=== PATIENT | female | born 1985 | race Caucasian/White ===

== ENCOUNTER 2016-04-25 10:07 | Emergency (ER) | payer OTHER ==
--- NOTE | 2016-04-25 10:59 | ED ---
URI HPI - General Chief Complaint: Upper Respiratory Infection Stated Complaint: SICK, COUGHING Time Seen by Provider: 04/25/16 10:54 Source: patient, RN notes reviewed Mode of arrival: ambulatory Limitations: no limitations - History of Present Illness Initial Comments: 30-year-old female presents emergency Department with chief complaint of cough and congestion times one week. Patient states child a slight runny nose states that she has a severe cough now. She states she's been trying multiple over-the -counter medications with no relief. Patient states that she has a history of aspiration pneumonia secondary to achalasia. Patient denies any fever, chills. Patient states her chest is very tight and states that she has required multiple breathing treatments in the past. Patient is a daily smoker. - Related Data Home Medications Medication Instructions Recorded Confirmed Beclomethasone Dipropionate [Qvar 1 puff INHALATION RT-BID PRN 09/23/15 04/25/16 40 mcg] Omeprazole [PriLOSEC] 20 mg PO BID PRN 09/23/15 04/25/16 Pregabalin [Lyrica] 75 mg PO BID 09/23/15 04/25/16 Baclofen [Lioresal] 10 mg PO BID 04/25/16 04/25/16 HYDROcodone/APAP 7.5-325MG [[place] 1 tab PO Q6H PRN 04/25/16 04/25/16 7.5-325] Previous Rx's Medication Instructions Recorded Albuterol Nebulized [Ventolin 2.5 mg INHALATION Q4H PRN #25 nebu 04/25/16 Nebulized] Levofloxacin [Levaquin] 500 mg PO DAILY #10 tab 04/25/16 Promethaz-Cod 6.25-10 mg/5 ml 5 ml PO Q6HR PRN #120 ml 04/25/16 [Phenergan with Codeine] methylPREDNISolone [Medrol Dose 4 mg PO DIRECTED #1 pack 04/25/16 Pack] Allergies Allergy/AdvReac Type Severity Reaction Status Date / Time NSAIDS (Non-Steroidal Allergy Dyspnea Verified 04/25/16 11:19 Anti-Inflamma Sulfa (Sulfonamide Allergy Rash/Hives Verified 04/25/16 11:19 Antibiotics) Review of Systems ROS Statement: Those systems with pertinent positive or pertinent negative responses have been documented in the HPI. ROS Other: All systems not noted in ROS Statement are negative. Past Medical History Past Medical History: Fibromyalgia Additional Past Medical History / Comment(s): hypoglycemia, cyst on kidney, DJD , carpel tunnel, PT STATED HAS"ACHALASIA" History of Any Multi-Drug Resistant Organisms: None Reported Past Surgical History: Appendectomy, Section, Orthopedic Surgery, Tubal Ligation Additional Past Surgical History / Comment(s): c section x 3, EGD. Past Anesthesia/Blood Transfusion Reactions: Motion Sickness Past Psychological History: ADD/ADHD, Anxiety, Bipolar, Depression, PTSD Additional Psychological History / Comment(s): History of paranoia. Patient is currently open with [facility]. PT STAED OCC DEPRESSION ,NO THOUGHTS OF HARMING SELF,NO SUICIDAL IDEATIONS. Smoking Status: Current every day smoker Past Alcohol Use History: Occasional Additional Past Alcohol Use History / Comment(s): Patient is a smoker of a half a pack of cigarettes per day for 12 years. She states she occasionally uses marijuana. She denies any street drug use. She states she also occasionally uses alcohol. Past Drug Use History: Marijuana Additional Drug Use History / Comment(s): Infrequent, occasional use. - Past Family History Father Family Medical History: Hyperlipidemia, Hypertension Mother Family Medical History: Fibromyalgia Additional Family Medical History / Comment(s): HIATAL HERNIA OSTEOPSORIS, DDD General Exam Limitations: no limitations General appearance: alert, in no apparent distress Head exam: Present: atraumatic, normocephalic, normal inspection Eye exam: Present: normal appearance, PERRL, EOMI. Absent: scleral icterus, conjunctival injection, periorbital swelling ENT exam: Present: normal exam, normal oropharynx, mucous membranes moist, TM's normal bilaterally, normal external ear exam Neck exam: Present: normal inspection, full ROM. Absent: tenderness, meningismus, lymphadenopathy Respiratory exam: Present: wheezes. Absent: normal lung sounds bilaterally, respiratory distress, rales, rhonchi, stridor, accessory muscle use Cardiovascular Exam: Present: regular rate, normal rhythm, normal heart sounds. Absent: systolic murmur, diastolic murmur, rubs, gallop, clicks Course Vital Signs 04/25/16 04/25/16 04/25/16 10:41 11:25 11:43 Temperature 98.8 F Pulse Rate 80 76 88 Respiratory 16 Rate Blood Pressure 132/78 O2 Sat by Pulse 94 L Oximetry Medical Decision Making - Medical Decision Making 30-year-old female presented for cough congestion. Patient is just the much improved after breathing treatment. Patient still has some wheezing. I offered another breathing treatment though she states that she can do it at home. She states she does feel can't what this time going home chest x-ray show no acute abnormality. Return parameters were discussed. Patient was going to be discharged with azithromycin though she states that she took one within 3 weeks ago and which are and [employer] not cover another one. Patient will be given Levaquin at this time. Disposition Clinical Impression: Acute bronchitis with bronchospasm, History of aspiration pneumonia Disposition: HOME SELF-CARE Condition: Stable Instructions: Acute Bronchitis (ED) Additional Instructions: Please return to the Emergency Department if symptoms worsen or any other concerns. Prescriptions: Albuterol Nebulized [Ventolin Nebulized] 2.5 mg INHALATION Q4H PRN #25 nebu PRN Reason: difficulty in breathing Levofloxacin [Levaquin] 500 mg PO DAILY #10 tab Promethaz-Cod 6.25-10 mg/5 ml [Phenergan with Codeine] 5 ml PO Q6HR PRN #120 ml PRN Reason: Cough methylPREDNISolone [Medrol Dose Pack] 4 mg PO DIRECTED #1 pack Time of Disposition: 12:18
[2016-04-25] MEDS: IPRATROPIUM-ALBUTEROL 3 ML NEB INHALATION STA (11:25)
--- NOTE | 2016-04-25 12:01 | XR ---
EXAMINATION TYPE: XR chest 2V DATE OF EXAM: 04/25/2016 11:56 AM HISTORY: Cough and fever. REFERENCE: Previous study dated 10/03/2015. FINDINGS: The lungs are clear.. Pleural spaces are clear. Heart size is normal. IMPRESSION: NO ACUTE INTRATHORACIC ABNORMALITY.
[2016-04-25] MEDS: methylPREDNISolone SOD SUCCI 125 MG/2 ML VIAL IM ONE (12:25)
[2016-04-25] MEDS: LEVOFLOXACIN 500 MG TAB PO STA (12:25)
[2016-04-25 12:34] VITALS: BP 129/68; PULSE 87; RESP 18; TEMP 98.3
== END 2016-04-25 12:30 | disposition home or self-care (01) ==
LOC: EC 10:07
DX: J20.9 Acute bronchitis, unspecified (principal); Z87.01 Personal history of pneumonia (recurrent); F17.210 Nicotine dependence, cigarettes, uncomplicated; F12.90 Cannabis use, unspecified, uncomplicated; Z88.2 Allergy status to sulfonamides; Z88.8 Allergy status to other drugs, medicaments and biological substances; Z79.899 Other long term (current) drug therapy; M79.7 Fibromyalgia
CPT/HCPCS: 99283; 96372; 71020; J2930

== ENCOUNTER 2016-08-24 14:47 | Emergency (ER) | payer OTHER ==
[2016-08-24 14:59] VITALS: RESP 16; TEMP 99
[2016-08-24] MEDS ORDERED: PANTOPRAZOLE 40 MG/10 ML VIAL IVP STA (15:41)
[2016-08-24] MEDS ORDERED: ONDANSETRON 4 MG/2 ML VIAL IVP STA (15:41)
[2016-08-24] MEDS ORDERED: HYDROmorphone 1 MG/ML 1 ML SYRINGE IVP STA ×2 (15:41→18:24)
[2016-08-24] MEDS ORDERED: SODIUM CHLORIDE 0.9% 1,000 ML IV STA ×2 (15:41)
--- NOTE | 2016-08-24 15:45 | ED ---
General Adult HPI - General Chief complaint: Abdominal Pain Stated complaint: Abd Pain Time Seen by Provider: 08/24/16 15:25 Source: patient, RN notes reviewed, old records reviewed Mode of arrival: ambulatory Limitations: no limitations - History of Present Illness Initial comments: Chief complaint and history of present illness a 31-year-old female with a complaint of right upper quadrant pain getting worse for the past week. Increases with eating food. She also has had darker urine. Discomfort radiates around to the right flank area. - Related Data Home Medications Medication Instructions Recorded Confirmed HYDROcodone/APAP 7.5-325MG [[place] 1 tab PO TID PRN 04/25/16 08/24/16 7.5-325] Baclofen [Lioresal] 20 mg PO TID 08/24/16 08/24/16 DULoxetine HCL [Cymbalta] 30 mg PO HS 08/24/16 08/24/16 DULoxetine HCL [Cymbalta] 60 mg PO HS 08/24/16 08/24/16 Ketorolac [Toradol] 10 mg PO Q6HR PRN 08/24/16 08/24/16 Previous Rx's Medication Instructions Recorded Ondansetron Odt [Zofran ODT] 4 mg PO Q8HR PRN #10 tab 08/24/16 Allergies Allergy/AdvReac Type Severity Reaction Status Date / Time NSAIDS (Non-Steroidal Allergy Dyspnea Verified 08/24/16 15:23 Anti-Inflamma Sulfa (Sulfonamide Allergy Rash/Hives Verified 08/24/16 15:23 Antibiotics) Review of Systems ROS Statement: Those systems with pertinent positive or pertinent negative responses have been documented in the HPI. Review of systems. No visual acuity changes or headache no chest pain or shortness of breath. Patient is right upper quadrant discomfort that radiates from the right flank area. Pain gets worse with eating foods. She's had nausea and vomiting no diarrhea. She notes that her urine has gotten darker in color. Stool has not changed in color. No neuro deficits all systems are reviewed. Past medical problems significant for fibromyalgia, achalasia, hypoglycemia, kidney cysts. Patient surgeries include appendectomy, 3 C-sections, tubal ligation, and EGD. The patient had surgery to correct the achalasia. Patient smokes strongly encouraged to stop she does drink alcohol. Patient denies any significant family medical problems. She is chronic DJD and on [place] daily. Other medical problems include ADHD anxiety bipolar disorder and PTSD. ROS Other: All systems not noted in ROS Statement are negative. Past Medical History Past Medical History: Fibromyalgia Additional Past Medical History / Comment(s): hypoglycemia, cyst on kidney, DJD , carpel tunnel, PT STATED HAS"ACHALASIA" History of Any Multi-Drug Resistant Organisms: None Reported Past Surgical History: Appendectomy, Section, Orthopedic Surgery, Tubal Ligation Additional Past Surgical History / Comment(s): c section x 3, EGD. Past Anesthesia/Blood Transfusion Reactions: Motion Sickness Past Psychological History: ADD/ADHD, Anxiety, Bipolar, Depression, PTSD Additional Psychological History / Comment(s): History of paranoia. Patient is currently open with [facility]. PT STAED OCC DEPRESSION ,NO THOUGHTS OF HARMING SELF,NO SUICIDAL IDEATIONS. Smoking Status: Current every day smoker Past Alcohol Use History: Occasional Additional Past Alcohol Use History / Comment(s): Patient is a smoker of a half a pack of cigarettes per day for 12 years. She states she occasionally uses marijuana. She denies any street drug use. She states she also occasionally uses alcohol. Past Drug Use History: Marijuana Additional Drug Use History / Comment(s): Infrequent, occasional use. - Past Family History Father Family Medical History: Hyperlipidemia, Hypertension Mother Family Medical History: Fibromyalgia Additional Family Medical History / Comment(s): HIATAL HERNIA OSTEOPSORIS, DDD General Exam - General Exam Comments Initial Comments: General: The patient is awake and alert, complaining of right upper quadrant pain. Nausea vomiting at times. Vital signs shows temperature 99.0 pulse 86 respiratory rate 16 pulse ox 99% room air blood pressure 146/86 Eye: Pupils are equal, round and reactive to light, extra-ocular movements are intact ; there is normal conjunctiva bilaterally. No signs of icterus. Ears, nose, mouth and throat: There are moist mucous membranes and no oral lesions. Neck: The neck is supple, there is no tenderness , no anterior cervical lymphadenopathy, thyroid not enlarged. Cardiovascular: There is a regular rate and rhythm. No murmur, rub or gallop is appreciated. Respiratory: Lungs are clear to auscultation, respirations are non-labored, breath sounds are equal. No wheezes, stridor, rales, or rhonchi. Gastrointestinal: Tenderness to deep palpation right upper quadrant with positive Manrique sign. No organomegaly appreciated no rashes noted. Normal active bowel sounds. Back: There is no tenderness to palpation in the midline. There is no obvious deformity. No rashes noted. Musculoskeletal: Normal ROM, no tenderness, There is no pedal edema. There is no calf tenderness or swelling. Sensation intact. Pulses equal bilaterally 2+. Neurological: CN II-XII intact, There are no obvious motor or sensory deficits. Coordination appears grossly intact. Speech is normal. Skin: Skin is warm and dry and no rashes or lesions are noted. Patient does have several tattoos. Psychiatric: No complaints of depression or suicidal thoughts this time. She does have history of bipolar disorder and PTSD. Limitations: no limitations Course Vital Signs 08/24/16 14:55 Temperature 99.0 F Pulse Rate 86 Respiratory 16 Rate Blood Pressure 146/86 O2 Sat by Pulse 99 Oximetry Medical Decision Making - Medical Decision Making Medical decision making; patient's white count is 9.3 hemoglobin 13 hematocrit of 40, potassium is 3.9, BUN 10 creatinine 0.7 with a GFR greater than 60. Glucose 83. Amylase lipase normal limits. Total bilirubin normal at 0.4 and liver enzymes are all normal. Urine clean no signs of infection. X-ray of the abdomen was done and reviewed by radiologist's his final impression is nonspecific abdomen. As read by Dr. Waller Patient had an ultrasound of the right upper quadrant. And his final impression would be unremarkable sonographic examination of the right upper quadrant. As read by Dr. Zuñiga At this time the patient be discharged home told not eating any greasy or fatty foods. HIDA scan will be ordered for evaluation of a nonfunctioning or poorly functioning gallbladder, patient advised to follow-up with her family physician. Patient is stable from greasy fatty foods. Use Zofran for nausea and advance diet. - Lab Data Result diagrams: 08/24/16 16:00 08/24/16 16:00 Lab Results 08/24/16 08/24/16 08/24/16 Range/Units 16:00 16:00 16:00 WBC 9.3 (3.8-10.6) k/uL RBC 4.42 (3.80-5.40) m/uL Hgb 13.2 (11.4-16.0) gm/dL Hct 40.4 (34.0-46.0) % MCV 91.4 (80.0-100.0) fL MCH 29.8 (25.0-35.0) pg MCHC 32.6 (31.0-37.0) g/dL RDW 14.2 (11.5-15.5) % Plt Count 254 (150-450) k/uL Neutrophils % 66 % Lymphocytes % 23 % Monocytes % 4 % Eosinophils % 4 % Basophils % 1 % Neutrophils # 6.1 (1.3-7.7) k/uL Lymphocytes # 2.2 (1.0-4.8) k/uL Monocytes # 0.4 (0-1.0) k/uL Eosinophils # 0.3 (0-0.7) k/uL Basophils # 0.1 (0-0.2) k/uL Sodium 140 (137-145) mmol/L Potassium 3.9 (3.5-5.1) mmol/L Chloride 107 (98-107) mmol/L Carbon Dioxide 25 (22-30) mmol/L Anion Gap 8 mmol/L BUN 10 (7-17) mg/dL Creatinine 0.71 (0.52-1.04) mg/dL Est GFR (MDRD) Af Amer >60 (>60 ml/min/1.73 sqM) Est GFR (MDRD) Non-Af >60 (>60 ml/min/1.73 sqM) Glucose 83 (74-99) mg/dL Calcium 9.1 (8.4-10.2) mg/dL Total Bilirubin 0.4 (0.2-1.3) mg/dL AST 19 (14-36) U/L ALT 19 (9-52) U/L Alkaline Phosphatase 68 (38-126) U/L Total Protein 6.6 (6.3-8.2) g/dL Albumin 3.7 (3.5-5.0) g/dL Amylase 46 (30-110) U/L Lipase 29 (23-300) U/L Urine Color Yellow Urine Appearance Cloudy H (Clear) Urine pH 5.5 (5.0-8.0) Ur Specific [place] 1.022 (1.001-1.035) Urine Protein Trace H (Negative) Urine Glucose (UA) Negative (Negative) Urine Ketones Negative (Negative) Urine Blood Negative (Negative) Urine Nitrite Negative (Negative) Urine Bilirubin Negative (Negative) Urine Urobilinogen 3.0 (<2.0) mg/dL Ur Leukocyte Esterase Negative (Negative) Urine RBC 2 (0-5) /hpf Urine WBC 1 (0-5) /hpf Ur Squamous Epith Cells 7 H (0-4) /hpf Urine Bacteria Few H (None) /hpf Urine Mucus Many H (None) /hpf Disposition Clinical Impression: Biliary colic symptom Disposition: HOME SELF-CARE Condition: Fair Instructions: Abdominal Pain (ED), Biliary Colic (ED) Additional Instructions: Stay away from greasy fatty foods. Call and make an appointment to have a HIDA scan of the gallbladder and follow-up with her family physician. Use Zofran for nausea. Continue with pain medications as directed Prescriptions: Ondansetron Odt [Zofran ODT] 4 mg PO Q8HR PRN #10 tab PRN Reason: Nausea Referrals: Jun Hermosillo MD [Primary Care Provider] - 1-2 days Time of Disposition: 18:17
[2016-08-24] MEDS ORDERED: METOCLOPRAMIDE 5 MG/ML 2 ML VIAL IVP STA (15:56)
[2016-08-24 16:16] LABS: Basophils # (A) 0.1 k/uL (0-0.2); Basophils % (A) 1 %; CH 29.5; CHCM 32.4; Eosinophils # (A) 0.3 k/uL (0-0.7); Eosinophils % (A) 4 %; HCT 40.4 % (34.0-46.0); HDW 2.54; HGB 13.2 gm/dL (11.4-16.0); Luc # (Auto) 0.23; Luc % (Auto) 3; Lymphocytes # (A) 2.2 k/uL (1.0-4.8); Lymphocytes % (A) 23 %; MCH 29.8 pg (25.0-35.0); MCHC 32.6 g/dL (31.0-37.0); MCV 91.4 fL (80.0-100.0); Mean Platelet Volume 7.8; Monocytes # (A) 0.4 k/uL (0-1.0); Monocytes % (A) 4 %; Neutrophils # (A) 6.1 k/uL (1.3-7.7); Neutrophils % (A) 66 %; RBC 4.42 m/uL (3.80-5.40); RDW 14.2 % (11.5-15.5); WBC 9.3 k/uL (3.8-10.6)
[2016-08-24 16:26] LABS: ALT 19 U/L (9-52); AST 19 U/L (14-36); Alkaline Phosphatase 68 U/L (38-126); Amylase 46 U/L (30-110); Anion Gap 8 mmol/L; Blood Urea Nitrogen 10 mg/dL (7-17); Calcium 9.1 mg/dL (8.4-10.2); Carbon Dioxide 25 mmol/L (22-30); Chloride 107 mmol/L (98-107); Glucose 83 mg/dL (74-99); Non-African American GFR(MDRD) >60 (>60 ml/min/1.73 sqM); Potassium 3.9 mmol/L (3.5-5.1); Sodium 140 mmol/L (137-145); Total Bilirubin 0.4 mg/dL (0.2-1.3); Total Protein 6.6 g/dL (6.3-8.2)
[2016-08-24 16:27] LABS: Appearance,Urine Cloudy (Clear); Bacteria,Urine Few /hpf; Bilirubin,Urine Negative (Negative); Glucose,Urine (UA) Negative (Negative); Ketones,Urine Negative (Negative); Leukocyte Esterase,Urine Negative (Negative); Mucus,Urine Many /hpf; Nitrite,Urine Negative (Negative); PH, Urine 5.5 (5.0-8.0); Particle Count 10296; Protein,Urine Trace (Negative); RBC,Urine 2 /hpf (0-5); Specific Gravity,Urine 1.022 (1.001-1.035); Squamous Epithelial Cell,Urine 7 /hpf (0-4); UA Billing (MACRO vs. MICRO) MICRO; WBC,Urine 1 /hpf (0-5)
--- NOTE | 2016-08-24 17:07 | XR ---
EXAMINATION TYPE: XR abdomen 2V DATE OF EXAM: 08/24/2016 4:27 PM COMPARISON: NONE INDICATION: Epigastric pain nausea vomiting diarrhea TECHNIQUE: Supine and upright views abdomen FINDINGS: Nonspecific bowel gas is present. Small amount of Air appears to be within the colon. No suspicious a ir-fluid levels or differential air-fluid levels are present. No free air is present. Psoas margins are faintly visualized. No organomegaly is present. IMPRESSION: 1. Nonspecific abdomen.
--- NOTE | 2016-08-24 17:23 | US ---
EXAMINATION TYPE: US abdomen limited DATE OF EXAM: 08/24/2016 5:08 PM COMPARISON: 09/23/2015 CLINICAL HISTORY: 31-year-old female with right upper quadrant pain. Technique: Multiple sonographic images of the right upper quadrant are obtained. FINDINGS: Liver Length: 13.6 cm Gallbladder Wall: 0.2 cm CBD: 4.9 mm, within normal limits. Right Kidney: 10.4 x 3.7 x 5.6 cm Pancreas: Slightly limited visualization of the pancreatic tail. The remainder appears within normal limits. Liver: Normal homogeneous echotexture without focal lesion. Gallbladder: No abnormal distention, wall thickening, pericholecystic fluid, or shadowing calculi. Evidence for sonographic Manrique's sign: no CBD: wnl Right Kidney: No hydronephrosis IMPRESSION: Unremarkable sonographic examination of the right upper quadrant.
[2016-08-24 18:50] VITALS: BP 162/91; PULSE 83
== END 2016-08-24 18:48 | disposition home or self-care (01) ==
LOC: EC 14:47
DX: R10.11 Right upper quadrant pain (principal); R11.0 Nausea; M79.7 Fibromyalgia; F41.9 Anxiety disorder, unspecified; F31.9 Bipolar disorder, unspecified; F17.210 Nicotine dependence, cigarettes, uncomplicated; Z79.899 Other long term (current) drug therapy; Z88.6 Allergy status to analgesic agent; Z88.2 Allergy status to sulfonamides; Z87.19 Personal history of other diseases of the digestive system; Z90.49 Acquired absence of other specified parts of digestive tract
CPT/HCPCS: 99285; 96374; 96375 ×2; 96376; 36415; 80053; 82150; 83690; 85025; 81001; 87086; 74020; 76705; J2765; J1170; C9113

== ENCOUNTER 2016-11-04 21:09 | Emergency (ER) | payer OTHER ==
[2016-11-04 21:14] VITALS: TEMP 98.2
[2016-11-04] MEDS ORDERED: HYDROcodone/APAP 5-325MG 1 EACH TAB PO STA (21:20)
--- NOTE | 2016-11-04 21:26 | ED ---
Wound/Laceration HPI - General Chief Complaint: Wound/Laceration Stated Complaint: finger injury Time Seen by Provider: 11/04/16 21:15 Source: patient Mode of arrival: ambulatory Limitations: no limitations - History of Present Illness Initial Comments: 31-year-old female patient presented to emergency department today for evaluation of right finger and hand injury. 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 She states that the dog drug her, she did fall forward the leash caught on her hand, and it caused an injury to the right hand, right fourth finger, and right fifth finger. Patient states that she did also sustain some bruises to her leg, but denies any other injuries. She denies hitting her head or losing consciousness. She denies any headache, neck pain, back pain, chest pain, shortness of breath, abdominal pain , nausea, or vomiting. Patient's last tetanus shot was in October 2012. - Related Data Home Medications Medication Instructions Recorded Confirmed HYDROcodone/APAP 7.5-325MG [[place] 1 tab PO TID PRN 04/25/16 08/24/16 7.5-325] Baclofen [Lioresal] 20 mg PO TID 08/24/16 08/24/16 DULoxetine HCL [Cymbalta] 30 mg PO HS 08/24/16 08/24/16 DULoxetine HCL [Cymbalta] 60 mg PO HS 08/24/16 08/24/16 Ketorolac [Toradol] 10 mg PO Q6HR PRN 08/24/16 08/24/16 Previous Rx's Medication Instructions Recorded Metoclopramide HCl [Reglan] 5 mg PO Q8H #10 tablet 08/24/16 Ondansetron Odt [Zofran ODT] 4 mg PO Q8HR PRN #10 tab 08/24/16 Allergies Allergy/AdvReac Type Severity Reaction Status Date / Time NSAIDS (Non-Steroidal Allergy Dyspnea Verified 11/04/16 21:14 Anti-Inflamma Sulfa (Sulfonamide Allergy Rash/Hives Verified 11/04/16 21:14 Antibiotics) Review of Systems ROS Statement: Those systems with pertinent positive or pertinent negative responses have been documented in the HPI. ROS Other: All systems not noted in ROS Statement are negative. Past Medical History Past Medical History: Fibromyalgia Additional Past Medical History / Comment(s): hypoglycemia, cyst on kidney, DJD , carpel tunnel, PT STATED HAS"ACHALASIA" History of Any Multi-Drug Resistant Organisms: None Reported Past Surgical History: Appendectomy, Section, Orthopedic Surgery, Tubal Ligation Additional Past Surgical History / Comment(s): c section x 3, EGD. Past Anesthesia/Blood Transfusion Reactions: Motion Sickness Past Psychological History: ADD/ADHD, Anxiety, Bipolar, Depression, PTSD Smoking Status: Current every day smoker Past Alcohol Use History: Occasional Past Drug Use History: Marijuana - Past Family History Father Family Medical History: Hyperlipidemia, Hypertension Mother Family Medical History: Fibromyalgia Additional Family Medical History / Comment(s): HIATAL HERNIA OSTEOPSORIS, DDD General Exam Limitations: no limitations General appearance: alert, in no apparent distress Head exam: Present: atraumatic, normocephalic, normal inspection Eye exam: Present: normal appearance, PERRL, EOMI. Absent: scleral icterus, conjunctival injection, periorbital swelling ENT exam: Present: normal exam, mucous membranes moist Neck exam: Present: normal inspection, full ROM. Absent: tenderness, meningismus, lymphadenopathy Respiratory exam: Present: normal lung sounds bilaterally. Absent: respiratory distress, wheezes, rales, rhonchi, stridor Cardiovascular Exam: Present: regular rate, normal rhythm, normal heart sounds. Absent: systolic murmur, diastolic murmur, rubs, gallop, clicks GI/Abdominal exam: Present: soft, normal bowel sounds. Absent: distended, tenderness, guarding, rebound, rigid Extremities exam: Absent: normal inspection (Small area of bruising noted to the left anterior thigh, small area of bruising noted to the volar aspect of the right forearm. Swelling and laceration noted to the palmar aspect of the distal right fourth finger.) Back exam: Present: normal inspection Neurological exam: Present: alert, oriented X3, CN II-XII intact Psychiatric exam: Present: normal affect, normal mood Skin exam: Present: warm, dry, intact, normal color. Absent: rash Course Vital Signs 11/04/16 21:11 Temperature 98.2 F Pulse Rate 107 H Respiratory 22 Rate Blood Pressure 185/108 O2 Sat by Pulse 100 Oximetry Procedures - Laceration Laceration #1 Consent Obtained: verbal consent Time Out Performed: Yes Indication: laceration Site: other (right ring finger) Description: flap, irregular, clean Depth: simple, single layer Anesthetic Used: lidocaine 1% Anesthesia Technique: local infiltration Amount (mls): 3 Pre-repair: wound explored, irrigated extensively Type of Sutures: nylon Size of Sutures: 5-0 Technique: simple, interrupted Complications: pain Patient Tolerated Procedure: well, no complications Medical Decision Making - Medical Decision Making History of female patient presents to emergency department today for evaluation of right hand and finger injury after a fall. She denied any other injuries and physical exam was unremarkable other than her hand and finger. X-ray of the hand and fingers revealed no acute osseous abnormalities. Laceration to the right fourth finger was repaired. Patient did not require tetanus shot. Patient will be discharged home with instructions on wound care and suture care. Patient instructed to follow-up with orthopedics of her symptoms don't improve over the next 7-10 days. Patient also instructed to follow-up for recheck in one to 2 days with her primary care doctor. Patient instructed to return for any new, worsening, or concerning symptoms. Patient verbalizes understanding and agrees with this plan. - Radiology Data Radiology results: report reviewed, image reviewed Three-view x-ray of the right hand reveals no fracture nor dislocation. Joint spaces are normal. There is some laceration deformity at the tip of the ring finger. Impression by Dr. Hartmann reveals soft tissue deformity. No fracture seen. Disposition Clinical Impression: Finger laceration, Hand sprain Disposition: HOME SELF-CARE Condition: Good Instructions: Care For Your Stitches (ED), Laceration (ED), Hand Sprain (ED) Additional Instructions: Return for suture removal in 7 days. Use Sunil wrap for comfort. Wear finger splint for protection. Follow-up with primary care physician one to 2 days for recheck. Return for any new, worsening, or concerning symptoms. Referrals: Jun Hermosillo MD [Primary Care Provider] - 1-2 days Frederick Bell DO [Doctor of Osteopathic Medicine] - 1-2 days Time of Disposition: 22:36
--- NOTE | 2016-11-04 21:41 | XR ---
EXAMINATION TYPE: XR hand complete RT DATE OF EXAM: 11/04/2016 COMPARISON: NONE HISTORY: Pain and injury TECHNIQUE: 3 views FINDINGS: I see no fracture nor dislocation. Joint spaces are normal. There is some laceration deform ity at the tip of the ring finger. IMPRESSION: Soft tissue deformity. No fracture seen.
[2016-11-04 22:46] VITALS: BP 145/90; PULSE 80; RESP 18
== END 2016-11-04 22:46 | disposition home or self-care (01) ==
LOC: EC 21:09
DX: S61.214A Laceration without foreign body of right ring finger without damage to nail, initial encounter (principal); S63.91XA Sprain of unspecified part of right wrist and hand, initial encounter; F32.9 Major depressive disorder, single episode, unspecified; M79.7 Fibromyalgia; F17.200 Nicotine dependence, unspecified, uncomplicated; F41.9 Anxiety disorder, unspecified; Z79.899 Other long term (current) drug therapy; Z88.2 Allergy status to sulfonamides; Z88.6 Allergy status to analgesic agent; W26.8XXA Contact with other sharp object(s), not elsewhere classified, initial encounter; W18.39XA Other fall on same level, initial encounter; Y93.K1 Activity, walking an animal; Y92.89 Other specified places as the place of occurrence of the external cause
CPT/HCPCS: 12001; 99283

== ENCOUNTER 2017-08-26 04:24 | Emergency (ER) | payer OTHER ==
[2017-08-26 04:40] VITALS: RESP 18
--- NOTE | 2017-08-26 05:03 | ED ---
General Adult HPI - General Chief complaint: Psychiatric Symptoms Stated complaint: Mental health Time Seen by Provider: 08/26/17 04:52 Source: patient, EMS, RN notes reviewed, old records reviewed Mode of arrival: EMS Limitations: no limitations - History of Present Illness Initial comments: This is a 32-year-old female the ER for evaluation of psychiatric illness. Patient has known long history of psychiatric disease. Patient attempted to cut hisshe does have a history of cutting. Multiple admissions for psychiatric evaluation and treatment. - Related Data Home Medications Medication Instructions Recorded Confirmed [place]/APAP/Caf/Cod [id number] 1 - 2 cap PO Q4H 05/09/17 05/09/17 [Fioricet w/Cod [id number]] Hydrocodone/Acetaminophen [[place] 1 tab PO Q6H PRN 05/09/17 05/09/17 10-325] Allergies Allergy/AdvReac Type Severity Reaction Status Date / Time NSAIDS (Non-Steroidal Allergy Dyspnea Verified 05/09/17 09:59 Anti-Inflamma Sulfa (Sulfonamide Allergy Rash/Hives Verified 05/09/17 09:59 Antibiotics) Review of Systems ROS Statement: Those systems with pertinent positive or pertinent negative responses have been documented in the HPI. ROS Other: All systems not noted in ROS Statement are negative. Past Medical History Past Medical History: Fibromyalgia Additional Past Medical History / Comment(s): hypoglycemia, cyst on kidney, DJD , carpel tunnel, PT STATED HAS"ACHALASIA" History of Any Multi-Drug Resistant Organisms: None Reported Past Surgical History: Appendectomy, Section, Orthopedic Surgery, Tubal Ligation Additional Past Surgical History / Comment(s): c section x 3, EGD. Past Anesthesia/Blood Transfusion Reactions: Motion Sickness Past Psychological History: ADD/ADHD, Anxiety, Bipolar, Depression, PTSD Smoking Status: Current every day smoker Past Alcohol Use History: Occasional Past Drug Use History: Marijuana - Past Family History Father Family Medical History: Hyperlipidemia, Hypertension Mother Family Medical History: Fibromyalgia Additional Family Medical History / Comment(s): HIATAL HERNIA OSTEOPSORIS, DDD General Exam Limitations: no limitations General appearance: alert, anxious Head exam: Present: atraumatic, normocephalic, normal inspection Eye exam: Present: normal appearance, PERRL, EOMI. Absent: scleral icterus, conjunctival injection, periorbital swelling ENT exam: Present: normal exam, mucous membranes moist Neck exam: Present: normal inspection. Absent: tenderness, meningismus, lymphadenopathy Respiratory exam: Present: normal lung sounds bilaterally. Absent: respiratory distress, wheezes, rales, rhonchi, stridor Cardiovascular Exam: Present: regular rate, normal rhythm, normal heart sounds. Absent: systolic murmur, diastolic murmur, rubs, gallop, clicks GI/Abdominal exam: Present: soft, normal bowel sounds. Absent: distended, tenderness, guarding, rebound, rigid Extremities exam: Present: normal inspection, full ROM, normal capillary refill. Absent: tenderness, pedal edema, joint swelling, calf tenderness Back exam: Present: normal inspection Neurological exam: Present: alert, oriented X3, CN II-XII intact Psychiatric exam: Present: agitated, anxious Skin exam: Present: warm, dry, intact, normal color. Absent: rash Course Vital Signs 08/26/17 04:35 Temperature 99.1 F Pulse Rate 64 Respiratory 18 Rate Blood Pressure 155/97 O2 Sat by Pulse 96 Oximetry - Reevaluation(s) Reevaluation #1: 08/26/17 05:37 Medically clear for psychiatric evaluation Medical Decision Making - Medical Decision Making 32 female the ER for evaluation, severe anxiety, patient brought in by mom for mental health evaluation, patient is seen evaluated by psychiatry here in the ER and deemed safe for discharge home Disposition Clinical Impression: Depression, Acute anxiety Disposition: HOME SELF-CARE Condition: Good Instructions: Anxiety (ED) Is patient prescribed a controlled substance at d/c from ED?: No Referrals: Frederick Harry DO [Primary Care Provider] - 1-2 days
[2017-08-26] MEDS ORDERED: LORazepam 1 MG TAB PO STA (05:32)
[2017-08-26 07:29] VITALS: BP 157/97; PULSE 77; TEMP 98.2
== END 2017-08-26 06:40 | disposition home or self-care (01) ==
LOC: EC 04:24
DX: F32.9 Major depressive disorder, single episode, unspecified (principal); F41.9 Anxiety disorder, unspecified; M79.7 Fibromyalgia; F17.200 Nicotine dependence, unspecified, uncomplicated; Z79.899 Other long term (current) drug therapy; Z88.2 Allergy status to sulfonamides; Z88.6 Allergy status to analgesic agent
CPT/HCPCS: 82075; 99285

== ENCOUNTER 2017-11-03 21:58 | Emergency (ER) | payer OTHER ==
--- NOTE | 2017-11-03 23:21 | ED ---
General Adult HPI - General Chief complaint: Psychiatric Symptoms Stated complaint: Mental Health Time Seen by Provider: 11/03/17 22:51 Source: patient, RN notes reviewed Mode of arrival: ambulatory Limitations: no limitations - History of Present Illness Initial comments: Patient is a pleasant 32-year-old female presenting to the emergency department for mental health evaluation. Patient states she called the police because her now "ex-boyfriend" was smoking crack around her child. Patient states the police thought she was acting abnormal and brought her in for mental health evaluation. Patient denies suicidal or homicidal thoughts. Patient states she feels worthless because they just broke up and now she is in the hospital. Patient however denies any suicidal thoughts or statements. Patient did state that she never wants to see her ex-boyfriend again. No physical complaints. Patient has chronic cough that is unchanged. Patient did have some alcohol around noon today. No street drug use. - Related Data Home Medications Medication Instructions Recorded Confirmed Hydrocodone/Acetaminophen [[place] 1 tab PO Q6H PRN 05/09/17 11/03/17 10-325] Butalb/APAP/Caff 50-325-40Mg 1 tab PO DAILY PRN 11/03/17 11/03/17 [Fioricet 50-325-40] Cetirizine HCl [Zyrtec] 10 mg PO HS 11/03/17 11/03/17 Citalopram Hydrobromide [CeleXA] 40 mg PO HS 11/03/17 11/03/17 Propranolol HCl 80 mg PO HS 11/03/17 11/03/17 Allergies Allergy/AdvReac Type Severity Reaction Status Date / Time NSAIDS (Non-Steroidal Allergy Dyspnea Verified 11/03/17 23:03 Anti-Inflamma Sulfa (Sulfonamide Allergy Rash/Hives Verified 11/03/17 23:03 Antibiotics) Review of Systems ROS Statement: Those systems with pertinent positive or pertinent negative responses have been documented in the HPI. ROS Other: All systems not noted in ROS Statement are negative. Constitutional: Denies: fever Eyes: Denies: eye pain ENT: Denies: ear pain Respiratory: Reports: cough (Chronic and unchanged) Cardiovascular: Denies: chest pain Endocrine: Denies: fatigue Gastrointestinal: Denies: abdominal pain Genitourinary: Denies: dysuria Musculoskeletal: Denies: back pain Skin: Denies: rash Neurological: Denies: weakness Past Medical History Past Medical History: Fibromyalgia Additional Past Medical History / Comment(s): hypoglycemia, cyst on kidney, DJD , carpel tunnel, PT STATED HAS"ACHALASIA" History of Any Multi-Drug Resistant Organisms: None Reported Past Surgical History: Appendectomy, Section, Orthopedic Surgery, Tubal Ligation Additional Past Surgical History / Comment(s): c section x 3, EGD. Past Anesthesia/Blood Transfusion Reactions: Motion Sickness Past Psychological History: ADD/ADHD, Anxiety, Bipolar, Depression, PTSD Smoking Status: Current every day smoker Past Alcohol Use History: Occasional Past Drug Use History: Marijuana - Past Family History Father Family Medical History: Hyperlipidemia, Hypertension Mother Family Medical History: Fibromyalgia Additional Family Medical History / Comment(s): HIATAL HERNIA OSTEOPSORIS, DDD General Exam Limitations: no limitations General appearance: alert, in no apparent distress Head exam: Present: atraumatic Eye exam: Present: normal appearance, PERRL ENT exam: Present: normal oropharynx Neck exam: Present: normal inspection Respiratory exam: Present: normal lung sounds bilaterally Cardiovascular Exam: Present: regular rate, normal rhythm GI/Abdominal exam: Present: soft. Absent: tenderness Extremities exam: Present: normal inspection Neurological exam: Present: alert Psychiatric exam: Present: normal affect, normal mood Skin exam: Present: normal color Course Vital Signs 11/03/17 22:39 Temperature 98.2 F Pulse Rate 87 Respiratory 20 Rate Blood Pressure 123/87 O2 Sat by Pulse 98 Oximetry Medical Decision Making - Medical Decision Making Patient reevaluated and resting comfortably in bed. Patient was seen by mental services who does recommend discharge. Patient updated. - Lab Data Lab Results 11/03/17 Range/Units 23:49 Urine Opiates Screen Not Detected (NotDetected) Ur Oxycodone Screen Not Detected (NotDetected) Urine Methadone Screen Not Detected (NotDetected) Ur Propoxyphene Screen Not Detected (NotDetected) Ur Barbiturates Screen Detected H (NotDetected) U Tricyclic Antidepress Not Detected (NotDetected) Ur Phencyclidine Scrn Not Detected (NotDetected) Ur Amphetamines Screen Not Detected (NotDetected) U Methamphetamines Scrn Not Detected (NotDetected) U Benzodiazepines Scrn Not Detected (NotDetected) Urine Cocaine Screen Detected H (NotDetected) U Marijuana (THC) Screen Detected H (NotDetected) - Radiology Data Radiology results: image reviewed (Chest x-ray and right hand x-ray shows no acute process.) Disposition Clinical Impression: Mental health problem Disposition: HOME SELF-CARE Condition: Stable Instructions: Depression (ED) Additional Instructions: Please follow-up with primary care physician in the next day or 2 for recheck. Return for thoughts of self-harm, worsening symptoms or other concerns. Is patient prescribed a controlled substance at d/c from ED?: No Referrals: Frederick Harry DO [Primary Care Provider] - 1-2 days Time of Disposition: 03:35
[2017-11-04 00:16] LABS: Amphetamine Screen,Urine Not Detected (NotDetected); Barbiturate Screen,Urine Detected (NotDetected); Benzodiazepines Screen,Urine Not Detected (NotDetected); Cocaine Screen,Urine Detected (NotDetected); Methadone Screen, Urine Not Detected (NotDetected); Opiate Screen,Urine Not Detected (NotDetected); Oxycodone Screen, Urine Not Detected (NotDetected); Phencyclidine Screen,Urine Not Detected (NotDetected); Tricyclic Antidepressant,Urine Not Detected (NotDetected); Urn Cannabinoid Scrn Detected (NotDetected)
--- NOTE | 2017-11-04 03:16 | XR ---
EXAMINATION TYPE: XR chest 2V DATE OF EXAM: 11/04/2017 COMPARISON: 04/25/2016 HISTORY: Cough TECHNIQUE: Frontal and lateral views of the chest are obtained. FINDINGS: Heart and mediastinum are normal. There is some pulmonary hyperinflation. Lungs are clear of infiltrate. There is no pleural effusion. Bony thorax is intact. IMPRESSION: There is probably some COPD. No acute lung disease. No change.
--- NOTE | 2017-11-04 03:18 | XR ---
EXAMINATION TYPE: XR hand complete RT DATE OF EXAM: 11/04/2017 COMPARISON: 11/04/2016 HISTORY: Pain TECHNIQUE: 3 views FINDINGS: I see no fracture nor dislocation. Joint spaces are normal. Soft tissues appear normal. IMPRESSION: Negative right hand exam.
[2017-11-04] MEDS ORDERED: ACETAMINOPHEN TAB 325 MG TAB PO STA (03:37)
[2017-11-04 03:54] VITALS: BP 136/74; PULSE 73; RESP 16; TEMP 98.8
== END 2017-11-04 04:47 | disposition home or self-care (01) ==
LOC: SUPCPDRO 21:58 → EC 21:58
DX: Z00.8 Encounter for other general examination (principal); F90.9 Attention-deficit hyperactivity disorder, unspecified type; F31.9 Bipolar disorder, unspecified; F43.10 Post-traumatic stress disorder, unspecified; F17.200 Nicotine dependence, unspecified, uncomplicated; Z79.899 Other long term (current) drug therapy; Z88.2 Allergy status to sulfonamides; Z88.6 Allergy status to analgesic agent
CPT/HCPCS: 71046; 80306; 82075; 99284

== ENCOUNTER 2018-05-23 22:43 | Inpatient (IN) | payer MEDICAID, OTHER ==
[2018-05-23] MEDS ORDERED: LORazepam 2 MG/ML INJ IM STA (22:49)
[2018-05-23] MEDS ORDERED: diphenhydrAMINE 50 MG/ML 1 ML VIAL IM STA (22:51)
[2018-05-23] MEDS ORDERED: HALOPERIDOL LACTATE 5 MG/ML 1 ML VIAL IM STA (22:51)
--- NOTE | 2018-05-23 23:10 | ED ---
Psych HPI - General Stated Complaint: mental health Time Seen by Provider: 05/23/18 22:49 Source: patient, EMS Mode of arrival: EMS - History of Present Illness Initial Comments: Nicolle is a 33-year-old female brought to the ED today via EMS for psychiatric evaluation. Per EMS there contacted after the patient sent a photograph of her cut wrist to her boyfriend who contacted 911. EMS reports the patient was agitated and uncooperative in route to the hospital. Patient denies suicidality and states that she cuts herself to relieve emotional pain. Patient admits to cutting her wrist. - Related Data Home Medications Medication Instructions Recorded Confirmed Hydrocodone/Acetaminophen [[place] 1 tab PO Q6H PRN 05/09/17 11/03/17 10-325] Butalb/APAP/Caff 50-325-40Mg 1 tab PO DAILY PRN 11/03/17 11/03/17 [Fioricet 50-325-40] Cetirizine HCl [Zyrtec] 10 mg PO HS 11/03/17 11/03/17 Citalopram Hydrobromide [CeleXA] 40 mg PO HS 11/03/17 11/03/17 Propranolol HCl 80 mg PO HS 11/03/17 11/03/17 Allergies Allergy/AdvReac Type Severity Reaction Status Date / Time NSAIDS (Non-Steroidal Allergy Dyspnea Verified 11/03/17 23:03 Anti-Inflamma Sulfa (Sulfonamide Allergy Rash/Hives Verified 11/03/17 23:03 Antibiotics) Review of Systems ROS Statement: Those systems with pertinent positive or pertinent negative responses have been documented in the HPI. ROS Other: All systems not noted in ROS Statement are negative. Past Medical History Past Medical History: Fibromyalgia Additional Past Medical History / Comment(s): hypoglycemia, cyst on kidney, DJD , carpel tunnel, PT STATED HAS"ACHALASIA" History of Any Multi-Drug Resistant Organisms: None Reported Past Surgical History: Appendectomy, Section, Orthopedic Surgery, Tubal Ligation Additional Past Surgical History / Comment(s): c section x 3, EGD. Past Anesthesia/Blood Transfusion Reactions: Motion Sickness Past Psychological History: ADD/ADHD, Anxiety, Bipolar, Depression, PTSD Smoking Status: Current every day smoker Past Alcohol Use History: Occasional Past Drug Use History: Marijuana - Past Family History Father Family Medical History: Hyperlipidemia, Hypertension Mother Family Medical History: Fibromyalgia Additional Family Medical History / Comment(s): HIATAL HERNIA OSTEOPSORIS, DDD General Exam - General Exam Comments Initial Comments: Physical Exam GENERAL: Agitated screaming and fighting with staff HENT: Normocephalic, Atraumatic. EYES: PERRL, EOMI PULMONARY: Tachypneic screaming and crying CARDIOVASCULAR: Tachycardic ABDOMEN: Soft and nontender with normal bowel sounds. SKIN: Laceration to left wrist , dressing in place no active bleeding : Deferred NEUROLOGIC: Patient is alert and oriented x3. Moving all extremities spontaneously MUSCULOSKELETAL: Normal extremities with adequate strength and full range of motion. No lower extremity swelling or edema. No calf tenderness. PSYCHIATRIC: Agitated screaming non-cooperative with exam Limitations: no limitations Limitations: no limitations Course Vital Signs 05/23/18 05/24/18 23:37 06:00 Temperature 98.6 F Pulse Rate 66 Respiratory 17 18 Rate Blood Pressure 134/80 O2 Sat by Pulse 96 Oximetry Procedures - Laceration Laceration #1 Consent Obtained: verbal consent Indication: laceration Site: upper extremity Size (cm): 6 Description: linear Depth: simple, single layer Anesthetic Used: lidocaine 1% Anesthesia Technique: local infiltration Amount (mls): 3 Type of Sutures: nylon Size of Sutures: 4-0 Number of Sutures: 8 Technique: simple, interrupted Patient Tolerated Procedure: well, no complications - Restraint - Face to Face Restraint Occurrence 1 Patient's Immediate Situation: Endangers self safety, Endangers others' safety, Endangers staff safety, Violent behavior Patient's Reaction to the Intervention: Angry Patient's Medical & Behavioral Condition: Awake, Agitated Need to Continue or Terminate Restraint or Seclusion: Continue Face to Face Eval of Restraint Date: 05/23/18 Face to Face Eval of Restraint Time: 23:00 Medical Decision Making - Medical Decision Making The patient was seen and evaluated upon arrival in the emergency department the patient was agitated and combative next line patient had received IM Versed in route to the hospital, Benadryl and Haldol were ordered upon arrival Patient was evaluated and placed in 4. restraints. There is no active bleeding from her left wrist but she would not cooperate with evaluation allow for repair at that time Patient was calm and cooperative after medication administration she was removed from the 4 point restraints she was agreeable to having her wrist evaluated. There was an approximately 6 cm linear laceration to the mid anterior wrist. Laceration was from the distal wrist the cut was directionally towards the maximal wrist at the midline. There was a through and through cut of the dermis with visible underlying fatty tissues and vascular structures. There is no tendon damage. There is no vascular damage. The wound was thoroughly irrigated and explored. The wound was repaired with 8 simple interrupted sutures patient tolerated this procedure well Patient was evaluated by EPS who recommended admission for psychiatric evaluation. A cert was completed She rested comfortably and was cooperative throughout the remainder of the night A regular diet was ordered - Lab Data Result diagrams: 05/23/18 23:45 05/23/18 23:45 Lab Results 05/23/18 05/23/18 05/24/18 Range/Units 23:45 23:45 04:15 WBC 8.8 (3.8-10.6) k/uL RBC 4.37 (3.80-5.40) m/uL Hgb 13.3 (11.4-16.0) gm/dL Hct 40.6 (34.0-46.0) % MCV 92.8 (80.0-100.0) fL MCH 30.3 (25.0-35.0) pg MCHC 32.7 (31.0-37.0) g/dL RDW 14.5 (11.5-15.5) % Plt Count 298 (150-450) k/uL Neutrophils % 54 % Lymphocytes % 32 % Monocytes % 6 % Eosinophils % 5 % Basophils % 1 % Neutrophils # 4.8 (1.3-7.7) k/uL Lymphocytes # 2.8 (1.0-4.8) k/uL Monocytes # 0.6 (0-1.0) k/uL Eosinophils # 0.4 (0-0.7) k/uL Basophils # 0.1 (0-0.2) k/uL Sodium 143 (137-145) mmol/L Potassium 3.9 (3.5-5.1) mmol/L Chloride 111 H (98-107) mmol/L Carbon Dioxide 22 (22-30) mmol/L Anion Gap 10 mmol/L BUN 11 (7-17) mg/dL Creatinine 1.00 (0.52-1.04) mg/dL Est GFR (CKD-EPI)AfAm 85 (>60 ml/min/1.73 sqM) Est GFR (CKD-EPI)NonAf 74 (>60 ml/min/1.73 sqM) Glucose 98 (74-99) mg/dL Calcium 9.4 (8.4-10.2) mg/dL Total Bilirubin 0.3 (0.2-1.3) mg/dL AST 19 (14-36) U/L ALT 23 (9-52) U/L Alkaline Phosphatase 73 (38-126) U/L Total Protein 7.2 (6.3-8.2) g/dL Albumin 4.3 (3.5-5.0) g/dL Urine Color Yellow Urine Appearance Clear (Clear) Urine pH 5.5 (5.0-8.0) Ur Specific [place] 1.011 (1.001-1.035) Urine Protein Negative (Negative) Urine Glucose (UA) Negative (Negative) Urine Ketones Negative (Negative) Urine Blood Negative (Negative) Urine Nitrite Negative (Negative) Urine Bilirubin Negative (Negative) Urine Urobilinogen <2.0 (<2.0) mg/dL Ur Leukocyte Esterase Negative (Negative) Urine HCG, Qual (Not Detectd) Salicylates <1.0 mg/dL Urine Opiates Screen (NotDetected) Ur Oxycodone Screen (NotDetected) Urine Methadone Screen (NotDetected) Ur Propoxyphene Screen (NotDetected) Acetaminophen <10.0 ug/mL Ur Barbiturates Screen (NotDetected) U Tricyclic Antidepress (NotDetected) Ur Phencyclidine Scrn (NotDetected) Ur Amphetamines Screen (NotDetected) U Methamphetamines Scrn (NotDetected) U Benzodiazepines Scrn (NotDetected) Urine Cocaine Screen (NotDetected) U Marijuana (THC) Screen (NotDetected) Serum Alcohol 102 mg/dL 05/24/18 05/24/18 Range/Units 04:15 04:15 WBC (3.8-10.6) k/uL RBC (3.80-5.40) m/uL Hgb (11.4-16.0) gm/dL Hct (34.0-46.0) % MCV (80.0-100.0) fL MCH (25.0-35.0) pg MCHC (31.0-37.0) g/dL RDW (11.5-15.5) % Plt Count (150-450) k/uL Neutrophils % % Lymphocytes % % Monocytes % % Eosinophils % % Basophils % % Neutrophils # (1.3-7.7) k/uL Lymphocytes # (1.0-4.8) k/uL Monocytes # (0-1.0) k/uL Eosinophils # (0-0.7) k/uL Basophils # (0-0.2) k/uL Sodium (137-145) mmol/L Potassium (3.5-5.1) mmol/L Chloride (98-107) mmol/L Carbon Dioxide (22-30) mmol/L Anion Gap mmol/L BUN (7-17) mg/dL Creatinine (0.52-1.04) mg/dL Est GFR (CKD-EPI)AfAm (>60 ml/min/1.73 sqM) Est GFR (CKD-EPI)NonAf (>60 ml/min/1.73 sqM) Glucose (74-99) mg/dL Calcium (8.4-10.2) mg/dL Total Bilirubin (0.2-1.3) mg/dL AST (14-36) U/L ALT (9-52) U/L Alkaline Phosphatase (38-126) U/L Total Protein (6.3-8.2) g/dL Albumin (3.5-5.0) g/dL Urine Color Urine Appearance (Clear) Urine pH (5.0-8.0) Ur Specific [place] (1.001-1.035) Urine Protein (Negative) Urine Glucose (UA) (Negative) Urine Ketones (Negative) Urine Blood (Negative) Urine Nitrite (Negative) Urine Bilirubin (Negative) Urine Urobilinogen (<2.0) mg/dL Ur Leukocyte Esterase (Negative) Urine HCG, Qual Not Detected (Not Detectd) Salicylates mg/dL Urine Opiates Screen Detected H (NotDetected) Ur Oxycodone Screen Not Detected (NotDetected) Urine Methadone Screen Not Detected (NotDetected) Ur Propoxyphene Screen Not Detected (NotDetected) Acetaminophen ug/mL Ur Barbiturates Screen Detected H (NotDetected) U Tricyclic Antidepress Not Detected (NotDetected) Ur Phencyclidine Scrn Not Detected (NotDetected) Ur Amphetamines Screen Not Detected (NotDetected) U Methamphetamines Scrn Not Detected (NotDetected) U Benzodiazepines Scrn Not Detected (NotDetected) Urine Cocaine Screen Detected H (NotDetected) U Marijuana (THC) Screen Detected H (NotDetected) Serum Alcohol mg/dL Disposition Clinical Impression: Depression, Self-inflicted laceration of wrist Disposition: TRANSFER TO PSYCH HOSP/UNIT Condition: Serious Is patient prescribed a controlled substance at d/c from ED?: No Referrals: Frederick Harry DO [Primary Care Provider] - 1-2 days
[2018-05-23 23:58] LABS: Basophils # (A) 0.1 k/uL (0-0.2); Basophils % (A) 1 %; Eosinophils # (A) 0.4 k/uL (0-0.7); Eosinophils % (A) 5 %; HCT 40.6 % (34.0-46.0); HGB 13.3 gm/dL (11.4-16.0); Lymphocytes # (A) 2.8 k/uL (1.0-4.8); Lymphocytes % (A) 32 %; MCH 30.3 pg (25.0-35.0); MCHC 32.7 g/dL (31.0-37.0); MCV 92.8 fL (80.0-100.0); Mean Platelet Volume 7.7; Monocytes # (A) 0.6 k/uL (0-1.0); Monocytes % (A) 6 %; Neutrophils # (A) 4.8 k/uL (1.3-7.7); Neutrophils % (A) 54 %; Platelet Count 298 k/uL (150-450); RBC 4.37 m/uL (3.80-5.40); RDW 14.5 % (11.5-15.5); WBC 8.8 k/uL (3.8-10.6)
[2018-05-24] MEDS ORDERED: LIDOCAINE 1% INJ 10MG/ML (20 ML MDV) SQ ONE
[2018-05-24 00:07] LABS: ALT 23 U/L (9-52); AST 19 U/L (14-36); Acetaminophen <10.0 ug/mL; Albumin 4.3 g/dL (3.5-5.0); Alkaline Phosphatase 73 U/L (38-126); Anion Gap 10 mmol/L; Blood Urea Nitrogen 11 mg/dL (7-17); Calcium 9.4 mg/dL (8.4-10.2); Carbon Dioxide 22 mmol/L (22-30); Chloride 111 mmol/L (98-107); Glucose 98 mg/dL (74-99); Potassium 3.9 mmol/L (3.5-5.1); Salicylate <1.0 mg/dL; Sodium 143 mmol/L (137-145); Total Bilirubin 0.3 mg/dL (0.2-1.3); Total Protein 7.2 g/dL (6.3-8.2)
[2018-05-24 00:17] LABS: Alcohol 102 mg/dL
[2018-05-24 04:25] LABS: Appearance,Urine Clear (Clear); Bilirubin,Urine Negative (Negative); Blood,Urine Negative (Negative); Color,Urine Yellow; Glucose,Urine (UA) Negative (Negative); Ketones,Urine Negative (Negative); Leukocyte Esterase,Urine Negative (Negative); Nitrite,Urine Negative (Negative); PH, Urine 5.5 (5.0-8.0); Protein,Urine Negative (Negative); Specific Gravity,Urine 1.011 (1.001-1.035); Urobilinogen,Urine <2.0 mg/dL (<2.0)
[2018-05-24 04:37] LABS: Amphetamine Screen,Urine Not Detected (NotDetected); Barbiturate Screen,Urine Detected (NotDetected); Benzodiazepines Screen,Urine Not Detected (NotDetected); Cocaine Screen,Urine Detected (NotDetected); Methadone Screen, Urine Not Detected (NotDetected); Opiate Screen,Urine Detected (NotDetected); Oxycodone Screen, Urine Not Detected (NotDetected); Phencyclidine Screen,Urine Not Detected (NotDetected); Tricyclic Antidepressant,Urine Not Detected (NotDetected); Urn Cannabinoid Scrn Detected (NotDetected)
[2018-05-24] MEDS: HYDROcodone/APAP 10-325MG 1 EACH TAB PO PRN ×2 (09:51→16:59)
[2018-05-24 18:47] VITALS: BMI 31.4
[2018-05-24] MEDS ORDERED: PNEUMOCOCCAL VACC-PNEUMOVAX 23 25 MCG/0.5 ML VIAL IM ONE (19:27)
[2018-05-24] MEDS ORDERED: INFLUENZA VACCINE (6 MOS+) 60 MCG/0.5 ML SYRINGE IM ONE (19:27)
[2018-05-24] MEDS ORDERED: ZIPRASIDONE 20 MG VIAL IM PRN (20:04)
[2018-05-24] MEDS ORDERED: MAG HYDROX/AL HYDROX/SIMETH 30 ML CUP PO PRN (20:04)
[2018-05-24] MEDS ORDERED: LORazepam 2 MG/ML INJ IM PRN (20:15)
[2018-05-24] MEDS ORDERED: CITALOPRAM HYDROBROMIDE 20 MG TAB PO SCH (21:00)
[2018-05-24] MEDS: tiZANidine 4 MG TAB PO SCH (21:24)
[2018-05-24] MEDS: PROPRANOLOL LA 80 MG CAP.SA.24H PO SCH (21:25)
[2018-05-24] MEDS: LORazepam 1 MG TAB PO PRN (21:27)
[2018-05-24] MEDS: NICOTINE 14MG/24HR PATCH TRANSDERM SCH (21:44)
[2018-05-25] MEDS: ALBUTEROL NEBULIZED 2.5 MG/3 ML INHALATION SCH ×3 (04:35→09:46)
[2018-05-25 04:48] LABS: Cholesterol 207 mg/dL (<200); HDL Cholesterol 53 mg/dL (40-60); LDL Cholesterol,Calculated 114 mg/dL (0-99); Triglycerides 202 mg/dL (<150)
[2018-05-25] MEDS: NICOTINE 14MG/24HR PATCH TRANSDERM SCH (08:40)
[2018-05-25] MEDS: tiZANidine 4 MG TAB PO SCH ×3 (08:40→20:43)
[2018-05-25] MEDS: LORazepam 1 MG TAB PO PRN ×2 (08:41→17:29)
[2018-05-25] MEDS ORDERED: INFLUENZA VACCINE (6 MOS+) 60 MCG/0.5 ML SYRINGE IM ONE (09:00)
[2018-05-25] MEDS ORDERED: PNEUMOCOCCAL VACC-PNEUMOVAX 23 25 MCG/0.5 ML VIAL IM ONE (09:00)
[2018-05-25] MEDS ORDERED: SUMAtriptan SUCCINATE 25 MG TAB PO STA (09:38)
[2018-05-25] MEDS: PROPRANOLOL LA 80 MG CAP.SA.24H PO SCH ×2 (10:18→20:43)
--- NOTE | 2018-05-25 12:04 | P.HP ---
Psychiatric H&P - . H&P Date: 05/25/18 History & Physical: Allergies Allergy/AdvReac Type Severity Reaction Status Date / Time NSAIDS (Non-Steroidal Allergy Dyspnea Verified 05/24/18 18:29 Anti-Inflamma Sulfa (Sulfonamide Allergy Rash/Hives Verified 05/24/18 18:29 Antibiotics) Vital Signs Temp 97.5 F L 05/25/18 06:58 Pulse 49 L 05/25/18 06:58 Resp 16 05/25/18 06:58 BP 124/75 05/25/18 06:58 Pulse Ox 98 05/24/18 17:00 Intake & Output 05/24/18 05/25/18 05/25/18 18:59 06:59 18:59 Weight 81.666 kg Laboratory Last Values WBC 8.8 k/uL (3.8-10.6) 05/23/18 23:45 RBC 4.37 m/uL (3.80-5.40) 05/23/18 23:45 Hgb 13.3 gm/dL (11.4-16.0) 05/23/18 23:45 Hct 40.6 % (34.0-46.0) 05/23/18 23:45 MCV 92.8 fL (80.0-100.0) 05/23/18 23:45 MCH 30.3 pg (25.0-35.0) 05/23/18 23:45 MCHC 32.7 g/dL (31.0-37.0) 05/23/18 23:45 RDW 14.5 % (11.5-15.5) 05/23/18 23:45 Plt Count 298 k/uL (150-450) 05/23/18 23:45 Neutrophils % 54 % 05/23/18 23:45 Lymphocytes % 32 % 05/23/18 23:45 Monocytes % 6 % 05/23/18 23:45 Eosinophils % 5 % 05/23/18 23:45 Basophils % 1 % 05/23/18 23:45 Neutrophils # 4.8 k/uL (1.3-7.7) 05/23/18 23:45 Lymphocytes # 2.8 k/uL (1.0-4.8) 05/23/18 23:45 Monocytes # 0.6 k/uL (0-1.0) 05/23/18 23:45 Eosinophils # 0.4 k/uL (0-0.7) 05/23/18 23:45 Basophils # 0.1 k/uL (0-0.2) 05/23/18 23:45 Sodium 143 mmol/L (137-145) 05/23/18 23:45 Potassium 3.9 mmol/L (3.5-5.1) 05/23/18 23:45 Chloride 111 mmol/L (98-107) H 05/23/18 23:45 Carbon Dioxide 22 mmol/L (22-30) 05/23/18 23:45 Anion Gap 10 mmol/L 05/23/18 23:45 BUN 11 mg/dL (7-17) 05/23/18 23:45 Creatinine 1.00 mg/dL (0.52-1.04) 05/23/18 23:45 Est GFR (CKD-EPI)AfAm 85 (>60 ml/min/1.73 sqM) 05/23/18 23:45 Est GFR (CKD-EPI)NonAf 74 (>60 ml/min/1.73 sqM) 05/23/18 23:45 Glucose 98 mg/dL (74-99) 05/23/18 23:45 Calcium 9.4 mg/dL (8.4-10.2) 05/23/18 23:45 Total Bilirubin 0.3 mg/dL (0.2-1.3) 05/23/18 23:45 AST 19 U/L (14-36) 05/23/18 23:45 ALT 23 U/L (9-52) 05/23/18 23:45 Alkaline Phosphatase 73 U/L (38-126) 05/23/18 23:45 Total Protein 7.2 g/dL (6.3-8.2) 05/23/18 23:45 Albumin 4.3 g/dL (3.5-5.0) 05/23/18 23:45 Triglycerides 202 mg/dL (<150) H 05/23/18 23:45 Cholesterol 207 mg/dL (<200) H 05/23/18 23:45 LDL Cholesterol, Calc 114 mg/dL (0-99) H 05/23/18 23:45 HDL Cholesterol 53 mg/dL (40-60) 05/23/18 23:45 Urine Color Yellow 05/24/18 04:15 Urine Appearance Clear (Clear) 05/24/18 04:15 Urine pH 5.5 (5.0-8.0) 05/24/18 04:15 Ur Specific [place] 1.011 (1.001-1.035) 05/24/18 04:15 Urine Protein Negative (Negative) 05/24/18 04:15 Urine Glucose (UA) Negative (Negative) 05/24/18 04:15 Urine Ketones Negative (Negative) 05/24/18 04:15 Urine Blood Negative (Negative) 05/24/18 04:15 Urine Nitrite Negative (Negative) 05/24/18 04:15 Urine Bilirubin Negative (Negative) 05/24/18 04:15 Urine Urobilinogen <2.0 mg/dL (<2.0) 05/24/18 04:15 Ur Leukocyte Esterase Negative (Negative) 05/24/18 04:15 Urine HCG, Qual Not Detected (Not Detectd) 05/24/18 04:15 Salicylates <1.0 mg/dL 05/23/18 23:45 Urine Opiates Screen Detected (NotDetected) H 05/24/18 04:15 Ur Oxycodone Screen Not Detected (NotDetected) 05/24/18 04:15 Urine Methadone Screen Not Detected (NotDetected) 05/24/18 04:15 Ur Propoxyphene Screen Not Detected (NotDetected) 05/24/18 04:15 Acetaminophen <10.0 ug/mL 05/23/18 23:45 Ur Barbiturates Screen Detected (NotDetected) H 05/24/18 04:15 U Tricyclic Antidepress Not Detected (NotDetected) 05/24/18 04:15 Ur Phencyclidine Scrn Not Detected (NotDetected) 05/24/18 04:15 Ur Amphetamines Screen Not Detected (NotDetected) 05/24/18 04:15 U Methamphetamines Scrn Not Detected (NotDetected) 05/24/18 04:15 U Benzodiazepines Scrn Not Detected (NotDetected) 05/24/18 04:15 Urine Cocaine Screen Detected (NotDetected) H 05/24/18 04:15 U Marijuana (THC) Screen Detected (NotDetected) H 05/24/18 04:15 Serum Alcohol 102 mg/dL 02/17/19 23:45 Assessment and Plan Assessment: History of Present Illness Initial Comments: Joanne is a 33-year-old female brought to the ED today via EMS for psychiatric evaluation. Per EMS there contacted after the patient sent a photograph of her cut wrist to her boyfriend who contacted 911. EMS reports the patient was agitated and uncooperative in route to the hospital. Patient denies suicidality and states that she cuts herself to relieve emotional pain. Patient admits to cutting her wrist. PCP-Dr Mack and [facility]; Pain;Dr Martin - Related Data Home Medications Medication Instructions Recorded Confirmed Hydrocodone/Acetaminophen [[place] 1 tab PO Q6H PRN 05/09/17 11/03/17 10-325] Butalb/APAP/Caff 50-325-40Mg 1 tab PO DAILY PRN 11/03/17 11/03/17 [Fioricet 50-325-40] Cetirizine HCl [Zyrtec] 10 mg PO HS 11/03/17 11/03/17 Citalopram Hydrobromide [CeleXA] 40 mg PO HS 11/03/17 11/03/17 Propranolol HCl 80 mg PO HS 11/03/17 11/03/17 Allergies Allergy/AdvReac Type Severity Reaction Status Date / Time NSAIDS (Non-Steroidal Allergy Dyspnea Verified 11/03/17 23:03 Anti-Inflamma Sulfa (Sulfonamide Allergy Rash/Hives Verified 11/03/17 23:03 Antibiotics) Past Medical History Past Medical History: Fibromyalgia Additional Past Medical History / Comment(s): hypoglycemia, cyst on kidney, DJD , carpel tunnel, PT STATED HAS"ACHALASIA" history of head injury TBI History of Any Multi-Drug Resistant Organisms: None Reported Past Surgical History: Appendectomy, Section, Orthopedic Surgery, Tubal Ligation Additional Past Surgical History / Comment(s): c section x 3, EGD. Past Anesthesia/Blood Transfusion Reactions: Motion Sickness Past Psychological History: ADD/ADHD, Anxiety, Bipolar, Depression, PTSD Smoking Status: Current every day smoker Past Alcohol Use History: Occasional Past Drug Use History: Marijuana - Past Family History Father Family Medical History: Hyperlipidemia, Hypertension Mother Family Medical History: Fibromyalgia Additional Family Medical History / Comment(s): HIATAL HERNIA OSTEOPSORIS, DDD PAST PSYCHIATRIC HISTORY: Patient has never been hospital is a psychiatric unit before. She reports she has had suicide attempts in the past. She states in December 2013 she took an overdose of medications because her son said something that made her upset and she couldn't stand the thought that she "had given to something so evil" She states she also took an overdose of Seroquel years before that because she was kidnapped and people didn't believe her about it. Patient does not have any outpatient mental health professionals including counselors or psychiatrists. FAMILY PSYCHIATRIC HISTORY: Patient reports a family history of psychiatric problems stating that her sister has problems but has gotten help. Her maternal uncle committed suicide. She states her son's been diagnosed with bipolar disorder and ADHD. She reports her mother has had problems but does not get help. PAST MEDICAL HISTORY:Patient reports that she has fibromyalgia and chronic back pain due to degenerative disc disease and herniated disks.. ALLERGIES: NSAIDs, sulfa. OTHER MEDICATIONS: [place], she reports she previously been on Dilaudid and [place]. She is also taking methadone in the past. SUBSTANCE ABUSE HISTORY: She denies that she uses any illicit drugs. She denies any heroin use, methamphetamine use or cocaine use. She reports that she uses marijuana daily for medical purposes and she plans to get her medical marijuana license. She denies that she drinks alcohol.. SOCIAL HISTORY: Patient reports she grew up in this area, in [place]. She reports she grew up with both her parents a sister and a brother. Her brother currently lives with her parents and her sister lives in the area as well. Her sister recently got temporary guardianship of her daughter who is 4 years old. Her mother has guardianship of her other 2 children ages 11 and 10. Patient reports she graduated from high school and has one year of college. 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 She lives in an apartment with her fianc and he is not working either. She states she gets food stamps but otherwise has no means of supporting herself. She states that she has no transportation to get to doctor's appointments. Musculoskeletal Examination - Abnormal/Involuntary Movements: [none] Strength: [greater than antigravity (greater than/equal to 3/5) in all extremities, weakness:] Muscle Tone: [no impairment Gait: [grossly normal, wide-based] Station: [ unsteady Mental Status Examination - this is a 33-year-old female who said she was partying this last weekend with friends of her smoking marijuana obviously laced with cocaine. She appears to have done that 2 days for she partied with another friend the next day. She has a history of cutting and this time due to deep with too many stitches brought her to the emergency room. She appears to have more. Chronic pain syndrome with which we used to call malingering and borderline personality traits. She has gone to multiple doctors to obtain medicines in the past and has no regular psychiatrist to treat her. General Appearance: [ casual, appears older than stated age Speech/Language: [ slow, expressive, mute, loud, soft, other] Attitude/Behavior: [cooperative, guarded, irritable, withdrawn, indifferent Mood: [ depressed, anxious, irritable, angry, fearful, hopelessness, other] Affect: [ flat blunted constricted] Orientation: [time, person, place situation] Thought Content: [wnl, denies delusions, obsessions, phobias, other] Risk Factors: [Demonstrated suicidal (ideations, plan), and/or Homicidal ( ideations, plan), other] Perception: [wnl, and is hallucinations (auditory, visual, tactile), other] Thought Processes: [ concrete, circumstantial, tangential Concentration/Attention Span: [ impaired] [Per observation and interview with the patient] Recent Memory: [wnl, Remote Memory: [wnl] [past events, as related history] Intelligence: [below average] [based on history, based on vocabulary, syntax, grammar, and content] Judgement: [poor] [per patient's behavior/history of present illness] Insight: [ poor] [understanding severity of illness/history of present illness] Patient Strengths - Personal Skills: [] Achievements: [] Steady employment/financial stability: [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 A petition, first clinical CERT for involuntary stay and I finished second certification for involuntary admission to the psychiatric unit [address]. She demonstrates lack of insight and poor coping mechanisms. She'll be placed on 15 minute checks while on the unit and usual protocol for the unit. She will be evaluated by medicine , psychiatry,'s nursing staff, social work and occupational therapy. She'll be expected to participate in groups on the unit and adherent to a medical treatment plan. I discontinued her Fioricets and narcotics and am asking for a pain consult to evaluate her fibromyalgia and recent trauma following on the ice. She'll be started on Effexor 37.5 mg XR by mouth daily at bedtime, Lamictal 25 mg by mouth daily at bedtime for mood stabilization this combination of medications work well for chronic pain and for mood lability. Considering she was positive for cocaine and marijuana she will most likely go through detoxification over the next 3 days.] Estimated Length of Stay: [7 days] Initial Discharge Plan: [[facility] Prognosis: [ fair] Justification for Inpatient Hospitalization - [ agitation, anxiety, depression resulting in significant loss of functioning.] [Dangerous to self with need for controlled environment.] [Emotional or behavioral conditions and complications requiring 24 hour medical and nursing care.] [Need for special drug therapy, or other therapeutic program requiring continuous hospitalization.] [Failure of social or occupational functioning.] [Inability to meet basic life and health needs.] [Legally mandated admission.] . (1) Major depressive disorder, recurrent episode with atypical features Current Visit: Yes Status: Acute Priority: High Code(s): F33.9 - MAJOR DEPRESSIVE DISORDER, RECURRENT, UNSPECIFIED SNOMED Code(s): 46801988 (2) Marijuana dependence Current Visit: Yes Status: Acute Priority: High Code(s): F12.20 - CANNABIS DEPENDENCE, UNCOMPLICATED SNOMED Code(s): 88550820 (3) Cocaine abuse Current Visit: Yes Status: Acute Priority: High Code(s): F14.10 - COCAINE ABUSE, UNCOMPLICATED SNOMED Code(s): 61323104 Time with Patient: Greater than 30
[2018-05-25] MEDS: ALBUTEROL INHALER 60 PUFF/8 GM INHALER INHALATION SCH ×3 (12:51→21:22)
[2018-05-25] MEDS: SYMBICORT 80-4.5 MCG INHALER INHALATION SCH ×2 (12:59→21:44)
[2018-05-25 14:49] LABS: Hemoglobin A1C 5.2 % (4.0-6.0)
--- NOTE | 2018-05-25 19:08 | P.CONS ---
History of Present Illness - History of Present Illness This is a pleasant 53 years old female with past medical history of fibromyalgia , hypoglycemia, degenerative joint disease. Patient was admitted for Her Wrist cut Photograph Sent to Her Boyfriend Who Contacted 911. The patient complained to me that she felt couple times before she come into the hospital and that she hurt her right hip right hand and the neck and she complains from pain in the same areas. However patient was seen walking in the hallway as she was approaching the examination room, getting seated and standing up without much difficulty. Effort to do x-ray for the patient and she agreed. I asked the patient if she is and if he can check test, patient declined saying " I positive I am not ". Risks i including but not limited to harm to the baby for medication, investigation or medicine are explained to the patient and she verbalized understanding however she still does not want to do the test Patient states that she seek medical help at that time, however the ask her to come on Thursday to be rechecked again. Anesthetic patient got admitted to the psych unit so she could not follow up Review of Systems CONSTITUTIONAL: No fever, no malaise, no fatigue. HEENT: No recent visual problems or hearing problems. Denied any sore throat. CARDIOVASCULAR: No orthopnea, PND, no palpitations, no syncope. PULMONARY: No shortness of breath, no cough, no hemoptysis. GASTROINTESTINAL: No diarrhea, no nausea, no vomiting, no abdominal pain. Normoactive bowel sounds. NEUROLOGICAL: No headaches, no weakness, no numbness. HEMATOLOGICAL: Denies any bleeding or petechiae. GENITOURINARY: Denies any burning micturition, frequency, or urgency. MUSCULOSKELETAL/RHEUMATOLOGICAL: Denies any joint pain, swelling, or any muscle pain. ENDOCRINE: Denies any polyuria or polydipsia. Past Medical History Past Medical History: Fibromyalgia Additional Past Medical History / Comment(s): hypoglycemia, cyst on kidney, DJD , carpel tunnel, PT STATED HAS"ACHALASIA" History of Any Multi-Drug Resistant Organisms: None Reported Past Surgical History: Appendectomy, Section, Orthopedic Surgery, Tubal Ligation Additional Past Surgical History / Comment(s): c section x 3, EGD. Past Anesthesia/Blood Transfusion Reactions: Motion Sickness Past Psychological History: ADD/ADHD, Anxiety, Bipolar, Depression, PTSD Additional Psychological History / Comment(s): cut self, on the left forearm requiring 9 sutures Smoking Status: Current every day smoker Past Alcohol Use History: Occasional Additional Past Alcohol Use History / Comment(s): Patient is a smoker of a half a pack of cigarettes per day for 16 years. She states she occasionally uses marijuana. She denies any street drug use. She states she also occasionally uses alcohol. Past Drug Use History: Marijuana Additional Drug Use History / Comment(s): uses daily - Past Family History Father Family Medical History: Hyperlipidemia, Hypertension Mother Family Medical History: Fibromyalgia Additional Family Medical History / Comment(s): HIATAL HERNIA OSTEOPSORIS, DDD Medications and Allergies Home Medications Medication Instructions Recorded Confirmed Type Cetirizine HCl [Zyrtec] 10 mg PO HS 11/03/17 05/24/18 History Citalopram Hydrobromide [CeleXA] 40 mg PO HS 11/03/17 05/24/18 History Albuterol Inhaler [Ventolin Hfa 1 - 2 puff INHALATION RT-Q4H 05/24/18 05/24/18 History Inhaler] Buta/APAP/Caf/Cod 60-092-38-30 1 cap PO DAILY 05/24/18 05/24/18 History [Fioricet w/Cod 59-516-53-30MG] Mometasone/Formoterol [Dulera 100 2 inhalation PO BID 05/24/18 05/24/18 History Mcg/5 Mcg Inhaler] Propranolol LA [Inderal LA] 80 mg PO DAILY 05/24/18 05/24/18 History tiZANidine [Zanaflex] 4 mg PO TID 05/24/18 05/24/18 History Allergies Allergy/AdvReac Type Severity Reaction Status Date / Time NSAIDS (Non-Steroidal Allergy Dyspnea Verified 05/24/18 18:29 Anti-Inflamma Sulfa (Sulfonamide Allergy Rash/Hives Verified 05/24/18 18:29 Antibiotics) Physical Exam Vitals: Vital Signs Temp Pulse Pulse Resp BP 05/25/18 09:52 60 05/25/18 09:46 60 05/25/18 06:58 97.5 F L 49 L 16 124/75 05/24/18 23:01 54 L 112/69 05/24/18 21:27 182/99 05/24/18 19:26 97 F L 57 L 18 137/71 GENERAL: The patient is alert and oriented x3, not in any acute distress. Well developed, well nourished. HEENT: Pupils are round and equally reacting to light. EOMI. No scleral icterus. No conjunctival pallor. Normocephalic, atraumatic. No pharyngeal erythema. No thyromegaly. CARDIOVASCULAR: S1 and S2 present. No murmurs, rubs, or gallops. PULMONARY: Chest is clear to auscultation, no wheezing or crackles. ABDOMEN: Soft, nontender, nondistended, normoactive bowel sounds. No palpable organomegaly. MUSCULOSKELETAL: No joint swelling or deformity. EXTREMITIES: No cyanosis, clubbing, or pedal edema. Some tenderness in the right wrist, right hip in the neck as per patient. No restriction of movement was noted NEUROLOGICAL: Gross neurological examination did not reveal any focal deficits. SKIN: No rashes. Results CBC & Chem 7: 05/23/18 23:45 05/23/18 23:45 Labs: Abnormal Lab Results - Last 24 Hours (Table) 05/23/18 Range/Units 23:45 Triglycerides 202 H (<150) mg/dL Cholesterol 207 H (<200) mg/dL LDL Cholesterol, Calc 114 H (0-99) mg/dL Assessment and Plan Assessment: History of fall, twice before coming to the hospital History of suicidal ideation other sac illnesses, management as per psychiatric primary team Plan: This is a pleasant 53 years old female who presents for suicidal attempt, also she states she fell. We'll do x-rays of the right hip, of the right hand and wrist and a CT of the cervical spine without contrast. As patient was complaining from pain and tenderness in this area. Other than that if that this came back negative the patient can be treated symptomatically We recommend patient follow up with her PCP within one week of discharge Thank you for contacting us, please free to reach to us for any further question or clarification.
[2018-05-25] MEDS ORDERED: SYMBICORT 160-4.5 MCG INHALER INHALATION SCH (20:00)
[2018-05-25] MEDS: PRAMIPEXOLE 0.5 MG TAB PO SCH (20:43)
[2018-05-25] MEDS ORDERED: VENLAFAXINE HCL ER 37.5 MG CAP PO SCH (21:00)
[2018-05-25] MEDS ORDERED: lamoTRIgine 25 MG TAB PO SCH (21:00)
[2018-05-25] MEDS ORDERED: diphenhydrAMINE 25 MG CAP PO STA (21:28)
--- NOTE | 2018-05-25 22:24 | XR ---
PROCEDURE: XR wrist limited LT - 2V DATE AND TIME: 05/25/2018 7:28 PM CLINICAL INDICATION: PHH; fall, pain left wrist and right hand near metacarpal and carpal region TECHNIQUE: Department protocol COMPARISON: None FINDINGS: There is no fracture or malalignment. The soft tissues are unremarkable. IMPRESSION: NO ACUTE PROCESS.
--- NOTE | 2018-05-25 22:27 | XR ---
PROCEDURE: XR hand complete RT - 3V DATE AND TIME: 05/25/2018 7:28 PM CLINICAL INDICATION: PH[facility]; fall TECHNIQUE: Department protocol COMPARISON: 11/04/2017 FINDINGS: There is no fracture or malalignment. The soft tissues are unremarkable. IMPRESSION: NO ACUTE PROCESS.
--- NOTE | 2018-05-25 22:28 | XR ---
PROCEDURE: XR Hip RT and AP Pelvis - 3V DATE AND TIME: 05/25/2018 7:28 PM CLINICAL INDICATION: [facility]; fall TECHNIQUE: Department protocol COMPARISON: None FINDINGS: There is no fracture or malalignment. The soft tissues are unremarkable. IMPRESSION: NO ACUTE PROCESS.
--- NOTE | 2018-05-25 22:42 | CT ---
EXAMINATION TYPE: CT cervical spine wo con DATE OF EXAM: 05/25/2018 COMPARISON: 06/14/2015 HISTORY: neck pain following fall CT DLP: 547 mGycm Automated exposure control for dose reduction was used. TECHNIQUE: CT scan of the cervical spine is obtained without contrast, axial images are obtained, sa gittal and coronal reformatted images are also reviewed. FINDINGS: Cervical spine is visualized in its entirety from C1 through upper thoracic levels, demonst rates satisfactory alignment without evidence of acute fracture or dislocation. Prevertebral soft ti ssue appears within normal limits. The C1-C2 articulation is within normal limits on the coronal imag es. Distended thoracic esophagus, filled with food material, is redemonstrated. This was seen on the uppe rmost images from the CT chest 10/02/2015 IMPRESSION: No acute process.
[2018-05-26] MEDS: ACETAMINOPHEN TAB 325 MG TAB PO PRN ×4 (01:16→20:54)
[2018-05-26] MEDS: LORazepam 1 MG TAB PO PRN ×3 (01:21→20:54)
[2018-05-26] MEDS: ALBUTEROL INHALER 60 PUFF/8 GM INHALER INHALATION SCH ×5 (03:03→20:57)
[2018-05-26] MEDS: PROPRANOLOL LA 80 MG CAP.SA.24H PO SCH (08:52)
[2018-05-26] MEDS: tiZANidine 4 MG TAB PO SCH ×3 (08:52→20:55)
[2018-05-26] MEDS: NICOTINE 14MG/24HR PATCH TRANSDERM SCH (08:53)
[2018-05-26] MEDS: SYMBICORT 80-4.5 MCG INHALER INHALATION SCH ×2 (09:23→20:57)
--- NOTE | 2018-05-26 11:20 | P.PN ---
Subjective Progress Note Date: 05/26/18 Principal diagnosis: Major depressive disorder with suicidal ideation and attempt 06/03/2018 Chart reviewed and patient interviewed discussed in team and medication regimen discussed in detail including risks versus benefit ratio. Patient had difficulty sleeping last night, continues to be depressed and suicidal but no harm to herself remains anxious and displaying symptoms of posttraumatic stress disorder. Objective - Vital Signs Vital signs: Vital Signs Temp 98.5 F 05/26/18 01:20 Pulse 73 05/26/18 09:12 Resp 18 05/26/18 09:12 BP 129/92 05/26/18 09:12 Pulse Ox 98 05/24/18 17:00 - Labs CBC & Chem 7: 05/23/18 23:45 05/23/18 23:45 Assessment and Plan Assessment: History of Present Illness Initial Comments: Joanne is a 33-year-old female brought to the ED today via EMS for psychiatric evaluation. Per EMS there contacted after the patient sent a photograph of her cut wrist to her boyfriend who contacted 911. EMS reports the patient was agitated and uncooperative in route to the hospital. Patient denies suicidality and states that she cuts herself to relieve emotional pain. Patient admits to cutting her wrist. PCP-Dr Mack and Stefanplisma; Pain;Dr Martin Mental Status Examination - this is a 33-year-old female who said she was partying this last weekend with friends of her smoking marijuana obviously laced with cocaine. She appears to have done that 2 days for she partied with another friend the next day. She has a history of cutting and this time due to deep with too many stitches brought her to the emergency room. She appears to have more. Chronic pain syndrome with which we used to call malingering and borderline personality traits. She has gone to multiple doctors to obtain medicines in the past and has no regular psychiatrist to treat her. General Appearance: [ casual, appears older than stated age Speech/Language: [ slow, expressive, mute, loud, soft, other] Attitude/Behavior: [cooperative, guarded, irritable, withdrawn, indifferent Mood: [ depressed, anxious, irritable, angry, fearful, hopelessness, other] Affect: [ flat blunted constricted] Orientation: [time, person, place situation] Thought Content: [wnl, denies delusions, obsessions, phobias, other] Risk Factors: [Demonstrated suicidal (ideations, plan), and/or Homicidal ( ideations, plan), other] Perception: [wnl, and is hallucinations (auditory, visual, tactile), other] Thought Processes: [ concrete, circumstantial, tangential Concentration/Attention Span: [ impaired] [Per observation and interview with the patient] Recent Memory: [wnl, Remote Memory: [wnl] [past events, as related history] Intelligence: [below average] [based on history, based on vocabulary, syntax, grammar, and content] Judgement: [poor] [per patient's behavior/history of present illness] Insight: [ poor] [understanding severity of illness/history of present illness] Initial Plan of Care: [Patient admitted involuntary on the unit for suicide attempt by long laceration on her arm. A petition, first clinical CERT for involuntary stay and I finished second certification for involuntary admission to the psychiatric unit [address]. She demonstrates lack of insight and poor coping mechanisms. She'll be placed on 15 minute checks while on the unit and usual protocol for the unit. She will be evaluated by medicine , psychiatry,'s nursing staff, social work and occupational therapy. She'll be expected to participate in groups on the unit and adherent to a medical treatment plan. I discontinued her Fioricets and narcotics and am asking for a pain consult to evaluate her fibromyalgia and recent trauma following on the ice. She'll be started on Effexor 37.5 mg XR by mouth daily at bedtime, Lamictal 25 mg by mouth daily at bedtime for mood stabilization this combination of medications work well for chronic pain and for mood lability. Considering she was positive for cocaine and marijuana she will most likely go through detoxification over the next 3 days. 05/26/2018: Increase of Effexor to 75 mg X are by mouth daily at bedtime increase Lamictal to 50 mg by mouth daily at bedtime add Catapres 0.1 mg 3 times a day discontinue propranolol. Encouraged her to the in walker milieu therapeutic environment and to take her medications as written. She did have a reaction to the flu shot with numbness and pain over her left arm. Encouraged to use an ice pack. Usual routine checks for safety every 15 minutes and usual walker milieu therapeutic environment interactions.] (1) Major depressive disorder, recurrent episode with atypical features Current Visit: Yes Status: Acute Priority: High Code(s): F33.9 - MAJOR DEPRESSIVE DISORDER, RECURRENT, UNSPECIFIED SNOMED Code(s): 87104173 (2) Marijuana dependence Current Visit: Yes Status: Acute Priority: High Code(s): F12.20 - CANNABIS DEPENDENCE, UNCOMPLICATED SNOMED Code(s): 89795986 (3) Cocaine abuse Current Visit: Yes Status: Acute Priority: High Code(s): F14.10 - COCAINE ABUSE, UNCOMPLICATED SNOMED Code(s): 65775921 Time with Patient: Greater than 30
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
[2018-05-26] MEDS: cloNIDine HCL 0.1 MG TAB PO SCH ×2 (16:09→20:55)
[2018-05-26] MEDS: PRAMIPEXOLE 0.5 MG TAB PO SCH (20:55)
[2018-05-26] MEDS: diphenhydrAMINE 50 MG CAP PO SCH (20:55)
[2018-05-26] MEDS ORDERED: VENLAFAXINE HCL ER 75 MG CAP PO SCH (21:00)
[2018-05-27] MEDS: ALBUTEROL INHALER 60 PUFF/8 GM INHALER INHALATION SCH ×6 (02:08→21:51)
[2018-05-27] MEDS: buPROPion XL 150 MG TAB.ER.24H PO SCH (08:28)
[2018-05-27] MEDS: cloNIDine HCL 0.1 MG TAB PO SCH ×3 (08:28→20:14)
[2018-05-27] MEDS: NICOTINE 14MG/24HR PATCH TRANSDERM SCH (08:28)
[2018-05-27] MEDS: tiZANidine 4 MG TAB PO SCH ×3 (08:28→20:15)
[2018-05-27] MEDS: LORazepam 1 MG TAB PO PRN ×2 (08:30→17:15)
[2018-05-27] MEDS: ACETAMINOPHEN TAB 325 MG TAB PO PRN ×3 (09:12→20:11)
[2018-05-27] MEDS: SYMBICORT 80-4.5 MCG INHALER INHALATION SCH ×2 (09:21→21:52)
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
[2018-05-27] MEDS: diphenhydrAMINE 50 MG CAP PO SCH (20:12)
[2018-05-27] MEDS: PRAMIPEXOLE 0.5 MG TAB PO SCH (20:13)
[2018-05-27] MEDS ORDERED: VENLAFAXINE HCL ER 150 MG CAP PO SCH (21:00)
[2018-05-27] MEDS ORDERED: lamoTRIgine 25 MG TAB PO SCH (21:00)
[2018-05-28] MEDS: ALBUTEROL INHALER 60 PUFF/8 GM INHALER INHALATION SCH ×6 (02:42→23:19)
[2018-05-28] MEDS: ACETAMINOPHEN TAB 325 MG TAB PO PRN ×3 (06:33→17:01)
[2018-05-28] MEDS: LORazepam 1 MG TAB PO PRN ×3 (06:35→23:02)
[2018-05-28] MEDS: NICOTINE 14MG/24HR PATCH TRANSDERM SCH (08:02)
[2018-05-28] MEDS: buPROPion XL 150 MG TAB.ER.24H PO SCH (08:02)
[2018-05-28] MEDS: tiZANidine 4 MG TAB PO SCH ×3 (08:02→21:04)
[2018-05-28] MEDS: cloNIDine HCL 0.1 MG TAB PO SCH ×3 (08:02→21:04)
[2018-05-28] MEDS: SYMBICORT 80-4.5 MCG INHALER INHALATION SCH ×2 (09:29→20:24)
[2018-05-28] MEDS: guaiFENesin SYRUP 100MG/5ML 200 MG/10 ML CUP PO PRN (10:34)
[2018-05-28] MEDS ORDERED: SUMAtriptan SUCCINATE 25 MG TAB PO STA (12:15)
--- NOTE | 2018-05-28 12:22 | P.PN ---
Subjective Progress Note Date: 05/28/18 Principal diagnosis: Major depressive disorder with suicidal ideation and attempt 05/26/2018 Chart reviewed and patient interviewed discussed in team and medication regimen discussed in detail including risks versus benefit ratio. Patient had difficulty sleeping last night, continues to be depressed and suicidal but no harm to herself remains anxious and displaying symptoms of posttraumatic stress disorder. 05/27/2018: Chart reviewed, discussed with nursing staff, team meeting discussion regarding prognosis and discharge planning. She feels less depressed and has slept for the first time in a long time last night. She is gaining insight into her medical problems such as pain anxiety and fatigue are related to depression and cycling mood. 05/28/2018: Patient fell and shower yesterday on right hip and right forearm. Ordered ice packs for yesterday after the trauma. She is going to switch showers one that has a shelf and handle on it. She slept well last night depressions getting better less anxiety still drug-seeking and discussed treatment plan over the next 3 days. Objective - Vital Signs Vital signs: Vital Signs Temp 97.4 F L 05/28/18 06:44 Pulse 85 05/28/18 08:06 Resp 18 05/28/18 08:06 BP 118/71 05/28/18 08:06 Pulse Ox 98 05/24/18 17:00 - Labs CBC & Chem 7: 05/23/18 23:45 05/23/18 23:45 Assessment and Plan Assessment: History of Present Illness Initial Comments: Joanne is a 33-year-old female brought to the ED today via EMS for psychiatric evaluation. Per EMS there contacted after the patient sent a photograph of her cut wrist to her boyfriend who contacted 911. EMS reports the patient was agitated and uncooperative in route to the hospital. Patient denies suicidality and states that she cuts herself to relieve emotional pain. Patient admits to cutting her wrist. PCP-Dr Mack and [facility]; Pain;Dr Martin Mental Status Examination - this is a 33-year-old female who said she was partying this last weekend with friends of her smoking marijuana obviously laced with cocaine. She appears to have done that 2 days for she partied with another friend the next day. She has a history of cutting and this time due to deep with too many stitches brought her to the emergency room. She appears to have more. Chronic pain syndrome with which we used to call malingering and borderline personality traits. She has gone to multiple doctors to obtain medicines in the past and has no regular psychiatrist to treat her. General Appearance: [ casual, appears older than stated age Speech/Language: [ expressive, soft] Attitude/Behavior: [cooperative, guarded, irritable, withdrawn, more motivated Mood: [ depressed 5 out of 10, anxious 5 out of 10, less irritable, less angry , fearful, more hope] Affect: [ flat blunted constricted] Orientation: [time, person, place situation] Thought Content: [wnl, denies delusions, obsessions, phobias, other] Risk Factors: [Demonstrated less suicidal (ideations, plan), and/or Homicidal ( ideations, plan), other] Perception: [wnl, and is not hallucinations (auditory, visual, tactile), other] Thought Processes: [ concrete, circumstantial, tangential Concentration/Attention Span: [ impaired] [Per observation and interview with the patient] Recent Memory: [wnl, Remote Memory: [wnl] [past events, as related history] Intelligence: [ average] [based on history, based on vocabulary, syntax, grammar , and content] Judgement: [Fair] [per patient's behavior/history of present illness] Insight: [ Fair] [understanding severity of illness/history of present illness] Initial Plan of Care: [Patient admitted involuntary on the unit for suicide attempt by long laceration on her arm. A petition, first clinical CERT for involuntary stay and I finished second certification for involuntary admission to the psychiatric unit [facility]. She demonstrates lack of insight and poor coping mechanisms. She'll be placed on 15 minute checks while on the unit and usual protocol for the unit. She will be evaluated by medicine , psychiatry,'s nursing staff, social work and occupational therapy. She'll be expected to participate in groups on the unit and adherent to a medical treatment plan. I discontinued her Fioricets and narcotics and am asking for a pain consult to evaluate her fibromyalgia and recent trauma following on the ice. She'll be started on Effexor 37.5 mg XR by mouth daily at bedtime, Lamictal 25 mg by mouth daily at bedtime for mood stabilization this combination of medications work well for chronic pain and for mood lability. Considering she was positive for cocaine and marijuana she will most likely go through detoxification over the next 3 days. 05/26/2018: Increase of Effexor to 75 mg XR by mouth daily at bedtime increase Lamictal to 50 mg by mouth daily at bedtime add Catapres 0.1 mg 3 times a day discontinue propranolol. Encouraged her to the in walker milieu therapeutic environment and to take her medications as written. She did have a reaction to the flu shot with numbness and pain over her left arm. Encouraged to use an ice pack. Usual routine checks for safety every 15 minutes and usual walker milieu therapeutic environment interactions. 05/27/2018: Discussed in detail the medications benefit risk ratio and continued titration needed until 05/31/2018 whereby she'll be ready for discharge. Increase her Effexor 150 mg XR by mouth daily at bedtime and add Lamictal 25 mg by mouth daily at bedtime. We'll continue titration of medicines until resolution. Also discussed Dr. Vargas finding of staying off the narcotics and further evaluation and outpatient basis and will make sure she has appointment scheduled with Dr. Vargas, for outpatient follow-up evaluation and treatment. The patient did deferral for probate Court in his agreement with treatment. ] 05/28/2018: Discussed again in detail benefit risk ratio of medications and discharge on 05/31/2018. Patient chart was reviewed discussed with nursing staff and team this morning. We'll increase her Effexor to 225 mgXR and increase Lamictal to 50 mg by mouth daily at bedtime. For her back pain I wrote for lidocaine patch 5% to be applied daily to low back area. She'll be continued to be followed on 15 minute checks and usual protocol on mental health unit. She is encouraged to go to groups which she has been doing and to participate in walker milieu therapeutic environment. She has been adherent to a medical treatment plan without any resistance. (1) Major depressive disorder, recurrent episode with atypical features Current Visit: Yes Status: Acute Priority: High Code(s): F33.9 - MAJOR DEPRESSIVE DISORDER, RECURRENT, UNSPECIFIED SNOMED Code(s): 91376692 (2) Marijuana dependence Current Visit: Yes Status: Acute Priority: High Code(s): F12.20 - CANNABIS DEPENDENCE, UNCOMPLICATED SNOMED Code(s): 22636227 (3) Cocaine abuse Current Visit: Yes Status: Acute Priority: High Code(s): F14.10 - COCAINE ABUSE, UNCOMPLICATED SNOMED Code(s): 78535143 Time with Patient: Greater than 30
[2018-05-28] MEDS: LIDOCAINE 5% PATCH TOPICAL SCH (12:26)
[2018-05-28] MEDS ORDERED: lamoTRIgine 25 MG TAB PO SCH (21:00)
[2018-05-28] MEDS: PRAMIPEXOLE 0.5 MG TAB PO SCH (21:03)
[2018-05-28] MEDS: diphenhydrAMINE 50 MG CAP PO SCH (21:03)
[2018-05-28] MEDS: VENLAFAXINE HCL ER 75 MG CAP PO SCH (21:03)
[2018-05-29] MEDS: guaiFENesin SYRUP 100MG/5ML 200 MG/10 ML CUP PO PRN ×2 (06:33→11:04)
[2018-05-29] MEDS: ACETAMINOPHEN TAB 325 MG TAB PO PRN ×3 (06:58→21:32)
[2018-05-29] MEDS: NICOTINE 14MG/24HR PATCH TRANSDERM SCH (07:49)
[2018-05-29] MEDS: buPROPion XL 150 MG TAB.ER.24H PO SCH (07:50)
[2018-05-29] MEDS: cloNIDine HCL 0.1 MG TAB PO SCH ×3 (07:50→21:28)
[2018-05-29] MEDS: tiZANidine 4 MG TAB PO SCH ×3 (07:51→21:28)
[2018-05-29] MEDS: LORazepam 1 MG TAB PO PRN ×3 (07:54→23:00)
[2018-05-29] MEDS: ALBUTEROL INHALER 60 PUFF/8 GM INHALER INHALATION SCH ×5 (09:28→23:54)
[2018-05-29] MEDS: SYMBICORT 80-4.5 MCG INHALER INHALATION SCH ×2 (09:29→23:55)
[2018-05-29] MEDS: LIDOCAINE 5% PATCH TOPICAL SCH (11:01)
[2018-05-29] MEDS: MAGNESIUM HYDROXIDE 2,400 MG/10 ML CUP PO PRN (20:40)
[2018-05-29] MEDS ORDERED: lamoTRIgine 25 MG TAB PO SCH (21:00)
[2018-05-29] MEDS: diphenhydrAMINE 50 MG CAP PO SCH (21:28)
[2018-05-29] MEDS: PRAMIPEXOLE 0.5 MG TAB PO SCH (21:28)
[2018-05-29] MEDS: VENLAFAXINE HCL ER 75 MG CAP PO SCH (21:40)
[2018-05-30 06:39] VITALS: TEMP 97.8
[2018-05-30] MEDS: LIDOCAINE 5% PATCH TOPICAL SCH (07:33)
[2018-05-30] MEDS: NICOTINE 14MG/24HR PATCH TRANSDERM SCH (07:33)
[2018-05-30] MEDS: cloNIDine HCL 0.1 MG TAB PO SCH ×3 (07:34→21:16)
[2018-05-30] MEDS: tiZANidine 4 MG TAB PO SCH ×3 (07:34→21:17)
[2018-05-30] MEDS: buPROPion XL 300 MG TAB.ER.24H PO SCH (07:34)
[2018-05-30] MEDS: LORazepam 1 MG TAB PO PRN ×3 (07:37→22:15)
[2018-05-30] MEDS: guaiFENesin SYRUP 100MG/5ML 200 MG/10 ML CUP PO PRN ×2 (07:50→22:37)
[2018-05-30] MEDS: ALBUTEROL INHALER 60 PUFF/8 GM INHALER INHALATION SCH ×6 (08:26→23:18)
[2018-05-30] MEDS: SYMBICORT 80-4.5 MCG INHALER INHALATION SCH ×2 (08:26→21:09)
[2018-05-30] MEDS: ACETAMINOPHEN TAB 325 MG TAB PO PRN (11:16)
--- NOTE | 2018-05-30 12:05 | P.PN ---
Subjective Progress Note Date: 05/30/18 Principal diagnosis: Major depressive disorder with suicidal ideation and attempt 05/26/2018 Chart reviewed and patient interviewed discussed in team and medication regimen discussed in detail including risks versus benefit ratio. Patient had difficulty sleeping last night, continues to be depressed and suicidal but no harm to herself remains anxious and displaying symptoms of posttraumatic stress disorder. 05/27/2018: Chart reviewed, discussed with nursing staff, team meeting discussion regarding prognosis and discharge planning. She feels less depressed and has slept for the first time in a long time last night. She is gaining insight into her medical problems such as pain anxiety and fatigue are related to depression and cycling mood. 05/28/2018: Patient fell and shower yesterday on right hip and right forearm. Ordered ice packs for yesterday after the trauma. She is going to switch showers one that has a shelf and handle on it. She slept well last night depressions getting better less anxiety still drug-seeking and discussed treatment plan over the next 3 days. 05/29/2018: Patient interacting well on the unit and has slept better. Continue 15 minute checks and usual protocol for walker milieu therapeutic environment 05/30/2018: Patient doing well and has minimal pain. Her depression is decreased to 3 out of 10 as well as anxiety 3 out of 10. She has no thoughts of harming himself at this time. Review of medications, discussion with nursing staff and interview of patient undertaken today. Objective - Vital Signs Vital signs: Vital Signs Temp 97.8 F 05/30/18 06:38 Pulse 91 05/30/18 07:37 Resp 18 05/30/18 07:37 BP 110/83 05/30/18 07:37 Pulse Ox 98 05/24/18 17:00 Intake & Output 05/29/18 05/30/18 05/30/18 18:59 06:59 18:59 Weight 82 kg - Labs CBC & Chem 7: 05/23/18 23:45 05/23/18 23:45 Assessment and Plan Assessment: History of Present Illness Initial Comments: Joanne is a 33-year-old female brought to the ED today via EMS for psychiatric evaluation. Per EMS there contacted after the patient sent a photograph of her cut wrist to her boyfriend who contacted 911. EMS reports the patient was agitated and uncooperative in route to the hospital. Patient denies suicidality and states that she cuts herself to relieve emotional pain. Patient admits to cutting her wrist. PCP-Dr Mack and Smiley; Pain;Dr Martin Mental Status Examination - this is a 33-year-old female who said she was partying this last weekend with friends of her smoking marijuana obviously laced with cocaine. She appears to have done that 2 days for she partied with another friend the next day. She has a history of cutting and this time due to deep with too many stitches brought her to the emergency room. She appears to have more. Chronic pain syndrome with which we used to call malingering and borderline personality traits. She has gone to multiple doctors to obtain medicines in the past and has no regular psychiatrist to treat her. General Appearance: [ casual, appears older than stated age Speech/Language: [ expressive, soft] Attitude/Behavior: [cooperative, guarded, irritable, withdrawn, more motivated Mood: [ depressed 5 out of 10, anxious 5 out of 10, less irritable, less angry , fearful, more hope] Affect: [ flat blunted constricted] Orientation: [time, person, place situation] Thought Content: [wnl, denies delusions, obsessions, phobias, other] Risk Factors: [Demonstrated less suicidal (ideations, plan), and/or Homicidal ( ideations, plan), other] Perception: [wnl, and is not hallucinations (auditory, visual, tactile), other] Thought Processes: [ concrete, circumstantial, tangential Concentration/Attention Span: [ impaired] [Per observation and interview with the patient] Recent Memory: [wnl, Remote Memory: [wnl] [past events, as related history] Intelligence: [ average] [based on history, based on vocabulary, syntax, grammar , and content] Judgement: [Fair] [per patient's behavior/history of present illness] Insight: [ Fair] [understanding severity of illness/history of present illness] Initial Plan of Care: [Patient admitted involuntary on the unit for suicide attempt by long laceration on her arm. A petition, first clinical CERT for involuntary stay and I finished second certification for involuntary admission to the psychiatric unit [facility]. She demonstrates lack of insight and poor coping mechanisms. She'll be placed on 15 minute checks while on the unit and usual protocol for the unit. She will be evaluated by medicine , psychiatry,'s nursing staff, social work and occupational therapy. She'll be expected to participate in groups on the unit and adherent to a medical treatment plan. I discontinued her Fioricets and narcotics and am asking for a pain consult to evaluate her fibromyalgia and recent trauma following on the ice. She'll be started on Effexor 37.5 mg XR by mouth daily at bedtime, Lamictal 25 mg by mouth daily at bedtime for mood stabilization this combination of medications work well for chronic pain and for mood lability. Considering she was positive for cocaine and marijuana she will most likely go through detoxification over the next 3 days. 05/26/2018: Increase of Effexor to 75 mg XR by mouth daily at bedtime increase Lamictal to 50 mg by mouth daily at bedtime add Catapres 0.1 mg 3 times a day discontinue propranolol. Encouraged her to the in walker milieu therapeutic environment and to take her medications as written. She did have a reaction to the flu shot with numbness and pain over her left arm. Encouraged to use an ice pack. Usual routine checks for safety every 15 minutes and usual walker milieu therapeutic environment interactions. 05/27/2018: Discussed in detail the medications benefit risk ratio and continued titration needed until 05/31/2018 whereby she'll be ready for discharge. Increase her Effexor 150 mg XR by mouth daily at bedtime and add Lamictal 25 mg by mouth daily at bedtime. We'll continue titration of medicines until resolution. Also discussed Dr. Vargas finding of staying off the narcotics and further evaluation and outpatient basis and will make sure she has appointment scheduled with Dr. Vargas, for outpatient follow-up evaluation and treatment. The patient did deferral for probate Court in his agreement with treatment. ] 05/28/2018: Discussed again in detail benefit risk ratio of medications and discharge on 05/31/2018. Patient chart was reviewed discussed with nursing staff and team this morning. We'll increase her Effexor to 225 mgXR and increase Lamictal to 50 mg by mouth daily at bedtime. For her back pain I wrote for lidocaine patch 5% to be applied daily to low back area. She'll be continued to be followed on 15 minute checks and usual protocol on mental health unit. She is encouraged to go to groups which she has been doing and to participate in walker milieu therapeutic environment. She has been adherent to a medical treatment plan without any resistance. 05/30/2018: Patient remains on 15 minute checks and usual protocol on the mental health unit. She has been going to groups and been active in walker milieu therapeutic environment. Since she is signed deferment on prob[address] and likely will discharge on 05/31/2018. (1) Major depressive disorder, recurrent episode with atypical features Current Visit: Yes Status: Acute Priority: High Code(s): F33.9 - MAJOR DEPRESSIVE DISORDER, RECURRENT, UNSPECIFIED SNOMED Code(s): 25152238 (2) Marijuana dependence Current Visit: Yes Status: Acute Priority: High Code(s): F12.20 - CANNABIS DEPENDENCE, UNCOMPLICATED SNOMED Code(s): 65047236 (3) Cocaine abuse Current Visit: Yes Status: Acute Priority: High Code(s): F14.10 - COCAINE ABUSE, UNCOMPLICATED SNOMED Code(s): 75253690 Time with Patient: Less than 30
[2018-05-30] MEDS: MAGNESIUM HYDROXIDE 2,400 MG/10 ML CUP PO PRN (14:53)
[2018-05-30] MEDS: VENLAFAXINE HCL ER 75 MG CAP PO SCH (21:16)
[2018-05-30] MEDS: PRAMIPEXOLE 0.5 MG TAB PO SCH (21:16)
[2018-05-30] MEDS: diphenhydrAMINE 50 MG CAP PO SCH (21:16)
[2018-05-31 06:35] VITALS: BP 118/60; PULSE 87; RESP 14
[2018-05-31] MEDS: LORazepam 1 MG TAB PO PRN (07:14)
[2018-05-31] MEDS: NICOTINE 14MG/24HR PATCH TRANSDERM SCH (07:55)
[2018-05-31] MEDS: tiZANidine 4 MG TAB PO SCH (08:44)
[2018-05-31] MEDS: buPROPion XL 300 MG TAB.ER.24H PO SCH (08:46)
[2018-05-31] MEDS: cloNIDine HCL 0.1 MG TAB PO SCH (08:46)
[2018-05-31] MEDS: LIDOCAINE 5% PATCH TOPICAL SCH (08:47)
[2018-05-31] MEDS: ALBUTEROL INHALER 60 PUFF/8 GM INHALER INHALATION SCH ×3 (09:17→14:14)
[2018-05-31] MEDS: SYMBICORT 80-4.5 MCG INHALER INHALATION SCH (09:18)
--- NOTE | 2018-05-31 11:04 | P.DS ---
Providers Date of admission: 05/24/18 17:08 Expected date of discharge: 05/31/18 Attending physician: Cloeman Malloy DO Consults: 05/24/18 20:04 Consult Physician Routine Consulting Provider: Chelsea Slater Consult Reason/Comments: H&P and medical Do you want consulting provider notified?: Yes Primary care physician: Frederick Harry - Discharge Diagnosis(es) (1) Major depressive disorder, recurrent episode with atypical features History of Present Illness Initial Comments: Joanne is a 33-year-old female brought to the ED today via EMS for psychiatric evaluation. Per EMS there contacted after the patient sent a photograph of her cut wrist to her boyfriend who contacted 911. EMS reports the patient was agitated and uncooperative in route to the hospital. Patient denies suicidality and states that she cuts herself to relieve emotional pain. Patient admits to cutting her wrist. PCP-Dr Mack and Mscplimy; Pain;Dr Martin - Related Data Home Medications Medication Instructions Recorded Confirmed Hydrocodone/Acetaminophen [[place] 1 tab PO Q6H PRN 05/09/17 11/03/17 10-325] Butalb/APAP/Caff 50-325-40Mg 1 tab PO DAILY PRN 11/03/17 11/03/17 [Fioricet 50-325-40] Cetirizine HCl [Zyrtec] 10 mg PO HS 11/03/17 11/03/17 Citalopram Hydrobromide [CeleXA] 40 mg PO HS 11/03/17 11/03/17 Propranolol HCl 80 mg PO HS 11/03/17 11/03/17 Allergies Allergy/AdvReac Type Severity Reaction Status Date / Time NSAIDS (Non-Steroidal Allergy Dyspnea Verified 11/03/17 23:03 Anti-Inflamma Sulfa (Sulfonamide Allergy Rash/Hives Verified 11/03/17 23:03 Antibiotics) Past Medical History Past Medical History: Fibromyalgia Additional Past Medical History / Comment(s): hypoglycemia, cyst on kidney, DJD , carpel tunnel, PT STATED HAS"ACHALASIA" history of head injury TBI History of Any Multi-Drug Resistant Organisms: None Reported Past Surgical History: Appendectomy, Section, Orthopedic Surgery, Tubal Ligation Additional Past Surgical History / Comment(s): c section x 3, EGD. Past Anesthesia/Blood Transfusion Reactions: Motion Sickness Past Psychological History: ADD/ADHD, Anxiety, Bipolar, Depression, PTSD Smoking Status: Current every day smoker Past Alcohol Use History: Occasional Past Drug Use History: Marijuana - Past Family History Father Family Medical History: Hyperlipidemia, Hypertension Mother Family Medical History: Fibromyalgia Additional Family Medical History / Comment(s): HIATAL HERNIA OSTEOPSORIS, DDD PAST PSYCHIATRIC HISTORY: Patient has never been hospital is a psychiatric unit before. She reports she has had suicide attempts in the past. She states in December 2013 she took an overdose of medications because her son said something that made her upset and she couldn't stand the thought that she "had given to something so evil" She states she also took an overdose of Seroquel years before that because she was kidnapped and people didn't believe her about it. Patient does not have any outpatient mental health professionals including counselors or psychiatrists. FAMILY PSYCHIATRIC HISTORY: Patient reports a family history of psychiatric problems stating that her sister has problems but has gotten help. Her maternal uncle committed suicide. She states her son's been diagnosed with bipolar disorder and ADHD. She reports her mother has had problems but does not get help. PAST MEDICAL HISTORY:Patient reports that she has fibromyalgia and chronic back pain due to degenerative disc disease and herniated disks.. ALLERGIES: NSAIDs, sulfa. OTHER MEDICATIONS: [place], she reports she previously been on Dilaudid and [place]. She is also taking methadone in the past. SUBSTANCE ABUSE HISTORY: She denies that she uses any illicit drugs. She denies any heroin use, methamphetamine use or cocaine use. She reports that she uses marijuana daily for medical purposes and she plans to get her medical marijuana license. She denies that she drinks alcohol.. SOCIAL HISTORY: Patient reports she grew up in this area, in [place]. She reports she grew up with both her parents a sister and a brother. Her brother currently lives with her parents and her sister lives in the area as well. Her sister recently got temporary guardianship of her daughter who is 4 years old. Her mother has guardianship of her other 2 children ages 11 and 10. Patient reports she graduated from high school and has one year of college. 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 She lives in an apartment with her fianc and he is not working either. She states she gets food stamps but otherwise has no means of supporting herself. She states that she has no transportation to get to doctor's appointments. Current Visit: Yes Status: Acute Priority: Low (2) Marijuana dependence Current Visit: Yes Status: Acute Priority: Low (3) Cocaine abuse Current Visit: Yes Status: Acute Priority: Low Hospital Course: Plan of Care: [Patient admitted involuntary on the unit for suicide attempt by long laceration on her arm. A petition, first clinical CERT for involuntary stay and I finished second certification for involuntary admission to the psychiatric unit [facility] Karen Coleman. She demonstrates lack of insight and poor coping mechanisms. She'll be placed on 15 minute checks while on the unit and usual protocol for the unit. She will be evaluated by medicine, psychiatry,'s nursing staff, social work and occupational therapy. She'll be expected to participate in groups on the unit and adherent to a medical treatment plan. I discontinued her Fioricets and narcotics and am asking for a pain consult to evaluate her fibromyalgia and recent trauma following on the ice. She'll be started on Effexor 37.5 mg XR by mouth daily at bedtime, Lamictal 25 mg by mouth daily at bedtime for mood stabilization this combination of medications work well for chronic pain and for mood lability. Considering she was positive for cocaine and marijuana she will most likely go through detoxification over the next 3 days. 05/26/2018: Increase of Effexor to 75 mg XR by mouth daily at bedtime increase Lamictal to 50 mg by mouth daily at bedtime add Catapres 0.1 mg 3 times a day discontinue propranolol. Encouraged her to the in walker milieu therapeutic environment and to take her medications as written. She did have a reaction to the flu shot with numbness and pain over her left arm. Encouraged to use an ice pack. Usual routine checks for safety every 15 minutes and usual walker milieu therapeutic environment interactions. 05/27/2018: Discussed in detail the medications benefit risk ratio and continued titration needed until 05/31/2018 whereby she'll be ready for discharge. Increase her Effexor 150 mg XR by mouth daily at bedtime and add Lamictal 25 mg by mouth daily at bedtime. We'll continue titration of medicines until resolution. Also discussed Dr. Vargas finding of staying off the narcotics and further evaluation and outpatient basis and will make sure she has appointment scheduled with Dr. Vargas, for outpatient follow-up evaluation and treatment. The patient did deferral for probate Court in his agreement with treatment. ] 05/28/2018: Discussed again in detail benefit risk ratio of medications and discharge on 05/31/2018. Patient chart was reviewed discussed with nursing staff and team this morning. We'll increase her Effexor to 225 mgXR and increase Lamictal to 50 mg by mouth daily at bedtime. For her back pain I wrote for lidocaine patch 5% to be applied daily to low back area. She'll be continued to be followed on 15 minute checks and usual protocol on mental health unit. She is encouraged to go to groups which she has been doing and to participate in walker milieu therapeutic environment. She has been adherent to a medical treatment plan without any resistance. 05/30/2018: Patient remains on 15 minute checks and usual protocol on the mental health unit. She has been going to groups and been active in walker milieu therapeutic environment. Since she is signed deferment on probate Court and likely will discharge on 05/31/2018. Mental status examination the time of discharge: The patient presents alert, pleasant, and cooperative. There calmly seated without any agitated behavior. She reports that [her] mood is good. Affect is congruent and euthymic. [She] deny having any suicidal or homicidal ideation intent or plan. [She] denies any auditory or visual hallucinations. There is no evidence of any delusional thought content. [Her] thought process is linear and goal-directed. [Her] speech is fluent and nonpressured. [Her] memory and concentration is grossly intact for the purposes of this session. She should stay away from psychoactive substances although times that had been written for her psychiatric unit to stay away from Ativan narcotics amphetamines. Patient Condition at Discharge: Serious Plan - Discharge Summary Discharge Rx Participant: Yes New Discharge Prescriptions: New buPROPion XL [Wellbutrin XL] 300 mg PO DAILY 30 Days #30 tab.er.24h cloNIDine HCL [Catapres] 0.1 mg PO TID 30 Days #90 tab diphenhydrAMINE [Benadryl] 50 mg PO HS cap guaiFENesin SYRUP 100MG/5ML [Robitussin] 200 mg PO Q6H PRN cup PRN Reason: Cough Lidocaine 5% Patch [Lidoderm 5% Patch] 1 patch TOPICAL DAILY 30 Days #30 patch Nicotine 14Mg/24Hr Patch [Habitrol] 1 patch TRANSDERM DAILY patch Pramipexole [Mirapex] 0.5 mg PO HS 30 Days #30 tab Venlafaxine HCl ER [Effexor XR] 225 mg PO 2100 30 Days #90 cap.er.24h Continue Albuterol Inhaler [Ventolin Hfa Inhaler] 1 - 2 puff INHALATION RT-Q4H #1 puff Cetirizine HCl [Zyrtec] 10 mg PO HS 30 Days #30 tablet Mometasone/Formoterol [Dulera 100 Mcg/5 Mcg Inhaler] 2 inhalation PO BID 30 Days #1 hfa.aer.ad tiZANidine [Zanaflex] 4 mg PO TID 30 Days #120 tab Discontinued Citalopram Hydrobromide [CeleXA] 40 mg PO HS Propranolol LA [Inderal LA] 80 mg PO DAILY Buta/APAP/Caf/Cod 01-978-93-30 [Fioricet w/Cod 01-576-48-30MG] 1 cap PO DAILY Discharge Medication List Albuterol Inhaler [Ventolin Hfa Inhaler] 1 - 2 puff INHALATION RT-Q4H #1 puff [Rx] Cetirizine HCl [Zyrtec] 10 mg PO HS 30 Days #30 tablet 05/31/18 [Rx] Lidocaine 5% Patch [Lidoderm 5% Patch] 1 patch TOPICAL DAILY 30 Days #30 patch 05/31/18 [Rx] Mometasone/Formoterol [Dulera 100 Mcg/5 Mcg Inhaler] 2 inhalation PO BID 30 Days #1 hfa.aer.ad 05/31/18 [Rx] Nicotine 14Mg/24Hr Patch [Habitrol] 1 patch TRANSDERM DAILY patch 05/31/18 [Rx] Pramipexole [Mirapex] 0.5 mg PO HS 30 Days #30 tab 05/31/18 [Rx] Venlafaxine HCl ER [Effexor XR] 225 mg PO 2100 30 Days #90 cap.er.24h 05/31/18 [ Rx] buPROPion XL [Wellbutrin XL] 300 mg PO DAILY 30 Days #30 tab.er.24h 05/31/18 [Rx ] cloNIDine HCL [Catapres] 0.1 mg PO TID 30 Days #90 tab 05/31/18 [Rx] diphenhydrAMINE [Benadryl] 50 mg PO HS cap 05/31/18 [Rx] guaiFENesin SYRUP 100MG/5ML [Robitussin] 200 mg PO Q6H PRN cup 05/31/18 [Rx] tiZANidine [Zanaflex] 4 mg PO TID 30 Days #120 tab 05/31/18 [Rx] Follow up Appointment(s)/Referral(s): [facility] [Outside] - 06/04/18 9:00 am (with Bre Wilhelm) Frederick Harry DO [Primary Care Provider] - 1-2 days Activity/Diet/Wound Care/Special Instructions: Activity and diet as tolerated. Avoid the use of street drugs and alcohol. Take all medications as prescribed. When you are in need of refills on your medications please contact your medical provider and/or outpatient psychiatrist to have this done. Please go to scheduled outpatient appointment for aftercare treatment. If symptoms return or become worse, call the crisis line at [phone] and/or go to the nearest emergency room for evaluation. Discharge Disposition: HOME SELF-CARE
== END 2018-05-31 12:55 | disposition home or self-care (01) | DRG 885 ==
LOC: EC 22:43 → 3MHU 05-24 17:08
PROVIDERS: ADMIT Psychiatry & Neurology Psychiatry; ATTEND Psychiatry & Neurology Psychiatry
PROC: 0HQEXZZ Repair Left Lower Arm Skin, External Approach (ICD-10-PCS; 2018-05-24)
PROC: 3E02340 Introduction of Influenza Vaccine into Muscle, Percutaneous Approach (ICD-10-PCS; principal; 2018-05-25)
PROC: 3E0234Z Introduction of Serum, Toxoid and Vaccine into Muscle, Percutaneous Approach (ICD-10-PCS; 2018-05-25)
DX: F33.9 Major depressive disorder, recurrent, unspecified (principal); K22.0 Achalasia of cardia; S61.512A Laceration without foreign body of left wrist, initial encounter; X78.9XXA Intentional self-harm by unspecified sharp object, initial encounter; Z23 Encounter for immunization; G89.4 Chronic pain syndrome; F43.10 Post-traumatic stress disorder, unspecified; F14.10 Cocaine abuse, uncomplicated; F12.20 Cannabis dependence, uncomplicated; F90.9 Attention-deficit hyperactivity disorder, unspecified type; M79.7 Fibromyalgia; M19.90 Unspecified osteoarthritis, unspecified site; M54.9 Dorsalgia, unspecified; G47.9 Sleep disorder, unspecified; F17.210 Nicotine dependence, cigarettes, uncomplicated; Z71.6 Tobacco abuse counseling; Z79.899 Other long term (current) drug therapy; Z87.820 Personal history of traumatic brain injury; Z91.5 Personal history of self-harm; Z76.5 Malingerer [conscious simulation]; Z98.891 History of uterine scar from previous surgery; Z90.49 Acquired absence of other specified parts of digestive tract; Z88.2 Allergy status to sulfonamides; Z88.8 Allergy status to other drugs, medicaments and biological substances; Z82.49 Family history of ischemic heart disease and other diseases of the circulatory system; Z83.49 Family history of other endocrine, nutritional and metabolic diseases; Z82.69 Family history of other diseases of the musculoskeletal system and connective tissue; Z83.79 Family history of other diseases of the digestive system
CPT/HCPCS: 12002; 36415; 72125; 73502; 80053; 80061; 80306; 80320; 81003; 81025; 83036; 83520; 85025; 87502; 90686; 90732; 94640; 96372; 99285

== ENCOUNTER 2018-08-15 14:46 | Emergency (ER) | payer OTHER ==
[2018-08-15 14:56] VITALS: TEMP 98
[2018-08-15] MEDS ORDERED: CEPHALEXIN 500MG STARTER PACK 4 CAP BTL PO STA (15:16)
[2018-08-15] MEDS ORDERED: ACET/COD 300 MG/30 MG STARTER PACK 6 TAB BTL PO STA (15:16)
--- NOTE | 2018-08-15 15:20 | ED ---
General Adult HPI <Chano Ely - Last Filed: 08/15/18 16:58> - General Source: patient, RN notes reviewed Mode of arrival: wheelchair Limitations: no limitations <Erich Lazar - Last Filed: 08/15/18 20:04> - General Chief complaint: Extremity Injury, Lower Stated complaint: Ankle injury Time Seen by Provider: 08/15/18 14:58 - History of Present Illness Initial comments: Patient is a pleasant 33-year-old female presenting to the emergency department following a fall. Fall occurred early this morning. Patient was letting her dog inside and holding onto the leash. Patient states the door struck her in the right posterior ankle near the Achilles. Patient is concerned she may have causing partial injury. Patient also turned quickly and fell and struck her left knee. Patient also sustained a laceration there. Patient states it hurts to walk using her right ankle secondary to the soft tissue injury. Patient does not believe she broke anything. No history of problems in these areas previously. Last tetanus immunization was around 2 years ago. (Erich Lazar) - Related Data Previous Rx's Medication Instructions Recorded Albuterol Inhaler [Ventolin Hfa 1 - 2 puff INHALATION RT-Q4H #1 05/31/18 Inhaler] puff Cetirizine HCl [Zyrtec] 10 mg PO HS 30 Days #30 tablet 05/31/18 Lidocaine 5% Patch [Lidoderm 5% 1 patch TOPICAL DAILY 30 Days #30 05/31/18 Patch] patch Mometasone/Formoterol [Dulera 100 2 inhalation PO BID 30 Days #1 05/31/18 Mcg/5 Mcg Inhaler] hfa.aer.ad Nicotine 14Mg/24Hr Patch [Habitrol] 1 patch TRANSDERM DAILY patch 05/31/18 Pramipexole [Mirapex] 0.5 mg PO HS 30 Days #30 tab 05/31/18 Venlafaxine HCl ER [Effexor XR] 225 mg PO 2100 30 Days #90 05/31/18 cap.er.24h buPROPion XL [Wellbutrin XL] 300 mg PO DAILY 30 Days #30 05/31/18 tab.er.24h cloNIDine HCL [Catapres] 0.1 mg PO TID 30 Days #90 tab 05/31/18 diphenhydrAMINE [Benadryl] 50 mg PO HS cap 05/31/18 guaiFENesin SYRUP 100MG/5ML 200 mg PO Q6H PRN cup 05/31/18 [Robitussin] tiZANidine [Zanaflex] 4 mg PO TID 30 Days #120 tab 05/31/18 Cephalexin [Keflex] 500 mg PO QID #40 cap 08/15/18 Allergies Allergy/AdvReac Type Severity Reaction Status Date / Time NSAIDS (Non-Steroidal Allergy Dyspnea Verified 08/15/18 14:56 Anti-Inflamma Sulfa (Sulfonamide Allergy Rash/Hives Verified 08/15/18 14:56 Antibiotics) Review of Systems ROS Other: All systems not noted in ROS Statement are negative. <Chano Ely - Last Filed: 08/15/18 16:58> ROS Other: All systems not noted in ROS Statement are negative. Constitutional: Denies: fever Eyes: Denies: eye pain ENT: Denies: ear pain Respiratory: Denies: cough Cardiovascular: Denies: chest pain Endocrine: Denies: fatigue Gastrointestinal: Denies: abdominal pain Genitourinary: Denies: dysuria Musculoskeletal: Denies: back pain Skin: Denies: rash Neurological: Denies: weakness <Erich Lazar - Last Filed: 08/15/18 20:04> ROS Statement: Those systems with pertinent positive or pertinent negative responses have been documented in the HPI. Past Medical History Past Medical History: Fibromyalgia Additional Past Medical History / Comment(s): hypoglycemia, cyst on kidney, DJD, carpel tunnel, PT STATED HAS"ACHALASIA" History of Any Multi-Drug Resistant Organisms: None Reported Past Surgical History: Appendectomy, Section, Orthopedic Surgery, Tubal Ligation Additional Past Surgical History / Comment(s): c section x 3, EGD. Past Anesthesia/Blood Transfusion Reactions: Motion Sickness Past Psychological History: ADD/ADHD, Anxiety, Bipolar, Depression, PTSD Smoking Status: Current every day smoker Past Alcohol Use History: Occasional Past Drug Use History: Marijuana - Past Family History Father Family Medical History: Hyperlipidemia, Hypertension Mother Family Medical History: Fibromyalgia Additional Family Medical History / Comment(s): HIATAL HERNIA OSTEOPSORIS, DDD <Erich Lazar - Last Filed: 08/15/18 20:04> General Exam Limitations: no limitations General appearance: alert, in no apparent distress Head exam: Present: atraumatic Eye exam: Present: normal appearance Neck exam: Present: normal inspection Respiratory exam: Present: normal lung sounds bilaterally Cardiovascular Exam: Present: regular rate, normal rhythm Expanded Peripheral pulses: 2+: Posterior Tibialis (R), Posterior Tibialis (L), Dorsalis Pedis (R), Dorsalis Pedis (L) GI/Abdominal exam: Present: soft. Absent: tenderness Extremities exam: Present: full ROM, other (No bony tenderness. Right posterior ankle with approximately 1.5 cm laceration that is mostly superficial but somewhat near the Achilles. There is not gross deficit to the Achilles. Patient does have sensitivity with examination and somewhat limits exam. Distally extremity is neurologic intact. Patient also has left anterior knee laceration approximately 3 cm.) Neurological exam: Present: alert Psychiatric exam: Present: normal affect, normal mood Skin exam: Present: other (Right ankle and left knee laceration) <Erich Lazar Filed: 08/15/18 20:04> Course Vital Signs 08/15/18 08/15/18 14:53 17:17 Temperature 98 F Pulse Rate 86 74 Respiratory 16 18 Rate Blood Pressure 93/50 141/95 O2 Sat by Pulse 99 100 Oximetry Procedures - Laceration Laceration #1 Consent Obtained: verbal consent Indication: laceration Site: other (Left knee) Size (cm): 3 Description: linear Depth: simple, single layer Anesthetic Used: lidocaine 1% Anesthesia Technique: local infiltration Amount (mls): 5 Pre-repair: irrigated extensively Type of Sutures: nylon Size of Sutures: 4-0 Number of Sutures: 5 Technique: simple, interrupted Patient Tolerated Procedure: well Laceration #2 Consent Obtained: verbal consent Indication: laceration Site: other (Right foot) Description: linear Depth: simple, single layer Anesthetic Used: lidocaine 1% Anesthesia Technique: local infiltration Amount (mls): 5 Pre-repair: irrigated extensively Size of Sutures: 4-0 Number of Sutures: 4 Technique: simple, interrupted Patient Tolerated Procedure: well - Orthopedic Splinting/Casting Injury #1 Lower Extremity Immobilizer: posterior splint Other Orthopedic Equipment: crutches <Chano Ely Filed: 08/15/18 16:58> - Orthopedic Splinting/Casting Injury #1 Lower Extremity Injury Location: short leg <Erich Lazar Filed: 08/15/18 20:04> Medical Decision Making <Erich Lazar - Last Filed: 08/15/18 20:04> - Medical Decision Making Case was discussed with Dr. Manrique who agrees with sutures and OCL and close follow-up in the office. (Erich Lazar) Disposition <Chano Ely - Last Filed: 08/15/18 16:58> Is patient prescribed a controlled substance at d/c from ED?: No <Erich Lazar - Last Filed: 08/15/18 20:04> Clinical Impression: Laceration of ankle, Knee laceration Disposition: HOME SELF-CARE Condition: Stable Instructions (If sedation given, give patient instructions): Laceration (ED), Achilles Tendon Rupture (ED) Additional Instructions: Please follow-up with orthopedics tomorrow. Take antibiotics. No weightbearing on right leg. Use crutches, prescription provided . There is concern for possible injury to the Achilles which will need to be further evaluated by orthopedics. Return for increased pain, swelling, redness, drainage, fever, worsening symptoms or other concerns. Prescriptions: Cephalexin [Keflex] 500 mg PO QID #40 cap Referrals: Frederick Harry DO [Primary Care Provider] - 1-2 days
[2018-08-15] MEDS ORDERED: LIDOCAINE 1% INJ 10MG/ML (20 ML MDV) SQ ONE (15:51)
[2018-08-15 17:22] VITALS: BP 141/95; PULSE 74; RESP 18
== END 2018-08-15 17:17 | disposition home or self-care (01) ==
LOC: EC 14:46
DX: S91.011A Laceration without foreign body, right ankle, initial encounter (principal); S81.012A Laceration without foreign body, left knee, initial encounter; F17.200 Nicotine dependence, unspecified, uncomplicated; Z88.2 Allergy status to sulfonamides; Z88.6 Allergy status to analgesic agent; W18.09XA Striking against other object with subsequent fall, initial encounter; Y92.009 Unspecified place in unspecified non-institutional (private) residence as the place of occurrence of the external cause
CPT/HCPCS: 99283; 12002; J2001

== ENCOUNTER 2018-11-09 05:06 | Inpatient (IN) | payer OTHER ==
--- NOTE | 2018-11-09 05:27 | ED ---
General Adult HPI - General Chief complaint: Psychiatric Symptoms Stated complaint: Mental Health Time Seen by Provider: 11/09/18 05:20 Source: patient, EMS Mode of arrival: EMS Limitations: no limitations - History of Present Illness Initial comments: Dictation was produced using [employer] dictation software. please excuse any grammatical, word or spelling errors. Chief Complaint: 32-year-old female petitioned by law enforcement for suicidal ideation History of Present Illness: 32-year-old female is brought in by EMS. E nforcement was called given patient's suicidal remarks to her significant other. Enforcement arrived on scene and found that she was minimally responsive. She had multiple alcoholic beverages. Patient also was noted to have a laceration to her right chest. She reports that the laceration was caused by her significant other. Enforcement however reports that this is likely a suicidal attempt. According to EMS and law enforcement patient was very uncooperative. She required restraints. During that time she reports that she was banging her head on hard objects has a sinus frustration. She is given 5 mg of IM Versed patient reports that she is upset because she was brought here and hasn't awakened. She also is fresh her to because she does not have her footwear. The ROS documented in this emergency department record has been reviewed and confirmed by me. Those systems with pertinent positive or negative responses have been documented in the HPI. All other systems are other negative and/or noncontributory. PHYSICAL EXAM: General Impression: Alert and oriented x3, tearful HEENT: Normocephalic atraumatic, extra-ocular movements intact, pupils equal and reactive to light bilaterally, mucous membranes moist. Cardiovascular: Heart regular rate and rhythm, S1&S2 audible, no murmurs, rubs or gallops Chest: Lungs clear to auscultation bilaterally, no rhonchi, no wheeze, no rales, 2 cm laceration to the right anterior chest Abdomen: Bowel sounds present, abdomen soft, non-tender, non-distended, no organomegaly Musculoskeletal: Pulses present and equal in all extremities, no peripheral edema Motor: no focal deficits noted Neurological: CN II-XII grossly intact, no focal motor or sensory deficits noted Skin: Intact with no visualized rashes, multiple laceration scars Psych: Normal affect and mood ED course: 33-year-old female presents with suicidal ideation. She is disheveled enforcement. Vital signs upon arrival are within acceptable limits. Laceration repaired at bedside using gwendolyn. Patient is not showing any signs of respiratory distress. She does not have any abdominal pain. Highly doubt that this represents a penetrating injury. Laboratory evaluation obtained. CBC, metabolic panel is unremarkable. Urinalysis shows 7 white blood cells however this is a dirty catch with 24 squamous cells. Toxicology screen shows positive for benzos, cocaine and marijuana. Her alcohol level is 70.Brain CT is unremarkable obtained showing subacute versus chronic infarct. Possible underlying lesion. Discussed patient case with Dr. Salazar. Neurology recommends the patient be admitted to medicine with MRI study ordered. She presents requesting MRI brain with and without contrast. It is unclear what this CT imaging finding represents an patient would benefit from MRI. Patient is currently sedated after given medications for aggressive behavior. Patient be admitted to medicine. Psychiatry on consult. Patient will have a sitter. EKG shows prolonged QT. This is likely secondary to psychiatric medications. Cardiology on consultation. EKG interpretation: Ventricular rate 56, sinus bradycardia, VA interval 154, care is 108, QTc 613. She has prolonged QT. - Related Data Previous Rx's Medication Instructions Recorded Albuterol Inhaler [Ventolin Hfa 1 - 2 puff INHALATION RT-Q4H #1 05/31/18 Inhaler] puff Cetirizine HCl [Zyrtec] 10 mg PO HS 30 Days #30 tablet 05/31/18 Lidocaine 5% Patch [Lidoderm 5% 1 patch TOPICAL DAILY 30 Days #30 05/31/18 Patch] patch Mometasone/Formoterol [Dulera 100 2 inhalation PO BID 30 Days #1 05/31/18 Mcg/5 Mcg Inhaler] hfa.aer.ad Nicotine 14Mg/24Hr Patch [Habitrol] 1 patch TRANSDERM DAILY patch 05/31/18 Pramipexole [Mirapex] 0.5 mg PO HS 30 Days #30 tab 05/31/18 Venlafaxine HCl ER [Effexor XR] 225 mg PO 2100 30 Days #90 05/31/18 cap.er.24h buPROPion XL [Wellbutrin XL] 300 mg PO DAILY 30 Days #30 05/31/18 tab.er.24h cloNIDine HCL [Catapres] 0.1 mg PO TID 30 Days #90 tab 05/31/18 diphenhydrAMINE [Benadryl] 50 mg PO HS cap 05/31/18 guaiFENesin SYRUP 100MG/5ML 200 mg PO Q6H PRN cup 05/31/18 [Robitussin] tiZANidine [Zanaflex] 4 mg PO TID 30 Days #120 tab 05/31/18 Cephalexin [Keflex] 500 mg PO QID #40 cap 08/15/18 Allergies Allergy/AdvReac Type Severity Reaction Status Date / Time NSAIDS (Non-Steroidal Allergy Dyspnea Verified 08/15/18 14:56 Anti-Inflamma Sulfa (Sulfonamide Allergy Rash/Hives Verified 08/15/18 14:56 Antibiotics) Review of Systems ROS Statement: Those systems with pertinent positive or pertinent negative responses have been documented in the HPI. ROS Other: All systems not noted in ROS Statement are negative. Past Medical History Past Medical History: Fibromyalgia Additional Past Medical History / Comment(s): hypoglycemia, cyst on kidney, DJD, carpel tunnel, PT STATED HAS"ACHALASIA" History of Any Multi-Drug Resistant Organisms: None Reported Past Surgical History: Appendectomy, Section, Orthopedic Surgery, Tubal Ligation Additional Past Surgical History / Comment(s): c section x 3, EGD. Past Anesthesia/Blood Transfusion Reactions: Motion Sickness Past Psychological History: ADD/ADHD, Anxiety, Bipolar, Depression, PTSD Smoking Status: Current every day smoker Past Alcohol Use History: Occasional Past Drug Use History: Marijuana - Past Family History Father Family Medical History: Hyperlipidemia, Hypertension Mother Family Medical History: Fibromyalgia Additional Family Medical History / Comment(s): HIATAL HERNIA OSTEOPSORIS, DDD General Exam Limitations: no limitations Course Vital Signs 11/09/18 05:09 Temperature 98.0 F Pulse Rate 69 Respiratory 18 Rate Blood Pressure 87/53 O2 Sat by Pulse 98 Oximetry Procedures - Laceration Laceration #1 Consent Obtained: verbal consent Indication: laceration Site: chest Description: linear Size of Sutures: other Patient Tolerated Procedure: well Medical Decision Making - Lab Data Result diagrams: 11/09/18 05:45 11/09/18 05:45 Lab Results 11/09/18 11/09/18 11/09/18 Range/Units 05:20 05:20 05:20 WBC (3.8-10.6) k/uL RBC (3.80-5.40) m/uL Hgb (11.4-16.0) gm/dL Hct (34.0-46.0) % MCV (80.0-100.0) fL MCH (25.0-35.0) pg MCHC (31.0-37.0) g/dL RDW (11.5-15.5) % Plt Count (150-450) k/uL Neutrophils % % Lymphocytes % % Monocytes % % Eosinophils % % Basophils % % Neutrophils # (1.3-7.7) k/uL Lymphocytes # (1.0-4.8) k/uL Monocytes # (0-1.0) k/uL Eosinophils # (0-0.7) k/uL Basophils # (0-0.2) k/uL Sodium (137-145) mmol/L Potassium (3.5-5.1) mmol/L Chloride (98-107) mmol/L Carbon Dioxide (22-30) mmol/L Anion Gap mmol/L BUN (7-17) mg/dL Creatinine (0.52-1.04) mg/dL Est GFR (CKD-EPI)AfAm (>60 ml/min/1.73 sqM) Est GFR (CKD-EPI)NonAf (>60 ml/min/1.73 sqM) Glucose (74-99) mg/dL Calcium (8.4-10.2) mg/dL Total Bilirubin (0.2-1.3) mg/dL AST (14-36) U/L ALT (9-52) U/L Alkaline Phosphatase (38-126) U/L Total Protein (6.3-8.2) g/dL Albumin (3.5-5.0) g/dL Urine Color Yellow Urine Appearance Cloudy H (Clear) Urine pH 5.5 (5.0-8.0) Ur Specific [place] 1.013 (1.001-1.035) Urine Protein Trace H (Negative) Urine Glucose (UA) Negative (Negative) Urine Ketones Negative (Negative) Urine Blood Moderate H (Negative) Urine Nitrite Negative (Negative) Urine Bilirubin Negative (Negative) Urine Urobilinogen <2.0 (<2.0) mg/dL Ur Leukocyte Esterase Moderate H (Negative) Urine RBC 4 (0-5) /hpf Urine WBC 7 H (0-5) /hpf Ur Squamous Epith Cells 24 H (0-4) /hpf Urine Bacteria Moderate H (None) /hpf Urine Mucus Many H (None) /hpf Urine HCG, Qual Not Detected (Not Detectd) Urine Opiates Screen Not Detected (NotDetected) Ur Oxycodone Screen Not Detected (NotDetected) Urine Methadone Screen Not Detected (NotDetected) Ur Propoxyphene Screen Not Detected (NotDetected) Ur Barbiturates Screen Not Detected (NotDetected) U Tricyclic Antidepress Not Detected (NotDetected) Ur Phencyclidine Scrn Not Detected (NotDetected) Ur Amphetamines Screen Not Detected (NotDetected) U Methamphetamines Scrn Not Detected (NotDetected) U Benzodiazepines Scrn Detected H (NotDetected) Urine Cocaine Screen Detected H (NotDetected) U Marijuana (THC) Screen Detected H (NotDetected) Serum Alcohol mg/dL 11/09/18 11/09/18 Range/Units 05:45 05:45 WBC 8.5 (3.8-10.6) k/uL RBC 4.24 (3.80-5.40) m/uL Hgb 12.4 (11.4-16.0) gm/dL Hct 38.1 (34.0-46.0) % MCV 89.9 (80.0-100.0) fL MCH 29.3 (25.0-35.0) pg MCHC 32.6 (31.0-37.0) g/dL RDW 13.4 (11.5-15.5) % Plt Count 285 (150-450) k/uL Neutrophils % 59 % Lymphocytes % 30 % Monocytes % 6 % Eosinophils % 3 % Basophils % 0 % Neutrophils # 5.0 (1.3-7.7) k/uL Lymphocytes # 2.5 (1.0-4.8) k/uL Monocytes # 0.5 (0-1.0) k/uL Eosinophils # 0.2 (0-0.7) k/uL Basophils # 0.0 (0-0.2) k/uL Sodium 140 (137-145) mmol/L Potassium 3.4 L (3.5-5.1) mmol/L Chloride 108 H (98-107) mmol/L Carbon Dioxide 22 (22-30) mmol/L Anion Gap 10 mmol/L BUN 11 (7-17) mg/dL Creatinine 1.17 H (0.52-1.04) mg/dL Est GFR (CKD-EPI)AfAm 70 (>60 ml/min/1.73 sqM) Est GFR (CKD-EPI)NonAf 61 (>60 ml/min/1.73 sqM) Glucose 125 H (74-99) mg/dL Calcium 9.4 (8.4-10.2) mg/dL Total Bilirubin 0.3 (0.2-1.3) mg/dL AST 21 (14-36) U/L ALT 14 (9-52) U/L Alkaline Phosphatase 60 (38-126) U/L Total Protein 7.1 (6.3-8.2) g/dL Albumin 4.2 (3.5-5.0) g/dL Urine Color Urine Appearance (Clear) Urine pH (5.0-8.0) Ur Specific [place] (1.001-1.035) Urine Protein (Negative) Urine Glucose (UA) (Negative) Urine Ketones (Negative) Urine Blood (Negative) Urine Nitrite (Negative) Urine Bilirubin (Negative) Urine Urobilinogen (<2.0) mg/dL Ur Leukocyte Esterase (Negative) Urine RBC (0-5) /hpf Urine WBC (0-5) /hpf Ur Squamous Epith Cells (0-4) /hpf Urine Bacteria (None) /hpf Urine Mucus (None) /hpf Urine HCG, Qual (Not Detectd) Urine Opiates Screen (NotDetected) Ur Oxycodone Screen (NotDetected) Urine Methadone Screen (NotDetected) Ur Propoxyphene Screen (NotDetected) Ur Barbiturates Screen (NotDetected) U Tricyclic Antidepress (NotDetected) Ur Phencyclidine Scrn (NotDetected) Ur Amphetamines Screen (NotDetected) U Methamphetamines Scrn (NotDetected) U Benzodiazepines Scrn (NotDetected) Urine Cocaine Screen (NotDetected) U Marijuana (THC) Screen (NotDetected) Serum Alcohol 70 mg/dL Disposition Clinical Impression: Suicidal behavior Disposition: ADMITTED IP TO THIS [facility] Condition: Fair Referrals: Nonstaff,Physician [Primary Care Provider] - 1-2 days Decision Time: 07:33
[2018-11-09] MEDS ORDERED: HALOPERIDOL LACTATE 5 MG/ML 1 ML VIAL IM STA (05:33)
[2018-11-09] MEDS ORDERED: LORazepam 2 MG/ML INJ IM STA (05:34)
[2018-11-09] MEDS: diphenhydrAMINE 50 MG/ML 1 ML VIAL IM STA ×2 (05:46→05:49)
[2018-11-09 05:57] LABS: Basophils % (A) 0 %; Eosinophils # (A) 0.2 k/uL (0-0.7); Eosinophils % (A) 3 %; HCT 38.1 % (34.0-46.0); HGB 12.4 gm/dL (11.4-16.0); Lymphocytes # (A) 2.5 k/uL (1.0-4.8); Lymphocytes % (A) 30 %; MCH 29.3 pg (25.0-35.0); MCHC 32.6 g/dL (31.0-37.0); MCV 89.9 fL (80.0-100.0); Mean Platelet Volume 7.7; Monocytes # (A) 0.5 k/uL (0-1.0); Monocytes % (A) 6 %; Neutrophils % (A) 59 %; Platelet Count 285 k/uL (150-450); RBC 4.24 m/uL (3.80-5.40); RDW 13.4 % (11.5-15.5); WBC 8.5 k/uL (3.8-10.6)
[2018-11-09 06:01] LABS: Appearance,Urine Cloudy (Clear); Bacteria,Urine Moderate /hpf; Bilirubin,Urine Negative (Negative); Blood,Urine Moderate (Negative); Color,Urine Yellow; Glucose,Urine (UA) Negative (Negative); Ketones,Urine Negative (Negative); Leukocyte Esterase,Urine Moderate (Negative); Mucus,Urine Many /hpf; Nitrite,Urine Negative (Negative); PH, Urine 5.5 (5.0-8.0); Protein,Urine Trace (Negative); RBC,Urine 4 /hpf (0-5); Specific Gravity,Urine 1.013 (1.001-1.035); Squamous Epithelial Cell,Urine 24 /hpf (0-4); Urobilinogen,Urine <2.0 mg/dL (<2.0); WBC,Urine 7 /hpf (0-5)
[2018-11-09 06:02] LABS: Cocaine Screen,Urine Detected (NotDetected); Phencyclidine Screen,Urine Not Detected (NotDetected)
[2018-11-09 06:03] LABS: Amphetamine Screen,Urine Not Detected (NotDetected); Barbiturate Screen,Urine Not Detected (NotDetected); Benzodiazepines Screen,Urine Detected (NotDetected); Methadone Screen, Urine Not Detected (NotDetected); Opiate Screen,Urine Not Detected (NotDetected); Oxycodone Screen, Urine Not Detected (NotDetected); Tricyclic Antidepressant,Urine Not Detected (NotDetected); Urn Cannabinoid Scrn Detected (NotDetected)
[2018-11-09 06:05] LABS: Albumin 4.2 g/dL (3.5-5.0); Calcium 9.4 mg/dL (8.4-10.2); Potassium 3.4 mmol/L (3.5-5.1); Total Bilirubin 0.3 mg/dL (0.2-1.3); Total Protein 7.1 g/dL (6.3-8.2)
[2018-11-09] MEDS ORDERED: DIPH,PERTUS(ACELL)TETVAC-LF 0.5 ML VIAL IM ONE (06:17)
--- NOTE | 2018-11-09 06:26 | CT ---
EXAM: CT Head Without Intravenous Contrast CLINICAL HISTORY: Its. reason CT Reason: Pain TECHNIQUE: Axial computed tomography images of the head/brain without intravenous contrast. CTDI is 49.2 mGy and DLP is 1105.4 mGy-cm. This CT exam was performed using one or more of the following dose reduction techniques: automated exposure control, adjustment of the mA and/or kV according to patient size, and/or use of iterative reconstruction technique. COMPARISON: 06/14/15 FINDINGS: Brain: Focal hypodensity in the left frontal periventricular white matter, nonspecific. No acute hemorrhage or midline shift. This may reflect evolving focal infarct, subacute to chronic. Note that underlying lesion and edema can give this appearance. Additional subtle hypodensity in the left frontoparietal and right frontoparietal periventricular white matter. Ventricles: Unremarkable. No ventriculomegaly. Bones/joints: Unremarkable. No acute fracture. Soft tissues: Unremarkable. Sinuses: Mild mucosal thickening in the ethmoid sinuses. Mastoid air cells: Unremarkable as visualized. No mastoid effusion. IMPRESSION: 1. Finding in the left frontal periventricular region which may represent subacute to chronic infarct. No significant mass effect or midline shift. No acute hemorrhage. Note that underlying lesion and other etiologies involving white matter disease can give this appearance. Recommend follow-up MR with and without contrast for further evaluation. 2. Additional subtle periventricular white matter lesions, nonspecific and for which further evaluation with MRI is recommended. <MYCVCSECTION> [employer] 11/09/18 06:38 Verify Receipt Verified receipt with Dr. Sotomayor on 11/09 06:37 (-04:00)
[2018-11-09] MEDS ORDERED: NALOXONE 0.4 MG/ML 1 ML VIAL IV PRN (06:51)
--- NOTE | 2018-11-09 06:59 | XR ---
EXAM: XR Chest, 1 View CLINICAL HISTORY: ITS.REASON XR Reason: xray TECHNIQUE: Frontal view of the chest. COMPARISON: 11/04/17 FINDINGS: Lungs: Focal added density projecting over the right cardiac border which may partly reflect overlapping artifact. Follow-up recommended to exclude developing infiltrate in the medial right lower lung. Pleural space: No pleural effusion. No pneumothorax. Heart: Unremarkable. No cardiomegaly. Mediastinum: Unremarkable. Bones/joints: Unremarkable. IMPRESSION: Finding as described which may reflect developing infiltrate in the medial right lower lung. This may partly reflect overlapping artifact. Follow-up recommended.
--- NOTE | 2018-11-09 07:13 | XR ---
EXAM: XR Abdomen, 2 Views CLINICAL HISTORY: ITS.REASON XR Reason: Pain TECHNIQUE: Frontal view of the abdomen/pelvis with upright view of the abdomen. COMPARISON: 08/24/16 FINDINGS: Intraperitoneal space: No free air. No abnormal calcifications in the upper abdomen. Gastrointestinal tract: Overall paucity of small bowel gas. This is nonspecific. Fluid-filled distended small bowel loops difficult to exclude. Air-filled splenic flexure visualized. Bones/joints: Unremarkable. IMPRESSION: 1. Nonspecific bowel gas pattern with overall paucity of small bowel gas. 2. No free air. 3. No radiopaque renal calculus. 4. Consider follow-up CT with contrast for further evaluation as indicated
[2018-11-09] MEDS: SODIUM CHLORIDE 0.9% 1,000 ML IV SCH ×3 (10:33→22:19)
--- NOTE | 2018-11-09 11:49 | P.HPIM ---
History of Present Illness this is a pleasant 33 yo F with past medical history of fibromyalgia, degenerative joint disease, depression and anxiety and PTSD, who presents with altered mental status , pt is poor historian so infomration was taken from medical records and staff, as well as pt . pt is drowsy and goes to sleep easily duration conversation , but wakes up with verbal commands . Flow enforcements were called because patient was minimally responsive and suspected to be suicidal, multiple alcoholic beverages were noted on 2 chest wounds. Patient was educated and Versed 5 mg was given in the emergency room intramuscularly. This morning patient is complaining of from headache, answers like a severe headache however she states she is headache since childhood. Patient denies chest pain or dyspnea. She has occasional dry cough. She denies dysuria or change in frequency. Patient states she drinks alcohol but not every day however she could not elaborate more, she also admits to smoking cigarettes, and illicit tracts without any liberation. Patient denies chest pain, no dyspnea, no abdominal pain, no nausea vomiting, no blurred vision, abnormal sensation, pain, no change in urine or bowel habits as per patient. No fever[facility]: Left frontal periventricular lesion, infarct versus others. No hemorrhage. Chest x-ray possible infiltrate in the medial right lower lung. Abdominal x-ray: No free air, no calculus per radiologist. EKG showing sinus bradycardia at 56 with prolonged QTC at 613, no significant ST-T changes Patient is hemodynamically stable. Labs showing mild hypokalemia and slightly elevated creatinine at 1.1 Past Medical History Past Medical History: Fibromyalgia Additional Past Medical History / Comment(s): hypoglycemia, cyst on kidney, DJD, carpel tunnel, PT STATED HAS"ACHALASIA" History of Any Multi-Drug Resistant Organisms: None Reported Past Surgical History: Appendectomy, Section, Orthopedic Surgery, Tubal Ligation Additional Past Surgical History / Comment(s): c section x 3, EGD. Past Anesthesia/Blood Transfusion Reactions: Motion Sickness Past Psychological History: ADD/ADHD, Anxiety, Bipolar, Depression, PTSD Smoking Status: Current every day smoker Past Alcohol Use History: Occasional Past Drug Use History: Marijuana - Past Family History Father Family Medical History: Hyperlipidemia, Hypertension Mother Family Medical History: Fibromyalgia Additional Family Medical History / Comment(s): HIATAL HERNIA OSTEOPSORIS, DDD Medications and Allergies Home Medications Medication Instructions Recorded Confirmed Type cloNIDine HCL [Catapres] 0.1 mg PO TID 30 Days #90 tab 05/31/18 11/09/18 Rx Gabapentin 600 mg PO TID 11/09/18 11/09/18 History Lisdexamfetamine Dimesylate 20 mg PO DAILY 11/09/18 11/09/18 History [Vyvanse] Pramipexole [Mirapex] 0.5 mg PO HS 11/09/18 11/09/18 History Topiramate 200 mg PO BID 11/09/18 11/09/18 History Venlafaxine HCl ER [Effexor XR] 150 mg PO DAILY 11/09/18 11/09/18 History buPROPion HCL [Wellbutrin SR] 200 mg PO QAM 11/09/18 11/09/18 History Allergies Allergy/AdvReac Type Severity Reaction Status Date / Time NSAIDS (Non-Steroidal Allergy Dyspnea Verified 08/15/18 14:56 Anti-Inflamma Sulfa (Sulfonamide Allergy Rash/Hives Verified 08/15/18 14:56 Antibiotics) Physical Exam Vitals: Vital Signs Temp Pulse Resp BP Pulse Ox 11/09/18 10:45 98.2 F 60 13 110/65 97 11/09/18 08:00 98.1 F 59 L 13 112/68 97 11/09/18 05:09 98.0 F 69 18 87/53 98 Intake and Output 11/08/18 11/09/18 11/09/18 22:59 06:59 14:59 Other: Weight 180.7 kg -GENERAL: The patient is alert but the drowsy, she is oriented to time place and person. Obese HEENT: Pupils are round and equally reacting to light. EOMI. No scleral icterus. No conjunctival pallor. Normocephalic, atraumatic. No pharyngeal erythema. No thyromegaly. CARDIOVASCULAR: S1 and S2 present. No murmurs, rubs, or gallops. -PULMONARY: Chest is clear to auscultation, no wheezing or crackles. Small laceration about 1 inch on the right lateral lower chest, with [address] Similar more superficial scratch wound on the left lateral chest with no stitches ABDOMEN: Soft, nontender, nondistended, normoactive bowel sounds. No palpable organomegaly. MUSCULOSKELETAL: No joint swelling or deformity. EXTREMITIES: No cyanosis, clubbing, or pedal edema. NEUROLOGICAL: Gross neurological examination did not reveal any focal deficits. SKIN: No rashes. Results CBC & Chem 7: 11/09/18 05:45 11/09/18 05:45 Labs: Abnormal Lab Results - Last 24 Hours (Table) 11/09/18 11/09/18 11/09/18 Range/Units 05:20 05:20 05:45 Potassium 3.4 L (3.5-5.1) mmol/L Chloride 108 H (98-107) mmol/L Creatinine 1.17 H (0.52-1.04) mg/dL Glucose 125 H (74-99) mg/dL Urine Appearance Cloudy H (Clear) Urine Protein Trace H (Negative) Urine Blood Moderate H (Negative) Ur Leukocyte Esterase Moderate H (Negative) Urine WBC 7 H (0-5) /hpf Ur Squamous Epith Cells 24 H (0-4) /hpf Urine Bacteria Moderate H (None) /hpf Urine Mucus Many H (None) /hpf U Benzodiazepines Scrn Detected H (NotDetected) Urine Cocaine Screen Detected H (NotDetected) U Marijuana (THC) Screen Detected H (NotDetected) Assessment and Plan Assessment: Altered mental status, mostly due to substance abuse and alcoholic beverages Frontal lobe cerebral lesion, neurologist evaluated the patient Possible suicidal ideation Alcoholic abuse Risk of alcohol withdrawal Substance abuse Nicotine dependence Laceration on the sides of right lower chest, status post 5 stitches, more superficial scratch on the site of left lower chest Possible urinary tract infection Bradycardia with prolonged QTC Plan: This is a pleasant 53 years old female who presents with altered mental status with frontal lesion, substance abuse and alcoholism, possible suicidal ideation. Neurology evaluated the patient, he recommended MRI of the brain. Psychiatrist i consulted, continue with observation 1-1. Nicotine patch, process of traction and send urine culture.Labs and medication were reviewed. Telemetry, Repeat EKG. Start normal saline at 25 mL/h Continue same treatment. Continue with symptomatic treatment. Resume home medication. Monitor lytes and vitals. DVT and GI prophylaxis. Further recommendations of the clinical course of the patient Prognosis is guarded
[2018-11-09 12:14] LABS: African American GFR (CKD) 78 (>60 ml/min/1.73 sqM); Anion Gap 9 mmol/L; Blood Urea Nitrogen 11 mg/dL (7-17); Calcium 9.1 mg/dL (8.4-10.2); Carbon Dioxide 23 mmol/L (22-30); Chloride 108 mmol/L (98-107); Glucose 115 mg/dL (74-99); Potassium 3.2 mmol/L (3.5-5.1); Sodium 140 mmol/L (137-145)
[2018-11-09 12:26] LABS: HCG,Qualitative Serum Not Detected
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
[2018-11-09] MEDS ORDERED: Potassium Replacement Protocol 1 EACH MISC MISCELLANE PRN (16:46)
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
[2018-11-09 17:03] LABS: African American GFR (CKD) >90 (>60 ml/min/1.73 sqM); Anion Gap 7 mmol/L; Blood Urea Nitrogen 11 mg/dL (7-17); Calcium 8.9 mg/dL (8.4-10.2); Carbon Dioxide 20 mmol/L (22-30); Chloride 110 mmol/L (98-107); Glucose 116 mg/dL (74-99); Potassium 3.6 mmol/L (3.5-5.1); Sodium 137 mmol/L (137-145)
[2018-11-09] MEDS ORDERED: LORazepam 2 MG/ML INJ IV PRN ×2 (17:08)
[2018-11-09] MEDS: ACETAMINOPHEN TAB 325 MG TAB PO PRN (22:26)
[2018-11-09] MEDS: GABAPENTIN 300 MG CAP PO SCH (22:26)
[2018-11-09] MEDS: PRAMIPEXOLE 0.5 MG TAB PO SCH (22:27)
[2018-11-09] MEDS: LORazepam 2 MG/ML INJ IV PRN (22:27)
[2018-11-09] MEDS: cloNIDine HCL 0.1 MG TAB PO SCH (22:27)
[2018-11-09] MEDS: VENLAFAXINE HCL ER 150 MG CAP PO SCH (22:27)
[2018-11-09] MEDS: TOPIRAMATE 100 MG TAB PO SCH (22:33)
[2018-11-10 07:14] LABS: Basophils % (A) 0 %; Eosinophils # (A) 0.2 k/uL (0-0.7); Eosinophils % (A) 4 %; HCT 36.8 % (34.0-46.0); HGB 11.8 gm/dL (11.4-16.0); Hypochromasia Slight; Lymphocytes # (A) 1.5 k/uL (1.0-4.8); Lymphocytes % (A) 24 %; MCV 93.6 fL (80.0-100.0); Mean Platelet Volume 7.9; Monocytes # (A) 0.4 k/uL (0-1.0); Monocytes % (A) 6 %; Neutrophils # (A) 3.9 k/uL (1.3-7.7); Neutrophils % (A) 64 %; Platelet Count 235 k/uL (150-450); RBC 3.93 m/uL (3.80-5.40); RDW 13.3 % (11.5-15.5); WBC 6.2 k/uL (3.8-10.6)
[2018-11-10 07:27] LABS: Calcium 8.6 mg/dL (8.4-10.2); Potassium 3.5 mmol/L (3.5-5.1)
[2018-11-10] MEDS: TOPIRAMATE 100 MG TAB PO SCH ×2 (08:05→20:42)
[2018-11-10] MEDS: ACETAMINOPHEN TAB 325 MG TAB PO PRN ×3 (08:05→22:16)
[2018-11-10] MEDS: MULTIVITAMINS, THERA 1 EACH TAB PO SCH (08:05)
[2018-11-10] MEDS: cloNIDine HCL 0.1 MG TAB PO SCH ×3 (08:05→20:42)
[2018-11-10] MEDS: GABAPENTIN 300 MG CAP PO SCH ×3 (08:05→20:42)
[2018-11-10] MEDS: buPROPion SR 100 MG TABLET.ER PO SCH (08:06)
[2018-11-10] MEDS: VENLAFAXINE HCL ER 150 MG CAP PO SCH (08:06)
[2018-11-10] MEDS: SODIUM CHLORIDE 0.9% 1,000 ML IV SCH ×4 (08:07→22:52)
[2018-11-10] MEDS: LORazepam 2 MG/ML INJ IV PRN ×3 (08:25→22:16)
--- NOTE | 2018-11-10 12:24 | P.PN ---
Subjective this is a pleasant 33 yo F with past medical history of fibromyalgia, degenerative joint disease, depression and anxiety and PTSD, who presents with altered mental status , pt is poor historian so infomration was taken from medical records and staff, as well as pt . pt is drowsy and goes to sleep easily duration conversation , but wakes up with verbal commands . Flow enforcements were called because patient was minimally responsive and suspected to be suicidal, multiple alcoholic beverages were noted on 2 chest wounds. Patient was educated and Versed 5 mg was given in the emergency room intramuscularly. This morning patient is complaining of from headache, answers like a severe headache however she states she is headache since childhood. Patient denies chest pain or dyspnea. She has occasional dry cough. She denies dysuria or change in frequency. Patient states she drinks alcohol but not every day however she could not elaborate more, she also admits to smoking cigarettes, and illicit tracts without any liberation. Patient denies chest pain, no dyspnea, no abdominal pain, no nausea vomiting, no blurred vision, abnormal sensation, pain, no change in urine or bowel habits as per patient. No fever. [facility] CT: Left frontal periventricular lesion, infarct versus others. No hemorrhage. Chest x-ray possible infiltrate in the medial right lower lung. Abdominal x-ray: No free air, no calculus per radiologist. EKG showing sinus bradycardia at 56 with prolonged QTC at 613, no significant ST-T changes Patient is hemodynamically stable. Labs showing mild hypokalemia and slightly elevated creatinine at 1.1 11/10/2018 Patient seen in the general medical floor, she is better awakened today the level she looks orbits and drowsy, patient remains impulsive however she denies suicidal ideation, she made some possible paranoid comments for example "my UTI is due to chemicals from my work, nobody let's me call my daughter" "my brain lesion is a do to trauma from a bump". Patient does not show signs or symptoms of alcohol withdrawal. She is still complaining of from discomfort in her urination without specification.patient sitter at bedside. Discussed the case with the neurology, they recommended transfer the patient for known for MRI of the brain and the spine with and without contrast. Patient informed about this and she agrees. Discussed with staff and home health care social worker/medical case worker to provide sitter at bedside during the transfer and coming back all the time. Patient was informed about her frontal brain lesion. Psychiatric evaluation is appreciated and recommended to transfer the patient to psych unit once is cleared by medical team. Repeat EKG for prolonged QT. Patient is hemodynamically stable and she is afebrile. Heart rate limits on the low side at 55 but isn't symptomatic.labs reviewed showing unremarkable CBC and creatinine back to normal level at 0.9, continue with IV fluid normal saline 125 mL/h. Objective - Vital Signs Vital signs: Vital Signs Temp 97.8 F 11/10/18 08:20 Pulse 58 L 11/10/18 08:20 Resp 17 11/10/18 08:20 BP 121/65 11/10/18 08:20 Pulse Ox 95 11/10/18 08:20 Intake & Output 11/09/18 11/10/18 11/10/18 18:59 06:59 18:59 Intake Total 480 180 Balance 480 180 Weight 83.2 kg Intake: Oral 480 180 Other: Voiding Method Bedpan Toilet # Voids 3 1 # Bowel Movements 2 - Exam -GENERAL: The patient is alert but the drowsy, she is oriented to time place and person. Obese HEENT: Pupils are round and equally reacting to light. EOMI. No scleral icterus. No conjunctival pallor. Normocephalic, atraumatic. No pharyngeal erythema. No thyromegaly. CARDIOVASCULAR: S1 and S2 present. No murmurs, rubs, or gallops. -PULMONARY: Chest is clear to auscultation, no wheezing or crackles. Small laceration about 1 inch on the right lateral lower chest, with [address] Similar more superficial scratch wound on the left lateral chest with no stitches ABDOMEN: Soft, nontender, nondistended, normoactive bowel sounds. No palpable organomegaly. MUSCULOSKELETAL: No joint swelling or deformity. EXTREMITIES: No cyanosis, clubbing, or pedal edema. NEUROLOGICAL: Gross neurological examination did not reveal any focal deficits. SKIN: No rashes. - Labs CBC & Chem 7: 11/10/18 06:57 11/10/18 06:57 Labs: Abnormal Lab Results - Last 24 Hours (Table) 11/09/18 11/10/18 Range/Units 16:32 06:57 Chloride 110 H 114 H (98-107) mmol/L Carbon Dioxide 20 L 20 L (22-30) mmol/L Glucose 116 H 103 H (74-99) mg/dL Assessment and Plan Assessment: Altered mental status, mostly due to substance abuse and alcoholic beveragescorpora improving Frontal lobe cerebral lesion, neurologist evaluated the patient Possible suicidal ideation, and other psychiatric illnesses evaluated by psychiatrist Alcoholic abuse Risk of alcohol withdrawal Substance abuse Nicotine dependence Laceration on the sides of right lower chest, status post 5 stitches, more supe rficial scratch on the site of left lower chest Possible urinary tract infection Bradycardia with prolonged QTC Plan: This is a pleasant 53 years old female who presents with altered mental status with frontal lesion, substance abuse and alcoholism, possible suicidal ideation. Neurology evaluated the patient, he recommended MRI of the brain.patient is going to outside facility to get MRI of the back, discussed with medical case worker to be associated with a sitter. Also discussed the patient concerns need to take care of her 8 years daughter, home health care social worker will be consulted.Patient will need a psych walker admission after cleared medically, the meantime continue with ob servation 1-1, nicotine patches added. Chest back to normal and continue with IV fluids at 125 mL per hourfor now. Repeat EKG. Continue with symptomatic treatment. Resume home medication. Monitor lytes and vitals. DVT and GI prophylaxis. Further recommendations of the clinical course of the patient Prognosis is guarded
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
[2018-11-10] MEDS: NICOTINE 21MG/24HR PATCH TRANSDERM SCH (15:57)
[2018-11-10] MEDS ORDERED: POTASSIUM CHLORIDE ER 20 MEQ TAB.ER PO STA (16:41)
[2018-11-10] MEDS: PRAMIPEXOLE 0.5 MG TAB PO SCH (20:42)
[2018-11-11] MEDS: SODIUM CHLORIDE 0.9% 1,000 ML IV SCH ×4 (04:44→23:41)
[2018-11-11] MEDS: LORazepam 2 MG/ML INJ IV PRN ×4 (04:44→21:34)
[2018-11-11] MEDS: ACETAMINOPHEN TAB 325 MG TAB PO PRN ×2 (06:15→20:29)
[2018-11-11 08:45] LABS: Basophils % (A) 0 %; Eosinophils # (A) 0.3 k/uL (0-0.7); Eosinophils % (A) 5 %; HCT 39.1 % (34.0-46.0); HGB 12.1 gm/dL (11.4-16.0); Hypochromasia Slight; Lymphocytes # (A) 1.3 k/uL (1.0-4.8); Lymphocytes % (A) 23 %; MCHC 30.9 g/dL (31.0-37.0); Mean Platelet Volume 8.2; Monocytes # (A) 0.3 k/uL (0-1.0); Monocytes % (A) 5 %; Neutrophils # (A) 3.8 k/uL (1.3-7.7); Neutrophils % (A) 66 %; Platelet Count 250 k/uL (150-450); RBC 4.16 m/uL (3.80-5.40); RDW 13.2 % (11.5-15.5); WBC 5.8 k/uL (3.8-10.6)
[2018-11-11 08:53] LABS: African American GFR (CKD) >90 (>60 ml/min/1.73 sqM); Anion Gap 9 mmol/L; Blood Urea Nitrogen 6 mg/dL (7-17); Calcium 8.9 mg/dL (8.4-10.2); Carbon Dioxide 16 mmol/L (22-30); Chloride 116 mmol/L (98-107); Glucose 94 mg/dL (74-99); Magnesium 2.1 mg/dL (1.6-2.3); Potassium 4.1 mmol/L (3.5-5.1); Sodium 141 mmol/L (137-145)
[2018-11-11] MEDS: MULTIVITAMINS, THERA 1 EACH TAB PO SCH (09:01)
[2018-11-11] MEDS: VENLAFAXINE HCL ER 150 MG CAP PO SCH (09:01)
[2018-11-11] MEDS: NICOTINE 21MG/24HR PATCH TRANSDERM SCH (09:01)
[2018-11-11] MEDS: cloNIDine HCL 0.1 MG TAB PO SCH ×3 (09:01→21:34)
[2018-11-11] MEDS: buPROPion SR 100 MG TABLET.ER PO SCH (09:02)
[2018-11-11] MEDS: GABAPENTIN 300 MG CAP PO SCH ×3 (09:03→21:34)
[2018-11-11] MEDS: TOPIRAMATE 100 MG TAB PO SCH ×2 (10:27→20:30)
--- NOTE | 2018-11-11 12:23 | P.PN ---
Subjective this is a pleasant 33 yo F with past medical history of fibromyalgia, degenerative joint disease, depression and anxiety and PTSD, who presents with altered mental status , pt is poor historian so infomration was taken from medical records and staff, as well as pt . pt is drowsy and goes to sleep easily duration conversation , but wakes up with verbal commands . Flow enforcements were called because patient was minimally responsive and suspected to be suicidal, multiple alcoholic beverages were noted on 2 chest wounds. Patient was educated and Versed 5 mg was given in the emergency room intramuscularly. This morning patient is complaining of from headache, answers like a severe headache however she states she is headache since childhood. Patient denies chest pain or dyspnea. She has occasional dry cough. She denies dysuria or change in frequency. Patient states she drinks alcohol but not every day however she could not elaborate more, she also admits to smoking cigarettes, and illicit tracts without any liberation. Patient denies chest pain, no dyspnea, no abdominal pain, no nausea vomiting, no blurred vision, abnormal sensation, pain, no change in urine or bowel habits as per patient. No fever. [facility] CT: Left frontal periventricular lesion, infarct versus others. No hemorrhage. Chest x-ray possible infiltrate in the medial right lower lung. Abdominal x-ray: No free air, no calculus per radiologist. EKG showing sinus bradycardia at 56 with prolonged QTC at 613, no significant ST-T changes Patient is hemodynamically stable. Labs showing mild hypokalemia and slightly elevated creatinine at 1.1 11/10/2018 Patient seen in the general medical floor, she is better awakened today the level she looks orbits and drowsy, patient remains impulsive however she denies suicidal ideation, she made some possible paranoid comments for example "my UTI is due to chemicals from my work, nobody let's me call my daughter" "my brain lesion is a do to trauma from a bump". Patient does not show signs or symptoms of alcohol withdrawal. She is still complaining of from discomfort in her urination without specification.patient sitter at bedside. Discussed the case with the neurology, they recommended transfer the patient for known for MRI of the brain and the spine with and without contrast. Patient informed about this and she agrees. Discussed with staff and professor of social work/casework manager to provide sitter at bedside during the transfer and coming back all the time. Patient was informed about her frontal brain lesion. Psychiatric evaluation is appreciated and recommended to transfer the patient to psych unit once is cleared by medical team. Repeat EKG for prolonged QT. Patient is hemodynamically stable and she is afebrile. Heart rate limits on the low side at 55 but isn't symptomatic.labs reviewed showing unremarkable CBC and creatinine back to normal level at 0.9, continue with IV fluid normal saline 125 mL/h. 11/11/2018 Patient is awake and answered her questions appropriately however she still was not impulsive. Sitter at bedside. She has dry cough but no chest pain or dyspnea. Want at the sides of her chest look clean and healing. EKG done today was showing significantly improving QTC down to 488, heart rate improved to 64- 71. TSH 0.9, magnesium 2.1. Patient still pending MRI of the brain was noted to be done today, after that patient will be followed by neurology. Sitter at bedside and patient needs to go to psych after clearance Review of systems CONSTITUTIONAL: No fever, no malaise, no fatigue. HEENT: No recent visual problems or hearing problems. Denied any sore throat. CARDIOVASCULAR: No orthopnea, PND, no palpitations, no syncope. PULMONARY: No shortness of breath, no cough, no hemoptysis. GASTROINTESTINAL: No diarrhea, no nausea, no vomiting, no abdominal pain. Normoactive bowel sounds. NEUROLOGICAL: No headaches, no weakness, no numbness. HEMATOLOGICAL: Denies any bleeding or petechiae. GENITOURINARY: Denies any burning micturition, frequency, or urgency. MUSCULOSKELETAL/RHEUMATOLOGICAL: Denies any joint pain, swelling, or any muscle pain. ENDOCRINE: Denies any polyuria or polydipsia. Active Medications Generic Name Dose Route Start Last Admin Trade Name Freq PRN Reason Stop Dose Admin Acetaminophen 325 mg 11/09/18 11:47 11/11/18 06:15 Tylenol Tab PO 325 mg Q6HR PRN Administration Fever and/ or Pain Bupropion HCl 200 mg 11/10/18 09:00 11/11/18 09:02 Wellbutrin Sr PO 200 mg QAM GOMEZ Administration Clonidine 0.1 mg 11/09/18 22:00 11/11/18 09:01 Catapres PO 0.1 mg TID GOMEZ Administration Gabapentin 600 mg 11/09/18 22:00 11/11/18 09:03 Neurontin PO 600 mg TID GOMEZ Administration Sodium Chloride 1,000 mls @ 20 mls/hr 11/09/18 07:00 11/11/18 09:02 Saline 0.9% IV Not Given .Q24H GOMEZ Ceftriaxone Sodium 1 gm/ 50 mls @ 100 mls/hr 11/09/18 11:45 11/11/18 10:26 Sodium Chloride IVPB 100 mls/hr Q24HR GOMEZ Administration Sodium Chloride 1,000 mls @ 125 mls/hr 11/09/18 11:45 11/11/18 04:44 Saline 0.9% IV 125 mls/hr .Q8H GOMEZ Administration Lorazepam 1 mg 11/09/18 17:08 11/11/18 10:33 Ativan IV 1 mg Q2HR PRN Administration CIWA 8 or 9 Lorazepam 1 mg 11/09/18 17:08 Ativan IV Q1HR PRN CIWA 10 to 15 Lorazepam 2 mg 11/09/18 17:08 Ativan IV 11/11/18 17:08 Q10M PRN CIWA 16 or higher Lorazepam 2 mg 11/09/18 17:08 11/10/18 16:11 Ativan IV 2 mg Q6HR PRN Administration Seizures Miscellaneous Information 1 each 11/09/18 16:46 Potassium Per Protocol MISCELLANE DAILY PRN Per Protocol Protocol Multivitamins 1 each 11/10/18 09:00 11/11/18 09:01 Theragran PO 1 each DAILY GOMEZ Administration Naloxone HCl 0.2 mg 11/09/18 06:51 Narcan IV Q2M PRN Opioid Reversal Nicotine 1 patch 11/10/18 12:30 11/11/18 09:01 Habitrol 21mg/24hr Patch TRANSDERM 1 patch DAILY GOMEZ Administration Lisdexamfetamine 20 mg 11/10/18 09:00 11/11/18 09:04 Dimesylate [Vyvanse] PO Not Given DAILY GOMEZ Pramipexole Dihydrochloride 0.5 mg 11/09/18 21:45 11/10/18 20:42 Mirapex PO 0.5 mg HS GOMEZ Administration Topiramate 200 mg 11/09/18 21:45 11/11/18 10:27 Topamax PO 200 mg BID GOMEZ Administration Venlafaxine HCl 150 mg 11/09/18 21:45 11/11/18 09:01 Effexor Xr PO 150 mg DAILY GOMEZ Administration Objective - Vital Signs Vital signs: Vital Signs Temp 97.8 F 11/11/18 11:13 Pulse 70 11/11/18 11:13 Resp 18 11/11/18 11:13 BP 135/86 11/11/18 11:13 Pulse Ox 97 11/11/18 11:13 Intake & Output 11/10/18 11/11/18 11/11/18 18:59 06:59 18:59 Intake Total 2250 1480 Balance 2250 1480 Intake: Intake, IV Titration 1350 1000 Amount Sodium Chloride 0.9% 1, 1250 1000 000 ml @ 125 mls/hr IV . Q8H GOMEZ Rx#:[id number] cefTRIAXone 1 gm In 100 Sodium Chloride 0.9% 50 ml @ 100 mls/hr IVPB Q24HR GOMEZ Rx#:[id number] Oral 900 480 Other: Voiding Method Toilet # Voids 2 2 # Bowel Movements 2 - Exam -GENERAL: The patient is alert but the drowsy, she is oriented to time place and person. Obese HEENT: Pupils are round and equally reacting to light. EOMI. No scleral icterus. No conjunctival pallor. Normocephalic, atraumatic. No pharyngeal erythema. No thyromegaly. CARDIOVASCULAR: S1 and S2 present. No murmurs, rubs, or gallops. -PULMONARY: Chest is clear to auscultation, no wheezing or crackles. Small laceration about 1 inch on the right lateral lower chest, with [address] Similar more superficial scratch wound on the left lateral chest with no stitches ABDOMEN: Soft, nontender, nondistended, normoactive bowel sounds. No palpable organomegaly. MUSCULOSKELETAL: No joint swelling or deformity. EXTREMITIES: No cyanosis, clubbing, or pedal edema. NEUROLOGICAL: Gross neurological examination did not reveal any focal deficits. SKIN: No rashes. - Labs CBC & Chem 7: 11/11/18 07:41 11/11/18 07:41 Labs: Abnormal Lab Results - Last 24 Hours (Table) 11/11/18 11/11/18 Range/Units 07:41 07:41 MCHC 30.9 L (31.0-37.0) g/dL Chloride 116 H (98-107) mmol/L Carbon Dioxide 16 L (22-30) mmol/L BUN 6 L (7-17) mg/dL Assessment and Plan Assessment: Altered mental status, mostly due to substance abuse and alcoholic beverages, and cocaine. improving Frontal lobe cerebral lesion, neurologist evaluated the patient. MRI of the brain is pending Possible suicidal ideation, and other psychiatric illnesses evaluated by psychiatrist. Psychiatrist recommended inpatient psychiatric admission after medical clearance Alcoholic abuse Risk of alcohol withdrawal Substance abuse Nicotine dependence Laceration on the sides of right lower chest, status post 5 stitches, more superficial scratch on the site of left lower chest Possible urinary tract infection Bradycardia with prolonged QTC. Improved significantly Plan: This is a pleasant 53 years old female who presents with altered mental status with frontal lesion, substance abuse and alcoholism, possible suicidal ideation. Neurology evaluated the patient, he recommended MRI of the brain which is going to be done today. Creatinine 0.9 .patient is going to outside facility to get MRI of the back and head, discussed with casework manager to be associated with a sitter. Also discussed the patient concerns need to take care of her 8 years daughter, professor of social work will be consulted.Patient will need a psych walker admission after cleared medically, the meantime continue with observation 1-1, nicotine patches added. Number IV fluids.. Keep telemetry all this patient is improving. . Continue with symptomatic treatment. Resume home medication. Monitor lytes and vitals. DVT and GI prophylaxis. Further recommendations of the clinical course of the patient Prognosis is guarded DVT prophylaxis SCD, and anticoagulation is relatively contraindicated in view of her brain lesion. We think risks more than benefits. Prognosis is guarded
--- NOTE | 2018-11-11 14:59 | P.PN ---
Progress Note - Text Progress Note Date: 11/11/18 SUBJECTIVE/INTERVAL EVENTS: No acute overnight events. Patient complaining of the new bump that she noticed on her left side of the head. Patient has been complaining about this pump and bruising her left face since admission. Patient pending transfer to [facility] for MRI brain with and without contrast. Patient is also pending transfer to psychiatry inpatient unit pending clearance from MRI brain PHYSICAL EXAMINATION: VITAL SIGNS: Temperature 97.8 pulse rate 70 respiratory rate 18 blood pressure 135/86 O2 saturation 97% on room air GEN.: More cooperative today than she was yesterday. Pt perseverates on how she had a closed-head injury, which she thinks explains the CT Head finding. HEENT: NCAT, sclera without icterus NEURO: MENTAL STATUS: Patient alert and oriented to self, place, time. Able to name the current president. Speech fluent CRANIAL NERVES II THROUGH XII: Grossly, CN intact. II: Pupils are equal and reactive to light symmetrically. III, IV, : Extraocular movements full. No nystagmus. V: Facial sensation intact from V1-3. VII. No clear facial asymmetry. IX, X: Symmetric palate elevation. XII: Shoulder shrug intact. XII: Tongue midline without fasciculation or atrophy. MOTOR: Normal bulk/tone. No pronator drift or tremor. Strength is grossly 5/5 throughout all 4 extremities. SENSORY: Intact to light touch, temperature in all4 extremities. REFLEXES: 2+ throughout COORDINATION: Finger to nose intact. No dysmetria. GAIT: Patient refused DIAGNOSTIC TESTING: Laboratory: WBC 5.8 hemoglobin 12.1 platelets 250 sodium 141 potassium 4.1 chloride 116 bic arb 16 BUN 6 creatinine 0.93 glucose 94 calcium 9.4 AST 21 ALT 14 alk phos 60 Utox positive for benzo, cocaine, marijuana Imaging: CT head 11/08/18: A left frontal periventricular lesion, which could be a subacute to chronic infarct versus possible underlying lesion. The CT head was compared to a CT head performed on 06/14/2015, which did not have this lesion. ASSESSMENT and PLAN: Ms. Dupree is a 33-year-old woman with past medical history of fibromyalgia, depression, anxiety, PTSD, who presented to [facility] with suicide ideation, found with a left frontal lesion on CT head, concerning for possible subacute to chronic infarct versus possible underlying lesion. Exam is limited due to patient's lack of cooperation. Patient with no obvious focal deficits at this time. Patient's U tox was positive for cocaine, which is a risk factor for stroke. RECOMMENDATIONS: 1. MRI brain with and without contrast 2. Pending MRI brain results, we'll provide further recommendations in terms of either getting stroke management versus transferred to [facility]/[place] versus operative follow. 3. Neurology will continue to follow
[2018-11-11] MEDS: PRAMIPEXOLE 0.5 MG TAB PO SCH (20:30)
[2018-11-12] MEDS: LORazepam 2 MG/ML INJ IV PRN ×3 (04:19→12:49)
[2018-11-12] MEDS: ACETAMINOPHEN TAB 325 MG TAB PO PRN ×3 (04:20→18:56)
[2018-11-12] MEDS: MULTIVITAMINS, THERA 1 EACH TAB PO SCH (08:42)
[2018-11-12] MEDS: GABAPENTIN 300 MG CAP PO SCH ×3 (08:42→21:41)
[2018-11-12] MEDS: cloNIDine HCL 0.1 MG TAB PO SCH ×3 (08:44→21:41)
[2018-11-12] MEDS: buPROPion SR 100 MG TABLET.ER PO SCH (08:44)
[2018-11-12] MEDS: NICOTINE 21MG/24HR PATCH TRANSDERM SCH (08:45)
[2018-11-12] MEDS: TOPIRAMATE 100 MG TAB PO SCH ×2 (08:46→21:41)
[2018-11-12] MEDS: VENLAFAXINE HCL ER 150 MG CAP PO SCH (08:46)
[2018-11-12] MEDS: SODIUM CHLORIDE 0.9% 1,000 ML IV SCH ×3 (08:55→23:59)
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
--- NOTE | 2018-11-12 12:48 | P.PN ---
Progress Note - Text Progress Note Date: 11/12/18 SUBJECTIVE/INTERVAL EVENTS: No cure overnight events. Patient came back from [facility] yesterday after getting MRI brain with and without contrast. MRI brain showing also has fingers and a ring-enhancing lesion, which could be seen in tumefactive multiple sclerosis. Spoke to patient about this possible diagnosis. Also spoke to patient about the need for a lumbar puncture. Patient has gone an epidural before so she is very well aware. Patient states that the epidural was a hard stick. Patient became very emotional because previously people have told her that she was very "klutzy or try to hurt herself." Patient agrees to getting the lumbar puncture and being treated with steroids. Patient reports that sometimes her left arm and leg will get very stiff and she will fall. She also reports some fingertip numbness. Patient can't remember how long she is out the symptoms PHYSICAL EXAMINATION: VITAL SIGNS: Temperature 97.6 pulse rate 78 respiratory rate 18 blood pressure 143/92 O2 saturation 98 on room air GEN.: More cooperative today. HEENT: NCAT, sclera without icterus NEURO: MENTAL STATUS: Patient alert and oriented to self, place, time. Able to name the current president. Speech fluent CRANIAL NERVES II THROUGH XII: Grossly, CN intact. II: Pupils are equal and reactive to light symmetrically. Left afferent pupillary defect present. Patient also reporting right color desaturation in her left eye (red looks more like pink with her left eye is supposed to her right eye which sees red) III, IV, : Extraocular movements full. No nystagmus. V: Facial sensation intact from V1-3. VII. No clear facial asymmetry. IX, X: Symmetric palate elevation. XII: Shoulder shrug intact. XII: Tongue midline without fasciculation or atrophy. MOTOR: Normal bulk/tone. No pronator drift or tremor. Strength is grossly 5/5 throughout all 4 extremities. SENSORY: Intact to light touch, temperature in all4 extremities. REFLEXES: 2+ throughout COORDINATION: Finger to nose intact. No dysmetria. GAIT: Normal based gait. DIAGNOSTICS: Laboratory: WBC 5.8 hemoglobin 12.1 platelets 250 sodium 141 potassium 4.1 chloride 116 bicarb 16 BUN 6 creatinine 0.93 glucose 94 calcium 9.4 AST 21 ALT 14 alk phos 60 Utox positive for benzo, cocaine, marijuana Imaging: CT head 11/08/18: A left frontal periventricular lesion, which could be a subacute to chronic infarct versus possible underlying lesion. The CT head was compared to a CT head performed on 06/14/2015, which did not have this lesion. MRI brain with and without contrast 11/11/2018: Multiple foci of abnormal signal in the periventricular white matter bilaterally. The majority of these are oriented perpendicular to the lateral ventricles. The appearance is suggestive of demyelinating disease. There is a 2.7x 2.4 cm lesion in the white matter of the left frontal lobe. This demonstrates incomplete peripheral ringlike enhancement. There is somewhat adjacent vasogenic edema but no mass effect upon the left lateral ventricle. Especially with the appearance of the other white matter lesions, the appearance of this is most suggestive of a tumefactive demyelinating lesion. ASSESSMENT and PLAN: Ms. Dupree is a 33-year-old woman with past medical history of fibromyalgia, depression, anxiety, PTSD, who presented to [facility] with suicide ideation, found with a left frontal lesion on CT head, concerning for possible subacute to chronic infarct versus possible underlying lesion. Exam is limited due to patient's lack of cooperation. Patient with no obvious focal deficits at this time. Patient's U tox was positive for cocaine, which is a risk factor for stroke. MRI brain with and without contrast showing lesions are very suggestive of tumefactive multiple sclerosis. However cannot rule out any infection this patient with a history of drug abuse, but still lower on differential. We'll obtain a lumbar puncture. When lumbar puncture does not show any possible infectious pathology, we will began steroids IV 1 g x 5 days RECOMMENDATION: 1. Lumbar puncture 2. Pending CSF studies, we will start patient on high-dose steroids IV 1 g x 5 days. please check daily CBC and every 6 hour blood glucose check. 3. Neurology will continue to follow
[2018-11-12 14:49] LABS: INR 0.9 (<1.2); Prothrombin Time 10.1 sec (9.0-12.0)
[2018-11-12] MEDS ORDERED: LIDOCAINE 1% INJ 10MG/ML (20 ML MDV) SQ ONE (15:08)
--- NOTE | 2018-11-12 16:19 | P.PN ---
Subjective Progress Note Date: 11/12/18 Principal diagnosis: Left frontal lesion/ possible subacute to chronic infarct versus possible underlying lesion Suicidal ideation 33-year-old woman with past medical history of fibromyalgia, depression, anxiety, PTSD, who presented to [facility] with suicide ideation, found with a left frontal lesion on CT head, concerning for possible subacute to chronic infarct versus possible underlying lesion. 11/12/2018 Patient is seen and evaluated in the room with nursing staff at bedside along with the sitter present in the room; vital signs remained stable MRI brain with and without contrast 11/11/2018: Multiple foci of abnormal signal in the periventricular white matter bilaterally. The majority of these are oriented perpendicular to the lateral ventricles. The appearance is suggestive of demyelinating disease. There is a 2.7x 2.4 cm lesion in the white matter of the left frontal lobe. This demonstrates incomplete peripheral ringlike enhancement. There is somewhat adjacent vasogenic edema but no mass effect upon the left lateral ventricle. Especially with the appearance of the other white matter lesions, the appearance of this is most suggestive of a tumefactive demyelinating lesion; multiple sclerosis; neurology is following and underlying infection cannot be ruled out due to history of drug abuse; neurology is recommending lumbar puncture and treatment with IV steroids 1 g for 5 days if lumbar puncture is negative for infectious pathology. Objective - Vital Signs Vital signs: Vital Signs Temp 97.6 F 11/12/18 04:52 Pulse 78 11/12/18 04:52 Resp 18 11/12/18 04:52 BP 143/92 11/12/18 04:52 Pulse Ox 98 11/12/18 04:52 Intake & Output 11/11/18 11/12/18 11/12/18 18:59 06:59 18:59 Intake Total 940 Balance 940 Intake: Intake, IV Titration 350 Amount Sodium Chloride 0.9% 1, 350 000 ml @ 75 mls/hr IV . [id number] GOMEZ Rx#:[id number] Oral 590 Other: Voiding Method Toilet # Voids 2 1 - Exam - Constitutional General appearance: Present: average body habitus, cooperative, no acute distress - EENT Eyes: Present: anicteric sclerae, EOMI, PERRLA, normal appearance ENT: Present: hearing grossly normal, normal oropharynx Ears: bilateral: normal - Neck Neck: Present: normal ROM. Absent: lymphadenopathy, rigidity, thyromegaly Carotids: negative: bruit present Thyroid: bilateral: normal size, negative: enlarged, nodule - Respiratory Respiratory: bilateral: CTA, negative: rales, rhonchi, wheezing - Cardiovascular Rhythm: regular Heart sounds: normal: S1, S2 Abnormal Heart Sounds: Absent: systolic murmur, diastolic murmur - Gastrointestinal General gastrointestinal: Present: normal bowel sounds, soft. Absent: distended, organomegaly, tenderness - Genitourinary Genitourinary Comment(s): deferred - Integumentary Integumentary: Present: normal turgor. Absent: jaundiced, rash, ulcer - Neurologic Neurologic: Present: CNII-XII intact. Absent: focal deficits - Musculoskeletal Musculoskeletal: Present: gait normal, strength equal bilaterally - Psychiatric Psychiatric: Present: A&O x's 3, appropriate affect, intact judgment & insight - Labs CBC & Chem 7: 11/11/18 07:41 11/11/18 07:41 Assessment and Plan Assessment: Altered mental status, mostly due to substance abuse and alcoholic beverages, and cocaine. improving Frontal lobe cerebral lesion, neurologist evaluated the patient. MRI of the brain is pending Possible suicidal ideation, and other psychiatric illnesses evaluated by psychiatrist. Psychiatrist recommended inpatient psychiatric admission after medical clearance Alcoholic abuse Risk of alcohol withdrawal Substance abuse Nicotine dependence Laceration on the sides of right lower chest, status post 5 stitches, more superficial scratch on the site of left lower chest Possible urinary tract infection Bradycardia with prolonged QTC. Improved significantly Plan: This is a pleasant 53 years old female who presents with altered mental status with frontal lesion, substance abuse and alcoholism, possible suicidal ideation. Neurology evaluated the patient, he recommended MRI of the brain which is going to be done today. Creatinine 0.9 .patient is going to outside facility to get MRI of the back and head, discussed with case assistant to be associated with a sitter. Also discussed the patient concerns need to take care of her 8 years daughter, social sciences research scientist will be consulted.Patient will need a psych walker admission after cleared medically, the meantime continue with observation 1-1, nicotine patches added. Number IV fluids.. Keep telemetry all this patient is improving. . Continue with symptomatic treatment. Resume home medication. Monitor lytes and vitals. DVT and GI prophylaxis. Further recommendations of the clinical course of the patient Prognosis is guarded DVT prophylaxis SCD, and anticoagulation is relatively contraindicated in view of her brain lesion. We think risks more than benefits. Prognosis is guarded Time with Patient: Greater than 30
[2018-11-12 17:14] LABS: Glucose,CSF 58 mg/dL (40-70); Total Protein,CSF 54 mg/dL (12-60)
[2018-11-12 17:37] LABS: Appearance,CSF Clear; CSF Tube Number 4
[2018-11-12 17:38] LABS: Nucleated Cells, CSF 5 u/L (0-5); Red Blood Cell,CSF 0 u/L (0-10)
[2018-11-12 17:55] LABS: Diff, Total Cells Cnt, CSF 100; Mononuclear WBC,CSF 99 %; Polynuclear WBC,CSF 1 %
[2018-11-12] MEDS: LORazepam 1 MG TAB PO PRN (18:56)
[2018-11-12] MEDS ORDERED: methylPREDNISolone SOD SUCC 1,000 MG in SODIUM CHLORIDE 0.9% 250 ML IVPB ONE (19:00)
[2018-11-12] MEDS ORDERED: HYDROcodone/APAP 5-325MG 1 EACH TAB PO STA (20:10)
[2018-11-12] MEDS: PANTOPRAZOLE 40 MG TABLET PO SCH (21:19)
[2018-11-12] MEDS: PRAMIPEXOLE 0.5 MG TAB PO SCH (21:41)
[2018-11-13] MEDS: LORazepam 1 MG TAB PO PRN ×4 (01:27→20:28)
[2018-11-13] MEDS: ACETAMINOPHEN TAB 325 MG TAB PO PRN ×4 (01:27→20:28)
[2018-11-13 05:41] LABS: Glucose,Whole Blood 147 mg/dL (75-99)
[2018-11-13 07:53] LABS: Calcium 9.5 mg/dL (8.4-10.2); Potassium 4.1 mmol/L (3.5-5.1)
[2018-11-13 07:56] LABS: Basophils % (A) 0 %; Eosinophils % (A) 0 %; HCT 41.3 % (34.0-46.0); HGB 12.8 gm/dL (11.4-16.0); Lymphocytes # (A) 0.3 k/uL (1.0-4.8); Lymphocytes % (A) 5 %; MCH 29.2 pg (25.0-35.0); MCHC 30.9 g/dL (31.0-37.0); MCV 94.6 fL (80.0-100.0); Mean Platelet Volume 8.6; Monocytes # (A) 0.1 k/uL (0-1.0); Monocytes % (A) 1 %; Neutrophils # (A) 5.3 k/uL (1.3-7.7); Neutrophils % (A) 93 %; Platelet Count 286 k/uL (150-450); RBC 4.37 m/uL (3.80-5.40); RDW 15.3 % (11.5-15.5); WBC 5.7 k/uL (3.8-10.6)
[2018-11-13] MEDS: NICOTINE 21MG/24HR PATCH TRANSDERM SCH (08:11)
[2018-11-13] MEDS: MULTIVITAMINS, THERA 1 EACH TAB PO SCH (08:12)
[2018-11-13] MEDS: PANTOPRAZOLE 40 MG TABLET PO SCH (08:12)
[2018-11-13] MEDS: GABAPENTIN 300 MG CAP PO SCH ×3 (08:12→21:59)
[2018-11-13] MEDS: cloNIDine HCL 0.1 MG TAB PO SCH ×3 (08:13→21:59)
[2018-11-13] MEDS: TOPIRAMATE 100 MG TAB PO SCH ×2 (08:13→20:28)
[2018-11-13] MEDS: buPROPion SR 100 MG TABLET.ER PO SCH (08:14)
[2018-11-13] MEDS: VENLAFAXINE HCL ER 150 MG CAP PO SCH (08:14)
[2018-11-13] MEDS: SODIUM CHLORIDE 0.9% 1,000 ML IV SCH ×2 (09:47→15:00)
[2018-11-13] MEDS ORDERED: methylPREDNISolone SOD SUCC 1,000 MG in SODIUM CHLORIDE 0.9% 250 ML IVPB ONE (17:00)
[2018-11-13 17:46] LABS: Glucose,Whole Blood 119 mg/dL (75-99)
[2018-11-13 19:52] LABS: Glucose,Whole Blood 148 mg/dL (75-99)
[2018-11-13] MEDS: PRAMIPEXOLE 0.5 MG TAB PO SCH (20:28)
[2018-11-14] MEDS: SODIUM CHLORIDE 0.9% 1,000 ML IV SCH ×3 (02:16→15:30)
[2018-11-14] MEDS: LORazepam 1 MG TAB PO PRN ×4 (03:04→21:57)
[2018-11-14] MEDS: ACETAMINOPHEN TAB 325 MG TAB PO PRN ×2 (03:04→09:43)
[2018-11-14 07:13] LABS: Glucose,Whole Blood 133 mg/dL (75-99)
[2018-11-14] MEDS: VENLAFAXINE HCL ER 150 MG CAP PO SCH (07:32)
[2018-11-14] MEDS: NICOTINE 21MG/24HR PATCH TRANSDERM SCH (07:32)
[2018-11-14] MEDS: GABAPENTIN 300 MG CAP PO SCH ×3 (07:32→21:29)
[2018-11-14] MEDS: MULTIVITAMINS, THERA 1 EACH TAB PO SCH (07:33)
[2018-11-14] MEDS: buPROPion SR 100 MG TABLET.ER PO SCH (07:33)
[2018-11-14] MEDS: TOPIRAMATE 100 MG TAB PO SCH ×2 (07:33→21:30)
[2018-11-14] MEDS: cloNIDine HCL 0.1 MG TAB PO SCH ×3 (07:33→21:29)
[2018-11-14] MEDS: PANTOPRAZOLE 40 MG TABLET PO SCH (07:33)
[2018-11-14] MEDS: PRAMIPEXOLE 0.5 MG TAB PO SCH (07:33)
[2018-11-14 08:23] LABS: Basophils % (A) 0 %; Eosinophils # (A) 0.1 k/uL (0-0.7); Eosinophils % (A) 0 %; HCT 38.4 % (34.0-46.0); HGB 12.1 gm/dL (11.4-16.0); Lymphocytes # (A) 0.3 k/uL (1.0-4.8); Lymphocytes % (A) 2 %; MCH 29.8 pg (25.0-35.0); MCHC 31.5 g/dL (31.0-37.0); MCV 94.5 fL (80.0-100.0); Mean Platelet Volume 8.3; Monocytes # (A) 0.5 k/uL (0-1.0); Monocytes % (A) 3 %; Neutrophils # (A) 13.8 k/uL (1.3-7.7); Neutrophils % (A) 94 %; Platelet Count 288 k/uL (150-450); RBC 4.07 m/uL (3.80-5.40); RDW 14.9 % (11.5-15.5); WBC 14.8 k/uL (3.8-10.6)
[2018-11-14 08:37] LABS: African American GFR (CKD) >90 (>60 ml/min/1.73 sqM); Anion Gap 10 mmol/L; Blood Urea Nitrogen 9 mg/dL (7-17); Calcium 9.6 mg/dL (8.4-10.2); Carbon Dioxide 21 mmol/L (22-30); Chloride 111 mmol/L (98-107); Glucose 116 mg/dL (74-99); Sodium 142 mmol/L (137-145)
--- NOTE | 2018-11-14 09:19 | P.PN ---
Subjective Progress Note Date: 11/13/18 Principal diagnosis: Left frontal lesion/ possible subacute to chronic infarct versus possible underlying lesion Suicidal ideation 33-year-old woman with past medical history of fibromyalgia, depression, anxiety, PTSD, who presented to [facility] with suicide ideation, found with a left frontal lesion on CT head, concerning for possible subacute to chronic infarct versus possible underlying lesion. 11/12/2018 Patient is seen and evaluated in the room with nursing staff at bedside along with the sitter present in the room; vital signs remained stable MRI brain with and without contrast 11/11/2018: Multiple foci of abnormal signal in the periventricular white matter bilaterally. The majority of these are oriented perpendicular to the lateral ventricles. The appearance is suggestive of demyelinating disease. There is a 2.7x 2.4 cm lesion in the white matter of the left frontal lobe. This demonstrates incomplete peripheral ringlike enhancement. There is somewhat adjacent vasogenic edema but no mass effect upon the left lateral ventricle. Especially with the appearance of the other white matter lesions, the appearance of this is most suggestive of a tumefactive demyelinating lesion; multiple sclerosis; neurology is following and underlying infection cannot be ruled out due to history of drug abuse; neurology is recommending lumbar puncture and treatment with IV steroids 1 g for 5 days if lumbar puncture is negative for infectious pathology. 11/13/2018 Patient is seen and evaluated in room at bedside; continue to argue need for bedside sitter and does not think she has any concerns about suicidal ideation Vital signs remained stable with a temperature of 98.0, pulse 87, respiration 18 and blood pressure 138/90 Labs are stable with a white blood count of 5.7, hemoglobin 12.8 and platelet count of 286; sodium of 139, potassium 4.1, BUN of 9 with creatinine of 0.98; blood glucose at 177 Objective - Vital Signs Vital signs: Vital Signs Temp 98.0 F 11/13/18 06:35 Pulse 87 11/13/18 06:35 Resp 18 11/13/18 06:35 BP 138/90 11/13/18 06:35 Pulse Ox 97 11/13/18 06:35 Intake & Output 11/12/18 11/13/18 11/13/18 18:59 06:59 18:59 Intake Total 120 Balance 120 Intake: Oral 120 Other: Voiding Method Toilet # Voids 2 2 - Exam - Constitutional General appearance: Present: average body habitus, cooperative, no acute distress - EENT Eyes: Present: anicteric sclerae, EOMI, PERRLA, normal appearance ENT: Present: hearing grossly normal, normal oropharynx Ears: bilateral: normal - Neck Neck: Present: normal ROM. Absent: lymphadenopathy, rigidity, thyromegaly Carotids: negative: bruit present Thyroid: bilateral: normal size, negative: enlarged, nodule - Respiratory Respiratory: bilateral: CTA, negative: rales, rhonchi, wheezing - Cardiovascular Rhythm: regular Heart sounds: normal: S1, S2 Abnormal Heart Sounds: Absent: systolic murmur, diastolic murmur - Gastrointestinal General gastrointestinal: Present: normal bowel sounds, soft. Absent: distended, organomegaly, tenderness - Genitourinary Genitourinary Comment(s): deferred - Integumentary Integumentary: Present: normal turgor. Absent: jaundiced, rash, ulcer - Neurologic Neurologic: Present: CNII-XII intact. Absent: focal deficits - Musculoskeletal Musculoskeletal: Present: gait normal, strength equal bilaterally - Psychiatric Psychiatric: Present: A&O x's 3, appropriate affect, intact judgment & insight - Labs CBC & Chem 7: 11/13/18 07:00 11/13/18 07:00 Labs: Abnormal Lab Results - Last 24 Hours (Table) 11/13/18 11/13/18 11/13/18 Range/Units 05:39 07:00 07:00 MCHC 30.9 L (31.0-37.0) g/dL Lymphocytes # 0.3 L (1.0-4.8) k/uL Chloride 108 H (98-107) mmol/L Carbon Dioxide 20 L (22-30) mmol/L Glucose 177 H (74-99) mg/dL POC Glucose (mg/dL) 147 H (75-99) mg/dL Assessment and Plan Assessment: Altered mental status, mostly due to substance abuse and alcoholic beverages, and cocaine. improving Frontal lobe cerebral lesion, neurologist evaluated the patient. MRI of the brain is pending Possible suicidal ideation, and other psychiatric illnesses evaluated by psychiatrist. Psychiatrist recommended inpatient psychiatric admission after medical clearance Alcoholic abuse Risk of alcohol withdrawal Substance abuse Nicotine dependence Laceration on the sides of right lower chest, status post 5 stitches, more superficial scratch on the site of left lower chest Possible urinary tract infection Bradycardia with prolonged QTC. Improved significantly Plan: This is a pleasant 53 years old female who presents with altered mental status with frontal lesion, substance abuse and alcoholism, possible suicidal ideation. Neurology evaluated the patient, he recommended MRI of the brain which is going to be done today. Creatinine 0.9 .patient is going to outside facility to get MRI of the back and head, discussed with geriatric case manager to be associated with a sitter. Also discussed the patient concerns need to take care of her 8 years daughter, bilingual social worker will be consulted.Patient will need a psych walker admission after cleared medically, the meantime continue with observation 1-1, nicotine patches added. Number IV fluids.. Keep telemetry all this patient is improving. . Continue with symptomatic treatment. Resume home medication. Monitor lytes and vitals. DVT and GI prophylaxis. Further recommendations of the clinical course of the patient Prognosis is guarded DVT prophylaxis SCD, and anticoagulation is relatively contraindicated in view of her brain lesion. We think risks more than benefits. Prognosis is guarded
[2018-11-14 11:07] LABS: Glucose,Whole Blood 122 mg/dL (75-99)
[2018-11-14] MEDS: DOCUSATE 100 MG CAP PO SCH ×2 (11:21→21:30)
--- NOTE | 2018-11-14 13:51 | P.PN ---
Subjective Progress Note Date: 11/14/18 Principal diagnosis: Left frontal lesion/ possible subacute to chronic infarct versus possible underlying lesion Suicidal ideation 33-year-old woman with past medical history of fibromyalgia, depression, anxiety, PTSD, who presented to [facility] with suicide ideation, found with a left frontal lesion on CT head, concerning for possible subacute to chronic infarct versus possible underlying lesion. 11/12/2018 Patient is seen and evaluated in the room with nursing staff at bedside along with the sitter present in the room; vital signs remained stable MRI brain with and without contrast 11/11/2018: Multiple foci of abnormal signal in the periventricular white matter bilaterally. The majority of these are oriented perpendicular to the lateral ventricles. The appearance is suggestive of demyelinating disease. There is a 2.7x 2.4 cm lesion in the white matter of the left frontal lobe. This demonstrates incomplete peripheral ringlike enhancement. There is somewhat adjacent vasogenic edema but no mass effect upon the left lateral ventricle. Especially with the appearance of the other white matter lesions, the appearance of this is most suggestive of a tumefactive demyelinating lesion; multiple sclerosis; neurology is following and underlying infection cannot be ruled out due to history of drug abuse; neurology is recommending lumbar puncture and treatment with IV steroids 1 g for 5 days if lumbar puncture is negative for infectious pathology. 11/13/2018 Patient is seen and evaluated in room at bedside; continue to argue need for bedside sitter and does not think she has any concerns about suicidal ideation Vital signs remained stable with a temperature of 98.0, pulse 87, respiration 18 and blood pressure 138/90 Labs are stable with a white blood count of 5.7, hemoglobin 12.8 and platelet count of 286; sodium of 139, potassium 4.1, BUN of 9 with creatinine of 0.98; blood glucose at 177 11/14/2018 Patient is seen and evaluated in the room at bedside; continue to insist on increasing pain medication Vital signs are reviewed with a temperature of 98.1, pulse 85, respirations 16 and blood pressure of 166/97 Labs are significant for an elevated white blood count of 14.8; patient has been on IV Rocephin for possible UTI; urine culture is not available; patient has no fever; started on IV Solu-Medrol; elevated white blood count possibly secondary to steroid use; we will continue to monitor closely and initiate sepsis workup if white blood count continues to trend up or patient develops fever Lumbar puncture has been unremarkable and Patient has been recommended high-dose IV Solu-Medrol 1 g daily 5 days for MS Patient is to be transferred to mental health unit once clinically stable for suicide ideation Objective - Vital Signs Vital signs: Vital Signs Temp 98.1 F 11/14/18 05:00 Pulse 85 11/14/18 05:00 Resp 16 11/14/18 05:00 BP 166/97 11/14/18 05:00 Pulse Ox 99 11/14/18 05:00 Intake & Output 11/13/18 11/14/18 11/14/18 18:59 06:59 18:59 Intake Total 1190 320 Balance 1190 320 Intake: Intake, IV Titration 1190 Amount Sodium Chloride 0.9% 1, 240 000 ml @ 20 mls/hr IV . Q24H [facility] Rx#:[id number] Sodium Chloride 0.9% 1, 900 000 ml @ 75 mls/hr IV . [id number] [facility] Rx#:[id number] cefTRIAXone 1 gm In 50 Sodium Chloride 0.9% 50 ml @ 100 mls/hr IVPB Q24HR [facility] Rx#:[id number] Oral 320 Other: Voiding Method Toilet Toilet Toilet # Voids 5 2 2 - Exam - Constitutional General appearance: Present: average body habitus, cooperative, no acute distress - EENT Eyes: Present: anicteric sclerae, EOMI, PERRLA, normal appearance ENT: Present: hearing grossly normal, normal oropharynx Ears: bilateral: normal - Neck Neck: Present: normal ROM. Absent: lymphadenopathy, rigidity, thyromegaly Carotids: negative: bruit present Thyroid: bilateral: normal size, negative: enlarged, nodule - Respiratory Respiratory: bilateral: CTA, negative: rales, rhonchi, wheezing - Cardiovascular Rhythm: regular Heart sounds: normal: S1, S2 Abnormal Heart Sounds: Absent: systolic murmur, diastolic murmur - Gastrointestinal General gastrointestinal: Present: normal bowel sounds, soft. Absent: distended, organomegaly, tenderness - Genitourinary Genitourinary Comment(s): deferred - Integumentary Integumentary: Present: normal turgor. Absent: jaundiced, rash, ulcer - Neurologic Neurologic: Present: CNII-XII intact. Absent: focal deficits - Musculoskeletal Musculoskeletal: Present: gait normal, strength equal bilaterally - Psychiatric Psychiatric: Present: A&O x's 3, appropriate affect, intact judgment & insight - Labs CBC & Chem 7: 11/14/18 07:35 11/14/18 07:35 Labs: Abnormal Lab Results - Last 24 Hours (Table) 11/13/18 11/13/18 11/14/18 Range/Units 17:26 19:50 07:12 WBC (3.8-10.6) k/uL Neutrophils # (1.3-7.7) k/uL Lymphocytes # (1.0-4.8) k/uL Chloride (98-107) mmol/L Carbon Dioxide (22-30) mmol/L Glucose (74-99) mg/dL POC Glucose (mg/dL) 119 H 148 H 133 H (75-99) mg/dL 11/14/18 11/14/18 11/14/18 Range/Units 07:35 07:35 11:04 WBC 14.8 H (3.8-10.6) k/uL Neutrophils # 13.8 H (1.3-7.7) k/uL Lymphocytes # 0.3 L (1.0-4.8) k/uL Chloride 111 H (98-107) mmol/L Carbon Dioxide 21 L (22-30) mmol/L Glucose 116 H (74-99) mg/dL POC Glucose (mg/dL) 122 H (75-99) mg/dL Assessment and Plan Assessment: Altered mental status, mostly due to substance abuse and alcoholic beverages, and cocaine. improving Frontal lobe cerebral lesion, neurologist evaluated the patient. MRI of the brain is pending Possible suicidal ideation, and other psychiatric illnesses evaluated by psychiatrist. Psychiatrist recommended inpatient psychiatric admission after medical clearance Alcoholic abuse Risk of alcohol withdrawal Substance abuse Nicotine dependence Laceration on the sides of right lower chest, status post 5 stitches, more superficial scratch on the site of left lower chest Possible urinary tract infection Bradycardia with prolonged QTC. Improved significantly Plan: This is a pleasant 53 years old female who presents with altered mental status with frontal lesion, substance abuse and alcoholism, possible suicidal ideation. Neurology evaluated the patient, he recommended MRI of the brain which is going to be done today. Creatinine 0.9 .patient is going to outside facility to get MRI of the back and head, discussed with sample case porter to be associated with a sitter. Also discussed the patient concerns need to take care of her 8 years daughter, hospital social worker will be consulted.Patient will need a psych walker admi ssion after cleared medically, the meantime continue with observation 1-1, nicotine patches added. Number IV fluids.. Keep telemetry all this patient is improving. . Continue with symptomatic treatment. Resume home medication. Monitor lytes and vitals. DVT and GI prophylaxis. Further recommendations of the clinical course of the patient Prognosis is guarded DVT prophylaxis SCD, and anticoagulation is relatively contraindicated in view of her brain lesion. We think risks more than benefits. Prognosis is guarded Time with Patient: Greater than 30
[2018-11-14] MEDS ORDERED: methylPREDNISolone SOD SUCC 1,000 MG in SODIUM CHLORIDE 0.9% 250 ML IVPB ONE (15:00)
[2018-11-14] MEDS: CEPHALEXIN 500 MG CAP PO SCH ×2 (15:30→21:29)
[2018-11-14] MEDS: ACETAMINOPHEN TAB 500 MG TAB PO PRN ×2 (16:01→20:22)
[2018-11-14 16:35] LABS: Glucose,Whole Blood 148 mg/dL (75-99)
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
[2018-11-14 20:46] LABS: Glucose,Whole Blood 139 mg/dL (75-99)
[2018-11-15] MEDS: SODIUM CHLORIDE 0.9% 1,000 ML IV SCH ×2 (03:42→19:51)
[2018-11-15] MEDS: LORazepam 1 MG TAB PO PRN ×2 (04:23→11:09)
[2018-11-15] MEDS: ACETAMINOPHEN TAB 500 MG TAB PO PRN ×4 (04:23→17:50)
[2018-11-15 07:18] LABS: Glucose,Whole Blood 165 mg/dL (75-99)
[2018-11-15] MEDS: NICOTINE 21MG/24HR PATCH TRANSDERM SCH (08:21)
[2018-11-15] MEDS: DOCUSATE 100 MG CAP PO SCH ×2 (08:22→22:04)
[2018-11-15] MEDS: MULTIVITAMINS, THERA 1 EACH TAB PO SCH (08:22)
[2018-11-15] MEDS: cloNIDine HCL 0.1 MG TAB PO SCH ×3 (08:22→22:03)
[2018-11-15] MEDS: PANTOPRAZOLE 40 MG TABLET PO SCH (08:22)
[2018-11-15] MEDS: GABAPENTIN 300 MG CAP PO SCH ×3 (08:22→22:04)
[2018-11-15] MEDS: VENLAFAXINE HCL ER 150 MG CAP PO SCH (08:22)
[2018-11-15] MEDS: CEPHALEXIN 500 MG CAP PO SCH (08:22)
[2018-11-15] MEDS: buPROPion SR 100 MG TABLET.ER PO SCH (08:23)
[2018-11-15] MEDS: TOPIRAMATE 100 MG TAB PO SCH ×2 (08:24→22:04)
[2018-11-15 09:12] LABS: Calcium 9.8 mg/dL (8.4-10.2); Potassium 3.3 mmol/L (3.5-5.1)
[2018-11-15 09:44] LABS: HCT 40.4 % (34.0-46.0); HGB 12.5 gm/dL (11.4-16.0); MCH 29.4 pg (25.0-35.0); MCHC 30.9 g/dL (31.0-37.0); Mean Platelet Volume 8.2; Platelet Count 304 k/uL (150-450); RBC 4.26 m/uL (3.80-5.40); RDW 14.5 % (11.5-15.5); WBC 12.2 k/uL (3.8-10.6)
[2018-11-15 10:54] LABS: Myelocytes # (M) 0.12 k/uL (0); Myelocytes % 1 %; Nucleated Red Blood Cells 0 /100 WBC (0-0)
[2018-11-15 10:55] LABS: Lymphocytes # (M) 0.61 k/uL (1.0-4.8); Monocytes # (M) 0.37 k/uL (0-1.0); Neutrophils % (M) 92 %; Total Cells Counted 200
[2018-11-15 10:56] LABS: Anisocytosis (M) Present
[2018-11-15 11:23] LABS: Glucose,Whole Blood 104 mg/dL (75-99)
[2018-11-15 11:37] LABS: Appearance,Urine Clear (Clear); Bilirubin,Urine Negative (Negative); Blood,Urine Trace (Negative); Budding Yeast,Urine Rare /hpf; Color,Urine Yellow; Glucose,Urine (UA) Negative (Negative); Ketones,Urine Negative (Negative); Leukocyte Esterase,Urine Negative (Negative); Mucus,Urine Rare /hpf; Nitrite,Urine Negative (Negative); PH, Urine 6.5 (5.0-8.0); Protein,Urine Negative (Negative); RBC,Urine 4 /hpf (0-5); Specific Gravity,Urine 1.013 (1.001-1.035); Squamous Epithelial Cell,Urine 7 /hpf (0-4); Urobilinogen,Urine <2.0 mg/dL (<2.0); WBC,Urine 1 /hpf (0-5)
[2018-11-15] MEDS ORDERED: methylPREDNISolone SOD SUCC 1,000 MG in SODIUM CHLORIDE 0.9% 250 ML IVPB ONE (13:00)
[2018-11-15 13:35] LABS: IgG/Albumin Index (CSF) 0.37 (0.00 - 0.77); Immunoglobulin G 794 mg/dL (700 - 1600)
--- NOTE | 2018-11-15 14:01 | P.PN ---
Progress Note - Text Progress Note Date: 11/15/18 SUBJECTIVE/INTERVAL EVENTS: No cure overnight event over the weekend. Patient states that she is continuing to have pain all over her body. Patient to arrange a full that she tries to convince me to convince the psychiatrist to not send her to the psych unit. PHYSICAL EXAMINATION: VITAL SIGNS: Temperature 97.7 pulse rate 83 respiratory rate 18 blood pressure 159/108 and saturation 90% on room air GEN.: NAD HEENT: NCAT, sclera without icterus NEURO: MENTAL STATUS: Patient alert and oriented to self, place, time. Able to name the current president. Speech fluent CRANIAL NERVES II THROUGH XII: Grossly, CN intact. II: Pupils are equal and reactive to light symmetrically. Left afferent pupillary defect present. No right colored desaturation today compared to last Thursday. OD: 20/30 OS: 20/70 III, IV, : Extraocular movements full. No nystagmus. V: Facial sensation intact from V1-3. VII. No clear facial asymmetry. IX, X: Symmetric palate elevation. XII: Shoulder shrug intact. XII: Tongue midline without fasciculation or atrophy. MOTOR: Normal bulk/tone. No pronator drift or tremor. Strength is grossly 5/5 throughout all 4 extremities. SENSORY: Intact to light touch, temperature in all 4 extremities. REFLEXES: 2+ throughout COORDINATION: Finger to nose intact. No dysmetria. GAIT: Normal based gait. DIAGNOSTICS: Laboratory: WBC 5.8 hemoglobin 12.1 platelets 250 sodium 141 potassium 4.1 chloride 116 bicarb 16 BUN 6 creatinine 0.93 glucose 94 calcium 9.4 AST 21 ALT 14 alk phos 60 Utox positive for benzo, cocaine, marijuana CSF 11/12/18: RBC 0 WBC 5 Glucose 58 Protein 54 Imaging: CT head 11/08/18: A left frontal periventricular lesion, which could be a subacute to chronic infarct versus possible underlying lesion. The CT head was compared to a CT head performed on 06/14/2015, which did not have this lesion. MRI brain with and without contrast 11/11/2018: Multiple foci of abnormal signal in the periventricular white matter bilaterally. The majority of these are oriented perpendicular to the lateral ventricles. The appearance is suggestive of demyelinating disease. There is a 2.7x 2.4 cm lesion in the white matter of the left frontal lobe. This demonstrates incomplete peripheral ringlike enhancement. There is somewhat adjacent vasogenic edema but no mass effect upon the left lateral ventricle. Especially with the appearance of the other white matter lesions, the appearance of this is most suggestive of a tumefactive demyelinating lesion. ASSESSMENT and PLAN: Ms. Dupree is a 33-year-old woman with past medical history of fibromyalgia, depression, anxiety, PTSD, who presented to [facility] with suicide ideation, found with a left frontal lesion on CT head, concerning for possible subacute to chronic infarct versus possible underlying lesion. Exam is limited due to patient's lack of cooperation. Patient with no obvious focal deficits at this time. Patient's U tox was positive for cocaine, which is a risk factor for stroke. MRI brain with and without contrast showing lesions are very suggestive of tumefactive multiple sclerosis. However cannot rule out any infection this patient with a history of drug abuse, but still lower on differential. We'll obtain a lumbar puncture. When lumbar puncture does not show any possible infectious pathology, we will began steroids IV 1 g x 5 days RECOMMENDATION: 1. Continue with steroids IV 1 g x 5 days. Today is day #4. Please check daily CBC and every 6 hour blood glucose check. 2. f/u labs: oligoclonal bands, MS panel 3. Patient needs to be seen by outpatient multiple sclerosis specialist within 1-2 weeks of discharge for consideration of disease modifying medication for what appears to be most likely tumefactive multiple sclerosis 4. Neurology will continue to follow
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
[2018-11-15] MEDS ORDERED: Potassium Replacement Protocol 1 EACH MISC MISCELLANE PRN (15:45)
--- NOTE | 2018-11-15 15:48 | P.PN ---
Subjective this is a pleasant 33 yo F with past medical history of fibromyalgia, degenerative joint disease, depression and anxiety and PTSD, who presents with altered mental status , pt is poor historian so infomration was taken from medical records and staff, as well as pt . pt is drowsy and goes to sleep easily duration conversation , but wakes up with verbal commands . Flow enforcements were called because patient was minimally responsive and suspected to be suicidal, multiple alcoholic beverages were noted on 2 chest wounds. Patient was educated and Versed 5 mg was given in the emergency room intramuscularly. This morning patient is complaining of from headache, answers like a severe headache however she states she is headache since childhood. Patient denies chest pain or dyspnea. She has occasional dry cough. She denies dysuria or change in frequency. Patient states she drinks alcohol but not every day however she could not elaborate more, she also admits to smoking cigarettes, and illicit tracts without any liberation. Patient denies chest pain, no dyspnea, no abdominal pain, no nausea vomiting, no blurred vision, abnormal sensation, pain, no change in urine or bowel habits as per patient. No fever. [facility] CT: Left frontal periventricular lesion, infarct versus others. No hemorrhage. Chest x-ray possible infiltrate in the medial right lower lung. Abdominal x-ray: No free air, no calculus per radiologist. EKG showing sinus bradycardia at 56 with prolonged QTC at 613, no significant ST-T changes Patient is hemodynamically stable. Labs showing mild hypokalemia and slightly elevated creatinine at 1.1 11/10/2018 Patient seen in the general medical floor, she is better awakened today the level she looks orbits and drowsy, patient remains impulsive however she denies suicidal ideation, she made some possible paranoid comments for example "my UTI is due to chemicals from my work, nobody let's me call my daughter" "my brain lesion is a do to trauma from a bump". Patient does not show signs or symptoms of alcohol withdrawal. She is still complaining of from discomfort in her urination without specification.patient sitter at bedside. Discussed the case with the neurology, they recommended transfer the patient for known for MRI of the brain and the spine with and without contrast. Patient informed about this and she agrees. Discussed with staff and social welfare clerk/case resolution specialist to provide sitter at bedside during the transfer and coming back all the time. Patient was informed about her frontal brain lesion. Psychiatric evaluation is appreciated and recommended to transfer the patient to psych unit once is cleared by medical team. Repeat EKG for prolonged QT. Patient is hemodynamically stable and she is afebrile. Heart rate limits on the low side at 55 but isn't symptomatic.labs reviewed showing unremarkable CBC and creatinine back to normal level at 0.9, continue with IV fluid normal saline 125 mL/h. 11/11/2018 Patient is awake and answered her questions appropriately however she still was not impulsive. Sitter at bedside. She has dry cough but no chest pain or dyspnea. Want at the sides of her chest look clean and healing. EKG done today was showing significantly improving QTC down to 488, heart rate improved to 64- 71. TSH 0.9, magnesium 2.1. Patient still pending MRI of the brain was noted to be done today, after that patient will be followed by neurology. Sitter at bedside and patient needs to go to psych after clearance Patient has been covered by Dr. Bunn on a Thursday and over the weekend 11/15/2018 Patient is more calm today with less impulsive behavior. She denies headache. No urinary symptoms of dysuria or others. She still have occasional cough but is dry. She is complaining of from low back pain and she thinks thus related to her lumbar puncture. Sitter still at bedside. Chest wall wound is improving on the stitches are still in place. Psychiatrist to evaluate the patient today and he had just some of her medication lactic lower the dose of Ativan. Patient looks like she might still need inpatient psychiatric admission. Tomorrow will be last day of parenteral steroids for her multiple sclerosis. She has mild leukocytosis, but is mostly due to the steroid effect. Discontinue Keflex. Lower fluid to 50 mL of normal saline. Objective - Vital Signs Vital signs: Vital Signs Temp 97.7 F 11/15/18 11:44 Pulse 83 11/15/18 11:44 Resp 18 11/15/18 11:44 BP 159/108 11/15/18 11:44 Pulse Ox 98 11/15/18 11:44 Intake & Output 11/14/18 11/15/18 11/15/18 18:59 06:59 18:59 Intake Total 1150 Balance 1150 Intake: Oral 1150 Other: Voiding Method Bedside Commode Bedside Commode # Voids 3 1 - Exam -GENERAL: The patient is alert but the drowsy, she is oriented to time place and person. Obese HEENT: Pupils are round and equally reacting to light. EOMI. No scleral icterus. No conjunctival pallor. Normocephalic, atraumatic. No pharyngeal erythema. No thyromegaly. CARDIOVASCULAR: S1 and S2 present. No murmurs, rubs, or gallops. -PULMONARY: Chest is clear to auscultation, no wheezing or crackles. Small laceration about 1 inch on the right lateral lower chest, with [address] Similar more superficial scratch wound on the left lateral chest with no stitches ABDOMEN: Soft, nontender, nondistended, normoactive bowel sounds. No palpable organomegaly. MUSCULOSKELETAL: No joint swelling or deformity. EXTREMITIES: No cyanosis, clubbing, or pedal edema. NEUROLOGICAL: Gross neurological examination did not reveal any focal deficits. SKIN: No rashes. - Labs CBC & Chem 7: 11/15/18 08:37 11/15/18 08:37 Labs: Abnormal Lab Results - Last 24 Hours (Table) 11/12/18 11/14/18 11/14/18 Range/Units 16:00 16:32 20:45 WBC (3.8-10.6) k/uL MCHC (31.0-37.0) g/dL Neutrophils # (Manual) (1.3-7.7) k/uL Lymphocytes # (Manual) (1.0-4.8) k/uL Myelocytes # (Manual) (0) k/uL Potassium (3.5-5.1) mmol/L Chloride (98-107) mmol/L Carbon Dioxide (22-30) mmol/L Glucose (74-99) mg/dL POC Glucose (mg/dL) 148 H 139 H (75-99) mg/dL Urine Blood (Negative) Ur Squamous Epith Cells (0-4) /hpf Urine Mucus (None) /hpf Urine Yeast (Budding) (None) /hpf Serum Albumin 2,550 L (3500 - 5200) mg/dL 11/15/18 11/15/18 11/15/18 Range/Units 07:16 08:37 08:37 WBC 12.2 H (3.8-10.6) k/uL MCHC 30.9 L (31.0-37.0) g/dL Neutrophils # (Manual) 11.22 H (1.3-7.7) k/uL Lymphocytes # (Manual) 0.61 L (1.0-4.8) k/uL Myelocytes # (Manual) 0.12 H (0) k/uL Potassium 3.3 L (3.5-5.1) mmol/L Chloride 108 H (98-107) mmol/L Carbon Dioxide 19 L (22-30) mmol/L Glucose 130 H (74-99) mg/dL POC Glucose (mg/dL) 165 H (75-99) mg/dL Urine Blood (Negative) Ur Squamous Epith Cells (0-4) /hpf Urine Mucus (None) /hpf Urine Yeast (Budding) (None) /hpf Serum Albumin (3500 - 5200) mg/dL 11/15/18 11/15/18 Range/Units 11:15 11:19 WBC (3.8-10.6) k/uL MCHC (31.0-37.0) g/dL Neutrophils # (Manual) (1.3-7.7) k/uL Lymphocytes # (Manual) (1.0-4.8) k/uL Myelocytes # (Manual) (0) k/uL Potassium (3.5-5.1) mmol/L Chloride (98-107) mmol/L Carbon Dioxide (22-30) mmol/L Glucose (74-99) mg/dL POC Glucose (mg/dL) 104 H (75-99) mg/dL Urine Blood Trace H (Negative) Ur Squamous Epith Cells 7 H (0-4) /hpf Urine Mucus Rare H (None) /hpf Urine Yeast (Budding) Rare H (None) /hpf Serum Albumin (3500 - 5200) mg/dL Assessment and Plan Assessment: Altered mental status, mostly due to substance abuse and alcoholic beverages, and cocaine. Results Frontal lobe cerebral lesion, neurologist evaluated the patient. Mostly related to her multiple sclerosis Possible suicidal ideation, and other psychiatric illnesses evaluated by psychiatrist. Psychiatrist recommended inpatient psychiatric admission after medical clearance Alcoholic abuse Risk of alcohol withdrawal Substance abuse Nicotine dependence Laceration on the sides of right lower chest, status post 5 stitches, more superficial scratch on the site of left lower chest. Stable Possible urinary tract infection. Sufficiently treated Bradycardia with prolonged QTC. Improved significantly Plan: This is a pleasant 53 years old female who presents with multiple sclerosis and substance abuse and other psychiatric illnesses with possible suicidal ideation. Follow-up neurologist recommendation, patient to continue on steroids. 11/15/2018 is the last day of IV steroids. Patient might need inpatient psychiatric admission. Sitter at bedside.lower IV fluids.. . Continue with sy mptomatic treatment. Resume home medication. Monitor lytes and vitals. DVT and GI prophylaxis. Further recommendations of the clinical course of the patient Prognosis is guarded DVT prophylaxis SCD, and anticoagulation is relatively contraindicated in view of her brain lesion. We think risks more than benefits. Prognosis is guarded
[2018-11-15 17:32] LABS: Glucose,Whole Blood 112 mg/dL (75-99)
[2018-11-15] MEDS: OLANZapine 5 MG TAB PO SCH ×2 (17:53→22:04)
[2018-11-15] MEDS: LORazepam 0.5 MG TAB PO PRN (19:37)
[2018-11-15 20:04] LABS: Glucose,Whole Blood 175 mg/dL (75-99)
--- NOTE | 2018-11-15 20:36 | P.PCN ---
Date of Procedure: 11/12/18 Preoperative Diagnosis: Concern for multiple sclerosis Postoperative Diagnosis: Concern for multiple sclerosis Procedure(s) Performed: Lumbar Puncture Anesthesia: local Estimated Blood Loss (ml): 0 Pathology: other (Cytology sent) Condition: stable Disposition: floor Indications for Procedure: Concern for multiple sclerosis; need to start steroids and rule out infection Operative Findings: CSF Description of Procedure: Informed consent was obtained from the patient. A time-out was completed, verrifying correct patient, procedure, site, positioning. The area was prepped and draped in the usual sterile fashion. Using standard landmarks, a spinal n eedle was inserted in the L3-L4 innerspace. Patient was initially placed on L lateral position, but patient needed to be seated for the procedure. 10cc of clear CSF was collected and sent for cell count, glucose, protein, grain stain, culture, cytology and MS panel. Patient tolerated the procedure well. Complications: None Blood loss: Minimal
[2018-11-15] MEDS: PRAMIPEXOLE 0.5 MG TAB PO SCH (22:04)
[2018-11-16] MEDS: ACETAMINOPHEN TAB 500 MG TAB PO PRN ×2 (05:53→10:33)
[2018-11-16] MEDS: LORazepam 0.5 MG TAB PO PRN ×2 (05:53→15:00)
[2018-11-16 07:14] LABS: Glucose,Whole Blood 230 mg/dL (75-99)
[2018-11-16 07:24] LABS: Basophils % (A) 0 %; Eosinophils # (A) 0.1 k/uL (0-0.7); Eosinophils % (A) 1 %; HCT 37.8 % (34.0-46.0); HGB 11.7 gm/dL (11.4-16.0); Lymphocytes # (A) 0.6 k/uL (1.0-4.8); Lymphocytes % (A) 7 %; MCH 28.7 pg (25.0-35.0); MCHC 30.9 g/dL (31.0-37.0); Mean Platelet Volume 8.4; Monocytes # (A) 0.5 k/uL (0-1.0); Monocytes % (A) 6 %; Neutrophils % (A) 86 %; Platelet Count 282 k/uL (150-450); RBC 4.06 m/uL (3.80-5.40); RDW 13.7 % (11.5-15.5); WBC 9.4 k/uL (3.8-10.6)
[2018-11-16 07:38] LABS: African American GFR (CKD) >90 (>60 ml/min/1.73 sqM); Anion Gap 11 mmol/L; Blood Urea Nitrogen 16 mg/dL (7-17); Calcium 9.7 mg/dL (8.4-10.2); Carbon Dioxide 23 mmol/L (22-30); Chloride 108 mmol/L (98-107); Glucose 107 mg/dL (74-99); Potassium 3.2 mmol/L (3.5-5.1); Sodium 142 mmol/L (137-145)
[2018-11-16] MEDS: VENLAFAXINE HCL ER 150 MG CAP PO SCH (08:21)
[2018-11-16] MEDS: GABAPENTIN 300 MG CAP PO SCH ×2 (08:21→17:07)
[2018-11-16] MEDS: DOCUSATE 100 MG CAP PO SCH (08:21)
[2018-11-16] MEDS: cloNIDine HCL 0.1 MG TAB PO SCH ×2 (08:21→17:07)
[2018-11-16] MEDS: PANTOPRAZOLE 40 MG TABLET PO SCH (08:21)
[2018-11-16] MEDS: MULTIVITAMINS, THERA 1 EACH TAB PO SCH (08:22)
[2018-11-16] MEDS: TOPIRAMATE 100 MG TAB PO SCH (08:22)
[2018-11-16] MEDS: buPROPion SR 100 MG TABLET.ER PO SCH (08:22)
[2018-11-16] MEDS: OLANZapine 5 MG TAB PO SCH ×2 (08:22→17:07)
[2018-11-16] MEDS: NICOTINE 21MG/24HR PATCH TRANSDERM SCH (08:27)
[2018-11-16] MEDS: POTASSIUM CHLORIDE ER 20 MEQ TAB.ER PO SCH ×2 (08:35→10:33)
--- NOTE | 2018-11-16 10:31 | P.PN ---
Progress Note - Text Progress Note Date: 11/16/18 SUBJECTIVE/INTERVAL EVENTS: No cure overnight events. Pt states that she's been sleeping a lot more than usual. She thinks it's due to the psychiatrist changing her antidepressant although patient has also been taking Ativan. Pt states that Ativan actually keeps her awake because she has ADHD. PHYSICAL EXAMINATION: VITAL SIGNS: Temperature 97.6 pulse rate 64 respiratory rate 18 blood pressure 175/95 O2 saturation 100% on room air GEN.: NAD HEENT: NCAT, sclera without icterus NEURO: MENTAL STATUS: Patient alert and oriented to self, place, time. Able to name the current president. Speech fluent CRANIAL NERVES II THROUGH XII: Grossly, CN intact. II: Pupils are equal and reactive to light symmetrically. Left afferent pupillary defect present. No right colored desaturation today compared to last Thursday. OD: 20/30 OS: 20/70 III, IV, : Extraocular movements full. No nystagmus. V: Facial sensation intact from V1-3. VII. No clear facial asymmetry. IX, X: Symmetric palate elevation. XII: Shoulder shrug intact. XII: Tongue midline without fasciculation or atrophy. MOTOR: Normal bulk/tone. No pronator drift or tremor. Strength is grossly 5/5 throughout all 4 extremities. SENSORY: Intact to light touch, temperature in all 4 extremities. REFLEXES: 2+ throughout COORDINATION: Finger to nose intact. No dysmetria. GAIT: Normal based gait. DIAGNOSTICS: Laboratory: WBC 9.4 hemoglobin 11.7 platelets 282 sodium 142 potassium 3.2 chloride 108 bicarb 23 BUN 16 creatinine 0.93 glucose 107 Utox positive for benzo, cocaine, marijuana CSF 11/12/18: RBC 0 WBC 5 Glucose 58 Protein 54 oligoclonal bands negative Imaging: CT head 11/08/18: A left frontal periventricular lesion, which could be a subacute to chronic infarct versus possible underlying lesion. The CT head was compared to a CT head performed on 06/14/2015, which did not have this lesion. MRI brain with and without contrast 11/11/2018: Multiple foci of abnormal signal in the periventricular white matter bilaterally. The majority of these are oriented perpendicular to the lateral ventricles. The appearance is suggestive of demyelinating disease. There is a 2.7x 2.4 cm lesion in the white matter of the left frontal lobe. This demonstrates incomplete peripheral ringlike enhancement. There is somewhat adjacent vasogenic edema but no mass effect upon the left lateral ventricle. Especially with the appearance of the other white matter lesions, the appearance of this is most suggestive of a tumefactive demyelinating lesion. ASSESSMENT and PLAN: Ms. Dupree is a 33-year-old woman with past medical history of fibromyalgia, depression, anxiety, PTSD, who presented to [facility] with suicide ideation, found with a left frontal lesion on CT head, concerning for possible subacute to chronic infarct versus possible underlying lesion. Exam is limited due to patient's lack of cooperation. Patient with no obvious focal deficits at this time. Patient's U tox was positive for cocaine, which is a risk factor for stroke. MRI brain with and without contrast showing lesions are very suggestive of tumefactive multiple sclerosis. CSF oligoclonal bands resulted negative. However, considering the pattern of lesions on her MRI brain, tumefactive MS remains the most likely diagnosis for this patient. RECOMMENDATION: 1. Continue with steroids IV 1 g x 5 days. Today is day #5. Please check daily CBC and every 6 hour blood glucose check. 2. Patient needs to be seen by outpatient multiple sclerosis specialist within 1-2 weeks of discharge for consideration of disease modifying medication for what appears to be most likely tumefactive multiple sclerosis. Patient should be discharged with her MRI imaging to be reviewed with the multiple sclerosis specialist. 3. Neurology will sign off at this time. Please call with additional questions or concerns.
[2018-11-16 11:49] LABS: Glucose,Whole Blood 100 mg/dL (75-99)
[2018-11-16 14:00] VITALS: BP 150/82; PULSE 87; RESP 16; TEMP 97.9
[2018-11-16] MEDS ORDERED: traMADol 50 MG TAB PO STA (14:21)
--- NOTE | 2018-11-16 14:30 | P.DS ---
Providers Date of admission: 11/11/18 10:21 Attending physician: Chelsea Slater Consults: 11/09/18 06:50 Consult Physician Routine Consulting Provider: Myranda Salazar Consult Reason/Comments: brain lesion Do you want consulting provider notified?: Already Contacted 11/09/18 06:52 Consult Physician Routine Consulting Provider: Dino Chand Consult Reason/Comments: suicidal Do you want consulting provider notified?: Already Contacted Primary care physician: Stated None Hospital Course: Dx: Altered mental status, mostly due to substance abuse and alcoholic beverages, and cocaine. Resolved Frontal lobe cerebral lesion, neurologist evaluated the patient. Mostly related to her multiple sclerosis. Possible suicidal ideation, and other psychiatric illnesses evaluated by psychiatrist. Psychiatrist recommended inpatient psychiatric admission Alcoholic abuse Risk of alcohol withdrawal. Resolved Substance abuse Nicotine dependence Laceration on the sides of right lower chest, status post 5 stitches, more superficial scratch on the site of left lower chest. Stable Possible urinary tract infection. Sufficiently treated Bradycardia with prolonged QTC. Improved significantly Chronic low back pain hospital course : this is a pleasant 33 yo F with past medical history of fibromyalgia, degenerative joint disease, depression and anxiety and PTSD, who presents with altered mental status , patient presents with a drowsiness and altered mental status related to her substance abuse and alcoholism, also related partially to alcohol withdrawal and UTI. She has laceration in the right chest wall which is been sutured by ED team. Patient was impulsive upon admission is with suspicion for so psych to ligation, patient was evaluated by psychiatrist and recommended for psychiatric admission after medical clearance. Workup showed she has abnormal lesion on the frontal cerebrum on CAT scan of the brain, neurologist recommended MRI. Her MRI results as below: (( Multiple foci of abnormal signal in the periventricular white matter bilaterally. The majority of these are oriented perpendicular to the lateral ventricles. The appearance is suggestive of demyelinating disease. There is a 2.7x 2.4 cm lesion in the white matter of the left frontal lobe. This demonstrates incomplete peripheral ringlike enhancement. There is somewhat adjacent vasogenic edema but no mass effect upon the left lateral ventricle. Especially with the appearance of the other white matter lesions, the appearance of this is most suggestive of a tumefactive demyelinating lesion. )) Patient has been treated with IV steroids for 4 days, she had a lumbar puncture done by neurology team yesterday for diagnostic reasons for her MS. And MS panel with oligoclonal band. Patient showed interval improvement and she is back to her mental and physical baseline, she is able to walk. No blurred vision or diplopia. Patient was cleared by neurologist for discharge. Patient denies other signs symptoms. She denies chest pain or dyspnea. No abdominal pain. Problems and management plan were discussed with the patient and he verbalized understanding and acceptance Patient was found stable and can be discharged home however he needs follow-up as an outpatient. Patient was instructed to follow up with her PCP and neurologist for her MS. An appointment is made with neurologist Dr. Cisneros and patient agrees with it and said she will follow up Gen: patient is a AAOx3, no distress CVS: S1-S2, RRR, no murmur Lungs: B/L CTA, no wheezing. Right chest wall wound of less than an inch in diameter, closed with gwendolyn is in a Place, only to Abdomen: soft, no distention, no tenderness, positive bowel sounds Extremity: no leg edema or induration Time spent more than 35 minutes Patient Condition at Discharge: Fair Plan - Discharge Summary Discharge Rx Participant: No New Discharge Prescriptions: No Action cloNIDine HCL [Catapres] 0.1 mg PO TID 30 Days #90 tab buPROPion HCL [Wellbutrin SR] 200 mg PO QAM Pramipexole [Mirapex] 0.5 mg PO HS Venlafaxine HCl ER [Effexor XR] 150 mg PO DAILY Topiramate 200 mg PO BID Lisdexamfetamine Dimesylate [Vyvanse] 20 mg PO DAILY Gabapentin 600 mg PO TID Discharge Medication List cloNIDine HCL [Catapres] 0.1 mg PO TID 30 Days #90 tab 05/31/18 [Rx] Gabapentin 600 mg PO TID 11/09/18 [History] Lisdexamfetamine Dimesylate [Vyvanse] 20 mg PO DAILY 11/09/18 [History] Pramipexole [Mirapex] 0.5 mg PO HS 11/09/18 [History] Topiramate 200 mg PO BID 11/09/18 [History] Venlafaxine HCl ER [Effexor XR] 150 mg PO DAILY 11/09/18 [History] buPROPion HCL [Wellbutrin SR] 200 mg PO QAM 11/09/18 [History] Follow up Appointment(s)/Referral(s): Nonstaff,Physician [REFERRING] - 1-2 days Suresh Cisneros MD [STAFF PHYSICIAN] - 12/01/18 11:00 am Discharge Disposition: TRANSFER TO PSYCH HOSP/UNIT
[2018-11-16] MEDS: SODIUM CHLORIDE 0.9% 1,000 ML IV SCH (15:50)
[2018-11-16] MEDS ORDERED: POTASSIUM CHLORIDE ER 20 MEQ TAB.ER PO SCH (16:00)
[2018-11-16 17:07] LABS: Glucose,Whole Blood 107 mg/dL (75-99)
--- NOTE | 2018-11-16 17:41 | CONS ---
CONSULTATION DATE OF SERVICE: 11/16/2018. PURPOSE FOR CONSULTATION: Evaluate for risk of self-harm. INTERVAL HISTORY: Patient has been doing fair. She had a quiet evening last night. She was taken off one-to-one precautions. She has not had any further issues in regard to difficult behaviors. According to nursing staff, she has had a quiet morning. She has been sleeping on and off in early part of the morning. When I talked to the patient today, she states that she has not been able to hear from her boyfriend. She was distressed yesterday in that the father of her daughter came in for visit with her 8-year-old daughter. She made a statement that she believed the father was taking the daughter out of state and that she would lose contact with her daughter. Apparently she communicated to nursing that she wanted police to be called, though that was not considered an appropriate intervention. Today she says that she is down and distressed about that issue. She seems to be little more connected to her current situation. When I talked about the option of her being transferred to the psychiatric unit when she is medically clear, she did not raise any significant objections. For the most part, she was in a quiet mood. She was fairly calm in how she presented herself. Her thoughts were clear. ASSESSMENT: I will continue the current diagnosis and treatment plan. I anticipate the patient being admitted to the psychiatric unit when she is medically cleared. I discussed with the patient that I would anticipate a short hospitalization mainly for a focus on trying to better clarify the situation that led to her hospitalization and to be able to coordinate a comprehensive outpatient followup plan. The patient raised no objections at this time. MMODL / IJN: [id number] /
== END 2018-11-16 18:26 | DRG 58 ==
LOC: EC 05:06 → 3SCARD 07:48 → 3NMEDONC 11-10 23:21 → OBSVTOIN 11-11 10:21 → 3NMEDONC 11-11 18:09
PROVIDERS: ADMIT Hospitalist; ATTEND Hospitalist
PROC: 0JQ63ZZ Repair Chest Subcutaneous Tissue and Fascia, Percutaneous Approach (ICD-10-PCS; principal; 2018-11-09)
PROC: 3E0234Z Introduction of Serum, Toxoid and Vaccine into Muscle, Percutaneous Approach (ICD-10-PCS; 2018-11-09)
PROC: 009U3ZX Drainage of Spinal Canal, Percutaneous Approach, Diagnostic (ICD-10-PCS; 2018-11-12)
DX: G35 Multiple sclerosis (principal); G93.6 Cerebral edema; G92 Toxic encephalopathy; S21.111A Laceration without foreign body of right front wall of thorax without penetration into thoracic cavity, initial encounter; R45.851 Suicidal ideations; F10.239 Alcohol dependence with withdrawal, unspecified; N39.0 Urinary tract infection, site not specified; I45.81 Long QT syndrome; K22.0 Achalasia of cardia; Z23 Encounter for immunization; F32.9 Major depressive disorder, single episode, unspecified; F14.10 Cocaine abuse, uncomplicated; F12.10 Cannabis abuse, uncomplicated; F90.9 Attention-deficit hyperactivity disorder, unspecified type; F43.10 Post-traumatic stress disorder, unspecified; R00.1 Bradycardia, unspecified; D72.829 Elevated white blood cell count, unspecified; T38.0X5A Adverse effect of glucocorticoids and synthetic analogues, initial encounter; E87.6 Hypokalemia; M19.90 Unspecified osteoarthritis, unspecified site; M79.7 Fibromyalgia; G89.29 Other chronic pain; M54.5 Low back pain; E66.9 Obesity, unspecified; Z68.31 Body mass index [BMI] 31.0-31.9, adult; F17.210 Nicotine dependence, cigarettes, uncomplicated; Z71.6 Tobacco abuse counseling; Z78.1 Physical restraint status; Z79.899 Other long term (current) drug therapy; Z98.890 Other specified postprocedural states; Z98.891 History of uterine scar from previous surgery; Z90.49 Acquired absence of other specified parts of digestive tract; Z87.01 Personal history of pneumonia (recurrent); Z98.51 Tubal ligation status; X78.9XXA Intentional self-harm by unspecified sharp object, initial encounter; Y92.009 Unspecified place in unspecified non-institutional (private) residence as the place of occurrence of the external cause; Z88.2 Allergy status to sulfonamides; Z88.8 Allergy status to other drugs, medicaments and biological substances; Z83.49 Family history of other endocrine, nutritional and metabolic diseases; Z82.49 Family history of ischemic heart disease and other diseases of the circulatory system; Z82.62 Family history of osteoporosis; Z83.79 Family history of other diseases of the digestive system; Z82.69 Family history of other diseases of the musculoskeletal system and connective tissue
CPT/HCPCS: 12001; 36415; 70450; 71045; 74018; 80048; 80053; 80306; 80320; 81001; 81025; 82040; 82042; 82075; 82784; 82945; 83735; 83873; 83916; 84132; 84157; 84443; 84703; 85025; 85610; 89050; 90471; 90715; 93005; 96372; 99285

== ENCOUNTER 2018-11-16 17:53 | Inpatient (IN) | payer MEDICAID ==
[2018-11-16] MEDS ORDERED: ZIPRASIDONE 20 MG VIAL IM PRN (21:12)
[2018-11-16] MEDS ORDERED: MAGNESIUM HYDROXIDE 2,400 MG/10 ML CUP PO PRN (21:12)
[2018-11-16] MEDS ORDERED: MAG HYDROX/AL HYDROX/SIMETH 30 ML CUP PO PRN (21:12)
[2018-11-16] MEDS: cloNIDine HCL 0.1 MG TAB PO SCH (21:39)
[2018-11-16] MEDS: GABAPENTIN 300 MG CAP PO SCH (21:39)
[2018-11-16] MEDS: ACETAMINOPHEN TAB 325 MG TAB PO PRN (21:43)
[2018-11-16] MEDS: OLANZapine 5 MG TAB PO SCH (22:20)
[2018-11-17] MEDS: cloNIDine HCL 0.1 MG TAB PO SCH ×3 (07:50→21:38)
[2018-11-17] MEDS: NICOTINE 21MG/24HR PATCH TRANSDERM SCH (07:50)
[2018-11-17] MEDS: buPROPion SR 100 MG TABLET.ER PO SCH (07:50)
[2018-11-17] MEDS: PRAMIPEXOLE 0.5 MG TAB PO SCH (07:50)
[2018-11-17] MEDS: TOPIRAMATE 100 MG TAB PO SCH ×2 (07:51→21:37)
[2018-11-17] MEDS: OLANZapine 5 MG TAB PO SCH (07:51)
[2018-11-17] MEDS: GABAPENTIN 300 MG CAP PO SCH ×3 (07:51→21:38)
[2018-11-17] MEDS: ACETAMINOPHEN TAB 325 MG TAB PO PRN (07:52)
[2018-11-17] MEDS ORDERED: VENLAFAXINE HCL ER 150 MG CAP PO SCH (09:00)
[2018-11-17] MEDS: ETODOLAC 400 MG TAB PO SCH ×2 (10:36→16:42)
[2018-11-17 14:04] LABS: Hemoglobin A1C 5.5 % (4.0-6.0)
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
--- NOTE | 2018-11-17 20:28 | P.CONS ---
History of Present Illness - History of Present Illness this is a pleasant 33 yo F with past medical history of fibromyalgia, degener ative joint disease, depression and anxiety and PTSD, who was discharge from our team abril yesterday . initialy presented with altered mental status , related to her substance abuse and alcoholism, also related partially to alcohol withdrawal and UTI. She has laceration in the right chest wall and sutures are removed and wound is healing. Patient was impulsive upon admission is with suspicion for so suicidal patient was evaluated by psychiatrist and recommended for psychiatric admission after medical clearance. Workup showed she has abnormal lesion on the frontal cerebrum on CAT scan of the brain, neurologist recommended MRI. Her MRI results as below: (( Multiple foci of abnormal signal in the periventricular white matter bilaterally. The majority of these are oriented perpendicular to the lateral ventricles. The appearance is suggestive of demyelinating disease. There is a 2.7x 2.4 cm lesion in the white matter of the left frontal lobe. This demonstrates incomplete peripheral ringlike enhancement. There is somewhat adjacent vasogenic edema but no mass effect upon the left lateral ventricle. Especially with the appearance of the other white matter lesions, the appearance of this is most suggestive of a tumefactive demyelinating lesion. )) Patient has been treated with IV steroids for 4 days, she had a lumbar puncture done by neurology team for diagnostic reasons for her MS. And MS panel with oligoclonal band. Patient showed interval improvement and she is back to her mental and physical baseline, she is able to walk. No blurred vision or diplopia. Patient was cleared by neurologist for discharge. Patient denies other signs symptoms. She denies chest pain or dyspnea. No abdominal pain. Patient was instructed to follow up with her PCP and neurologist for her MS. An appointment is made with neurologist Dr. Cisneros and pt aware of it and agrees to f/u , discussed with staff to document appointment on discharge instructions Review of Systems CONSTITUTIONAL: No fever, no malaise, no fatigue. HEENT: No recent visual problems or hearing problems. Denied any sore throat. CARDIOVASCULAR: No orthopnea, PND, no palpitations, no syncope. PULMONARY: no cough, no hemoptysis. GASTROINTESTINAL: No diarrhea, no nausea, no vomiting, no abdominal pain. Normoactive bowel sounds. NEUROLOGICAL: No headaches, no weakness, no numbness. HEMATOLOGICAL: Denies any bleeding or petechiae. GENITOURINARY: Denies any burning micturition, frequency, or urgency. MUSCULOSKELETAL/RHEUMATOLOGICAL: Denies any joint pain, swelling, or any muscle pain. ENDOCRINE: Denies any polyuria or polydipsia. Past Medical History Past Medical History: Fibromyalgia, Pneumonia Additional Past Medical History / Comment(s): Achalasia cardia, dysphagia, chronic back pain, DDD, herniated discs, bilateral carpal tunnel syndrome, DJD, cyst on kidney, hypoglycemia History of Any Multi-Drug Resistant Organisms: None Reported Past Surgical History: Appendectomy, Section, Orthopedic Surgery, Tubal Ligation Additional Past Surgical History / Comment(s): c section x 3, EGD, possible R foot or ankle surgery-pt unclear. Past Anesthesia/Blood Transfusion Reactions: Motion Sickness Smoking Status: Current every day smoker - Past Family History Father Family Medical History: Hyperlipidemia, Hypertension Mother Family Medical History: Fibromyalgia Additional Family Medical History / Comment(s): HIATAL HERNIA OSTEOPSORIS, DDD Medications and Allergies Home Medications Medication Instructions Recorded Confirmed Type cloNIDine HCL [Catapres] 0.1 mg PO TID 30 Days #90 tab 05/31/18 11/16/18 Rx Gabapentin 600 mg PO TID 11/09/18 11/16/18 History Lisdexamfetamine Dimesylate 20 mg PO DAILY 11/09/18 11/16/18 History [Vyvanse] Pramipexole [Mirapex] 0.5 mg PO HS 11/09/18 11/16/18 History Topiramate 200 mg PO BID 11/09/18 11/16/18 History Venlafaxine HCl ER [Effexor XR] 150 mg PO DAILY 11/09/18 11/16/18 History buPROPion HCL [Wellbutrin SR] 200 mg PO QAM 11/09/18 11/16/18 History Nicotine 21Mg/24Hr Patch [Habitrol] 1 patch TRANSDERM DAILY #30 patch 11/16/18 11/16/18 Rx Allergies Allergy/AdvReac Type Severity Reaction Status Date / Time NSAIDS (Non-Steroidal Allergy Dyspnea Verified 11/16/18 18:40 Anti-Inflamma Sulfa (Sulfonamide Allergy Rash/Hives Verified 11/16/18 18:40 Antibiotics) Physical Exam Vitals: Vital Signs Temp Pulse Resp BP 11/17/18 16:40 91 155/84 11/17/18 06:28 97.8 F 87 16 123/88 11/16/18 21:44 112 H 20 131/95 11/16/18 18:55 98.9 F 105 H 16 138/89 GENERAL: The patient is alert and oriented x3, not in any acute distress. Well developed, well nourished. HEENT: Pupils are round and equally reacting to light. EOMI. No scleral icterus. No conjunctival pallor. Normocephalic, atraumatic. No pharyngeal erythema. No thyromegaly. CARDIOVASCULAR: S1 and S2 present. No murmurs, rubs, or gallops. -PULMONARY: Chest is clear to auscultation, no wheezing or crackles. wound on sides of chest are healing ABDOMEN: Soft, nontender, nondistended, normoactive bowel sounds. No palpable organomegaly. MUSCULOSKELETAL: No joint swelling or deformity. EXTREMITIES: No cyanosis, clubbing, or pedal edema. NEUROLOGICAL: Gross neurological examination did not reveal any focal deficits. SKIN: No rashes. Results Labs: Abnormal Lab Results - Last 24 Hours (Table) 11/16/18 Range/Units 07:08 Triglycerides 221 H (<150) mg/dL Assessment and Plan Assessment: recent history of substance abuse and alcoholic beverages, and cocaine. Frontal lobe cerebral lesion, neurologist evaluated the patient. Mostly related to her multiple sclerosis Possible suicidal ideation, and other psychiatric illnesses evaluated by psychiatrist. management as per primary psychiatric team Alcoholic abuse Nicotine dependence Laceration on the sides of right lower chest, status post 5 stitches, more superficial scratch on the site of left lower chest. Stable and stitches are removed Possible urinary tract infection. Sufficiently treated Bradycardia with prolonged QTC. Improved significantly Plan: This is a pleasant 53 years old female who presents with multiple sclerosis and substance abuse and other psychiatric illnesses with possible suicidal ideation. management as per primary team. pt will need neurologist follow up as outpt , patient is status post steroids. 11/15/2018 is the last day of IV steroids. . . Continue with symptomatic treatment. Resume home medication. Monitor lytes and vitals. DVT and GI prophylaxis. Further recommendations of the clinical course of the patient
[2018-11-17] MEDS ORDERED: ALBUTEROL NEBULIZED 2.5 MG/3 ML INHALATION PRN (20:30)
[2018-11-18] MEDS: ALBUTEROL INHALER 60 PUFF/8 GM INHALER INHALATION PRN ×3 (00:55→19:59)
[2018-11-18] MEDS: NICOTINE 21MG/24HR PATCH TRANSDERM SCH (08:20)
[2018-11-18] MEDS: ETODOLAC 400 MG TAB PO SCH ×2 (08:20→18:00)
[2018-11-18] MEDS: GABAPENTIN 300 MG CAP PO SCH ×3 (08:23→21:38)
[2018-11-18] MEDS: TOPIRAMATE 100 MG TAB PO SCH ×2 (08:23→21:37)
[2018-11-18] MEDS: buPROPion SR 100 MG TABLET.ER PO SCH (08:23)
[2018-11-18] MEDS: cloNIDine HCL 0.1 MG TAB PO SCH ×3 (08:23→21:38)
[2018-11-18] MEDS ORDERED: OLANZapine 5 MG TAB PO SCH ×2 (12:15→16:00)
[2018-11-18] MEDS: OLANZapine 5 MG TAB PO SCH ×2 (13:10→21:38)
[2018-11-18] MEDS ORDERED: diphenhydrAMINE 25 MG CAP PO STA (15:05)
[2018-11-18] MEDS: BACITRACIN OINT 1 EACH PACKET TOPICAL SCH ×2 (15:11→22:31)
[2018-11-18] MEDS ORDERED: OLANZapine 5 MG TAB PO STA (16:40)
[2018-11-18] MEDS: PRAMIPEXOLE 0.5 MG TAB PO SCH (21:37)
[2018-11-18] MEDS: VENLAFAXINE HCL ER 150 MG CAP PO SCH (21:37)
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
[2018-11-19] MEDS: ETODOLAC 400 MG TAB PO SCH ×2 (09:28→18:20)
[2018-11-19] MEDS: buPROPion SR 100 MG TABLET.ER PO SCH (09:29)
[2018-11-19] MEDS: TOPIRAMATE 100 MG TAB PO SCH ×2 (09:31→21:26)
[2018-11-19] MEDS: OLANZapine 5 MG TAB PO SCH ×3 (09:31→21:25)
[2018-11-19] MEDS: cloNIDine HCL 0.1 MG TAB PO SCH ×3 (09:31→21:27)
[2018-11-19] MEDS: GABAPENTIN 300 MG CAP PO SCH ×3 (09:31→21:25)
[2018-11-19] MEDS: BACITRACIN OINT 1 EACH PACKET TOPICAL SCH ×3 (09:32→21:28)
[2018-11-19] MEDS: NICOTINE 21MG/24HR PATCH TRANSDERM SCH (09:32)
[2018-11-19] MEDS: ALBUTEROL INHALER 60 PUFF/8 GM INHALER INHALATION PRN (09:33)
--- NOTE | 2018-11-19 12:35 | PN ---
PROGRESS NOTE DATE OF SERVICE: 11/19/2018 CHIEF COMPLAINT: The patient was distressed. There was question of her having had self harmful behavior and possibly a suicide attempt. INTERVAL HISTORY: Patient has been doing fair. She continues with ups and downs. Last evening, things were mostly quiet for her. She has had some periods where she gets very emotional and distressed. It is not always clear what sets off the spells that are likely some kind of panic attack and possibly some flashbacks or trigger situations. It is noteworthy that she is able to collect herself fairly quickly and get back to some more even states. She has been attending groups. She slept well last night. She told me she slept all night. Today, she has been up. She comes out in the day area. She now has continued to attend groups. She has a better outlook. She says she has been making an effort to contact her counselor at [facility]. She also has been trying to get a hold of a boyfriend. She anticipates living with him when she is discharged from the hospital. She tolerates her psychotropic medications. MENTAL STATUS: Patient sat with some restlessness. She gave fairly good eye contact. She answered questions appropriately. Her thoughts were clear. She was spontaneous and interactive. Her affect was initially a little constricted though it seemed to broaden as the interview went on. It was noteworthy that at the end of the interview she smiled and started talking about how she has no intention of hurting herself and that she wants to feel good about herself. Her mood was somewhat dysphoric though not as depressed as it has been. There was no indication of thought disorder. Cognition was clear. ASSESSMENT: I will continue the current diagnosis and treatment plan. I will continue psychotropic medications the same. Patient may be showing some positive benefits from the start of Zyprexa. We will continue to make an effort to coordinate with [facility] to get further input. Also, I discussed with the patient that given that she will go back to living with Praneeth on discharge, that it would be really helpful to be able to talk to him as well to get a better understanding of her living situation and discharge. MMANTHONY / VERNONN: [id number] /
[2018-11-19] MEDS: PRAMIPEXOLE 0.5 MG TAB PO SCH (21:26)
[2018-11-19] MEDS: VENLAFAXINE HCL ER 150 MG CAP PO SCH (21:26)
[2018-11-20] MEDS: ETODOLAC 400 MG TAB PO SCH ×2 (08:37→16:59)
[2018-11-20] MEDS: TOPIRAMATE 100 MG TAB PO SCH ×2 (08:41→21:11)
[2018-11-20] MEDS: GABAPENTIN 300 MG CAP PO SCH ×3 (08:41→21:10)
[2018-11-20] MEDS: NICOTINE 21MG/24HR PATCH TRANSDERM SCH (08:42)
[2018-11-20] MEDS: BACITRACIN OINT 1 EACH PACKET TOPICAL SCH ×3 (08:42→23:18)
[2018-11-20] MEDS: buPROPion SR 100 MG TABLET.ER PO SCH (08:42)
[2018-11-20] MEDS: cloNIDine HCL 0.1 MG TAB PO SCH ×3 (08:42→21:11)
[2018-11-20] MEDS: OLANZapine 5 MG TAB PO SCH ×3 (08:42→21:10)
[2018-11-20] MEDS: ACETAMINOPHEN TAB 325 MG TAB PO PRN ×3 (12:40→23:15)
[2018-11-20] MEDS: BENZOCAINE 20 % GEL 15 GM TUBE MM SCH ×3 (13:42→21:11)
[2018-11-20] MEDS: DOXYCYCLINE 100 MG CAP PO SCH ×2 (14:13→21:10)
[2018-11-20] MEDS: diphenhydrAMINE 50 MG CAP PO PRN ×2 (14:17→23:16)
--- NOTE | 2018-11-20 14:51 | P.PN ---
Subjective I was asked to see the patient because of her cough. Patient was comparing of cough with greenish, brownish sputum production. Patient was a smoker patient does have redness of the throat although no evidence of streptococcal clinical infection, patient denied any acid reflux symptoms Constitutional: Denied any fatigue denied any fever. Cardio vascular: denied any chest pain, palpitations Gastrointestinal denied any nausea vomiting Pulmonary: Denied any shortness of breath cough Neurologic denied any new focal deficits All inpatient medications were reviewed and appropriate changes in these medications as dictated in the interval history and assessment and plan. Objective - Vital Signs Vital signs: Vital Signs Temp 98.6 F 11/20/18 12:40 Pulse 93 11/20/18 06:59 Resp 18 11/20/18 06:59 BP 124/82 11/20/18 06:59 Pulse Ox - Exam PHYSICAL EXAMINATION: GENERAL: The patient is alert and oriented x3, not in any acute distress. Well developed, well nourished. HEENT: Pupils are round and equally reacting to light. EOMI. No scleral icterus. No conjunctival pallor. Normocephalic, atraumatic. Does have pharyngeal erythema but no whitish discharge around the tonsils. No thyromegaly. CARDIOVASCULAR: S1 and S2 present. No murmurs, rubs, or gallops. PULMONARY: Chest is clear to auscultation, no wheezing or crackles. ABDOMEN: Soft, nontender, nondistended, normoactive bowel sounds. No palpable organomegaly. MUSCULOSKELETAL: No joint swelling or deformity. EXTREMITIES: No cyanosis, clubbing, or pedal edema. NEUROLOGICAL: Gross neurological examination did not reveal any focal deficits. SKIN: No rashes. Assessment and Plan Plan: -Bronchitis, pharyngitis possibility of bacterial bronchitis cannot be ruled out patient was started on doxycycline -Possibility of gas dysphagia reflux disease for which I'll start her on famotidine.
--- NOTE | 2018-11-20 19:18 | PN ---
PROGRESS NOTE DATE OF SERVICE: 11/20/2018. CHIEF COMPLAINT: The patient was distressed. She was distressed. There was question of her having had self harmful behavior and possibly a suicide attempt. INTERVAL HISTORY: The patient has been doing fair. She had a quiet evening last night. She had unfortunate situation last evening that she chipped a tooth. She slept 6 hours last night. Today she has been up. She comes out in the day area. She interacts with others. She has been attending groups and seems to do well in group activities. When I talked to her today, one issue that came up is she has not had any contact with any family nor her boyfriend with whom she lives, that has been a distressing situation for her. Overall, it appears that her mood has been more stable. She seems to have a somewhat better outlook. She tolerates her psychotropic medications. MENTAL STATUS: Patient gave fairly good eye contact. Psychomotor activity was a little restless. She answered questions with direct responses. Her thoughts were clear. Her affect was in a reasonable range. Her mood was even. She did appear to be distressed. ASSESSMENT: I will continue the current diagnosis and treatment plan. I will continue psychotropic medications the same. A main aim we have is coordinating with her case therapist at [facility] to help address discharge planning issues. Continue to encourage her to try to make contacts with her boyfriend so that we can get a little clearer information about her living situation. We will continue to focus on stabilization and discharge planning. NILA / HELEN: [id number] /
[2018-11-20] MEDS: PRAMIPEXOLE 0.5 MG TAB PO SCH (21:10)
[2018-11-20] MEDS: FAMOTIDINE 20 MG TAB PO SCH (21:10)
[2018-11-20] MEDS: VENLAFAXINE HCL ER 150 MG CAP PO SCH (21:10)
[2018-11-21] MEDS: diphenhydrAMINE 50 MG CAP PO PRN ×3 (06:51→21:05)
[2018-11-21] MEDS: ACETAMINOPHEN TAB 325 MG TAB PO PRN ×3 (06:51→21:06)
[2018-11-21] MEDS: BACITRACIN OINT 1 EACH PACKET TOPICAL SCH ×3 (09:09→21:16)
[2018-11-21] MEDS: BENZOCAINE 20 % GEL 15 GM TUBE MM SCH ×4 (09:09→21:17)
[2018-11-21] MEDS: GABAPENTIN 300 MG CAP PO SCH ×3 (09:10→21:05)
[2018-11-21] MEDS: buPROPion SR 100 MG TABLET.ER PO SCH (09:10)
[2018-11-21] MEDS: OLANZapine 5 MG TAB PO SCH ×3 (09:10→21:05)
[2018-11-21] MEDS: FAMOTIDINE 20 MG TAB PO SCH ×2 (09:10→21:05)
[2018-11-21] MEDS: cloNIDine HCL 0.1 MG TAB PO SCH ×3 (09:10→21:05)
[2018-11-21] MEDS: TOPIRAMATE 100 MG TAB PO SCH ×2 (09:10→21:05)
[2018-11-21] MEDS: NICOTINE 21MG/24HR PATCH TRANSDERM SCH (09:10)
[2018-11-21] MEDS: DOXYCYCLINE 100 MG CAP PO SCH ×2 (09:10→21:06)
[2018-11-21] MEDS: ETODOLAC 400 MG TAB PO SCH (09:16)
[2018-11-21 09:21] VITALS: RESP 18
[2018-11-21] MEDS: ALBUTEROL INHALER 60 PUFF/8 GM INHALER INHALATION PRN (15:34)
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
[2018-11-21] MEDS: VENLAFAXINE HCL ER 150 MG CAP PO SCH (21:05)
[2018-11-21] MEDS: PRAMIPEXOLE 0.5 MG TAB PO SCH (21:06)
[2018-11-22 06:55] VITALS: TEMP 98.2
[2018-11-22] MEDS: ACETAMINOPHEN TAB 325 MG TAB PO PRN ×2 (07:21→13:34)
[2018-11-22] MEDS: NICOTINE 21MG/24HR PATCH TRANSDERM SCH (08:33)
[2018-11-22] MEDS: FAMOTIDINE 20 MG TAB PO SCH (08:34)
[2018-11-22] MEDS: TOPIRAMATE 100 MG TAB PO SCH (08:34)
[2018-11-22] MEDS: GABAPENTIN 300 MG CAP PO SCH (08:34)
[2018-11-22] MEDS: cloNIDine HCL 0.1 MG TAB PO SCH (08:34)
[2018-11-22] MEDS: buPROPion SR 100 MG TABLET.ER PO SCH (08:34)
[2018-11-22] MEDS: DOXYCYCLINE 100 MG CAP PO SCH (08:34)
[2018-11-22] MEDS: OLANZapine 5 MG TAB PO SCH (08:34)
[2018-11-22] MEDS: BENZOCAINE 20 % GEL 15 GM TUBE MM SCH (08:34)
[2018-11-22] MEDS: BACITRACIN OINT 1 EACH PACKET TOPICAL SCH ×2 (08:35→15:02)
[2018-11-22 08:39] VITALS: BP 135/91; PULSE 99
[2018-11-22] MEDS: ALBUTEROL INHALER 60 PUFF/8 GM INHALER INHALATION PRN (10:17)
[2018-11-22] MEDS: diphenhydrAMINE 50 MG CAP PO PRN (10:19)
[2018-11-22 10:59] VITALS: BMI 31.7
[2018-11-22] MEDS ORDERED: cloNIDine 0.2 MG/24HR PATCH TRANSDERM SCH (11:15)
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
[2018-11-22] MEDS ORDERED: OLANZapine 5 MG TAB PO SCH (21:00)
[2018-11-22] MEDS ORDERED: GABAPENTIN 400 MG CAP PO SCH (21:00)
== END 2018-11-22 15:35 | disposition home or self-care (01) | DRG 881 ==
LOC: 3MHU 18:29
PROVIDERS: ADMIT Psychiatry & Neurology Psychiatry; ATTEND Psychiatry & Neurology Psychiatry
DX: F32.9 Major depressive disorder, single episode, unspecified (principal); G93.6 Cerebral edema; F10.239 Alcohol dependence with withdrawal, unspecified; N39.0 Urinary tract infection, site not specified; F17.210 Nicotine dependence, cigarettes, uncomplicated; F41.0 Panic disorder [episodic paroxysmal anxiety]; F41.1 Generalized anxiety disorder; F43.10 Post-traumatic stress disorder, unspecified; G35 Multiple sclerosis; I45.81 Long QT syndrome; M79.7 Fibromyalgia; S21.119D Laceration without foreign body of unspecified front wall of thorax without penetration into thoracic cavity, subsequent encounter; Z78.1 Physical restraint status; Z79.899 Other long term (current) drug therapy; Z82.49 Family history of ischemic heart disease and other diseases of the circulatory system; M54.9 Dorsalgia, unspecified; G89.29 Other chronic pain; Z88.6 Allergy status to analgesic agent; Z88.2 Allergy status to sulfonamides; F14.10 Cocaine abuse, uncomplicated; E16.2 Hypoglycemia, unspecified; F60.9 Personality disorder, unspecified; Z87.01 Personal history of pneumonia (recurrent)
CPT/HCPCS: 80061; 82652; 83036; 84443; 94640

== ENCOUNTER 2019-01-09 21:47 | Emergency (ER) | payer OTHER ==
[2019-01-09] MEDS ORDERED: LIDOCAINE 1% INJ 10MG/ML (20 ML MDV) SQ ONE (22:28)
[2019-01-09] MEDS ORDERED: ACET/COD 300 MG/30 MG STARTER PACK 6 TAB BTL PO STA (22:28)
[2019-01-09] MEDS ORDERED: WATER FOR IRRIG, STERILE 1,000 ML BTL IRRIGATION ONE (22:28)
[2019-01-09] MEDS ORDERED: DIPH,PERTUS(ACELL)TETVAC-LF 0.5 ML VIAL IM ONE (22:29)
--- NOTE | 2019-01-09 23:26 | ED ---
Wound/Laceration HPI - General Chief Complaint: Wound/Laceration Stated Complaint: Leg Laceration Time Seen by Provider: 01/09/19 21:59 Source: patient Mode of arrival: EMS Limitations: no limitations - History of Present Illness Initial Comments: 33-year-old female patient presents to the emergency department today for evaluation of laceration to the left leg and the left wrist. Patient states that she was walking next to a fence did not realize that the fence was broken and cut her leg. Patient states when attempting to disentangle herself from the fence she injured the left wrist as well. She was able to get bleeding under control. She reports significant pain to both laceration areas. Patient states that she also became angry just prior to coming into the hospital and punched a wall. She is reporting injury to the right index finger. Patient states she is due for tetanus vaccine. Denies taking any medication for pain. Denies any history of clotting disorders or use of anticoagulants. Patient denies any headache, neck pain, back pain, chest pain, shortness of breath, dizziness, weakness, abdominal pain, nausea, vomiting, or difficulties with bowel movements or urination. - Related Data Home Medications Medication Instructions Recorded Confirmed Pramipexole [Mirapex] 0.5 mg PO HS 11/09/18 01/09/19 OLANZapine [ZyPREXA] 5 mg PO HS 01/09/19 01/09/19 cloNIDine HCL [Catapres] 0.1 mg PO TID 01/09/19 01/09/19 Previous Rx's Medication Instructions Recorded Albuterol Inhaler [Ventolin Hfa 2 puff INHALATION RT-QID PRN puff 11/22/18 Inhaler] Albuterol Nebulized [Ventolin 2.5 mg INHALATION RT-QID PRN nebu 11/22/18 Nebulized] Gabapentin 600 mg PO TID #90 tablet 11/22/18 Topiramate 200 mg PO BID #60 tablet 11/22/18 Venlafaxine HCl ER [Effexor XR] 150 mg PO DAILY #30 cap.er.24h 11/22/18 buPROPion HCL [Wellbutrin SR] 200 mg PO QAM #30 tab.sr.12h 11/22/18 Cephalexin [Keflex] 500 mg PO Q6H #28 cap 01/10/19 Allergies Allergy/AdvReac Type Severity Reaction Status Date / Time NSAIDS (Non-Steroidal Allergy Dyspnea Verified 01/09/19 22:14 Anti-Inflamma Sulfa (Sulfonamide Allergy Rash/Hives Verified 01/09/19 22:14 Antibiotics) Review of Systems ROS Statement: Those systems with pertinent positive or pertinent negative responses have been documented in the HPI. ROS Other: All systems not noted in ROS Statement are negative. Past Medical History Past Medical History: Fibromyalgia, Pneumonia Additional Past Medical History / Comment(s): Achalasia cardia, dysphagia, chronic back pain, DDD, herniated discs, bilateral carpal tunnel syndrome, DJD, cyst on kidney, hypoglycemia History of Any Multi-Drug Resistant Organisms: None Reported Past Surgical History: Appendectomy, Section, Orthopedic Surgery, Tubal Ligation Additional Past Surgical History / Comment(s): c section x 3, EGD, possible R foot or ankle surgery-pt unclear. Past Anesthesia/Blood Transfusion Reactions: Motion Sickness Past Psychological History: ADD/ADHD, Anxiety, Bipolar, Depression, PTSD Smoking Status: Current every day smoker - Past Family History Father Family Medical History: Hyperlipidemia, Hypertension Mother Family Medical History: Fibromyalgia Additional Family Medical History / Comment(s): HIATAL HERNIA OSTEOPSORIS, DDD General Exam Limitations: no limitations General appearance: alert, in no apparent distress, other (Physical well- developed, well-nourished adult female patient in no acute distress. Vital signs upon presentation are temperature 98.3F, pulse 81, respirations 20, blood pressure 132/89, pulse ox 98% on room air.) Respiratory exam: Present: normal lung sounds bilaterally. Absent: respiratory distress, wheezes, rales, rhonchi, stridor Cardiovascular Exam: Present: regular rate, normal rhythm, normal heart sounds. Absent: systolic murmur, diastolic murmur, rubs, gallop, clicks Extremities exam: Present: full ROM, normal capillary refill, other (laceration noted to the left posterior knee, exposed adipose tissue, lac measures 10cm. No active bleeding. Full ROM to left knee intact. Skin is otherwise pink, warm, dry. Cap refills less than 3 seconds. Pedal pulses 2+ and equal bilaterally. There is also 1 cm laceration noted to the left wrist. Skin is otherwise pink, warm, dry. Cap refills less than 3 seconds. Radial pulses 2+ and equal bilaterally. She exhibits abrasion and soft tissue swelling to the right index finger, full range of motion intact.). Absent: tenderness, pedal edema, joint swelling, calf tenderness Neurological exam: Present: alert, oriented X3, CN II-XII intact Psychiatric exam: Present: normal affect, normal mood Skin exam: Present: warm, dry, intact, normal color. Absent: rash Course Vital Signs 01/09/19 01/09/19 21:48 23:45 Temperature 98.3 F 98 F Pulse Rate 81 88 Respiratory 20 18 Rate Blood Pressure 132/89 132/76 O2 Sat by Pulse 98 98 Oximetry Procedures - Laceration Laceration #2 Consent Obtained: verbal consent Indication: laceration Site: upper extremity Size (cm): 2 Depth: simple, single layer Anesthetic Used: lidocaine 1% Anesthesia Technique: local infiltration Amount (mls): 3 Pre-repair: irrigated extensively Type of Sutures: nylon Size of Sutures: 5-0 Number of Sutures: 2 Technique: simple, interrupted Patient Tolerated Procedure: well, no complications Laceration #1 Consent Obtained: verbal consent Indication: laceration Site: lower extremity Size (cm): 10 Depth: simple, single layer Anesthetic Used: lidocaine 1% Anesthesia Technique: local infiltration Amount (mls): 12 Pre-repair: irrigated extensively Type of Sutures: nylon Size of Sutures: 4-0 Number of Sutures: 20 Technique: simple, interrupted Patient Tolerated Procedure: well, no complications Medical Decision Making - Medical Decision Making 33-year-old female patient presented to the emergency department today for evaluation of laceration to the left posterior knee and the left wrist. Physical examination did reveal a 1 cm laceration to the left wrist. 10 cm laceration to the left posterior knee. Patient also had right index finger injury. X-ray of the finger was negative. Laceration was repaired by Mary Ellen Womack PA-c as documented. Patient was started on Keflex for infection prevention. She is educated regarding wound care, signs or symptoms of infection, and suture removal. She is instructed to follow-up with her primary care physician for recheck in 1-2 days. Return parameters were discussed in detail. She verbalizes understanding and agrees with this plan. - Radiology Data Radiology results: report reviewed, image reviewed 3 views of the right finger obtained. Report was reviewed in its entirety. Impression by Dr. Joy shows negative right index finger exam. No fracture. No change. Disposition Clinical Impression: Laceration of left leg, Laceration of left wrist, Contusion of right index finger Disposition: HOME SELF-CARE Condition: Good Instructions (If sedation given, give patient instructions): Care For Your Stitches (ED), Laceration (ED), Contusion in Adults (ED) Additional Instructions: Complete antibiotic prescription in full. Keep wounds clean and dry. Cleanse twice daily with warm water and antibacterial soap. Monitor for signs of infection including but not limited to redness, swelling, drainage of pus, fever, or chills. Return in 1 week to have stitches removed from the wrist. Return in 2 weeks to have stitches removed from the leg. Follow-up with your primary care physician for recheck in 1-2 days. Return to the emergency department immediately for any new, worsening, or concerning symptoms. Prescriptions: Cephalexin [Keflex] 500 mg PO Q6H #28 cap Is patient prescribed a controlled substance at d/c from ED?: No Referrals: Frederick Harry DO [Primary Care Provider] - 1-2 days Time of Disposition: 00:01
--- NOTE | 2019-01-09 23:49 | XR ---
EXAMINATION TYPE: XR finger RT DATE OF EXAM: 01/09/2019 COMPARISON: 05/25/2018 HISTORY: Punching injury. Pain. TECHNIQUE: 3 views FINDINGS: I see no fracture nor dislocation. Joint spaces are normal. There are no erosions. There is no sign of a foreign body. IMPRESSION: Negative right index finger exam. No fracture. No change.
[2019-01-10] MEDS ORDERED: CEPHALEXIN 500MG STARTER PACK 4 CAP BTL PO STA (00:01)
[2019-01-10 00:12] VITALS: BP 132/76; PULSE 88; RESP 18; TEMP 98
== END 2019-01-10 00:09 | disposition home or self-care (01) ==
LOC: EC 21:47
DX: S81.812A Laceration without foreign body, left lower leg, initial encounter (principal); S61.512A Laceration without foreign body of left wrist, initial encounter; S60.021A Contusion of right index finger without damage to nail, initial encounter; F31.9 Bipolar disorder, unspecified; F17.200 Nicotine dependence, unspecified, uncomplicated; Z88.2 Allergy status to sulfonamides; Z88.6 Allergy status to analgesic agent; Z79.899 Other long term (current) drug therapy; Z23 Encounter for immunization; W26.8XXA Contact with other sharp object(s), not elsewhere classified, initial encounter; Y93.01 Activity, walking, marching and hiking
CPT/HCPCS: 73140; 90715; 99283; 12004; 90471; J2001

== ENCOUNTER 2019-09-10 21:00 | Emergency (ER) | payer OTHER ==
[2019-09-10] MEDS ORDERED: LIDOCAINE 1% INJ 10MG/ML (20 ML MDV) SQ ONE (21:11)
[2019-09-10 21:12] VITALS: BP 130/89; PULSE 81; RESP 19; TEMP 98.3
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
[2019-09-10] MEDS ORDERED: LORazepam 1 MG TAB PO STA (22:45)
== END 2019-09-10 22:49 | disposition home or self-care (01) ==
LOC: EC 21:00
DX: S61.512A Laceration without foreign body of left wrist, initial encounter (principal); F31.9 Bipolar disorder, unspecified; F41.9 Anxiety disorder, unspecified; F90.9 Attention-deficit hyperactivity disorder, unspecified type; F43.10 Post-traumatic stress disorder, unspecified; F17.200 Nicotine dependence, unspecified, uncomplicated; Z79.899 Other long term (current) drug therapy; Z88.2 Allergy status to sulfonamides; Z88.6 Allergy status to analgesic agent; Z90.49 Acquired absence of other specified parts of digestive tract; Z98.51 Tubal ligation status; X78.9XXA Intentional self-harm by unspecified sharp object, initial encounter; Y92.009 Unspecified place in unspecified non-institutional (private) residence as the place of occurrence of the external cause; Z91.5 Personal history of self-harm
CPT/HCPCS: 12002; 99283; J2001

== ENCOUNTER 2020-02-24 16:16 | Inpatient (IN) | payer MEDICAID, OTHER ==
--- NOTE | 2020-02-24 17:03 | ED ---
General Adult HPI - General Chief complaint: Upper Respiratory Infection Stated complaint: EPS, fever, cough Time Seen by Provider: 02/24/20 16:32 Source: patient, EMS Mode of arrival: EMS Limitations: no limitations - History of Present Illness Initial comments: Dictation was produced using [employer] dictation software. please excuse any grammatical, word or spelling errors. This patient was cared for during a federal and state declared state of emergency secondary to Covid 19 Chief Complaint: 34-year-old female past medical history of psychiatric disease presents here for bizarre behavior History of Present Illness: Patient 34-year-old female she has past medical history of psychiatric disease. Patient is brought to the emergency department by law enforcement. Patient is showing signs of bizarre behavior. Patient states she was in an argument with her boyfriend. She then proceeded to leave the house and wanted to find stress release so she went to the [employer] and was swimming. Patient states she is not suicidal or homicidal. She does not feel paranoid. She reports that her psychiatric illnesses well-managed by her medications and her counseling. Some bystander contacted law enforcement and patient was positioned brought to the emergency department. Patient states she's been having cough and congestion for one week. She is sure that she does not have coronavirus because she states she was tested and is asymptomatic. She does not have any respiratory complaints. Patient has no medical complaints. The ROS documented in this emergency department record has been reviewed and confirmed by me. Those systems with pertinent positive or negative responses have been documented in the HPI. All other systems are other negative and/or noncontributory. PHYSICAL EXAM: General Impression: Alert and oriented x3, not in acute distress HEENT: Normocephalic atraumatic, extra-ocular movements intact, pupils equal and reactive to light bilaterally, mucous membranes moist. Cardiovascular: Heart regular rate and rhythm Chest: Able to complete full sentences, no retractions, no tachypnea Abdomen: abdomen soft, non-tender, non-distended, no organomegaly Musculoskeletal: Pulses present and equal in all extremities, no peripheral edema Motor: no focal deficits noted Neurological: CN II-XII grossly intact, no focal motor or sensory deficits noted Skin: Intact with no visualized rashes Psych: Normal affect and mood ED course: 34 old female petition by law enforcement for bizarre behavior. She has psychiatric history. Patient is cooperative not psychotic at this time. However she is petition by law enforcement. As upon arrival shows temperature 100.0 with a heart rate of 119, rest of vital signs within acceptable limits. Chin physical examination is benign. However there is concern that patient has coronavirus. Return evaluation obtained. Mild leukocytosis of 14.8 likely secondary stress. At about panel shows mild non-gap acidosis. Urine hCG is negative. Tox is positive for cocaine and marijuana. Coronavirus rapid test is negative. Chest x-ray is clear. Patient value by EPS. Patient will be admitted to inpatient psych. Petition is completed. - Related Data Home Medications Medication Instructions Recorded Confirmed Pramipexole [Mirapex] 0.5 mg PO HS 11/09/18 01/09/19 OLANZapine [ZyPREXA] 5 mg PO HS 01/09/19 01/09/19 cloNIDine HCL [Catapres] 0.1 mg PO TID 01/09/19 01/09/19 Previous Rx's Medication Instructions Recorded Albuterol Inhaler (Mhu) [Ventolin 2 puff INHALATION RT-QID PRN puff 11/22/18 Hfa Inhaler (Mhu)] Albuterol Nebulized [Ventolin 2.5 mg INHALATION RT-QID PRN nebu 11/22/18 Nebulized] Gabapentin 600 mg PO TID #90 tablet 11/22/18 Topiramate 200 mg PO BID #60 tablet 11/22/18 Venlafaxine HCl ER [Effexor XR] 150 mg PO DAILY #30 cap.er.24h 11/22/18 buPROPion HCL [Wellbutrin SR] 200 mg PO QAM #30 tab.sr.12h 11/22/18 Cephalexin [Keflex] 500 mg PO Q6H #28 cap 01/10/19 Allergies Allergy/AdvReac Type Severity Reaction Status Date / Time NSAIDS (Non-Steroidal Allergy Dyspnea Verified 02/24/20 16:25 Anti-Inflamma Sulfa (Sulfonamide Allergy Rash/Hives Verified 02/24/20 16:25 Antibiotics) Review of Systems ROS Statement: Those systems with pertinent positive or pertinent negative responses have been documented in the HPI. ROS Other: All systems not noted in ROS Statement are negative. Past Medical History Past Medical History: Fibromyalgia, Pneumonia Additional Past Medical History / Comment(s): Achalasia cardia, dysphagia, chronic back pain, DDD, herniated discs, bilateral carpal tunnel syndrome, DJD, cyst on kidney, hypoglycemia History of Any Multi-Drug Resistant Organisms: None Reported Past Surgical History: Appendectomy, Section, Orthopedic Surgery, Tubal Ligation Additional Past Surgical History / Comment(s): c section x 3, EGD, possible R foot or ankle surgery-pt unclear. Past Anesthesia/Blood Transfusion Reactions: Motion Sickness Past Psychological History: ADD/ADHD, Anxiety, Bipolar, Depression, PTSD Smoking Status: Current every day smoker Past Alcohol Use History: Occasional Past Drug Use History: Marijuana - Past Family History Father Family Medical History: Hyperlipidemia, Hypertension Mother Family Medical History: Fibromyalgia Additional Family Medical History / Comment(s): HIATAL HERNIA OSTEOPSORIS, DDD General Exam Limitations: no limitations Course Vital Signs 02/24/20 16:19 Temperature 100.0 F H Pulse Rate 119 H Respiratory 20 Rate Blood Pressure 146/101 O2 Sat by Pulse 98 Oximetry Medical Decision Making - Lab Data Result diagrams: 02/24/20 17:16 02/24/20 17:16 Lab Results 02/24/20 02/24/20 02/24/20 Range/Units 17:16 17:16 17:16 WBC 14.8 H (3.8-10.6) k/uL RBC 4.09 (3.80-5.40) m/uL Hgb 11.5 (11.4-16.0) gm/dL Hct 35.6 (34.0-46.0) % MCV 87.1 (80.0-100.0) fL MCH 28.2 (25.0-35.0) pg MCHC 32.4 (31.0-37.0) g/dL RDW 15.8 H (11.5-15.5) % Plt Count 371 (150-450) k/uL MPV 7.8 Neutrophils % 89 % Lymphocytes % 7 % Monocytes % 3 % Eosinophils % 1 % Basophils % 0 % Neutrophils # 13.1 H (1.3-7.7) k/uL Lymphocytes # 1.1 (1.0-4.8) k/uL Monocytes # 0.4 (0-1.0) k/uL Eosinophils # 0.1 (0-0.7) k/uL Basophils # 0.0 (0-0.2) k/uL Hypochromasia Slight Sodium 140 (137-145) mmol/L Potassium 4.3 (3.5-5.1) mmol/L Chloride 113 H (98-107) mmol/L Carbon Dioxide 18 L (22-30) mmol/L Anion Gap 9 mmol/L BUN 9 (7-17) mg/dL Creatinine 0.84 (0.52-1.04) mg/dL Est GFR (CKD-EPI)AfAm >90 (>60 ml/min/1.73 sqM) Est GFR (CKD-EPI)NonAf 90 (>60 ml/min/1.73 sqM) Glucose 109 H (74-99) mg/dL Calcium 9.6 (8.4-10.2) mg/dL C-Reactive Protein 6.2 (<10.0) mg/L Urine HCG, Qual (Not Detectd) Urine Opiates Screen (NotDetected) Ur Oxycodone Screen (NotDetected) Urine Methadone Screen (NotDetected) Ur Propoxyphene Screen (NotDetected) Ur Barbiturates Screen (NotDetected) U Tricyclic Antidepress (NotDetected) Ur Phencyclidine Scrn (NotDetected) Ur Amphetamines Screen (NotDetected) U Methamphetamines Scrn (NotDetected) U Benzodiazepines Scrn (NotDetected) Urine Cocaine Screen (NotDetected) U Marijuana (THC) Screen (NotDetected) Serum Alcohol 23 mg/dL Coronavirus (PCR) Not Detected (Not Detectd) 02/24/20 02/24/20 Range/Units 17:16 17:36 WBC (3.8-10.6) k/uL RBC (3.80-5.40) m/uL Hgb (11.4-16.0) gm/dL Hct (34.0-46.0) % MCV (80.0-100.0) fL MCH (25.0-35.0) pg MCHC (31.0-37.0) g/dL RDW (11.5-15.5) % Plt Count (150-450) k/uL MPV Neutrophils % % Lymphocytes % % Monocytes % % Eosinophils % % Basophils % % Neutrophils # (1.3-7.7) k/uL Lymphocytes # (1.0-4.8) k/uL Monocytes # (0-1.0) k/uL Eosinophils # (0-0.7) k/uL Basophils # (0-0.2) k/uL Hypochromasia Sodium (137-145) mmol/L Potassium (3.5-5.1) mmol/L Chloride (98-107) mmol/L Carbon Dioxide (22-30) mmol/L Anion Gap mmol/L BUN (7-17) mg/dL Creatinine (0.52-1.04) mg/dL Est GFR (CKD-EPI)AfAm (>60 ml/min/1.73 sqM) Est GFR (CKD-EPI)NonAf (>60 ml/min/1.73 sqM) Glucose (74-99) mg/dL Calcium (8.4-10.2) mg/dL C-Reactive Protein (<10.0) mg/L Urine HCG, Qual Not Detected (Not Detectd) Urine Opiates Screen Not Detected (NotDetected) Ur Oxycodone Screen Not Detected (NotDetected) Urine Methadone Screen Not Detected (NotDetected) Ur Propoxyphene Screen Not Detected (NotDetected) Ur Barbiturates Screen Not Detected (NotDetected) U Tricyclic Antidepress Not Detected (NotDetected) Ur Phencyclidine Scrn Not Detected (NotDetected) Ur Amphetamines Screen Not Detected (NotDetected) U Methamphetamines Scrn Not Detected (NotDetected) U Benzodiazepines Scrn Not Detected (NotDetected) Urine Cocaine Screen Detected H (NotDetected) U Marijuana (THC) Screen Detected H (NotDetected) Serum Alcohol mg/dL Coronavirus (PCR) (Not Detectd) Disposition Clinical Impression: Common cold, Psychosis Disposition: ADMITTED IP TO THIS HOSP Condition: Fair Referrals: Frederick Harry DO [Primary Care Provider] - 1-2 days Decision Time: 18:41
[2020-02-24] MEDS ORDERED: ACETAMINOPHEN TAB 500 MG TAB PO STA (17:32)
[2020-02-24 17:40] LABS: Basophils % (A) 0 %; Eosinophils # (A) 0.1 k/uL (0-0.7); Eosinophils % (A) 1 %; HCT 35.6 % (34.0-46.0); HGB 11.5 gm/dL (11.4-16.0); Hypochromasia Slight; Lymphocytes # (A) 1.1 k/uL (1.0-4.8); Lymphocytes % (A) 7 %; MCH 28.2 pg (25.0-35.0); MCHC 32.4 g/dL (31.0-37.0); MCV 87.1 fL (80.0-100.0); Mean Platelet Volume 7.8; Monocytes # (A) 0.4 k/uL (0-1.0); Monocytes % (A) 3 %; Neutrophils # (A) 13.1 k/uL (1.3-7.7); Neutrophils % (A) 89 %; Platelet Count 371 k/uL (150-450); RBC 4.09 m/uL (3.80-5.40); RDW 15.8 % (11.5-15.5); WBC 14.8 k/uL (3.8-10.6)
[2020-02-24 17:54] LABS: Amphetamine Screen,Urine Not Detected (NotDetected); Barbiturate Screen,Urine Not Detected (NotDetected); Benzodiazepines Screen,Urine Not Detected (NotDetected); Cocaine Screen,Urine Detected (NotDetected); Methadone Screen, Urine Not Detected (NotDetected); Opiate Screen,Urine Not Detected (NotDetected); Oxycodone Screen, Urine Not Detected (NotDetected); Phencyclidine Screen,Urine Not Detected (NotDetected); Tricyclic Antidepressant,Urine Not Detected (NotDetected); Urn Cannabinoid Scrn Detected (NotDetected)
[2020-02-24 17:58] LABS: African American GFR (CKD) >90 (>60 ml/min/1.73 sqM); Alcohol 23 mg/dL; Anion Gap 9 mmol/L; Blood Urea Nitrogen 9 mg/dL (7-17); C Reactive Protein 6.2 mg/L (<10.0); Calcium 9.6 mg/dL (8.4-10.2); Carbon Dioxide 18 mmol/L (22-30); Chloride 113 mmol/L (98-107); Glucose 109 mg/dL (74-99); Non-African American GFR(CKD) 90 (>60 ml/min/1.73 sqM); Potassium 4.3 mmol/L (3.5-5.1); Sodium 140 mmol/L (137-145)
[2020-02-24] MEDS ORDERED: GABAPENTIN 400 MG CAP PO STA (18:02)
[2020-02-24] MEDS ORDERED: BENZONATATE 100 MG CAP PO STA (18:02)
[2020-02-24] MEDS ORDERED: PROMETHAZINE HCL 6.25 MG/5 ML CUP PO STA (18:25)
--- NOTE | 2020-02-24 18:40 | XR ---
EXAMINATION TYPE: XR chest 1V DATE OF EXAM: 02/24/2020 COMPARISON: NONE HISTORY: Fever. TECHNIQUE: Single frontal view of the chest is obtained. FINDINGS: There is no focal air space opacity, pleural effusion, or pneumothorax seen. The cardiac silhouette size is within normal limits. The osseous structures are intact. IMPRESSION: No acute process.
[2020-02-24] MEDS ORDERED: MAGNESIUM HYDROXIDE 2,400 MG/10 ML CUP PO PRN (19:52)
[2020-02-24] MEDS ORDERED: MAG HYDROX/AL HYDROX/SIMETH 30 ML CUP PO PRN (19:52)
[2020-02-24] MEDS ORDERED: ACETAMINOPHEN TAB 325 MG TAB PO PRN (19:52)
[2020-02-24] MEDS ORDERED: LORazepam 2 MG/ML INJ IM PRN (20:02)
[2020-02-24] MEDS ORDERED: HALOPERIDOL LACTATE 5 MG/ML 1 ML VIAL IM PRN (20:02)
[2020-02-24] MEDS: PRAMIPEXOLE 0.5 MG TAB PO SCH (21:40)
[2020-02-24] MEDS: GABAPENTIN 400 MG CAP PO SCH (21:41)
[2020-02-24] MEDS: cloNIDine HCL 0.1 MG TAB PO SCH (21:41)
[2020-02-24] MEDS: TOPIRAMATE 100 MG TAB PO SCH (21:42)
[2020-02-24] MEDS: NICOTINE 21MG/24HR PATCH TRANSDERM SCH (21:55)
[2020-02-25] MEDS: NICOTINE 21MG/24HR PATCH TRANSDERM SCH (07:55)
[2020-02-25] MEDS: cloNIDine HCL 0.1 MG TAB PO SCH ×3 (07:55→21:28)
[2020-02-25] MEDS: TOPIRAMATE 100 MG TAB PO SCH ×2 (07:57→21:28)
[2020-02-25] MEDS: GABAPENTIN 400 MG CAP PO SCH ×3 (07:57→21:28)
[2020-02-25] MEDS: LORazepam 1 MG TAB PO PRN ×3 (07:57→23:13)
[2020-02-25 08:12] LABS: Basophils % (A) 0 %; Eosinophils # (A) 0.2 k/uL (0-0.7); Eosinophils % (A) 2 %; HCT 34.4 % (34.0-46.0); HGB 10.5 gm/dL (11.4-16.0); Hypochromasia Moderate; Lymphocytes # (A) 3.3 k/uL (1.0-4.8); Lymphocytes % (A) 31 %; MCH 27.2 pg (25.0-35.0); MCHC 30.5 g/dL (31.0-37.0); MCV 89.2 fL (80.0-100.0); Mean Platelet Volume 8.1; Monocytes # (A) 0.7 k/uL (0-1.0); Monocytes % (A) 7 %; Neutrophils # (A) 6.2 k/uL (1.3-7.7); Neutrophils % (A) 58 %; Platelet Count 356 k/uL (150-450); RBC 3.86 m/uL (3.80-5.40); WBC 10.6 k/uL (3.8-10.6)
[2020-02-25 08:21] LABS: ALT 11 U/L (4-34); AST 20 U/L (14-36); African American GFR (CKD) >90 (>60 ml/min/1.73 sqM); Albumin 3.6 g/dL (3.5-5.0); Alkaline Phosphatase 55 U/L (38-126); Anion Gap 4 mmol/L; Blood Urea Nitrogen 13 mg/dL (7-17); Calcium 9.1 mg/dL (8.4-10.2); Carbon Dioxide 25 mmol/L (22-30); Chloride 111 mmol/L (98-107); Glucose 88 mg/dL (74-99); Non-African American GFR(CKD) 83 (>60 ml/min/1.73 sqM); Potassium 4.1 mmol/L (3.5-5.1); Sodium 140 mmol/L (137-145); Total Bilirubin 0.3 mg/dL (0.2-1.3); Total Protein 6.4 g/dL (6.3-8.2)
[2020-02-25] MEDS ORDERED: buPROPion XL 300 MG TAB.ER.24H PO SCH (09:00)
[2020-02-25 09:25] LABS: Cholesterol 186 mg/dL (<200); HDL Cholesterol 60 mg/dL (40-60); LDL Cholesterol,Calculated 97 mg/dL (0-99); Triglycerides 146 mg/dL (<150)
[2020-02-25] MEDS: ALBUTEROL HFA INHALER INHALATION PRN (10:22)
[2020-02-25] MEDS: guaiFENesin-DM 100-10MG/5ML 10 ML CUP PO PRN (11:17)
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
[2020-02-25] MEDS ORDERED: predniSONE 10 MG TAB PO SCH (12:00)
[2020-02-25] MEDS: VENLAFAXINE HCL ER 37.5 MG CAP PO SCH (12:23)
[2020-02-25] MEDS: ALBUTEROL NEBULIZED 2.5 MG/3 ML INHALATION SCH ×2 (12:40→13:53)
[2020-02-25 13:50] LABS: Hemoglobin A1C 5.6 % (4.0-6.0)
[2020-02-25] MEDS: AZITHROMYCIN 500 MG TAB PO SCH (14:57)
[2020-02-25] MEDS ORDERED: HYDROcodone/APAP 5-325MG 1 EACH TAB PO ONE (16:35)
--- NOTE | 2020-02-25 16:45 | P.MDCNMH ---
History of Present Illness H&P Date: 02/25/20 Chief Complaint: Bizarre behavior Patient is a 34-year-old female with a known history of multiple sclerosis, fibromyalgia, Lalitha cardiac, dysphagia and chronic back pain and ADD/ADHD, anxiety bipolar depression and PTSD and currently everyday smoker and occasional marijuana use presents to ER for further behavior. Patient was brought in by the hospital by law enforcement. Patient was in an argument with her boyfriend and proceeded to leave the house and wanted to find stress release so she went to the [employer] and was swimming. Bystander contacted the police and depression was brought to the hospital. Patient says that she is suicidal or homicidal. Patient does have psychiatric illness and is on follow with mental health clinic. Patient denied any chest pain. Patient does have chronic shortness of breath and also cough with some yellowish sputum production. Patient says that she has bruises on the left arm and also bilateral legs. Requesting pain medications. Patient has been afebrile. No nausea vomiting or abdominal pain or diarrhea. No leg swelling. No dysuria or hematuria. Chest x-ray showed no acute process Laboratory data showed WBC 14.8, hemoglobin 11.5 and platelets 371 Sodium 140, potassium 4.3, chloride 113, UDS is positive for opiates and marijuana and serum alcohol level is 23 Coronary is negative. Review of Systems Constitutional: Patient denies any fever or chills . No generalized weakness or weight loss. Abdomen: Patient denied nausea vomiting and diarrhea and abdominal pain. Cardiovascular: Patient denies any chest pain or short of breath no palpitations. Respiratory: Patient does have cough with yellowish sputum production and shortness of breath Neurologic: Patient denied any numbness or tingling headache. Musculoskeletal: Patient denies any complaints of joint swelling or deformity. Skin: Negative Psychiatric: Negative Endocrine: No heat or cold intolerance. No recent weight gain. Genitourinary: No dysuria or hematuria. All other 14 point ROS negative except the above Past Medical History Past Medical History: Fibromyalgia, Pneumonia Additional Past Medical History / Comment(s): Achalasia cardia, dysphagia, chronic back pain, DDD, herniated discs, bilateral carpal tunnel syndrome, DJD, cyst on kidney, hypoglycemia History of Any Multi-Drug Resistant Organisms: None Reported Past Surgical History: Appendectomy, Section, Orthopedic Surgery, Tubal Ligation Additional Past Surgical History / Comment(s): c section x 3, EGD, possible R foot or ankle surgery-pt unclear. Past Anesthesia/Blood Transfusion Reactions: Motion Sickness Past Psychological History: ADD/ADHD, Anxiety, Bipolar, Depression, PTSD Smoking Status: Current every day smoker Past Alcohol Use History: Occasional Past Drug Use History: Marijuana - Past Family History Father Family Medical History: Hyperlipidemia, Hypertension Mother Family Medical History: Fibromyalgia Additional Family Medical History / Comment(s): HIATAL HERNIA OSTEOPSORIS, DDD Medications and Allergies Home Medications Medication Instructions Recorded Confirmed Type Pramipexole [Mirapex] 0.5 mg PO HS 11/09/18 02/24/20 History Topiramate 200 mg PO BID #60 tablet 11/22/18 02/24/20 Rx cloNIDine HCL [Catapres] 0.1 mg PO TID 01/09/19 02/24/20 History Albuterol Sulfate [Albuterol 2 puff PO RT-Q6H PRN 02/24/20 02/24/20 History Sulfate Hfa] Cetirizine HCl 10 mg PO HS 02/24/20 02/24/20 History Citalopram Hydrobromide [CeleXA] 40 mg PO HS 02/24/20 02/24/20 History Gabapentin [Neurontin] 800 mg PO TID 02/24/20 02/24/20 History Lisdexamfetamine Dimesylate 60 mg PO DAILY 02/24/20 02/24/20 History [Vyvanse] Promethazine/Dextromethorphan 10 ml PO Q46H PRN 02/24/20 02/24/20 History [Promethazine-Dm Syrup] buPROPion XL [Wellbutrin Xl] 300 mg PO DAILY 02/24/20 02/24/20 History predniSONE See Taper PO DAILY 02/24/20 02/25/20 History Allergies Allergy/AdvReac Type Severity Reaction Status Date / Time NSAIDS (Non-Steroidal Allergy Dyspnea Verified 02/24/20 18:42 Anti-Inflamma Sulfa (Sulfonamide Allergy Rash/Hives Verified 02/24/20 18:42 Antibiotics) Physical Exam Vitals: Vital Signs Temp Pulse Pulse Resp BP BP Pulse Ox 02/25/20 08:56 97.9 F 81 20 109/67 93 L 02/25/20 06:24 96.5 F L 81 18 117/73 02/24/20 21:37 98.2 F 106 H 16 128/87 97 02/24/20 19:15 98.2 F 110 H 19 142/83 98 02/24/20 18:43 98.1 F 104 H 18 150/101 98 02/24/20 16:19 100.0 F H 119 H 20 146/101 98 Intake and Output 02/24/20 02/25/20 02/25/20 22:59 06:59 14:59 Other: Weight 61.235 kg PHYSICAL EXAMINATION: Patient is lying in the bed comfortably, no acute distress, awake alert and oriented.. HEENT: Normocephalic. Neck is supple. Pupils reactive. Nostrils clear. Oral cavity is moist. Ears reveal no drainage. Neck reveals no JVD, carotid bruits, or thyromegaly. CHEST EXAMINATION: Trachea is central. Symmetrical expansion. Bilateral scat tered rhonchi and mild expiratory wheeze.. CARDIAC: Normal S1, S2 with no gallops. No murmurs ABDOMEN: Soft. Bowel sounds normal. No organomegaly. No abdominal bruits. Extremities: reveal no edema. No clubbing or cyanosis Neurologically awake, alert, oriented x3 with well-coordinated movements. No focal deficits noted Skin: No rash or skin lesions. Psychiatric: Coperative. Nonsuicidal, anxious. Musculoskeletal: No joint swelling or deformity. Normal range of motion. Cranial Nerve Examination - Cranial Nerves Cranial Nerve I- Olfactory: Intact Cranial Nerve II- Optic: Intact Cranial Nerve III- Oculomotor: Intact Cranial Nerve IV- Trochlear: Intact Cranial Nerve V- Trigeminal: Intact Cranial Nerve - Abducens: Intact Cranial Nerve VII- Facial: Intact Cranial Nerve VIII- Auditory: Intact Cranial Nerve IX- Glossopharyngeal: Intact Cranial Nerve X- Vagus: Intact Cranial Nerve XI- Accessory: Intact Cranial Nerve XII- Hypoglossal: Intact Results CBC & Chem 7: 02/25/20 07:39 02/25/20 07:39 Labs: Abnormal Lab Results - Last 24 Hours (Table) 02/24/20 02/24/20 02/24/20 Range/Units 17:16 17:16 17:36 WBC 14.8 H (3.8-10.6) k/uL Hgb (11.4-16.0) gm/dL MCHC (31.0-37.0) g/dL RDW 15.8 H (11.5-15.5) % Neutrophils # 13.1 H (1.3-7.7) k/uL Chloride 113 H (98-107) mmol/L Carbon Dioxide 18 L (22-30) mmol/L Glucose 109 H (74-99) mg/dL Urine Cocaine Screen Detected H (NotDetected) U Marijuana (THC) Screen Detected H (NotDetected) 02/25/20 02/25/20 Range/Units 07:39 07:39 WBC (3.8-10.6) k/uL Hgb 10.5 L (11.4-16.0) gm/dL MCHC 30.5 L (31.0-37.0) g/dL RDW 16.0 H (11.5-15.5) % Neutrophils # (1.3-7.7) k/uL Chloride 111 H (98-107) mmol/L Carbon Dioxide (22-30) mmol/L Glucose (74-99) mg/dL Urine Cocaine Screen (NotDetected) U Marijuana (THC) Screen (NotDetected) Assessment and Plan Assessment: Bizarre behavior after an argument with her boyfriend. Denied any suicidal ideation. Mild leukocytosis with possible acute tracheobronchitis. COPD not in exacerbation UDS positive for cocaine and marijuana Alcohol use Currently everyday smoker Chronic dysphagia and achalasia cardia Chronic back pain Degenerative disc disease Fibromyalgia History of bilateral carpal syndrome ADD/ADHD, anxiety, bipolar, depression, PTSD DVT prophylaxis with daily ambulation. plan: patient will be continued on breathing treatments and will start on azithromycin for 5 days for tracheobronchitis. Continue with your psychiatric management and plan. Continue the current medications and follow closely. Smoking cessation and substance abuse cessation has been counseled extensively. Monitor for withdrawal symptoms. Time with Patient: Greater than 30
[2020-02-25] MEDS ORDERED: traZODone HCL 50 MG TAB PO SCH (21:00)
[2020-02-25] MEDS: lamoTRIgine 25 MG TAB PO SCH (21:28)
[2020-02-25] MEDS: PRAMIPEXOLE 0.5 MG TAB PO SCH (21:29)
[2020-02-25] MEDS: IPRATROPIUM-ALBUTEROL 3 ML NEB INHALATION PRN (22:03)
[2020-02-26] MEDS: guaiFENesin-DM 100-10MG/5ML 10 ML CUP PO PRN ×2 (05:07→11:23)
[2020-02-26] MEDS: AZITHROMYCIN 500 MG TAB PO SCH (07:39)
[2020-02-26] MEDS: NICOTINE 21MG/24HR PATCH TRANSDERM SCH (07:39)
[2020-02-26] MEDS: VENLAFAXINE HCL ER 37.5 MG CAP PO SCH (07:40)
[2020-02-26] MEDS: buPROPion XL 150 MG TAB.ER.24H PO SCH (07:40)
[2020-02-26] MEDS: cloNIDine HCL 0.1 MG TAB PO SCH ×3 (07:40→21:15)
[2020-02-26] MEDS: TOPIRAMATE 100 MG TAB PO SCH ×2 (07:40→21:15)
[2020-02-26] MEDS: lamoTRIgine 25 MG TAB PO SCH ×2 (07:40→21:15)
[2020-02-26] MEDS: ALBUTEROL HFA INHALER INHALATION PRN (07:41)
[2020-02-26] MEDS: GABAPENTIN 400 MG CAP PO SCH ×3 (07:43→21:15)
[2020-02-26] MEDS: LORazepam 1 MG TAB PO PRN ×2 (07:43→14:29)
[2020-02-26] MEDS: ACETAMINOPHEN TAB 500 MG TAB PO PRN ×2 (07:43→16:42)
--- NOTE | 2020-02-26 10:53 | P.PN ---
Progress Note - Text Progress Note Date: 02/26/20 Interval History: Patient was seen today in her room and was directable and agreeable to speak w ith news writer. Patient appeared to be fairly upset today and states that she hates being secluded to her room and repeatedly stated that she is negative for the Bowling virus and is argumentative and tested. Patient continues to have cough which is fairly concerning. She was demanding discharge at times. She states that she has been taking her medications. Patient also was complaining of having pain and states that she regularly takes Drexel however according to [facility], patient is not being prescribed Drexel. She claims that she was not able to sleep well last night. She continues to state that she is feeling depressed. At this time patient denies any suicidal or homical ideations, intent or plan. Patient denies any auditory, visual hallucinations and denies any paranoia or delusions. Patient denies any side effects from the medications and has been compliant with meds. Mental Status Exam: General Appearance: Patient appears to be older than stated age is alert, directable, and appears to be visibly upset. Patient appears to have poor hygiene and grooming. Behavior: Patient is seated without any agitated behavior. Appears to be anxious. Speech: Patient's speech is fluent and nonpressured. Mood/Affect: Patient reports their mood is anxious, affect is congruent and constricted. Suicidality/Homicidality: Patient denies having any homicidal ideation intent or plan. Denies any suicidal ideations intent or plan Perceptions: Patient denies any visual hallucinations and denies any auditory hallucinations Though content/process: There is no evidence of any delusional thought content and thought process is linear and goal-directed. Fixated on being discharged and not in seclusion and longer. Also fixated on her medications specifically pain meds. Memory and concentration: AOX3, grossly intact for the purposes of this session Judgment and insight: poor Assessment Depressive disorder unspecified, rule out bipolar disorder Cannabis use disorder Nicotine dependence Plan: -Patient continues to meet criteria for inpatient psychiatric admission for symptom stabilization and safety. Patient has signed adult voluntary form and medication consent and was placed in patient's chart. -Medications: Increased Effexor to 75 mg daily for mood/90. Continue with Wellbutrin and will continue decreasing this medication over the next 2 days. Increase Lamictal to 50 mg twice a day for mood stabilization/mood adjunct. Increase trazodone to 50 mg daily at bedtime for insomnia/mood. -When necessary Ativan and Haldol for agitation/aggression. -NRT - nicotine patch -SW on board for discharge planning. Encouraged the patient to participate in milieu.
[2020-02-26] MEDS: IPRATROPIUM-ALBUTEROL 3 ML NEB INHALATION PRN (14:08)
[2020-02-26] MEDS ORDERED: BETAMETHASONE DIPROPIONATE 0.05% CREAM 15 GM TUBE TOPICAL SCH (17:15)
[2020-02-26] MEDS ORDERED: FLUCONAZOLE 100 MG TAB PO ONE (19:00)
[2020-02-26] MEDS ORDERED: FLUCONAZOLE 100 MG TAB PO SCH (19:00)
[2020-02-26] MEDS ORDERED: traZODone HCL 50 MG TAB PO SCH (21:00)
[2020-02-26] MEDS: PRAMIPEXOLE 0.5 MG TAB PO SCH (21:15)
[2020-02-27] MEDS: LORazepam 1 MG TAB PO PRN ×3 (01:42→18:11)
[2020-02-27] MEDS: guaiFENesin-DM 100-10MG/5ML 10 ML CUP PO PRN ×3 (02:03→21:48)
[2020-02-27] MEDS: TOPIRAMATE 100 MG TAB PO SCH ×2 (08:51→21:25)
[2020-02-27] MEDS: NICOTINE 21MG/24HR PATCH TRANSDERM SCH (08:51)
[2020-02-27] MEDS: VENLAFAXINE HCL ER 75 MG CAP PO SCH (08:51)
[2020-02-27] MEDS: buPROPion XL 150 MG TAB.ER.24H PO SCH (08:52)
[2020-02-27] MEDS: ALBUTEROL HFA INHALER INHALATION PRN (08:52)
[2020-02-27] MEDS: cloNIDine HCL 0.1 MG TAB PO SCH ×3 (08:52→21:24)
[2020-02-27] MEDS: lamoTRIgine 25 MG TAB PO SCH ×2 (08:52→21:25)
[2020-02-27] MEDS: AZITHROMYCIN 500 MG TAB PO SCH (08:53)
[2020-02-27] MEDS: GABAPENTIN 400 MG CAP PO SCH ×3 (09:03→21:25)
--- NOTE | 2020-02-27 10:26 | P.PN ---
Progress Note - Text Progress Note Date: 02/27/20 Interval History: Patient was seen today in her room and was directable and agreeable to speak w ith field underwriter. Patient continues to be in isolation awaiting the covid-19 test to come back. Patient appeared to be less upset today with field underwriter and states that she is continuing to feel aggravated that she is being confined to the room. She continues to state that she is having some anxiety and described it as "agitation". She was fairly demanding today asking about pain medications and also asked to use the phone in her room. She continues to ask about possible discharge however more cooperative today about it and more understanding. She states that she has been taking her medications. She claims that she was not able to sleep well last night due to screaming in the hallway and was agreeable to have her trazodone increased. She states that her mood is "better" however remains focused on not doing well in isolation. At this time patient denies any suicidal or homical ideations, intent or plan. Patient denies any auditory, visual hallucinations and denies any paranoia or delusions. Patient denies any side effects from the medications and has been compliant with meds. Mental Status Exam: General Appearance: Patient appears to be older than stated age is alert, directable, and appears to be less upset, continues to be demanding. Patient appears to have improving hygiene and grooming. Behavior: Patient is seated without any agitated behavior. Appears to be anxious at times. Speech: Patient's speech is fluent and nonpressured. Mood/Affect: Patient reports their mood is anxious however is getting better, affect is congruent Suicidality/Homicidality: Patient denies having any homicidal ideation intent or plan. Denies any suicidal ideations intent or plan Perceptions: Patient denies any visual hallucinations and denies any auditory hallucinations Though content/process: There is no evidence of any delusional thought content and thought process is linear and goal-directed. Fixated on being discharged and not in seclusion and longer. Memory and concentration: AOX3, grossly intact for the purposes of this session Judgment and insight: poor, improving mildly Assessment Depressive disorder unspecified, rule out bipolar disorder Cannabis use disorder Nicotine dependence Plan: -Patient continues to meet criteria for inpatient psychiatric admission for symptom stabilization and safety. Patient has signed adult voluntary form and medication consent and was placed in patient's chart. -Medications: continue with Effexor to 75 mg daily for mood/anxiety. As continued Wellbutrin. Continue with Lamictal to 50 mg twice a day for mood stabilization/mood adjunct. Increase trazodone to 100 mg daily at bedtime for insomnia/mood. -When necessary Ativan and Haldol for agitation/aggression. -Continuing to wait for COVID-19 test, patient remains in quarantine until then. -NRT - nicotine patch -SW on board for discharge planning. Encouraged the patient to participate in milieu. Possible discharge in 1-2 days.
--- NOTE | 2020-02-27 11:11 | XR ---
EXAMINATION TYPE: XR chest 1V portable DATE OF EXAM: 02/27/2020 COMPARISON: NONE HISTORY: Chest pain TECHNIQUE: Single frontal view of the chest is obtained. FINDINGS: Small density at the left costophrenic angle may reflect atelectasis or developing infiltrate. Correl ate clinically. The cardiac silhouette size is within normal limits. The osseous structures are intact. IMPRESSION: 1. Small density at the left costophrenic angle may reflect atelectasis or developing infiltrate. Co rrelate clinically.
[2020-02-27] MEDS: IPRATROPIUM-ALBUTEROL 3 ML NEB INHALATION PRN (15:39)
[2020-02-27 16:23] LABS: Glucose,Whole Blood 101 mg/dL (75-99)
--- NOTE | 2020-02-27 19:14 | XR ---
EXAMINATION TYPE: XR hand complete LT DATE OF EXAM: 02/27/2020 COMPARISON: NONE HISTORY: Pain in the third metacarpal TECHNIQUE: 3 views FINDINGS: Metacarpals are intact. Carpal bones are intact. I see no fracture nor dislocation. The tosha nt spaces are normal. IMPRESSION: No acute abnormality of the left hand.
[2020-02-27] MEDS ORDERED: traZODone HCL 100 MG TAB PO SCH (21:00)
[2020-02-27] MEDS: PRAMIPEXOLE 0.5 MG TAB PO SCH (21:24)
[2020-02-27 22:01] VITALS: TEMP 98.6
[2020-02-28] MEDS: LORazepam 1 MG TAB PO PRN (04:29)
[2020-02-28] MEDS: ALBUTEROL HFA INHALER INHALATION PRN (04:29)
[2020-02-28 04:47] VITALS: BP 117/69; PULSE 78; RESP 18
[2020-02-28] MEDS: VENLAFAXINE HCL ER 75 MG CAP PO SCH (09:17)
[2020-02-28] MEDS: AZITHROMYCIN 500 MG TAB PO SCH (09:17)
[2020-02-28] MEDS: NICOTINE 21MG/24HR PATCH TRANSDERM SCH (09:17)
[2020-02-28] MEDS: cloNIDine HCL 0.1 MG TAB PO SCH (09:17)
[2020-02-28] MEDS: TOPIRAMATE 100 MG TAB PO SCH (09:17)
[2020-02-28] MEDS: lamoTRIgine 25 MG TAB PO SCH (09:17)
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
[2020-02-28] MEDS: GABAPENTIN 400 MG CAP PO SCH (10:10)
[2020-02-28] MEDS: guaiFENesin-DM 100-10MG/5ML 10 ML CUP PO PRN (10:26)
== END 2020-02-28 11:40 | disposition home or self-care (01) | DRG 881 ==
LOC: EC 16:16 → 3MHU 19:39
PROVIDERS: ADMIT Psychiatry & Neurology Psychiatry; ATTEND Psychiatry & Neurology Psychiatry
DX: F32.9 Major depressive disorder, single episode, unspecified (principal); E87.2 Acidosis; J98.11 Atelectasis; K22.0 Achalasia of cardia; F14.10 Cocaine abuse, uncomplicated; G35 Multiple sclerosis; J44.9 Chronic obstructive pulmonary disease, unspecified; Z20.828 Contact with and (suspected) exposure to other viral communicable diseases; J06.9 Acute upper respiratory infection, unspecified; F12.10 Cannabis abuse, uncomplicated; F43.10 Post-traumatic stress disorder, unspecified; F90.9 Attention-deficit hyperactivity disorder, unspecified type; M79.7 Fibromyalgia; G89.29 Other chronic pain; M54.9 Dorsalgia, unspecified; S80.01XA Contusion of right knee, initial encounter; S80.02XA Contusion of left knee, initial encounter; G56.03 Carpal tunnel syndrome, bilateral upper limbs; M19.90 Unspecified osteoarthritis, unspecified site; G47.00 Insomnia, unspecified; R45.87 Impulsiveness; Y90.1 Blood alcohol level of 20-39 mg/100 ml; R91.8 Other nonspecific abnormal finding of lung field; F17.210 Nicotine dependence, cigarettes, uncomplicated; Z71.6 Tobacco abuse counseling; Z79.899 Other long term (current) drug therapy; Z91.5 Personal history of self-harm; Z56.0 Unemployment, unspecified; Z87.01 Personal history of pneumonia (recurrent); Z90.49 Acquired absence of other specified parts of digestive tract; Z87.19 Personal history of other diseases of the digestive system; Z98.891 History of uterine scar from previous surgery; Z98.890 Other specified postprocedural states; Z88.6 Allergy status to analgesic agent; Z88.2 Allergy status to sulfonamides; Z82.49 Family history of ischemic heart disease and other diseases of the circulatory system; Z83.49 Family history of other endocrine, nutritional and metabolic diseases
CPT/HCPCS: 36415; 71045; 80048; 80053; 80061; 80306; 80320; 81025; 83036; 84443; 85025; 86140; 87635; 94640; 99285

== ENCOUNTER 2020-03-24 13:47 | Inpatient (IN) | payer OTHER ==
[2020-03-24] MEDS ORDERED: MORPHINE SULFATE 4 MG/ML SYRINGE IVP STA (14:32)
--- NOTE | 2020-03-24 14:41 | ED ---
ENT HPI - General Chief complaint: ENT Stated complaint: Facial/Eye Swelling Time Seen by Provider: 03/24/20 14:15 Source: patient Mode of arrival: wheelchair Limitations: no limitations - History of Present Illness Initial comments: Patient is a 34-year-old female presenting to the emergency department with a chief complaint of right eye swelling. Patient reports on Thursday she was picking away at an ingrown hair on the right eyebrow. States it had gradually increase in severity along with some swelling. States the swelling and erythema went around the eye and she went to see her primary care physician who prescribed her Keflex. States that so far she is taking 5 tablets of the Keflex with no improvement in her symptoms. She reports the pain is significant and she also reports pain with any extraocular movements. States her right eye is completely closed. She also reports swelling going along the right side of her face. Does report pain along the anterior cervical lymph nodes and it feels like her throat is closing. She reports taking multiple tablets of Tylenol only because she is ALLERGIC to NSAIDs. She does report fevers and chills. Denies chest pain shortness of breath. - Related Data Home Medications Medication Instructions Recorded Confirmed Albuterol Sulfate [Albuterol 2 puff PO RT-Q6H PRN 02/24/20 02/24/20 Sulfate Hfa] Cetirizine HCl 10 mg PO HS 02/24/20 02/24/20 Gabapentin [Neurontin] 800 mg PO TID 02/24/20 02/24/20 Previous Rx's Medication Instructions Recorded Acetaminophen Tab [Tylenol] 1,000 mg PO TID PRN 20 Days tab 02/28/20 Azithromycin [Zithromax] 500 mg PO DAILY 3 Days #3 tab 02/28/20 Ipratropium-Albuterol Nebulize 3 ml INHALATION RT-QID PRN ml 02/28/20 [Duoneb 0.5 mg-3 mg/3 ml Soln] Nicotine 21Mg/24Hr Patch [Habitrol] 1 patch TRANSDERM DAILY 14 Days 02/28/20 patch Pramipexole [Mirapex] 0.5 mg PO HS 30 Days tab 02/28/20 Topiramate [Topamax] 200 mg PO BID 30 Days tab 02/28/20 Venlafaxine HCl ER [Effexor XR] 75 mg PO DAILY 30 Days cap.er.24h 02/28/20 cloNIDine HCL [Catapres] 0.1 mg PO TID 30 Days tab 02/28/20 guaiFENesin-DM 100-10MG/5ML 10 ml PO Q6H PRN ml 02/28/20 [Robitussin DM] lamoTRIgine [LaMICtal] 100 mg PO DAILY 30 Days tab 02/28/20 traZODone HCL [Desyrel] 100 mg PO HS PRN 30 Days tab 02/28/20 Allergies Allergy/AdvReac Type Severity Reaction Status Date / Time NSAIDS (Non-Steroidal Allergy Dyspnea Verified 03/24/20 14:03 Anti-Inflamma Sulfa (Sulfonamide Allergy Rash/Hives Verified 03/24/20 14:03 Antibiotics) Review of Systems ROS Statement: Those systems with pertinent positive or pertinent negative responses have been documented in the HPI. ROS Other: All systems not noted in ROS Statement are negative. Past Medical History Past Medical History: Fibromyalgia, Pneumonia Additional Past Medical History / Comment(s): Achalasia cardia, dysphagia, chronic back pain, DDD, herniated discs, bilateral carpal tunnel syndrome, DJD, cyst on kidney, hypoglycemia History of Any Multi-Drug Resistant Organisms: None Reported Past Surgical History: Appendectomy, Section, Orthopedic Surgery, Tubal Ligation Additional Past Surgical History / Comment(s): c section x 3, EGD, possible R foot or ankle surgery-pt unclear. Past Anesthesia/Blood Transfusion Reactions: Motion Sickness Past Psychological History: ADD/ADHD, Anxiety, Bipolar, Depression, PTSD Smoking Status: Current every day smoker Past Alcohol Use History: Occasional Past Drug Use History: Marijuana - Past Family History Father Family Medical History: Hyperlipidemia, Hypertension Mother Family Medical History: Fibromyalgia Additional Family Medical History / Comment(s): HIATAL HERNIA OSTEOPSORIS, DDD General Exam Limitations: no limitations General appearance: alert, in no apparent distress Head exam: Present: atraumatic, normocephalic, normal inspection Eye exam: Present: PERRL, EOMI, periorbital swelling, periorbital tenderness, other (Pain with extraocular movements). Absent: normal appearance (Erythema and swelling of her right eye. There appears to be some discharge noted along the right eyebrow. Swelling also noted along the right side of the face.) Pupils: Present: normal accommodation ENT exam: Present: normal exam, normal oropharynx, mucous membranes moist, TM's normal bilaterally, normal external ear exam Neck exam: Present: normal inspection, full ROM, lymphadenopathy (Anterior cervical lymph nodes). Absent: tenderness Respiratory exam: Present: normal lung sounds bilaterally. Absent: respiratory distress, wheezes, rales, rhonchi, stridor, chest wall tenderness, accessory muscle use Cardiovascular Exam: Present: regular rate, normal rhythm, normal heart sounds. Absent: systolic murmur, diastolic murmur Extremities exam: Present: normal inspection, full ROM, normal capillary refill. Absent: tenderness, pedal edema, joint swelling, calf tenderness Back exam: Present: normal inspection, full ROM. Absent: tenderness, CVA tenderness (R), CVA tenderness (L) Neurological exam: Present: alert, oriented X3 Psychiatric exam: Present: normal affect, normal mood Skin exam: Present: warm, dry, intact, normal color Course Vital Signs 03/24/20 03/24/20 14:05 16:00 Temperature 99.9 F H 98.5 F Pulse Rate 104 H 78 Respiratory 18 18 Rate Blood Pressure 145/94 155/88 O2 Sat by Pulse 100 100 Oximetry Medical Decision Making - Medical Decision Making 34-year-old female presenting to emergency Department with chief complaint of right eye pain. On physical examination, patient has extensive swelling and erythema of the right eye. She's not able to open the eye. She did reports some pain with extraocular movements. Patient was febrile on arrival. Patient given Tylenol. She did fail outpatient treatment with Keflex. CBC revealed leukocytosis of 15.5 K. Patient is also slightly anemic with hemoglobin of 10. CMP is unremarkable. Lactic acid within normal limits. CT of the orbits reveals periorbital cellulitis. CT of the soft tissues also didn't reveal en larged lymph nodes. Patient was started on vancomycin and Unasyn. Patient will be admitted for further medical management. I spoke with who will admit. DR Lee also examine the patient and is in agreement with the treatment plan. Infectious disease on consult Ophthalmology on consult - Lab Data Result diagrams: 03/24/20 14:50 03/24/20 14:50 Lab Results 03/24/20 03/24/20 03/24/20 Range/Units 14:50 14:50 14:50 WBC 15.6 H (3.8-10.6) k/uL RBC 3.73 L (3.80-5.40) m/uL Hgb 10.0 L (11.4-16.0) gm/dL Hct 31.6 L (34.0-46.0) % MCV 84.7 (80.0-100.0) fL MCH 26.9 (25.0-35.0) pg MCHC 31.7 (31.0-37.0) g/dL RDW 15.4 (11.5-15.5) % Plt Count 429 (150-450) k/uL MPV 8.0 Neutrophils % 81 % Lymphocytes % 12 % Monocytes % 4 % Eosinophils % 1 % Basophils % 0 % Neutrophils # 12.7 H (1.3-7.7) k/uL Lymphocytes # 1.9 (1.0-4.8) k/uL Monocytes # 0.7 (0-1.0) k/uL Eosinophils # 0.1 (0-0.7) k/uL Basophils # 0.0 (0-0.2) k/uL Hypochromasia Marked Poikilocytosis Slight Sodium 137 (137-145) mmol/L Potassium 3.9 (3.5-5.1) mmol/L Chloride 110 H (98-107) mmol/L Carbon Dioxide 23 (22-30) mmol/L Anion Gap 4 mmol/L BUN 11 (7-17) mg/dL Creatinine 0.80 (0.52-1.04) mg/dL Est GFR (CKD-EPI)AfAm >90 (>60 ml/min/1.73 sqM) Est GFR (CKD-EPI)NonAf >90 (>60 ml/min/1.73 sqM) Glucose 102 H (74-99) mg/dL Plasma Lactic Acid Zack 1.0 (0.7-2.0) mmol/L Calcium 9.2 (8.4-10.2) mg/dL Total Bilirubin 0.2 (0.2-1.3) mg/dL AST 15 (14-36) U/L ALT 11 (4-34) U/L Alkaline Phosphatase 85 (38-126) U/L Total Protein 6.9 (6.3-8.2) g/dL Albumin 3.6 (3.5-5.0) g/dL Disposition Clinical Impression: Periorbital cellulitis of right eye Disposition: ADMITTED IP TO THIS HOSP Condition: Fair Is patient prescribed a controlled substance at d/c from ED?: No Referrals: Frederick Harry DO [Primary Care Provider] - 1-2 days Time of Disposition: 16:19
[2020-03-24 14:59] LABS: Basophils % (A) 0 %; Eosinophils # (A) 0.1 k/uL (0-0.7); Eosinophils % (A) 1 %; HCT 31.6 % (34.0-46.0); Hypochromasia Marked; Lymphocytes # (A) 1.9 k/uL (1.0-4.8); Lymphocytes % (A) 12 %; MCH 26.9 pg (25.0-35.0); MCHC 31.7 g/dL (31.0-37.0); MCV 84.7 fL (80.0-100.0); Monocytes # (A) 0.7 k/uL (0-1.0); Monocytes % (A) 4 %; Neutrophils # (A) 12.7 k/uL (1.3-7.7); Neutrophils % (A) 81 %; Platelet Count 429 k/uL (150-450); Poikilocytosis Slight; RBC 3.73 m/uL (3.80-5.40); RDW 15.4 % (11.5-15.5); WBC 15.6 k/uL (3.8-10.6)
[2020-03-24 15:08] LABS: ALT 11 U/L (4-34); AST 15 U/L (14-36); African American GFR (CKD) >90 (>60 ml/min/1.73 sqM); Albumin 3.6 g/dL (3.5-5.0); Alkaline Phosphatase 85 U/L (38-126); Anion Gap 4 mmol/L; Blood Urea Nitrogen 11 mg/dL (7-17); Calcium 9.2 mg/dL (8.4-10.2); Carbon Dioxide 23 mmol/L (22-30); Chloride 110 mmol/L (98-107); Glucose 102 mg/dL (74-99); Non-African American GFR(CKD) >90 (>60 ml/min/1.73 sqM); Potassium 3.9 mmol/L (3.5-5.1); Sodium 137 mmol/L (137-145); Total Bilirubin 0.2 mg/dL (0.2-1.3); Total Protein 6.9 g/dL (6.3-8.2)
[2020-03-24] MEDS ORDERED: HYDROmorphone 0.5 MG/0.5 ML SYRINGE IVP STA (15:50)
--- NOTE | 2020-03-24 15:53 | CT ---
EXAMINATION TYPE: CT orbits w con DATE OF EXAM: 03/24/2020 COMPARISON: CT brain 11/09/2018 HISTORY: Right sided orbital swelling and redness x4 days. CT DLP: 381.2 mGycm Automated exposure control for dose reduction was used. CONTRAST: Performed with IV Contrast, patient injected with 100ml mL of Isovue 300. Images were obtained from the level of the maxillary sinuses to the top of the frontal sinuses with I V contrast. There is soft tissue swelling and skin thickening involving the frontal scalp extending to the right side. There is mucosal thickening in the frontal sinuses. The orbital margins are intact. There is no retro-orbital mass. The globes are symmetric. There is right-sided preseptal soft tissue swelling. T here is swelling anterior to the nose on the right side. I see no focal bone destruction. IMPRESSION: Right side periorbital soft tissue swelling as above appears new compared to old CT scan. No evidence of orbital mass. Mild ethmoid and frontal sinusitis appears new compared to old exam
--- NOTE | 2020-03-24 15:57 | CT ---
EXAMINATION TYPE: CT soft tissue neck w con DATE OF EXAM: 03/24/2020 COMPARISON: HISTORY: Neck swelling, redness and dysphagia x4 days. CT DLP: 381.2 mGycm Automated exposure control for dose reduction was used. CONTRAST: Performed with IV Contrast, patient injected with 100ml mL of Isovue 300. Images were obtained from the aortic arch to the bottom of the orbits with IV contrast. There is dilated esophagus with fluid levels. Aortic arch is intact. There is normal branching patter n of the great vessels on the aortic arch. There is no mediastinal adenopathy. Thyroid gland is symmetric. There is normal enhancement of the carotid arteries and jugular veins. Th e submandibular salivary glands are symmetric. The parotid glands are symmetric. There are some enlarged right side submandibular lymph nodes. The largest measures 18 x 10 mm. Prevertebral soft tissues are normal. Epiglottis is normal. Tongue appears normal. The tonsils and ad enoids are within normal limits. Cervical vertebra have normal alignment. There is no compression fra cture. There is right-sided maxillary sinus mucosal thickening there is right side periorbital soft t issue swelling. IMPRESSION: Right side periorbital soft tissue swelling. Mild right maxillary sinusitis. Dilated esophagus with air and fluid. Follow-up recommended.
[2020-03-24] MEDS ORDERED: AMPICILLIN-SULBACTAM 3 GM in SODIUM CHLORIDE 0.9% 100 ML IVPB STA (16:15)
[2020-03-24] MEDS ORDERED: VANCOMYCIN IV PER PHARMACY 1 EACH MISC MISCELLANE PRN (16:15)
[2020-03-24] MEDS ORDERED: VANCOMYCIN 1,000 MG in SODIUM CHLORIDE 0.9% 250 ML IVPB STA (16:22)
[2020-03-24] MEDS ORDERED: ACETAMINOPHEN TAB 325 MG TAB PO PRN (16:27)
[2020-03-24] MEDS ORDERED: NALOXONE 0.4 MG/ML 1 ML VIAL IV PRN (16:27)
[2020-03-24] MEDS ORDERED: LORazepam 2 MG/ML INJ IV PRN (16:27)
[2020-03-24] MEDS ORDERED: ONDANSETRON 4 MG/2 ML VIAL IVP PRN (16:27)
[2020-03-24] MEDS: SODIUM CHLORIDE 0.9% 1,000 ML IV SCH (17:11)
[2020-03-24] MEDS: MORPHINE SULFATE 4 MG/ML SYRINGE IV PRN ×2 (18:04→21:27)
[2020-03-24] MEDS: NICOTINE 21MG/24HR PATCH TRANSDERM SCH (19:54)
[2020-03-24] MEDS: cloNIDine HCL 0.1 MG TAB PO SCH (19:54)
[2020-03-24] MEDS: GABAPENTIN 400 MG CAP PO SCH (19:54)
[2020-03-24] MEDS: TOPIRAMATE 100 MG TAB PO SCH (19:54)
[2020-03-24] MEDS: HYDROcodone/APAP 5-325MG 1 EACH TAB PO PRN (19:54)
[2020-03-24] MEDS: PRAMIPEXOLE 0.5 MG TAB PO SCH (20:07)
[2020-03-24] MEDS: traZODone HCL 100 MG TAB PO PRN (21:28)
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
[2020-03-25] MEDS: VANCOMYCIN 1,000 MG in SODIUM CHLORIDE 0.9% 250 ML IVPB SCH ×3 (00:47→17:22)
[2020-03-25] MEDS: MORPHINE SULFATE 4 MG/ML SYRINGE IV PRN ×6 (02:03→21:09)
[2020-03-25] MEDS: HYDROcodone/APAP 5-325MG 1 EACH TAB PO PRN ×5 (03:29→23:01)
[2020-03-25] MEDS: NICOTINE 21MG/24HR PATCH TRANSDERM SCH (07:29)
[2020-03-25] MEDS: cloNIDine HCL 0.1 MG TAB PO SCH ×3 (07:30→21:11)
[2020-03-25] MEDS: lamoTRIgine 100 MG TAB PO SCH (07:30)
[2020-03-25] MEDS: SODIUM CHLORIDE 0.9% 1,000 ML IV SCH ×2 (07:30→21:52)
[2020-03-25] MEDS: TOPIRAMATE 100 MG TAB PO SCH ×2 (07:30→21:11)
[2020-03-25] MEDS: GABAPENTIN 400 MG CAP PO SCH ×3 (07:30→21:10)
[2020-03-25 09:26] LABS: Basophils % (A) 0 %; Eosinophils # (A) 0.3 k/uL (0-0.7); Eosinophils % (A) 2 %; HCT 30.5 % (34.0-46.0); HGB 9.7 gm/dL (11.4-16.0); Hypochromasia Marked; Lymphocytes # (A) 1.1 k/uL (1.0-4.8); Lymphocytes % (A) 8 %; MCH 27.2 pg (25.0-35.0); MCHC 31.6 g/dL (31.0-37.0); MCV 86.1 fL (80.0-100.0); Mean Platelet Volume 7.9; Monocytes # (A) 0.8 k/uL (0-1.0); Monocytes % (A) 6 %; Neutrophils # (A) 12.5 k/uL (1.3-7.7); Neutrophils % (A) 84 %; Platelet Count 387 k/uL (150-450); RBC 3.55 m/uL (3.80-5.40); RDW 15.6 % (11.5-15.5); WBC 14.9 k/uL (3.8-10.6)
[2020-03-25 12:14] LABS: African American GFR (CKD) 129.2 (60.0-200.0); Anion Gap 5.1 mmol/L (4.00-12.00); Calcium 8.8 mg/dL (8.7-10.3); Carbon Dioxide 23.9 mmol/L (21.6-31.8); Non-African American GFR(CKD) 111.5 (60.0-200.0); Potassium 3.9 mmol/L (3.5-5.5)
--- NOTE | 2020-03-25 13:11 | P.CON ---
Consult Note - . Consult date: 03/25/20 Assessment/Plan:: This is a consult on a 34 y/o female who has been into body modification and tattooing. Approximately 4 days prior to admission she had noted an ingrown hair in the right brow near the nasion area. She used a "fine" needle, as she has u sed for piercings, and attempted to release the hair. However this proved to be unsuccessful and sought her personal physician to relieve the growing swelling and discomfort in the brow. she was begun on cephalexin for a day and a half prior to admission. As the swelling and discomfort became worse she presented to the ER with a periorbital cellulitis involving the brow, nasal area and right side of the face. There was moderate discomfort and she was unable to open her eye. Admission demonstrated her to be afebrile with an elevated WBC of 15.6K and a left shift. CT demonstrated right-sided facial soft tissue swelling without mass. She was admitted for IV treatment and observation for possible intervention. She denies any previous problems with tattoos or body modification procedures. External: right facial swelling with scabbed area proximal to right brow with soft swelling extending across the upper eyelid and more firm swelling along the temporal side of the of the nose. This spanned the area beneath the lower eye and into the soft tissue of the cheek. There is no obvious site of possible abscess., however, as the patient has continue to manipulate he area there is some weeping overlying the area of the lacrimal sac. She denies any particular problems with epiphora on that side and blowing her nose has not been difficult and there is no crepitus in area. This entire area is tender to palpation. Va: 20/30-2 OD; 20/20 OS. uncorrected ( she is myopic & astigmatic by history ) EOM: Full ductions and versions. Single unified vision., however complains of diplopia which is most likely uncorrected astigmatism Pupil: 4/4 3/3/ 3/3/ no APD appreciated Conjunctiva: White & quiet Cornea: clear without noted pickup of fluroescein staining Iris: blue AC: deep and quiet Fundus: normal red reflex Skin: fingers and hands dirty with accumulated debris under nails., Gashed thumb and ankle - stated from dog while playing. A:Periorbital cellulitis right side., no focal cystic changes noted at this time. NO orbital cellulitis noted. P: Continue with current medications of vancomycin and ceftriaxone, as there seems to be some deffervence of the white count. I will follow and return later today to reassess for possible I&D of the involved area. In the meantime, keep involved area clean. Patient should avoid manipulating the tissue and perhaps aggravating the condition. Hot packs of 20 minutes at a time 4 times daily recommended. thank you for the consult.
[2020-03-25] MEDS ORDERED: ARTIFICIAL TEARS-HYPROMELLOSE DROPS 15 ML BTL BOTH EYES PRN (13:23)
[2020-03-25] MEDS ORDERED: VANCOMYCIN TROUGH DUE 1 EACH MISC MISCELLANE ONE (16:00)
[2020-03-25] MEDS ORDERED: LIDOCAINE 2% (PF) 20 MG/ML 5 ML VIAL ONE ×2 (16:19)
--- NOTE | 2020-03-25 17:42 | P.PCN ---
Date of Procedure: 03/25/20 Preoperative Diagnosis: periorbital abscess right face Postoperative Diagnosis: same Procedure(s) Performed: I&D right side of nose Implants: none Anesthesia: local Surgeon: Flaquito Childs Estimated Blood Loss (ml): 5 Pathology: other (aerobic & anaerobic cultures) Condition: stable Disposition: no change Indications for Procedure: abscess of face Operative Findings: copious purulent debris within large abscess pocket. packed with iodoform tape and bandaged.
[2020-03-25] MEDS: PRAMIPEXOLE 0.5 MG TAB PO SCH (21:11)
[2020-03-26] MEDS: MORPHINE SULFATE 4 MG/ML SYRINGE IV PRN ×5 (01:30→21:01)
[2020-03-26] MEDS: VANCOMYCIN 1,000 MG in SODIUM CHLORIDE 0.9% 250 ML IVPB SCH ×3 (01:31→16:30)
[2020-03-26] MEDS: HYDROcodone/APAP 5-325MG 1 EACH TAB PO PRN ×4 (04:30→19:48)
--- NOTE | 2020-03-26 04:35 | CONS ---
CONSULTATION DATE OF SERVICE: 03/25/2020 REASON FOR CONSULTATION: Right periorbital abscess and cellulitis. HISTORY OF PRESENT ILLNESS: The patient is a 34-year-old female presenting to the ER yesterday for evaluation of pain, swelling and redness to the right periorbital area that has been going on for the last few days. Apparently last Thursday the patient was picking at an ingrowing hair on the right eye brow that has gradually increased in size along with some swelling and subsequently developing swelling and erythema around the whole right eye. The patient did call her primary care physician. The patient was started on oral Keflex. Patient had taken about 5 doses, did not have any improvement with worsening pain, swelling and redness. The patient presented to the hospital. Patient describing the pain to be more of a throbbing in nature, intensity almost 10/10 in severity with some surrounding swelling and redness. There was some purulent drainage from it which has been cultured by the nursing staff. On presentation to the hospital, the patient did have a low-grade fever of 99.9 degrees Fahrenheit. She did have white count 15.6. Kidney function was normal. Blood culture is currently pending. The patient did have a head and orbit CT which did show right-sided periorbital soft tissue swelling. No evidence of orbital mass. The patient did have a soft tissue neck CT right-sided periorbital soft tissue swelling. The patient subsequently has been evaluated by ophthalmology services and the patient did have a bedside I and D of this pus or abscess collection. Patient has been treated with Rocephin and vancomycin. Infectious Disease was consulted for further management of antibiotic therapy. REVIEW OF SYSTEMS: Positive points have been mentioned in HPI. Rest of systems are negative. PAST MEDICAL HISTORY: Fibromyalgia, pneumonia, achalasia, chronic back pain, bilateral carpal tunnel syndrome. PAST SURGICAL HISTORY: Appendectomy, , tubal ligation. SOCIAL HISTORY: Current everyday smoker. Occasionally drinks. Does admit to marijuana use. FAMILY HISTORY: Father history of hypertension and hyperlipidemia. Mother history of fibromyalgia. ALLERGIES: Allergies to NONSTEROIDAL ANTIINFLAMMATORY MEDICATIONS, SULFA. MEDICATIONS: Medications include the patient is currently on vancomycin pharmacy to dose. She is on Topamax, Mirapex, Zofran, nicotine patch, Tylenol, Rocephin 2 grams daily. PHYSICAL EXAMINATION: Blood pressure 123/80 with a pulse of 90, temperature 99.3. She is 99% on room air. General description is a middle-aged female lying in bed in no distress. No tachypnea or accessory muscle of respiration use. HEENT: Examination shows right periorbital swelling and redness. The area is currently dressed. No purulent drainage was noticed. Oral mucous membrane is dry. NECK: Trachea central. No thyromegaly. LUNGS: Unlabored breathing, clear to auscultation anteriorly with crackles. HEART: S1, S2. Regular rate and rhythm. ABDOMEN: Soft, no tenderness. No guarding or rigidity. EXTREMITIES: No edema of feet. SKIN EXAMINATION: No rash or mass palpable. NEUROLOGICAL: The patient is awake, alert, oriented x3. Mood and affect normal. LABS: Hemoglobin is 10 with white count 15.6, BUN of 11, creatinine 0.80. Cultures currently pending. CT report mentioned above. DIAGNOSTIC IMPRESSION: 1. Patient with right periorbital abscess, cellulitis started as an ingrowing hair that the patient tried to pluck on the right upper eye brow, failing outpatient oral Keflex therapy. Concern likely for possible community associated methicillin- resistant Staphylococcus aureus due to the likely pathogen. 2. Patient with antibiotic allergy that will limit the number of antibiotics safe to use. PLAN: 1. Vancomycin pharmacy to dose target of 15 while watching her kidney function and vancomycin trough closely. 2. We will follow on the clinical condition as well as culture to further adjust medication if needed. Thank you for this consultation. Will follow this patient along with you. MMODL / IJN: [id number] /
--- NOTE | 2020-03-26 06:40 | PCN ---
PROCEDURE NOTE DATE OF PROCEDURE: March 25, 2020. PROCEDURE: Incision and drainage of abscess, nasal area of right face. PREPROCEDURE DIAGNOSIS: Periorbital cellulitis. POSTPROCEDURE DIAGNOSIS: Periorbital cellulitis with abscess of the right face. SURGEON: Dr. Flaquito Childs. ANESTHESIA: Local. ESTIMATED BLOOD LOSS: Less than 5 mL. SPECIMEN TAKEN: Cultures for aerobic and anaerobic stain and sensitivity. NARRATIVE: After obtaining the appropriate consent, the right side of the patient's face was appropriately prepped with a topical skin wash followed by infiltration of 2% lidocaine without epinephrine along the lower lid and in an area between the medial canthus and the nasion of the right side of the face. Allowing for sufficient time for anesthesia, a #10 Bard-Florian blade was used to incise over the area presumed to most likely contain an abscess. A small incision into the skin did reveal a pocket which was expressing purulent material undermining and including as much area as possible was performed using blunt dissection with the curved hemostats and scissors, After expressing as much of the debris as possible from the area, a quarter-inch iodoform packing gauze was placed into the abscessed area. Approximately 1 inch was left available and the whole area was then dressed with a dry 4 x 4 gauze and taped in place. There were no complications from the procedure. She tolerated the procedure otherwise well. There were no complications from the procedure itself. MMODL / IJN: [id number] /
[2020-03-26 08:12] LABS: Basophils # (A) 0.1 k/uL (0-0.2); Basophils % (A) 1 %; Eosinophils # (A) 0.3 k/uL (0-0.7); Eosinophils % (A) 3 %; HCT 32.3 % (34.0-46.0); Hypochromasia Marked; Lymphocytes % (A) 17 %; MCHC 31.1 g/dL (31.0-37.0); MCV 87.1 fL (80.0-100.0); Mean Platelet Volume 7.7; Monocytes # (A) 0.6 k/uL (0-1.0); Monocytes % (A) 5 %; Neutrophils # (A) 8.1 k/uL (1.3-7.7); Neutrophils % (A) 72 %; Platelet Count 450 k/uL (150-450); RBC 3.71 m/uL (3.80-5.40); RDW 15.8 % (11.5-15.5); WBC 11.3 k/uL (3.8-10.6)
[2020-03-26] MEDS: GABAPENTIN 400 MG CAP PO SCH ×3 (08:13→19:49)
[2020-03-26] MEDS: TOPIRAMATE 100 MG TAB PO SCH ×2 (08:13→19:48)
[2020-03-26] MEDS: lamoTRIgine 100 MG TAB PO SCH (08:13)
[2020-03-26] MEDS: NICOTINE 21MG/24HR PATCH TRANSDERM SCH (08:13)
[2020-03-26] MEDS: cloNIDine HCL 0.1 MG TAB PO SCH ×3 (08:14→19:50)
--- NOTE | 2020-03-26 08:23 | P.PN ---
Subjective Progress Note Date: 03/26/20 Principal diagnosis: Periorbital cellulitis, right S: Still experiencing moderate discomfort in face particularly inferior to inferior orbital rim. Temp. remains afebrile labs pending with gram (+) cocci. Awaiting identity. Curently experiencing candidiasis of the vagina. O: examined I&D site, replace superficial gauze. Area beneath rim very firm, may need I&D as well. A: periorbital cellulitis Vaginal candidiasis P: return later to repack wound., recommend continued antibiotic, hot pack. Awaiting labs. Will continue to follow. Objective - Vital Signs Vital signs: Vital Signs Temp 98.7 F 03/26/20 07:45 Pulse 106 H 03/26/20 07:45 Resp 17 03/26/20 07:45 BP 149/93 03/26/20 07:45 Pulse Ox 100 03/26/20 07:45 Intake & Output 03/25/20 03/26/20 03/26/20 18:59 06:59 18:59 Other: Voiding Method Toilet # Voids 15 3 # Bowel Movements 0 - Labs CBC & Chem 7: 03/26/20 07:32 03/25/20 09:10 Labs: Abnormal Lab Results - Last 24 Hours (Table) 03/25/20 03/25/20 03/26/20 Range/Units 09:10 09:10 07:32 WBC 14.9 H 11.3 H (3.8-10.6) k/uL RBC 3.55 L 3.71 L (3.80-5.40) m/uL Hgb 9.7 L 10.0 L (11.4-16.0) gm/dL Hct 30.5 L 32.3 L (34.0-46.0) % RDW 15.6 H 15.8 H (11.5-15.5) % Neutrophils # 12.5 H 8.1 H (1.3-7.7) k/uL Chloride 110 H (96-109) mmol/L BUN 7.0 L (9.0-27.0) mg/dL BUN/Creatinine Ratio 10.00 L (12.00-20.00) Ratio Glucose 120 H (70-110) mg/dL Microbiology - Last 24 Hours (Table) 03/25/20 14:55 Gram Stain - Preliminary Face Wound Culture - Preliminary 03/25/20 10:20 Gram Stain - Preliminary Face Wound Culture - Preliminary 03/25/20 14:55 Anaerobic Culture - Preliminary Face 03/25/20 10:20 Anaerobic Culture - Preliminary Face 03/24/20 14:50 Blood Culture - Preliminary Blood No Growth after 24 hours
[2020-03-26] MEDS ORDERED: FLUCONAZOLE 150 MG TAB PO ONE (08:30)
[2020-03-26] MEDS: SODIUM CHLORIDE 0.9% 1,000 ML IV SCH ×2 (08:51→22:54)
[2020-03-26 11:32] LABS: African American GFR (CKD) 129.2 (60.0-200.0); Anion Gap 6.6 mmol/L (4.00-12.00); Calcium 9.5 mg/dL (8.7-10.3); Carbon Dioxide 23.4 mmol/L (21.6-31.8); Non-African American GFR(CKD) 111.5 (60.0-200.0); Potassium 4.3 mmol/L (3.5-5.5)
[2020-03-26] MEDS: HYDROmorphone 0.5 MG/0.5 ML SYRINGE IVP PRN ×2 (17:15→21:14)
[2020-03-26] MEDS: PRAMIPEXOLE 0.5 MG TAB PO SCH (19:50)
[2020-03-26] MEDS: traZODone HCL 100 MG TAB PO PRN (21:02)
[2020-03-26] MEDS ORDERED: diphenhydrAMINE 25 MG CAP PO STA (21:09)
--- NOTE | 2020-03-26 23:33 | PN ---
PROGRESS NOTE DATE OF SERVICE: 03/26/2020 REASON FOR FOLLOWUP: Right periorbital and cellulitis. INTERVAL HISTORY: The patient is currently afebrile. The patient is breathing comfortably. Right periorbital swelling and redness slightly decreased. Denies having any chest pain or shortness of breath or cough. No abdominal pain or diarrhea. PHYSICAL EXAMINATION: Blood pressure 133/99 with a pulse of 92, temperature 97.8. She is 99% on room air. General description is a middle-aged female lying in bed in no distress. HEENT EXAMINATION: Right periorbital swelling and redness slightly decreased. LUNGS: Unlabored breathing. Clear to auscultation anteriorly. HEART: S1, S2. Regular rate and rhythm. ABDOMEN: Soft. No tenderness. LABS: Hemoglobin is 10, white count 11.3, BUN of 7, creatinine 0.7. Wound culture with presumptive MRSA. Blood culture negative. DIAGNOSTIC IMPRESSION AND PLAN: Patient with right periorbital cellulitis that started with an infected ear and the right eyebrow. The patient is status post drainage of this abscess. The patient is currently covered with vancomycin. This will be discontinued. Continue supportive care. MMODL / IJN: [id number] /
--- NOTE | 2020-03-26 23:57 | P.PN ---
Subjective Progress Note Date: 03/25/20 Principal diagnosis: Acute right periorbital Cellulitis Patient is a 34-year-old female with known history of ADD/ADHD, PTSD, anxiety/depression and bipolar disorder, fibromyalgia, achalasia cardia and chronic back pain and degenerative disc disease and bilateral carpal tunnel syndrome, multiple sclerosis history and other multiple medical problems came to ER with complaints of right eye swelling and redness and pain. Patient states that she has been having worsening swelling since last Thursday. Patient states that she developed a pimple on the right medial eyebrow which she squeezed out. Since then pain and redness extended around the right eye with swelling and erythema. Patient was seen by her primary care physician and was started on Keflex. Patient took about 5 tablets of Keflex without significant improvement. Patient was also complaining of pain with eye movement and came to ER for evaluation. Patient also reports that she has been pain along the neck and feels like her throat is closing. Patient was taking Tylenol at home for pain management. Patient denied any fever or chills. No cough or sputum production. No nausea vomiting or abdominal pain. Laboratory data showed WBC 15.6, hemoglobin 10.0 and platelets 429 neutrophils 12.7 Other laboratory data reviewed. Patient had CT of the head and orbits was done in the ER showed right-sided pe riorbital soft tissue swelling as above appears new compared to old exam. No evidence of orbital mass. Mild ethmoid and frontal sinusitis appears new compared to old exam. Neck soft tissue CT showed right-sided periorbital soft tissue swelling. Mild right maxillary sinusitis. Dilated esophagus with air and fluid. Follow-up recommended. 03/25/2020 Patient is currently resting in the bed. Still complains of right eye pain and minimal discharge from the I&D site. Patient is status post I&D right upper medial nose abscess. Follow-up culture reports. Continue on antibiotic with cough vancomycin and ceftriaxone for preorbital cellulitis. Ophthalmology and ID is on board. Patient has been afebrile. Leukocytosis improving. Current medications reviewed. Objective - Vital Signs Vital signs: Vital Signs Temp 99.2 F 03/25/20 07:48 Pulse 79 03/25/20 07:48 Resp 21 03/25/20 07:48 BP 147/100 03/25/20 07:48 Pulse Ox 98 03/25/20 07:48 Intake & Output 03/24/20 03/25/20 03/25/20 18:59 06:59 18:59 Weight 58.967 kg Other: Voiding Method Toilet # Voids 1 2 - Exam PHYSICAL EXAMINATION: Patient is lying in the bed comfortably, no acute distress, awake alert and oriented.. HEENT: Normocephalic. Neck is supple.Patient does have swelling and redness and tenderness of the right eye and unable to open her eye. Conjunctival redness noted. . Nostrils clear. Oral cavity is moist. Ears reveal no drainage. Neck reveals no JVD, carotid bruits, or thyromegaly. CHEST EXAMINATION: Trachea is central. Symmetrical expansion. Lung deng clear to auscultation and percussion. CARDIAC: Normal S1, S2 with no gallops. No murmurs ABDOMEN: Soft. Bowel sounds normal. No organomegaly. No abdominal bruits. Extremities: reveal no edema. No clubbing or cyanosis Neurologically awake, alert, oriented x3 with well-coordinated movements. No focal deficits noted Skin: No rash or skin lesions. Psychiatric: Coperative. Nonsuicidal Musculoskeletal: No joint swelling or deformity. Normal range of motion. - Labs CBC & Chem 7: 03/26/20 07:32 03/26/20 07:32 Labs: Abnormal Lab Results - Last 24 Hours (Table) 03/24/20 03/24/20 03/25/20 Range/Units 14:50 14:50 09:10 WBC 15.6 H (3.8-10.6) k/uL RBC 3.73 L (3.80-5.40) m/uL Hgb 10.0 L (11.4-16.0) gm/dL Hct 31.6 L (34.0-46.0) % RDW (11.5-15.5) % Neutrophils # 12.7 H (1.3-7.7) k/uL Chloride 110 H 110 H (98-107) mmol/L BUN 7.0 L (9.0-27.0) mg/dL BUN/Creatinine Ratio 10.00 L (12.00-20.00) Ratio Glucose 102 H 120 H (74-99) mg/dL 03/25/20 Range/Units 09:10 WBC 14.9 H (3.8-10.6) k/uL RBC 3.55 L (3.80-5.40) m/uL Hgb 9.7 L (11.4-16.0) gm/dL Hct 30.5 L (34.0-46.0) % RDW 15.6 H (11.5-15.5) % Neutrophils # 12.5 H (1.3-7.7) k/uL Chloride (98-107) mmol/L BUN (9.0-27.0) mg/dL BUN/Creatinine Ratio (12.00-20.00) Ratio Glucose (74-99) mg/dL Assessment and Plan Assessment: Acute right periorbital Cellulitis and possible orbital cellulitis. Right medial nasal abscess status post I&D Sepsis secondary to above with leukocytosis and tachycardia. Anxiety/depression PTSD and ADD/ADHD Multiple sclerosis Fibromyalgia Chronic back pain and disc degenerative disease Currently everyday smoker DVT prophylaxis with heparin subcu Plan: Patient will be continued IV hydration with normal saline. Was given a dose of Unasyn and vancomycin in the ER. Continue with vancomycin and will add ceftri axone 2 g daily. Follow-up culture reports. Continue with pain management with morphine. Continue with psychiatric medications and home medications. ID and ophthalmology is following. Prognosis is guarded at this time. Patient was counseled extensively for smoking cessation. Time with Patient: Greater than 30
--- NOTE | 2020-03-26 23:58 | P.PN ---
Subjective Progress Note Date: 03/26/20 Principal diagnosis: Acute right periorbital Cellulitis Patient is a 34-year-old female with known history of ADD/ADHD, PTSD, anxiety/depression and bipolar disorder, fibromyalgia, achalasia cardia and chronic back pain and degenerative disc disease and bilateral carpal tunnel syndrome, multiple sclerosis history and other multiple medical problems came to ER with complaints of right eye swelling and redness and pain. Patient states that she has been having worsening swelling since last Thursday. Patient states that she developed a pimple on the right medial eyebrow which she squeezed out. Since then pain and redness extended around the right eye with swelling and erythema. Patient was seen by her primary care physician and was started on Keflex. Patient took about 5 tablets of Keflex without significant improvement. Patient was also complaining of pain with eye movement and came to ER for evaluation. Patient also reports that she has been pain along the neck and feels like her throat is closing. Patient was taking Tylenol at home for pain management. Patient denied any fever or chills. No cough or sputum production. No nausea vomiting or abdominal pain. Laboratory data showed WBC 15.6, hemoglobin 10.0 and platelets 429 neutrophils 12.7 Other laboratory data reviewed. Patient had CT of the head and orbits was done in the ER showed right-sided pe riorbital soft tissue swelling as above appears new compared to old exam. No evidence of orbital mass. Mild ethmoid and frontal sinusitis appears new compared to old exam. Neck soft tissue CT showed right-sided periorbital soft tissue swelling. Mild right maxillary sinusitis. Dilated esophagus with air and fluid. Follow-up recommended. 03/25/2020 Patient is currently resting in the bed. Still complains of right eye pain and minimal discharge from the I&D site. Patient is status post I&D right upper medial nose abscess. Follow-up culture reports. Continue on antibiotic with cough vancomycin and ceftriaxone for preorbital cellulitis. Ophthalmology and ID is on board. Patient has been afebrile. Leukocytosis improving. 03/26/2020 Patient patient states that she still have pain. Improving compared to yesterday. Right eye swelling and redness and unable to open eye completely. No drainage from the I&D site. Wound cultures grew present to MRSA. Patient is on vancomycin and ceftriaxone for possible orbital cellulitis. Ophthalmology and ID is on board. Denied any nausea vomiting or abdominal pain. Tolerating oral diet. No chest pain or shortness of breath. Current medications reviewed. Objective - Vital Signs Vital signs: Vital Signs Temp 99.3 F 03/26/20 15:24 Pulse 101 H 03/26/20 15:24 Resp 18 03/26/20 15:24 BP 163/95 03/26/20 15:24 Pulse Ox 100 03/26/20 15:24 Intake & Output 03/26/20 03/26/20 03/27/20 06:59 18:59 06:59 Other: Voiding Method Toilet Toilet # Voids 3 2 - Exam PHYSICAL EXAMINATION: Patient is lying in the bed comfortably, no acute distress, awake alert and oriented.. HEENT: Normocephalic. Neck is supple.Patient does have swelling and redness and tenderness of the right eye and unable to open her eye. Conjunctival redness noted. . Nostrils clear. Oral cavity is moist. Ears reveal no drainage. Neck reveals no JVD, carotid bruits, or thyromegaly. CHEST EXAMINATION: Trachea is central. Symmetrical expansion. Lung deng clear to auscultation and percussion. CARDIAC: Normal S1, S2 with no gallops. No murmurs ABDOMEN: Soft. Bowel sounds normal. No organomegaly. No abdominal bruits. Extremities: reveal no edema. No clubbing or cyanosis Neurologically awake, alert, oriented x3 with well-coordinated movements. No focal deficits noted Skin: No rash or skin lesions. Psychiatric: Coperative. Nonsuicidal Musculoskeletal: No joint swelling or deformity. Normal range of motion. - Labs CBC & Chem 7: 03/26/20 07:32 03/26/20 07:32 Labs: Abnormal Lab Results - Last 24 Hours (Table) 03/26/20 03/26/20 Range/Units 07:32 07:32 WBC 11.3 H (3.8-10.6) k/uL RBC 3.71 L (3.80-5.40) m/uL Hgb 10.0 L (11.4-16.0) gm/dL Hct 32.3 L (34.0-46.0) % RDW 15.8 H (11.5-15.5) % Neutrophils # 8.1 H (1.3-7.7) k/uL BUN 7.0 L (9.0-27.0) mg/dL BUN/Creatinine Ratio 10.00 L (12.00-20.00) Ratio Microbiology - Last 24 Hours (Table) 03/24/20 14:50 Blood Culture - Preliminary Blood No Growth after 48 hours 03/25/20 14:55 Gram Stain - Preliminary Face Wound Culture - Preliminary 03/25/20 10:20 Gram Stain - Preliminary Face Wound Culture - Preliminary 03/25/20 14:55 Anaerobic Culture - Preliminary Face 03/25/20 10:20 Anaerobic Culture - Preliminary Face Assessment and Plan Assessment: Acute right periorbital Cellulitis and possible orbital cellulitis. Right medial nasal abscess status post I&D Sepsis secondary to above with leukocytosis and tachycardia. Anxiety/depression PTSD and ADD/ADHD Multiple sclerosis Fibromyalgia Chronic back pain and disc degenerative disease Currently everyday smoker DVT prophylaxis with heparin subcu Plan: Patient will be continued IV hydration with normal saline. Was given a dose of Unasyn and vancomycin in the ER. Continue with vancomycin and will add ceftriaxone 2 g daily. Follow-up culture reports. Continue with pain management with morphine. Continue with psychiatric medications and home medications. ID and ophthalmology is following. Prognosis is guarded at this time. Patient was counseled extensively for smoking cessation. Time with Patient: Greater than 30
[2020-03-27] MEDS: HYDROcodone/APAP 5-325MG 1 EACH TAB PO PRN ×2 (02:03→09:27)
[2020-03-27] MEDS: VANCOMYCIN 1,000 MG in SODIUM CHLORIDE 0.9% 250 ML IVPB SCH ×2 (02:03→14:55)
[2020-03-27] MEDS: HYDROmorphone 0.5 MG/0.5 ML SYRINGE IVP PRN ×3 (02:38→14:49)
[2020-03-27 09:03] LABS: Basophils % (A) 1 %; Eosinophils # (A) 0.3 k/uL (0-0.7); Eosinophils % (A) 3 %; HCT 35.1 % (34.0-46.0); HGB 10.4 gm/dL (11.4-16.0); Hypochromasia Marked; Lymphocytes # (A) 1.6 k/uL (1.0-4.8); Lymphocytes % (A) 18 %; MCHC 29.7 g/dL (31.0-37.0); MCV 87.5 fL (80.0-100.0); Mean Platelet Volume 7.5; Monocytes # (A) 0.5 k/uL (0-1.0); Monocytes % (A) 6 %; Neutrophils # (A) 6.4 k/uL (1.3-7.7); Neutrophils % (A) 71 %; Platelet Count 486 k/uL (150-450); RBC 4.01 m/uL (3.80-5.40); RDW 15.7 % (11.5-15.5)
[2020-03-27] MEDS: cloNIDine HCL 0.1 MG TAB PO SCH ×3 (09:15→20:26)
[2020-03-27] MEDS: TOPIRAMATE 100 MG TAB PO SCH ×2 (09:15→20:26)
[2020-03-27] MEDS: lamoTRIgine 100 MG TAB PO SCH (09:15)
[2020-03-27] MEDS: GABAPENTIN 400 MG CAP PO SCH ×3 (09:15→20:26)
[2020-03-27] MEDS: NICOTINE 21MG/24HR PATCH TRANSDERM SCH (09:15)
[2020-03-27] MEDS ORDERED: HYDROcodone/APAP 5-325MG 1 EACH TAB PO STA (12:05)
--- NOTE | 2020-03-27 13:48 | P.PN ---
Subjective Progress Note Date: 03/27/20 Principal diagnosis: periorbital cellulitis with MRSA S: Still experiencing moderate discomfort in face particularly inferior to inferior orbital rim. Temp. remains afebrile labs pending sensitivity with gram (+) cocci, MRSA identified. Awaiting identity. O: examined I&D site, removed packing, wound relatively clean. Lower orbital swelling reduced in size warmth, and tenderness. No EOM restrictions. A: periorbital cellulitis - definitely improving Vaginal candidiasis - subjectively better P: Removed packing, loosely covered with gauze. Probably need to replace twice d aily and allow secondary healing. Awaiting ID recommendations for oral antibiotic treatment, doxy? Will see in office in a week's time. Ordered eye ointment to be applied to skin area around site to soften. Objective - Vital Signs Vital signs: Vital Signs Temp 97.4 F L 03/27/20 08:00 Pulse 90 03/27/20 08:00 Resp 18 03/27/20 08:00 BP 109/64 03/27/20 08:00 Pulse Ox 98 03/27/20 02:23 Intake & Output 03/26/20 03/27/20 03/27/20 18:59 06:59 18:59 Other: Voiding Method Toilet Toilet Toilet # Voids 2 1 - Labs CBC & Chem 7: 03/27/20 08:24 03/26/20 07:32 Labs: Abnormal Lab Results - Last 24 Hours (Table) 03/27/20 Range/Units 08:24 Hgb 10.4 L (11.4-16.0) gm/dL MCHC 29.7 L (31.0-37.0) g/dL RDW 15.7 H (11.5-15.5) % Plt Count 486 H (150-450) k/uL Microbiology - Last 24 Hours (Table) 03/25/20 10:20 Gram Stain - Preliminary Face Wound Culture - Preliminary Presumptive MRSA 03/25/20 14:55 Gram Stain - Preliminary Face Wound Culture - Preliminary Presumptive MRSA 03/24/20 14:50 Blood Culture - Preliminary Blood No Growth after 48 hours
[2020-03-27] MEDS: NEOMYCIN-POLYMYXIN-DEXAMETH OINT 3.5 GM TUBE RIGHT EYE SCH ×3 (14:57→20:45)
[2020-03-27] MEDS: SODIUM CHLORIDE 0.9% 1,000 ML IV SCH (14:57)
[2020-03-27 16:47] LABS: African American GFR (CKD) 109.9 (60.0-200.0); Anion Gap 10.6 mmol/L (4.00-12.00); BUN/Creat Ratio 8.75 Ratio (12.00-20.00); Calcium 9.4 mg/dL (8.7-10.3); Carbon Dioxide 23.4 mmol/L (21.6-31.8); Non-African American GFR(CKD) 94.8 (60.0-200.0); Potassium 4.5 mmol/L (3.5-5.5)
[2020-03-27] MEDS: HYDROcodone/APAP 10-325MG 1 EACH TAB PO PRN ×2 (17:39→22:39)
[2020-03-27] MEDS: MORPHINE SULFATE 4 MG/ML SYRINGE IV PRN (20:27)
[2020-03-27] MEDS: PRAMIPEXOLE 0.5 MG TAB PO SCH (20:43)
[2020-03-27] MEDS: traZODone HCL 100 MG TAB PO PRN (22:39)
--- NOTE | 2020-03-27 23:17 | PN ---
PROGRESS NOTE DATE OF SERVICE: 03/27/2020 REASON FOR FOLLOWUP: Right periorbital MRSA abscess and cellulitis. INTERVAL HISTORY: The patient is currently afebrile. The patient is breathing comfortably. The patient's right periorbital pain and swelling have improved. The patient denies having any chest pain or shortness of breath or cough. No abdominal pain. No diarrhea. She has been insisting on going home. PHYSICAL EXAMINATION: Her blood pressure is 164/97, pulse of 94, temperature 98.6. She is 100% on room air. General description is a middle-aged female up in the bed in no distress. HEENT EXAMINATION: Right periorbital swelling and redness have improved. LUNGS: Unlabored breathing. Clear to auscultation anteriorly. HEART: S1, S2. Regular rate and rhythm. ABDOMEN: Soft. No tenderness. LABS: Hemoglobin is 10.4, white count 9.0. BUN of 7, creatinine 0.8. DIAGNOSTIC IMPRESSION AND PLAN: Patient with right periorbital abscess and cellulitis, status post drainage. Clinically responded to vancomycin. Unfortunately the patient is ALLERGIC TO SULFA option. May benefit from a week of IV vancomycin followed by transition to possible doxycycline and close outpatient followup. MMODL / IJN: [id number] /
[2020-03-28] MEDS: VANCOMYCIN 1,000 MG in SODIUM CHLORIDE 0.9% 250 ML IVPB SCH ×4 (01:37→22:46)
[2020-03-28] MEDS: SODIUM CHLORIDE 0.9% 1,000 ML IV SCH ×2 (01:38→20:04)
[2020-03-28] MEDS: MORPHINE SULFATE 4 MG/ML SYRINGE IV PRN ×4 (01:45→22:45)
[2020-03-28] MEDS: HYDROcodone/APAP 10-325MG 1 EACH TAB PO PRN ×4 (05:08→20:30)
[2020-03-28] MEDS: NICOTINE 21MG/24HR PATCH TRANSDERM SCH (08:11)
[2020-03-28] MEDS: lamoTRIgine 100 MG TAB PO SCH (08:12)
[2020-03-28] MEDS: GABAPENTIN 400 MG CAP PO SCH ×3 (08:12→20:30)
[2020-03-28] MEDS: cloNIDine HCL 0.1 MG TAB PO SCH ×3 (08:12→22:09)
[2020-03-28] MEDS: TOPIRAMATE 100 MG TAB PO SCH ×2 (08:12→20:31)
[2020-03-28] MEDS: NEOMYCIN-POLYMYXIN-DEXAMETH OINT 3.5 GM TUBE RIGHT EYE SCH ×4 (08:13→22:10)
[2020-03-28 13:37] VITALS: BMI 23.0
--- NOTE | 2020-03-28 16:12 | PN ---
PROGRESS NOTE DATE OF SERVICE: 03/28/2020 REASON FOR FOLLOWUP: Right periorbital abscess and cellulitis. INTERVAL HISTORY: The patient is currently afebrile. The patient's overall pain and swelling to the right periorbital area has decreased in intensity. Denies having any chest pain or cough. No abdominal pain or diarrhea. PHYSICAL EXAMINATION: Blood pressure 127/92 with a pulse of 101, temperature 98.6. General description is a young female up in the bed in no distress. RESPIRATORY SYSTEM: Unlabored breathing. Clear to auscultation anteriorly. HEART: S1, S2. Regular rate and rhythm. ABDOMEN: Soft. No tenderness. Right periorbital swelling has decreased. No drainage. LABS: Hemoglobin is 10.4, white count 9.0. Creatinine 0.8. Culture with MRSA. DIAGNOSTIC IMPRESSION AND PLAN: Patient with methicillin-resistant Staphylococcus aeruginosa right periorbital abscess and cellulitis in this patient who seems to have shown overall clinical improvement. However, in view of the location, will recommend IV vancomycin or daptomycin for at least a week before transitioning to oral antibiotics. Continue with supportive care. MMODL / IJN: [id number] /
--- NOTE | 2020-03-28 16:50 | P.PN ---
Subjective Progress Note Date: 03/27/20 Principal diagnosis: Acute right periorbital Cellulitis 34-year-old female with known history of ADD/ADHD, PTSD, anxiety/depression and bipolar disorder, fibromyalgia, achalasia cardia and chronic back pain and degenerative disc disease and bilateral carpal tunnel syndrome, multiple sclerosis history and other multiple medical problems came to ER with complaints of right eye swelling and redness and pain. Patient states that she has been having worsening swelling since last Thursday. Patient states that she developed a pimple on the right medial eyebrow which she squeezed out. Since then pain and redness extended around the right eye with swelling and erythema. Patient was seen by her primary care physician and was started on Keflex. Patient took about 5 tablets of Keflex without significant improvement. Patient was also complaining of pain with eye movement and came to ER for evaluation. Patient also reports that she has been pain along the neck and feels like her throat is closing. Patient was taking Tylenol at home for pain management. Patient denied any fever or chills. No cough or sputum production. No nausea vomiting or abdominal pain. Laboratory data showed WBC 15.6, hemoglobin 10.0 and platelets 429 neutrophils 12.7 Other laboratory data reviewed. Patient had CT of the head and orbits was done in the ER showed right-sided periorbital soft tissue swelling as above appears new compared to old exam. No evidence of orbital mass. Mild ethmoid and frontal sinusitis appears new compared to old exam. Neck soft tissue CT showed right-sided periorbital soft tissue swelling. Mild right maxillary sinusitis. Dilated esophagus with air and fluid. Follow-up recommended. 03/27/2020 Patient is seen and evaluated in room at bedside; continues to complain of discomfort in face particularly below eyes Wound culture has come back positive for gram-positive cocci; MRSA identified Patient is evaluated by oral facial surgery and wound packing was removed and loosely covered with gauze Patient remains on IV vancomycin; await final recommendations from ID as far oral antibiotics Objective - Vital Signs Vital signs: Vital Signs Temp 97.4 F L 03/27/20 08:00 Pulse 90 03/27/20 08:00 Resp 18 03/27/20 08:00 BP 109/64 03/27/20 08:00 Pulse Ox 98 03/27/20 02:23 Intake & Output 03/26/20 03/27/2020 18:59 06:59 18:59 Other: Voiding Method Toilet Toilet Toilet # Voids 2 1 - Exam Patient is lying in the bed comfortably, no acute distress, awake alert and oriented.. HEENT: Normocephalic. Neck is supple.Patient does have swelling and redness and tenderness of the right eye and unable to open her eye. Conjunctival redness noted. . Nostrils clear. Oral cavity is moist. Ears reveal no drainage. Neck reveals no JVD, carotid bruits, or thyromegaly. CHEST EXAMINATION: Trachea is central. Symmetrical expansion. Lung deng clear to auscultation and percussion. CARDIAC: Normal S1, S2 with no gallops. No murmurs ABDOMEN: Soft. Bowel sounds normal. No organomegaly. No abdominal bruits. Extremities: reveal no edema. No clubbing or cyanosis Neurologically awake, alert, oriented x3 with well-coordinated movements. No focal deficits noted Skin: No rash or skin lesions. - Labs CBC & Chem 7: 03/27/20 08:24 03/27/20 08:24 Labs: Abnormal Lab Results - Last 24 Hours (Table) 03/27/20 Range/Units 08:24 Hgb 10.4 L (11.4-16.0) gm/dL MCHC 29.7 L (31.0-37.0) g/dL RDW 15.7 H (11.5-15.5) % Plt Count 486 H (150-450) k/uL Microbiology - Last 24 Hours (Table) 03/25/20 10:20 Anaerobic Culture - Preliminary Face 03/25/20 10:20 Gram Stain - Preliminary Face Wound Culture - Preliminary Presumptive MRSA 03/25/20 14:55 Gram Stain - Preliminary Face Wound Culture - Preliminary Presumptive MRSA 03/24/20 14:50 Blood Culture - Preliminary Blood No Growth after 48 hours Assessment and Plan Assessment: Acute right periorbital Cellulitis and possible orbital cellulitis. Right medial nasal abscess status post I&D Sepsis secondary to above with leukocytosis and tachycardia. Anxiety/depression PTSD and ADD/ADHD Multiple sclerosis Fibromyalgia Chronic back pain and disc degenerative disease Currently everyday smoker DVT prophylaxis with heparin subcu Plan: Patient will be continued IV hydration with normal saline. Was given a dose of Unasyn and vancomycin in the ER. Continue with vancomycin and will add ceftriaxone 2 g daily. Follow-up culture reports. Continue with pain management with morphine. Continue with psychiatric medications and home medications. ID and ophthalmology is following. Prognosis is guarded at this time. Patient was counseled extensively for smoking cessation.
[2020-03-28] MEDS ORDERED: FLUCONAZOLE 100 MG TAB PO ONE (19:47)
[2020-03-28] MEDS: PRAMIPEXOLE 0.5 MG TAB PO SCH (20:31)
[2020-03-28] MEDS ORDERED: CLOTRIMAZOLE 1% CREAM 15 GM TUBE TOPICAL SCH (21:00)
[2020-03-28] MEDS ORDERED: MICONAZOLE 2% VAGINAL CREAM 45 GM TUBE/KIT VAGINAL SCH (21:00)
[2020-03-28] MEDS: traZODone HCL 100 MG TAB PO PRN (22:10)
[2020-03-29] MEDS: SODIUM CHLORIDE 0.9% 1,000 ML IV SCH (04:29)
[2020-03-29] MEDS: HYDROcodone/APAP 10-325MG 1 EACH TAB PO PRN ×3 (04:54→14:36)
[2020-03-29] MEDS ORDERED: VANCOMYCIN TROUGH DUE 1 EACH MISC MISCELLANE ONE (06:00)
[2020-03-29] MEDS: VANCOMYCIN 1,000 MG in SODIUM CHLORIDE 0.9% 250 ML IVPB SCH ×2 (07:37→13:19)
[2020-03-29] MEDS: NEOMYCIN-POLYMYXIN-DEXAMETH OINT 3.5 GM TUBE RIGHT EYE SCH ×2 (07:39→13:21)
[2020-03-29] MEDS: cloNIDine HCL 0.1 MG TAB PO SCH (07:48)
[2020-03-29] MEDS: TOPIRAMATE 100 MG TAB PO SCH (07:48)
[2020-03-29] MEDS: lamoTRIgine 100 MG TAB PO SCH (07:48)
[2020-03-29] MEDS: GABAPENTIN 400 MG CAP PO SCH (07:48)
[2020-03-29] MEDS: PRAMIPEXOLE 0.5 MG TAB PO SCH (07:48)
[2020-03-29] MEDS: NICOTINE 21MG/24HR PATCH TRANSDERM SCH (07:49)
[2020-03-29 10:45] LABS: African American GFR (CKD) 129.2 (60.0-200.0); Non-African American GFR(CKD) 111.5 (60.0-200.0)
--- NOTE | 2020-03-29 12:42 | P.PN ---
Subjective Progress Note Date: 03/28/20 Principal diagnosis: Acute right periorbital Cellulitis 34-year-old female with known history of ADD/ADHD, PTSD, anxiety/depression and bipolar disorder, fibromyalgia, achalasia cardia and chronic back pain and degenerative disc disease and bilateral carpal tunnel syndrome, multiple sclerosis history and other multiple medical problems came to ER with complaints of right eye swelling and redness and pain. Patient states that she has been having worsening swelling since last Thursday. Patient states that she developed a pimple on the right medial eyebrow which she squeezed out. Since then pain and redness extended around the right eye with swelling and erythema. Patient was seen by her primary care physician and was started on Keflex. Patient took about 5 tablets of Keflex without significant improvement. Patient was also complaining of pain with eye movement and came to ER for evaluation. Patient also reports that she has been pain along the neck and feels like her throat is closing. Patient was taking Tylenol at home for pain management. Patient denied any fever or chills. No cough or sputum production. No nausea vomiting or abdominal pain. Laboratory data showed WBC 15.6, hemoglobin 10.0 and platelets 429 neutrophils 12.7 Other laboratory data reviewed. Patient had CT of the head and orbits was done in the ER showed right-sided periorbital soft tissue swelling as above appears new compared to old exam. No evidence of orbital mass. Mild ethmoid and frontal sinusitis appears new compared to old exam. Neck soft tissue CT showed right-sided periorbital soft tissue swelling. Mild right maxillary sinusitis. Dilated esophagus with air and fluid. Follow-up recommended. 03/27/2020 Patient is seen and evaluated in room at bedside; continues to complain of discomfort in face particularly below eyes Wound culture has come back positive for gram-positive cocci; MRSA identified Patient is evaluated by oral facial surgery and wound packing was removed and loosely covered with gauze Patient remains on IV vancomycin; await final recommendations from ID as far oral antibiotics 03/28/2020 Patient is seen and evaluated in room at bedside; complains of vaginal itching; remains on monistat Vital signs and labs are stable patient discussed with ID and recommended 1 week of IV Vancomycin; patient has medline in; await CM to make arrangements for antibiotic infusion post dc Objective - Vital Signs Vital signs: Vital Signs Temp 98.0 F 03/28/20 14:00 Pulse 108 H 03/28/20 14:00 Resp 16 03/28/20 14:00 BP 157/102 03/28/20 14:00 Pulse Ox 99 03/28/20 14:00 Intake & Output 03/27/20 03/28/20 03/28/20 18:59 06:59 18:59 Intake Total 600 480 Balance 600 480 Weight 58.967 kg Intake: IV 600 Sodium Chloride 0.9% 1, 600 000 ml @ 75 mls/hr IV . [id number] [facility] Rx#:[id number] Oral 480 Other: Voiding Method Toilet Toilet # Voids 1 # Bowel Movements 0 - Exam Patient is lying in the bed comfortably, no acute distress, awake alert and oriented.. HEENT: Normocephalic. Neck is supple.Patient does have swelling and redness and tenderness of the right eye and unable to open her eye. Conjunctival redness noted. . Nostrils clear. Oral cavity is moist. Ears reveal no drainage. Neck reveals no JVD, carotid bruits, or thyromegaly. CHEST EXAMINATION: Trachea is central. Symmetrical expansion. Lung deng clear to auscultation and percussion. CARDIAC: Normal S1, S2 with no gallops. No murmurs ABDOMEN: Soft. Bowel sounds normal. No organomegaly. No abdominal bruits. Extremities: reveal no edema. No clubbing or cyanosis Neurologically awake, alert, oriented x3 with well-coordinated movements. No focal deficits noted Skin: No rash or skin lesions. - Labs CBC & Chem 7: 03/27/20 08:24 03/29/20 06:13 Labs: Microbiology - Last 24 Hours (Table) 03/25/20 10:20 Gram Stain - Final Face Wound Culture - Final Methicillin resist S. aureus 03/25/20 14:55 Anaerobic Culture - Preliminary Face 03/25/20 14:55 Gram Stain - Final Face Wound Culture - Final Methicillin resist S. aureus 03/24/20 14:50 Blood Culture - Preliminary Blood No Growth after 72 hours 03/25/20 10:20 Anaerobic Culture - Preliminary Face Assessment and Plan Assessment: Acute right periorbital Cellulitis and possible orbital cellulitis. Right medial nasal abscess status post I&D Sepsis secondary to above with leukocytosis and tachycardia. Anxiety/depression PTSD and ADD/ADHD Multiple sclerosis Fibromyalgia Chronic back pain and disc degenerative disease Currently everyday smoker DVT prophylaxis with heparin subcu Plan: Patient will be continued IV hydration with normal saline. Was given a dose of Unasyn and vancomycin in the ER. Continue with vancomycin and will add ceftriaxone 2 g daily. Follow-up culture reports. Continue with pain management with morphine. Continue with psychiatric medications and home medications. ID and ophthalmology is following. Prognosis is guarded at this time. Patient was counseled extensively for smoking cessation.
[2020-03-29 14:45] VITALS: BP 146/103; PULSE 85; RESP 20; TEMP 98.3
== END 2020-03-29 15:45 | disposition home health service (06) | DRG 872 ==
LOC: EC 13:47 → 4SSUR 16:57
PROVIDERS: ADMIT Internal Medicine; ATTEND Internal Medicine
PROC: 0J910ZX Drainage of Face Subcutaneous Tissue and Fascia, Open Approach, Diagnostic (ICD-10-PCS; principal; 2020-03-25)
PROC: 05HD33Z Insertion of Infusion Device into Right Cephalic Vein, Percutaneous Approach (ICD-10-PCS; 2020-03-27 15:10)
DX: A41.9 Sepsis, unspecified organism (principal); H05.011 Cellulitis of right orbit; L03.213 Periorbital cellulitis; L02.01 Cutaneous abscess of face; B37.3 Candidiasis of vulva and vagina; F31.9 Bipolar disorder, unspecified; D64.9 Anemia, unspecified; G35 Multiple sclerosis; B95.62 Methicillin resistant Staphylococcus aureus infection as the cause of diseases classified elsewhere; J34.0 Abscess, furuncle and carbuncle of nose; J32.2 Chronic ethmoidal sinusitis; F43.10 Post-traumatic stress disorder, unspecified; J32.0 Chronic maxillary sinusitis; J32.1 Chronic frontal sinusitis; G89.29 Other chronic pain; M54.9 Dorsalgia, unspecified; R13.10 Dysphagia, unspecified; K22.8 Other specified diseases of esophagus; F90.9 Attention-deficit hyperactivity disorder, unspecified type; M79.7 Fibromyalgia; G56.03 Carpal tunnel syndrome, bilateral upper limbs; L73.1 Pseudofolliculitis barbae; M19.90 Unspecified osteoarthritis, unspecified site; F17.200 Nicotine dependence, unspecified, uncomplicated; Z71.6 Tobacco abuse counseling; Z79.899 Other long term (current) drug therapy; Z87.01 Personal history of pneumonia (recurrent); Z98.51 Tubal ligation status; Z90.49 Acquired absence of other specified parts of digestive tract; Z87.19 Personal history of other diseases of the digestive system; Z87.39 Personal history of other diseases of the musculoskeletal system and connective tissue; Z98.891 History of uterine scar from previous surgery; Z98.890 Other specified postprocedural states; Z88.6 Allergy status to analgesic agent; Z88.2 Allergy status to sulfonamides; Z88.1 Allergy status to other antibiotic agents; Z88.8 Allergy status to other drugs, medicaments and biological substances; Z82.49 Family history of ischemic heart disease and other diseases of the circulatory system; Z83.49 Family history of other endocrine, nutritional and metabolic diseases; Z82.62 Family history of osteoporosis; Z83.79 Family history of other diseases of the digestive system; Z82.69 Family history of other diseases of the musculoskeletal system and connective tissue
CPT/HCPCS: 36410; 36415; 70481; 70491; 76937; 80048; 80053; 80202; 82565; 83605; 85025; 87040; 87070; 87075; 87077; 87186; 87205; 96365; 96375; 99285

== ENCOUNTER 2020-04-02 11:42 | Emergency (ER) | payer OTHER ==
[2020-04-02 11:47] VITALS: RESP 18
--- NOTE | 2020-04-02 12:51 | ED ---
General Adult HPI - General Chief complaint: Recheck/Abnormal Lab/Rx Stated complaint: pic line issues Time Seen by Provider: 04/02/20 12:10 Source: patient, RN notes reviewed Mode of arrival: ambulatory Limitations: no limitations - History of Present Illness Initial comments: Patient is a pleasant 34-year-old female presenting to the emergency department with concerns regarding her PICC line. Patient does have a PICC line placed secondary to cellulitis near her right orbit. Saline as is improving however patient still needs antibiotics. Patient states PICC line has been uncomfortable and leaking. PICC line especially leaking with placement of IV antibiotics. Patient had her visiting infusion nurse evaluate this today and was advised to have it changed. - Related Data Home Medications Medication Instructions Recorded Confirmed Albuterol Sulfate [Albuterol 2 puff INHALATION RT-Q6H PRN 02/24/20 04/02/20 Sulfate Hfa] Cetirizine HCl 10 mg PO HS 02/24/20 04/02/20 Gabapentin [Neurontin] 800 mg PO TID 02/24/20 04/02/20 Cephalexin [Keflex] 500 mg PO Q6H 03/24/20 04/02/20 Diclofenac Sodium Gel [Voltaren 4 gm TOPICAL QID PRN 03/24/20 04/02/20 Gel] Lisdexamfetamine Dimesylate 60 mg PO QAM 03/24/20 04/02/20 [Vyvanse] Promethazine/Dextromethorphan 10 ml PO TID PRN 03/24/20 04/02/20 [Promethazine-Dm 6.25-15 mg/5Ml] HYDROcodone/APAP 10-325MG [Galt 1 tab PO Q4H PRN 04/02/20 04/02/20 10-325] Previous Rx's Medication Instructions Recorded Acetaminophen Tab [Tylenol] 1,000 mg PO TID PRN 20 Days tab 02/28/20 Ipratropium-Albuterol Nebulize 3 ml INHALATION RT-QID PRN ml 02/28/20 [Duoneb 0.5 mg-3 mg/3 ml Soln] Pramipexole [Mirapex] 0.5 mg PO HS 30 Days tab 02/28/20 Topiramate [Topamax] 200 mg PO BID 30 Days tab 02/28/20 cloNIDine HCL [Catapres] 0.1 mg PO TID 30 Days tab 02/28/20 Miconazole 2% Vaginal Cream 1 applic VAGINAL HS #7 applic 03/29/20 [Monistat 7] Ynlmyubc-Gwpkpvwlv-Psmdttvo 1 applic RIGHT EYE QID 7 Days #1 03/29/20 [Maxitrol Ophth Oint] applic Vancomycin 1,000 mg IVPB Q8H #20 vial 03/29/20 Allergies Allergy/AdvReac Type Severity Reaction Status Date / Time NSAIDS (Non-Steroidal Allergy Dyspnea Verified 04/02/20 13:28 Anti-Inflamma prednisone AdvReac makes Verified 04/02/20 13:28 patient "mean" Sulfa (Sulfonamide AdvReac Rash/Hives Verified 04/02/20 13:28 Antibiotics) sulfamethoxazole AdvReac Rash/Hives Verified 04/02/20 13:28 [From Bactrim] trimethoprim [From Bactrim] AdvReac Rash/Hives Verified 04/02/20 13:28 Review of Systems ROS Statement: Those systems with pertinent positive or pertinent negative responses have been documented in the HPI. ROS Other: All systems not noted in ROS Statement are negative. Constitutional: Denies: fever Eyes: Denies: eye pain ENT: Denies: ear pain Respiratory: Denies: cough Cardiovascular: Denies: chest pain Endocrine: Denies: fatigue Gastrointestinal: Denies: abdominal pain Genitourinary: Denies: dysuria Musculoskeletal: Denies: back pain Skin: Reports: as per HPI Neurological: Denies: weakness Past Medical History Past Medical History: Fibromyalgia, Pneumonia Additional Past Medical History / Comment(s): Achalasia cardia, dysphagia, chronic back pain, DDD, herniated discs, bilateral carpal tunnel syndrome, DJD, cyst on kidney, hypoglycemia, MS, pleurisy, right periorbital infection. History of Any Multi-Drug Resistant Organisms: MRSA Date of last positivie culture/infection: 03/25/20 MDRO Source:: Face Past Surgical History: Appendectomy, Section, Orthopedic Surgery, Tubal Ligation Additional Past Surgical History / Comment(s): c section x 3, EGD, Right knee surgery, robotic surgery for achalasia cardia-pt unclear, Past Anesthesia/Blood Transfusion Reactions: Motion Sickness Past Psychological History: ADD/ADHD, Anxiety, Bipolar, Depression, PTSD Smoking Status: Current every day smoker Past Alcohol Use History: Occasional Past Drug Use History: Cocaine, Marijuana - Past Family History Father Family Medical History: Hyperlipidemia, Hypertension Mother Family Medical History: Fibromyalgia Additional Family Medical History / Comment(s): HIATAL HERNIA OSTEOPSORIS, DDD General Exam Limitations: no limitations General appearance: alert, in no apparent distress Head exam: Present: normocephalic Eye exam: Present: EOMI, other (Mild erythema right medial orbit, mild.) Neck exam: Present: normal inspection Respiratory exam: Present: normal lung sounds bilaterally Cardiovascular Exam: Present: regular rate, normal rhythm Extremities exam: Present: other (Right upper extremity with PICC line that is partially pulled out.) Neurological exam: Present: alert Psychiatric exam: Present: normal affect, normal mood Skin exam: Present: normal color. Absent: rash, erythema Course Vital Signs 04/02/20 04/02/20 04/02/20 11:43 12:46 13:00 Temperature 97.9 F Pulse Rate 98 Respiratory 18 18 18 Rate Blood Pressure 136/89 O2 Sat by Pulse 96 Oximetry Procedures - Procedures Initial comment: Verbal consent: Midline removed from right arm without complications. Medical Decision Making - Medical Decision Making PICC line placed in the left side by interventional radiology. Disposition Clinical Impression: PIC line (peripherally inserted central catheter) removal, Occlusion of peripherally inserted central catheter (PICC) line Disposition: HOME SELF-CARE Condition: Stable Instructions (If sedation given, give patient instructions): How to Flush Your PICC or Midline Catheter (ED) Additional Instructions: Please continue antibiotics as directed. Please follow-up with primary care physician in the next day or 2 for recheck. Return for Problems, increased pain, swelling, redness, fever, worsening symptoms or any other concerns. Is patient prescribed a controlled substance at d/c from ED?: No Referrals: Frederick Harry DO [Primary Care Provider] - 1-2 days Time of Disposition: 14:51
[2020-04-02] MEDS ORDERED: LIDOCAINE 1% INJ 10MG/ML (20 ML MDV) SQ ONE (14:00)
--- NOTE | 2020-04-02 14:22 | XR ---
EXAMINATION TYPE: XR chest 1V confirm line [facility] DATE OF EXAM: 04/02/2020 COMPARISON: Prior chest x-ray dated 02/27/2020 HISTORY: Status post PICC line placement TECHNIQUE: Single frontal view of the chest is obtained. FINDINGS: Left-sided PICC line is present, distal tip is near the level of the cavoatrial junction. Air-filled esophagus which is dilated is again seen. No evident pneumothorax or pleural effusion. Car diac mediastinal silhouette shows a similar appearance. IMPRESSION: No evident complication status post PICC line placement
--- NOTE | 2020-04-02 14:47 | IR ---
EXAMINATION TYPE: IR cvc insert >=5 years DATE OF EXAM: 04/02/2020 COMPARISON: NONE HISTORY: Infection cellulitis FINDINGS: Maximal barrier technique was utilized. Hand hygiene obtained with soap and water and alco hol-based hand rub. The skin overlying the left brachial vein was localized with ultrasound and noted to be compressible and patent by ultrasound. An ultrasound image was obtained and submitted on aixa ent's chart. Sterile technique utilized with the ultrasound machine. The skin overlying was prepped a nd draped and Lidocaine used for local anesthesia. A skin memo was made with a scalpel. Access was gained to the vein under direct ultrasound guidance with a 21-gauge needle and a 0.018 inch wire was advanced. Access site was dilated with a peel-away sheath and the catheter tailored to length. Cath eter advanced centrally and a post procedure chest x-ray verified placement with the tip at the cavoa trial junction. Catheter was fixed to the skin and a sterile dressing placed. Hemostasis achieved a nd the catheter was aspirated and flushed with sterile saline. The patient remained in stable condit ion. IMPRESSION: STATUS POST ULTRASOUND GUIDED PICC LINE PLACEMENT, READY FOR USE. THIS PROCEDURE WAS PER FORMED BY THE UNDERSIGNED.
[2020-04-02 15:25] VITALS: BP 140/85; PULSE 86
[2020-04-02 15:26] VITALS: TEMP 97.4
== END 2020-04-02 15:27 | disposition home or self-care (01) ==
LOC: EC 11:42
DX: T82.594A Other mechanical complication of infusion catheter, initial encounter (principal); Z88.6 Allergy status to analgesic agent; M79.7 Fibromyalgia; G89.29 Other chronic pain; M54.9 Dorsalgia, unspecified; G35 Multiple sclerosis; F90.9 Attention-deficit hyperactivity disorder, unspecified type; F41.9 Anxiety disorder, unspecified; F31.9 Bipolar disorder, unspecified; Z79.899 Other long term (current) drug therapy; Z88.8 Allergy status to other drugs, medicaments and biological substances; Z88.2 Allergy status to sulfonamides; Z88.1 Allergy status to other antibiotic agents
CPT/HCPCS: 36573; 99283; C1751; C1769; J2001

== ENCOUNTER 2020-06-15 10:47 | Emergency (ER) | payer OTHER ==
[2020-06-15 10:51] VITALS: TEMP 97.9
[2020-06-15] MEDS ORDERED: cefTRIAXone 1,000 MG VIAL (IM USE) IM STA (11:05)
[2020-06-15] MEDS ORDERED: CLINDAMYCIN 150 MG CAP PO STA (11:06)
[2020-06-15] MEDS ORDERED: AMOXIC-POT CLAV 875-125MG 1 EACH TAB PO STA (11:06)
[2020-06-15] MEDS ORDERED: ACET/COD 300 MG/30 MG STARTER PACK 6 TAB BTL PO STA (11:08)
--- NOTE | 2020-06-15 11:12 | ED ---
Skin/Abscess/FB HPI - General Chief complaint: Skin/Abscess/Foreign Body Stated complaint: Abcess on face Time Seen by Provider: 06/15/20 10:53 Source: patient Mode of arrival: ambulatory Limitations: no limitations - History of Present Illness Initial comments: 35yo female presenting for cc of the right eye infection x 1 day. Patient states she has history of orbital cellulitis and she states she was hospitalized after having a right eye infection and waiting days to go to the hospital for evaluation, she states that the infection stemmed from a facial blemish that she was picking at near her medial aspect of eyebrow. Patient states that yesterday she was picking at a lesion in a similar region when she noted this morning she has redness, pain and some swelling to the area. patient states that the swelling spreads towards adjacent forehead. Patient denies pain with eye movement, eye swelling, or eye redness. Patient states the skin of the inner corner of eye is red. Patient denies drainage, fever, chills or general malaise. Patient states she called her eye doctor who told her to come to the ER for evaluation and abx. Patient is crying on arrival stating she is just nervous--patient appears nontoxic. I feel HR is elevated secondary to emotional reaction. Patient afebrile. - Related Data Home Medications Medication Instructions Recorded Confirmed Albuterol Sulfate [Albuterol 2 puff INHALATION RT-Q6H PRN 02/24/20 04/02/20 Sulfate Hfa] Cetirizine HCl 10 mg PO HS 02/24/20 04/02/20 Gabapentin [Neurontin] 800 mg PO TID 02/24/20 04/02/20 Cephalexin [Keflex] 500 mg PO Q6H 03/24/20 04/02/20 Diclofenac Sodium Gel [Voltaren 4 gm TOPICAL QID PRN 03/24/20 04/02/20 Gel] Lisdexamfetamine Dimesylate 60 mg PO QAM 03/24/20 04/02/20 [Vyvanse] Promethazine/Dextromethorphan 10 ml PO TID PRN 03/24/20 04/02/20 [Promethazine-Dm 6.25-15 mg/5Ml] HYDROcodone/APAP 10-325MG [Greene 1 tab PO Q4H PRN 04/02/20 04/02/20 10-325] Previous Rx's Medication Instructions Recorded Acetaminophen Tab [Tylenol] 1,000 mg PO TID PRN 20 Days tab 02/28/20 Ipratropium-Albuterol Nebulize 3 ml INHALATION RT-QID PRN ml 02/28/20 [Duoneb 0.5 mg-3 mg/3 ml Soln] Pramipexole [Mirapex] 0.5 mg PO HS 30 Days tab 02/28/20 Topiramate [Topamax] 200 mg PO BID 30 Days tab 02/28/20 cloNIDine HCL [Catapres] 0.1 mg PO TID 30 Days tab 02/28/20 Miconazole 2% Vaginal Cream 1 applic VAGINAL HS #7 applic 03/29/20 [Monistat 7] Oancsvef-Wefdemuvk-Etpqjkqn 1 applic RIGHT EYE QID 7 Days #1 03/29/20 [Maxitrol Ophth Oint] applic Vancomycin 1,000 mg IVPB Q8H #20 vial 03/29/20 Amoxic-Pot Clav 875-125Mg 1 tab PO Q12HR 7 Days #14 tab 06/15/20 [Augmentin 875-125] Clindamycin [Cleocin] 300 mg PO Q8H 7 Days #42 capsule 06/15/20 Fluconazole [Diflucan] 150 mg PO ONCE 1 Days #1 tab 06/15/20 Allergies Allergy/AdvReac Type Severity Reaction Status Date / Time NSAIDS (Non-Steroidal Allergy Dyspnea Verified 06/15/20 10:51 Anti-Inflamma prednisone AdvReac makes Verified 06/15/20 10:51 patient "mean" Sulfa (Sulfonamide AdvReac Rash/Hives Verified 06/15/20 10:51 Antibiotics) sulfamethoxazole AdvReac Rash/Hives Verified 06/15/20 10:51 [From Bactrim] trimethoprim [From Bactrim] AdvReac Rash/Hives Verified 06/15/20 10:51 Review of Systems ROS Statement: Those systems with pertinent positive or pertinent negative responses have been documented in the HPI. ROS Other: All systems not noted in ROS Statement are negative. Past Medical History Past Medical History: Fibromyalgia, Pneumonia Additional Past Medical History / Comment(s): Achalasia cardia, dysphagia, chronic back pain, DDD, herniated discs, bilateral carpal tunnel syndrome, DJD, cyst on kidney, hypoglycemia, MS, pleurisy, right periorbital infection. History of Any Multi-Drug Resistant Organisms: MRSA Date of last positivie culture/infection: 03/25/20 MDRO Source:: Face Past Surgical History: Appendectomy, Section, Orthopedic Surgery, Tubal Ligation Additional Past Surgical History / Comment(s): c section x 3, EGD, Right knee surgery, robotic surgery for achalasia cardia-pt unclear, Past Anesthesia/Blood Transfusion Reactions: Motion Sickness Past Psychological History: ADD/ADHD, Anxiety, Bipolar, Depression, PTSD Smoking Status: Current every day smoker Past Alcohol Use History: Occasional Past Drug Use History: Cocaine, Marijuana - Past Family History Father Family Medical History: Hyperlipidemia, Hypertension Mother Family Medical History: Fibromyalgia Additional Family Medical History / Comment(s): HIATAL HERNIA OSTEOPSORIS, DDD General Exam - General Exam Comments Initial Comments: General: The patient is awake and alert, in no distress Eye: +3 mm pupils are equal, round and reactive to light, extra-ocular movements are intact. No nystagmus. There is normal conjunctiva bilaterally. No signs of icterus. Ears, nose, mouth and throat: There are moist mucous membranes and no oral lesions. Neck: The neck is supple, there is no tenderness or JVD. Cardiovascular: There is a regular rate and rhythm. No murmur, rub or gallop is appreciated. Respiratory: Lungs are clear to auscultation, respirations are non-labored, breath sounds are equal. No wheezes, stridor, rales, or rhonchi. Gastrointestinal: Soft, non-distended, non-tender abdomen without masses or organomegaly noted. There is no rebound or guarding present. No CVA tenderness. Musculoskeletal: Normal ROM, no tenderness. Strength 5/5. Sensation intact. Radial and DP pulses equal bilaterally 2+. Neurological: A&O x 3. CN II-XII intact grossly, There are no obvious motor or sensory deficits. Coordination appears grossly intact. Speech is normal. Skin: Skin is warm and dry. Small comedone just below inner aspect of right eyebrow, no formed area of the joints. There is mild swelling and redness. no e xtension under eyes or over eyelid. there is no conjunctival injection no eye drainage. no pain with EOM. Psychiatric: Cooperative, appropriate mood & affect, normal judgment. Limitations: no limitations Course Vital Signs 06/15/20 06/15/20 06/15/20 10:49 11:21 11:56 Temperature 97.9 F Pulse Rate 112 H 79 83 Respiratory 20 18 18 Rate Blood Pressure 145/101 151/115 143/102 O2 Sat by Pulse 100 99 98 Oximetry 06/15/20 12:00 Temperature 97.9 F Pulse Rate 83 Respiratory 18 Rate Blood Pressure 143/102 O2 Sat by Pulse 98 Oximetry Medical Decision Making - Medical Decision Making 35yo female presenting for cc of skin redness near eye. possible infection. pre- septal infection on exam. No proptosis. No eyelid swelling no conjunctival injection. no pain with EOM. No pain to palpation of eyes. patient has no eye pain itself just tenderness over area of redness. patient has mild cellulitis. patient will be placed on oral antibiotics and is to f/u with pcp. return for worsening pain/swelling or pain with EOM/fevers, eye lid/increasing surrounding eye swelling. Patient verbalized understanding and discharged appearing well. Case discussed wt Dr. patino Disposition Clinical Impression: Preseptal cellulitis, Elevated blood pressure reading Disposition: ADMITTED IP TO THIS HOSP Condition: Stable Instructions (If sedation given, give patient instructions): Periorbital Cellulitis in Adults (ED) Additional Instructions: Please use medication as discussed. Please follow-up with family doctor in the next 2 days. Please return to emergency room if the symptoms increase or worsen or for any other concerns. Prescriptions: Amoxic-Pot Clav 875-125Mg [Augmentin 875-125] 1 tab PO Q12HR 7 Days #14 tab Clindamycin [Cleocin] 300 mg PO Q8H 7 Days #42 capsule Fluconazole [Diflucan] 150 mg PO ONCE 1 Days #1 tab Is patient prescribed a controlled substance at d/c from ED?: No Referrals: Frederick Harry DO [Primary Care Provider] - 1-2 days Time of Disposition: 11:53
[2020-06-15 11:25] VITALS: RESP 18
[2020-06-15 11:56] VITALS: BP 143/102; PULSE 83
== END 2020-06-15 12:00 | disposition other institution (70) ==
LOC: EC 10:47
DX: L03.213 Periorbital cellulitis (principal); R03.0 Elevated blood-pressure reading, without diagnosis of hypertension; F17.200 Nicotine dependence, unspecified, uncomplicated; F32.9 Major depressive disorder, single episode, unspecified; F12.90 Cannabis use, unspecified, uncomplicated; F14.90 Cocaine use, unspecified, uncomplicated; F41.9 Anxiety disorder, unspecified; Z79.899 Other long term (current) drug therapy
CPT/HCPCS: 99283; 96372; J0696

== ENCOUNTER 2020-08-14 23:30 | Emergency (ER) | payer OTHER ==
[2020-08-14 23:37] VITALS: RESP 16; TEMP 98.3
[2020-08-15] MEDS ORDERED: MORPHINE SULFATE 2 MG/ML SYRINGE IM STA (00:12)
[2020-08-15] MEDS ORDERED: ACET/COD 300 MG/30 MG STARTER PACK 6 TAB BTL PO STA (00:13)
[2020-08-15] MEDS ORDERED: AMOXIC-POT CLAV 875-125MG 1 EACH TAB PO STA (00:13)
[2020-08-15] MEDS ORDERED: CLINDAMYCIN 150 MG CAP PO STA (00:13)
--- NOTE | 2020-08-15 00:33 | ED ---
Skin/Abscess/FB HPI - General Chief complaint: Skin/Abscess/Foreign Body Stated complaint: facial swelling Time Seen by Provider: 08/14/20 23:34 Source: patient, EMS Mode of arrival: EMS Limitations: no limitations - History of Present Illness Initial comments: Patient is a 35-year-old female residing to the emergency department via EMS with concerns of a left-sided facial abscess. She states she noticed a small scab on her left cheek yesterday but then she woke up this morning with swelling noted to the left side of her face. She states she is having some discomfort in the area. She denies any fevers or chills, no chest pain or shortness of breath. She states she has had similar skin infections in the past, she was hospitalized previously for periorbital cellulitis. She has not been on any antibiotics. She does not consult with her PCP. She has no further complaints. Upon arrival to the ER her vitals are stable. - Related Data Home Medications Medication Instructions Recorded Confirmed Albuterol Sulfate [Albuterol 2 puff INHALATION RT-Q6H PRN 02/24/20 04/02/20 Sulfate Hfa] Cetirizine HCl 10 mg PO HS 02/24/20 04/02/20 Gabapentin [Neurontin] 800 mg PO TID 02/24/20 04/02/20 Cephalexin [Keflex] 500 mg PO Q6H 03/24/20 04/02/20 Diclofenac Sodium Gel [Voltaren 4 gm TOPICAL QID PRN 03/24/20 04/02/20 Gel] Lisdexamfetamine Dimesylate 60 mg PO QAM 03/24/20 04/02/20 [Vyvanse] Promethazine/Dextromethorphan 10 ml PO TID PRN 03/24/20 04/02/20 [Promethazine-Dm 6.25-15 mg/5Ml] HYDROcodone/APAP 10-325MG [[place] 1 tab PO Q4H PRN 04/02/20 04/02/20 10-325] Previous Rx's Medication Instructions Recorded Acetaminophen Tab [Tylenol] 1,000 mg PO TID PRN 20 Days tab 02/28/20 Ipratropium-Albuterol Nebulize 3 ml INHALATION RT-QID PRN ml 02/28/20 [Duoneb 0.5 mg-3 mg/3 ml Soln] Pramipexole [Mirapex] 0.5 mg PO HS 30 Days tab 02/28/20 Topiramate [Topamax] 200 mg PO BID 30 Days tab 02/28/20 cloNIDine HCL [Catapres] 0.1 mg PO TID 30 Days tab 02/28/20 Miconazole 2% Vaginal Cream 1 applic VAGINAL HS #7 applic 03/29/20 [Monistat 7] Ltrsskrs-Iclsxalfa-Jfnndzxx 1 applic RIGHT EYE QID 7 Days #1 03/29/20 [Maxitrol Ophth Oint] applic Vancomycin 1,000 mg IVPB Q8H #20 vial 03/29/20 Fluconazole [Diflucan] 150 mg PO ONCE 1 Days #1 tab 06/15/20 Amoxic-Pot Clav 875-125Mg 1 tab PO Q12HR 7 Days #14 tab 08/15/20 [Augmentin 875-125] Clindamycin [Cleocin] 450 mg PO Q8H 7 Days #63 capsule 08/15/20 Allergies Allergy/AdvReac Type Severity Reaction Status Date / Time NSAIDS (Non-Steroidal Allergy Dyspnea Verified 08/14/20 23:37 Anti-Inflamma prednisone AdvReac makes Verified 08/14/20 23:37 patient "mean" Sulfa (Sulfonamide AdvReac Rash/Hives Verified 08/14/20 23:37 Antibiotics) sulfamethoxazole AdvReac Rash/Hives Verified 08/14/20 23:37 [From Bactrim] trimethoprim [From Bactrim] AdvReac Rash/Hives Verified 08/14/20 23:37 Review of Systems ROS Statement: Those systems with pertinent positive or pertinent negative responses have been documented in the HPI. ROS Other: All systems not noted in ROS Statement are negative. Past Medical History Past Medical History: Fibromyalgia, Pneumonia Additional Past Medical History / Comment(s): Achalasia cardia, dysphagia, chronic back pain, DDD, herniated discs, bilateral carpal tunnel syndrome, DJD, cyst on kidney, hypoglycemia, MS, pleurisy, right periorbital infection. History of Any Multi-Drug Resistant Organisms: MRSA Date of last positivie culture/infection: 03/25/20 MDRO Source:: Face Past Surgical History: Appendectomy, Section, Orthopedic Surgery, Tubal Ligation Additional Past Surgical History / Comment(s): c section x 3, EGD, Right knee surgery, robotic surgery for achalasia cardia-pt unclear, Past Anesthesia/Blood Transfusion Reactions: Motion Sickness Past Psychological History: ADD/ADHD, Anxiety, Bipolar, Depression, PTSD Smoking Status: Current every day smoker Past Alcohol Use History: Occasional Past Drug Use History: Cocaine, Marijuana - Past Family History Father Family Medical History: Hyperlipidemia, Hypertension Mother Family Medical History: Fibromyalgia Additional Family Medical History / Comment(s): HIATAL HERNIA OSTEOPSORIS, DDD General Exam - General Exam Comments Initial Comments: GENERAL: Patient is well-developed and well-nourished. Patient is nontoxic and in no acute distress. HEAD: Atraumatic, normocephalic. EYES: Pupils equal round and reactive to light, extraocular movements intact, sclera anicteric, conjunctiva are normal. Eyelids were unremarkable. ENT: TMs normal, nares patent, oropharynx clear without exudates. Moist mucous membranes. Patient has what appears to be a scab on the left lower cheek, there is some mild swelling and noted to the left cheek as well, does not fall below the jawline. There is some very mild erythema around the scab but no spreading erythema. She does have some mild pain with palpation. Visible abscess seen. NECK: Normal range of motion, supple without lymphadenopathy or JVD. LUNGS: Unlabored respirations. Breath sounds clear to auscultation bilaterally and equal. No wheezes rales or rhonchi. HEART: Regular rate and rhythm without murmurs, rubs or gallops. ABDOMEN: Soft, nontender, normoactive bowel sounds. No guarding, no rebound. No masses appreciated. : Deferred MUSCULOSKELETAL: Normal extremities with adequate strength and normal range of motion, no pitting or edema. No clubbing or cyanosis. NEUROLOGICAL: Patient is alert and oriented x 3. Motor and sensory are also intact. Cranial nerves II through XII grossly intact. Symmetrical smile. Normal speech, normal gait. PSYCH: Normal mood, normal affect. SKIN: Warm, Dry, normal turgor, no rashes. See above. Limitations: no limitations Course Vital Signs 08/14/20 23:34 Temperature 98.3 F Pulse Rate 97 Respiratory 16 Rate Blood Pressure 126/98 O2 Sat by Pulse 99 Oximetry Medical Decision Making - Medical Decision Making Patient is a 35-year-old female here for an abscess of the left face she just noticed today. She does have mild swelling to the left cheek, mild cellulitis noted. No visible abscess seen. Her vitals are stable, no fevers. Patient will be started on 2 separate antibiotics, given medicine for pain. First dose given here in the ER. I discussed the patient is important that she picks up the medication tomorrow morning and takes as prescribed. She needs to follow up with her PCP. Return parameters were discussed with the patient and she verbalized understanding. Case discussed with Dr. Gutierrez. Disposition Clinical Impression: Cellulitis of left external cheek Disposition: HOME SELF-CARE Condition: Stable Instructions (If sedation given, give patient instructions): Cellulitis (ED) Additional Instructions: Please return to the Emergency Department if symptoms worsen or any other concerns. Take both antibiotics as prescribed, starting tomorrow morning. Take Tylenol for discomfort, may take Tylenol #3's for more severe pain. Follow-up with your PCP in 1-3 days. Prescriptions: Amoxic-Pot Clav 875-125Mg [Augmentin 875-125] 1 tab PO Q12HR 7 Days #14 tab Clindamycin [Cleocin] 450 mg PO Q8H 7 Days #63 capsule Is patient prescribed a controlled substance at d/c from ED?: No Referrals: Frederick Harry DO [Primary Care Provider] - 1-2 days Time of Disposition: 00:32
[2020-08-15 01:50] VITALS: BP 133/82; PULSE 68
== END 2020-08-15 01:50 | disposition home or self-care (01) ==
LOC: EC 23:30
DX: L03.211 Cellulitis of face (principal); M79.7 Fibromyalgia; F17.200 Nicotine dependence, unspecified, uncomplicated; F12.90 Cannabis use, unspecified, uncomplicated; F41.9 Anxiety disorder, unspecified; F90.9 Attention-deficit hyperactivity disorder, unspecified type; Z90.49 Acquired absence of other specified parts of digestive tract; Z98.51 Tubal ligation status
CPT/HCPCS: 99283; 96372; J2270

== ENCOUNTER 2020-09-20 18:39 | Emergency (ER) | payer OTHER ==
[2020-09-20 18:55] VITALS: BP 114/83; PULSE 71; RESP 18; TEMP 97.4
[2020-09-20] MEDS ORDERED: ALPRAZolam 1 MG TAB PO STA (19:16)
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
== END 2020-09-20 20:18 | disposition left against medical advice (07) ==
LOC: EC 18:39
DX: M25.561 Pain in right knee (principal); M25.521 Pain in right elbow; M25.511 Pain in right shoulder; M25.551 Pain in right hip; M79.7 Fibromyalgia; F31.9 Bipolar disorder, unspecified; F90.9 Attention-deficit hyperactivity disorder, unspecified type; F17.200 Nicotine dependence, unspecified, uncomplicated; F12.90 Cannabis use, unspecified, uncomplicated; F14.90 Cocaine use, unspecified, uncomplicated; Z79.899 Other long term (current) drug therapy; Z88.1 Allergy status to other antibiotic agents; Z88.6 Allergy status to analgesic agent; Z88.2 Allergy status to sulfonamides; Z88.8 Allergy status to other drugs, medicaments and biological substances; V13.4XXA Pedal cycle driver injured in collision with car, pick-up truck or van in traffic accident, initial encounter; Y92.410 Unspecified street and highway as the place of occurrence of the external cause
CPT/HCPCS: 99284

== ENCOUNTER 2020-10-06 12:43 | Inpatient (IN) | payer OTHER ==
[2020-10-06] MEDS ORDERED: SODIUM CHLORIDE 0.9% 1,000 ML IV STA (12:55)
--- NOTE | 2020-10-06 12:59 | ED ---
General Adult HPI - General Stated complaint: Overdose Time Seen by Provider: 10/06/20 12:43 Source: patient, EMS, RN notes reviewed, old records reviewed - History of Present Illness Initial comments: this is a 35-year-old female who is brought in by EMS for suicide attempt by overdosing. Patient states she took trazodone Wellbutrin and Celexa but she does not how many she states she took it at 3 AM. According to EMS the natalya gladys was there and he believes that she took just prior to him calling EMS she completely denies this and states she took it early in the morning. Again patient doesn't know how many pills she took but she states it was a handful. Patient is feeling extremely fatigued. Patient also was nauseated on the way in. Patient denies any other symptoms at this time. Patient states yesterday she did cut her left wrist superficially at about 5 PM. - Related Data Home Medications Medication Instructions Recorded Confirmed Albuterol Sulfate [Albuterol 2 puff INHALATION RT-Q6H PRN 02/24/20 04/02/20 Sulfate Hfa] Cetirizine HCl 10 mg PO HS 02/24/20 04/02/20 Gabapentin [Neurontin] 800 mg PO TID 02/24/20 04/02/20 Cephalexin [Keflex] 500 mg PO Q6H 03/24/20 04/02/20 Diclofenac Sodium Gel [Voltaren 4 gm TOPICAL QID PRN 03/24/20 04/02/20 Gel] Lisdexamfetamine Dimesylate 60 mg PO QAM 03/24/20 04/02/20 [Vyvanse] Promethazine/Dextromethorphan 10 ml PO TID PRN 03/24/20 04/02/20 [Promethazine-Dm 6.25-15 mg/5Ml] HYDROcodone/APAP 10-325MG [[place] 1 tab PO Q4H PRN 04/02/20 04/02/20 10-325] Previous Rx's Medication Instructions Recorded Acetaminophen Tab [Tylenol] 1,000 mg PO TID PRN 20 Days tab 02/28/20 Ipratropium-Albuterol Nebulize 3 ml INHALATION RT-QID PRN ml 02/28/20 [Duoneb 0.5 mg-3 mg/3 ml Soln] Pramipexole [Mirapex] 0.5 mg PO HS 30 Days tab 02/28/20 Topiramate [Topamax] 200 mg PO BID 30 Days tab 02/28/20 cloNIDine HCL [Catapres] 0.1 mg PO TID 30 Days tab 02/28/20 Miconazole 2% Vaginal Cream 1 applic VAGINAL HS #7 applic 03/29/20 [Monistat 7] Mqflwrnw-Fbqozzzrh-Qjaudxix 1 applic RIGHT EYE QID 7 Days #1 03/29/20 [Maxitrol Ophth Oint] applic Vancomycin 1,000 mg IVPB Q8H #20 vial 03/29/20 Fluconazole [Diflucan] 150 mg PO ONCE 1 Days #1 tab 06/15/20 Amoxic-Pot Clav 875-125Mg 1 tab PO Q12HR 7 Days #14 tab 08/15/20 [Augmentin 875-125] Clindamycin [Cleocin] 450 mg PO Q8H 7 Days #63 capsule 08/15/20 Allergies Allergy/AdvReac Type Severity Reaction Status Date / Time NSAIDS (Non-Steroidal Allergy Dyspnea Verified 10/06/20 13:04 Anti-Inflamma prednisone AdvReac makes Verified 10/06/20 13:04 patient "mean" Sulfa (Sulfonamide AdvReac Rash/Hives Verified 10/06/20 13:04 Antibiotics) sulfamethoxazole AdvReac Rash/Hives Verified 10/06/20 13:04 [From Bactrim] trimethoprim [From Bactrim] AdvReac Rash/Hives Verified 10/06/20 13:04 Review of Systems ROS Statement: Those systems with pertinent positive or pertinent negative responses have been documented in the HPI. ROS Other: All systems not noted in ROS Statement are negative. Past Medical History Past Medical History: Fibromyalgia, Pneumonia Additional Past Medical History / Comment(s): Achalasia cardia, dysphagia, chronic back pain, DDD, herniated discs, bilateral carpal tunnel syndrome, DJD, cyst on kidney, hypoglycemia, MS, pleurisy, right periorbital infection. History of Any Multi-Drug Resistant Organisms: MRSA Date of last positivie culture/infection: 03/25/20 MDRO Source:: Face Past Surgical History: Appendectomy, Section, Orthopedic Surgery, Tubal Ligation Additional Past Surgical History / Comment(s): c section x 3, EGD, Right knee surgery, robotic surgery for achalasia cardia-pt unclear, Past Anesthesia/Blood Transfusion Reactions: Motion Sickness Past Psychological History: ADD/ADHD, Anxiety, Bipolar, Depression, PTSD Smoking Status: Current every day smoker Past Alcohol Use History: Occasional Past Drug Use History: Cocaine, Marijuana - Past Family History Father Family Medical History: Hyperlipidemia, Hypertension Mother Family Medical History: Fibromyalgia Additional Family Medical History / Comment(s): HIATAL HERNIA OSTEOPSORIS, DDD General Exam - General Exam Comments Initial Comments: GENERAL: Patient is well-developed and well-nourished. Patient is nontoxic and well- hydrated and is in no acute distress. Patient is slurring her speech and is slow to respond. ENT: Neck is soft and supple. No significant lymphadenopathy is noted. Oropharynx is clear. Moist mucous membranes. Neck has full range of motion without eliciting any pain. EYES: The sclera were anicteric and conjunctiva were pink and moist. Extraocular movements were intact and pupils were equal round and reactive to light. Eyelid s were unremarkable. PULMONARY: Unlabored respirations. Good breath sounds bilaterally. No audible rales rhonchi or wheezing was noted. CARDIOVASCULAR: There is a regular rate and rhythm without any murmurs gallops or rubs. ABDOMEN: Soft and nontender with normal bowel sounds. SKIN: Skin is clear with no lesions or rashes and otherwise unremarkable. NEUROLOGIC: Patient is alert and oriented x3. Cranial nerves II through XII are grossly intact. Motor and sensory are also intact. Normal speech, volume and content. Symmetrical smile. MUSCULOSKELETAL: Normal extremities with adequate strength and full range of motion. LYMPHATICS: No significant lymphadenopathy is noted PSYCHIATRIC: Normal psychiatric evaluation. Course Vital Signs 10/06/20 10/06/20 12:58 13:39 Temperature 98.8 F 98.1 F Pulse Rate 89 Respiratory 16 Rate Blood Pressure 141/95 O2 Sat by Pulse 98 Oximetry Medical Decision Making - Medical Decision Making EKG shows normal sinus rhythm at [address] interval is 134 QRSs 1 week QT interval 4:30 QTC is 517 per patient's EKG does show prolonged QT intervals. Patient received Ativan while in the emergency department. Poison control was called and they recommended patient be admitted and observed I spoke with Dr. Guillermo and she agreed to admit the patient admitted the patient and wrote admitting orders. - Lab Data Result diagrams: 10/06/20 13:23 10/06/20 13:23 Lab Results 10/06/20 10/06/20 Range/Units 13:23 13:23 WBC 13.8 H (3.8-10.6) k/uL RBC 4.14 (3.80-5.40) m/uL Hgb 12.6 (11.4-16.0) gm/dL Hct 37.2 (34.0-46.0) % MCV 90.0 (80.0-100.0) fL MCH 30.4 (25.0-35.0) pg MCHC 33.7 (31.0-37.0) g/dL RDW 14.4 (11.5-15.5) % Plt Count 327 (150-450) k/uL MPV 7.6 Neutrophils % 83 % Lymphocytes % 7 % Monocytes % 6 % Eosinophils % 2 % Basophils % 0 % Neutrophils # 11.5 H (1.3-7.7) k/uL Lymphocytes # 1.0 (1.0-4.8) k/uL Monocytes # 0.9 (0-1.0) k/uL Eosinophils # 0.2 (0-0.7) k/uL Basophils # 0.1 (0-0.2) k/uL Potassium 3.5 (3.5-5.1) mmol/L Disposition Clinical Impression: Drug overdose, intentional, Suicide attempt, Superficial laceration of wrist Disposition: ADMITTED IP TO THIS HOSP Referrals: Frederick Harry DO [Primary Care Provider] - 1-2 days Time of Disposition: 13:42
[2020-10-06 13:29] LABS: Basophils # (A) 0.1 k/uL (0-0.2); Basophils % (A) 0 %; Eosinophils # (A) 0.2 k/uL (0-0.7); Eosinophils % (A) 2 %; HCT 37.2 % (34.0-46.0); HGB 12.6 gm/dL (11.4-16.0); Lymphocytes % (A) 7 %; MCH 30.4 pg (25.0-35.0); MCHC 33.7 g/dL (31.0-37.0); Mean Platelet Volume 7.6; Monocytes # (A) 0.9 k/uL (0-1.0); Monocytes % (A) 6 %; Neutrophils # (A) 11.5 k/uL (1.3-7.7); Neutrophils % (A) 83 %; Platelet Count 327 k/uL (150-450); RBC 4.14 m/uL (3.80-5.40); RDW 14.4 % (11.5-15.5); WBC 13.8 k/uL (3.8-10.6)
[2020-10-06 13:42] LABS: Potassium 3.5 mmol/L (3.5-5.1)
[2020-10-06 13:43] LABS: ALT 9 U/L (4-34); AST 18 U/L (14-36); Acetaminophen <10.0 ug/mL; African American GFR (CKD) >90 (>60 ml/min/1.73 sqM); Albumin 4.1 g/dL (3.5-5.0); Alcohol <10 mg/dL; Alkaline Phosphatase 71 U/L (38-126); Anion Gap 10 mmol/L; Blood Urea Nitrogen 11 mg/dL (7-17); Calcium 9.3 mg/dL (8.4-10.2); Carbon Dioxide 21 mmol/L (22-30); Chloride 112 mmol/L (98-107); Glucose 106 mg/dL (74-99); Non-African American GFR(CKD) >90 (>60 ml/min/1.73 sqM); Salicylate <1.0 mg/dL; Sodium 143 mmol/L (137-145); Total Bilirubin 0.2 mg/dL (0.2-1.3); Total Protein 7.1 g/dL (6.3-8.2)
[2020-10-06] MEDS ORDERED: SODIUM CHLORIDE 0.9% 1,000 ML IV ONE (13:43)
[2020-10-06] MEDS ORDERED: LORazepam 2 MG/ML INJ IV STA ×2 (13:43→21:16)
[2020-10-06] MEDS ORDERED: ALBUTEROL NEBULIZED 2.5 MG/3 ML INHALATION PRN (16:02)
[2020-10-06] MEDS ORDERED: POTASSIUM CHLORIDE 10 MEQ in WATER FOR INJECTION 1 100ML.BAG IVPB STA (21:14)
[2020-10-06] MEDS: MAGNESIUM SULFATE-D5W PMX 1 GM in DEXTROSE/WATER 1 100ML.BAG IVPB SCH ×2 (22:00→23:38)
[2020-10-06] MEDS ORDERED: POTASSIUM CHLORIDE 10 MEQ in WATER FOR INJECTION 1 100ML.BAG IVPB ONE (22:14)
[2020-10-06] MEDS ORDERED: LORazepam 2 MG/ML INJ IV PRN (22:35)
[2020-10-06 23:29] LABS: Amphetamine Screen,Urine Not Detected (NotDetected); Barbiturate Screen,Urine Not Detected (NotDetected); Benzodiazepines Screen,Urine Detected (NotDetected); Cocaine Screen,Urine Detected (NotDetected); Methadone Screen, Urine Not Detected (NotDetected); Opiate Screen,Urine Detected (NotDetected); Oxycodone Screen, Urine Not Detected (NotDetected); Phencyclidine Screen,Urine Not Detected (NotDetected); Tricyclic Antidepressant,Urine Not Detected (NotDetected); Urn Cannabinoid Scrn Detected (NotDetected)
[2020-10-06] MEDS: DEXTROSE 5% IN WATER 1,000 ML with SODIUM BICARB (1 MEQ/ML) 50 ML IV SCH (23:37)
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
[2020-10-07 06:10] LABS: Basophils % (A) 0 %; Eosinophils # (A) 0.1 k/uL (0-0.7); Eosinophils % (A) 1 %; HCT 33.2 % (34.0-46.0); HGB 11.2 gm/dL (11.4-16.0); Lymphocytes # (A) 1.3 k/uL (1.0-4.8); Lymphocytes % (A) 11 %; MCH 30.2 pg (25.0-35.0); MCHC 33.6 g/dL (31.0-37.0); MCV 90.1 fL (80.0-100.0); Mean Platelet Volume 7.9; Monocytes # (A) 0.7 k/uL (0-1.0); Monocytes % (A) 6 %; Neutrophils # (A) 9.5 k/uL (1.3-7.7); Neutrophils % (A) 80 %; Platelet Count 308 k/uL (150-450); RBC 3.69 m/uL (3.80-5.40); RDW 14.7 % (11.5-15.5); WBC 11.8 k/uL (3.8-10.6)
[2020-10-07] MEDS: ACETAMINOPHEN TAB 325 MG TAB PO PRN (08:45)
[2020-10-07 09:57] LABS: African American GFR (CKD) 109.2 (60.0-200.0); Albumin 3.8 g/dL (3.80-4.90); Albumin/Globulin Ratio 1.58 (1.60-3.17); BUN/Creat Ratio 8.75 Ratio (12.00-20.00); Calcium 8.5 mg/dL (8.7-10.3); Globulin 2.4 g/dL (1.6-3.3); Magnesium 2.4 mg/dL (1.5-2.4); Non-African American GFR(CKD) 94.2 (60.0-200.0); Potassium 3.6 mmol/L (3.5-5.5); Total Bilirubin 0.1 mg/dL (0.3-1.2); Total Protein 6.2 g/dL (6.2-8.2)
[2020-10-07] MEDS ORDERED: DICLOFENAC SODIUM GEL 100 GM TUBE TOPICAL PRN (10:51)
[2020-10-07] MEDS: NICOTINE 14MG/24HR PATCH TRANSDERM SCH (11:47)
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
[2020-10-07] MEDS: GLATIRAMER ACETATE 20 MG/ML SQ SCH (14:40)
[2020-10-07] MEDS: cloNIDine HCL 0.1 MG TAB PO SCH ×2 (16:42→21:13)
[2020-10-07 20:26] VITALS: RESP 16
[2020-10-07] MEDS: DEXTROSE 5% IN WATER 1,000 ML with SODIUM BICARB (1 MEQ/ML) 50 ML IV SCH (20:54)
[2020-10-07] MEDS ORDERED: PRAMIPEXOLE 0.5 MG TAB PO SCH (21:00)
--- NOTE | 2020-10-08 01:51 | P.PN ---
Subjective Progress Note Date: 10/07/20 Principal diagnosis: Drug overdose Ms. Dupree is a 35-year-old female with a past medical history of fibromyalgia, chronic low back pain, herniated disks, bilateral carpal tunnel syndrome, anxiety with depression, PTSD brought in by EMS for suicide attempt due to overdose. Patient is confused so most of the history is taken from the ED notes and nursing staff report. She reports that she could have taken trazodone, Wellbutrin and Celexa around 3 AM in an attempt to kill herself. She also mentions about cutting her left wrist superficially yesterday. Patient also mentions about having nausea and feeling drowsy during conversation. In the ER at the time of admission patient's vital signs temperature 98.8, heart rate 89, blood pressure 141/95, respiratory rate 16, saturating at 98% on room air patient had an EKG done showing normal sinus rhythm with prolonged QT, QT/QTC 430/517. On reviewing her labs white count of 13.8, hemoglobin 12.6, platelet 327. Sodium 143, potassium 3.5, chloride 112, bicarb 21, BUN 11, creatinine 0.82. Urine negative. AST 18, ALT 9. Urine drug screen is positive for opioids, benzos, cocaine and marijuana. On 10/07/2020 -patient is seen and examined at the bedside. Patient has a sitter at the bedside. As per discussion with nursing staff patient became agitated and she did received a dose of Ativan that calmed her down. Currently patient appears to be comfortable sitting up on her bed appears to be no acute distress. Patient denies having any chest pain or palpitations. She denies having any cough or difficulty breathing. No abdominal pain nausea vomiting or diarrhea. No dysuria or hematuria. She denies having any fevers chills or rigors. On reviewing the vitals patient's temperature 98.9 maximum, heart rate 74, respiratory rate 20, blood pressure 143/89, saturating at 98% on room air. On reviewing her labs white count of 11.8, hemoglobin 11.2, platelets 308. Sodium 143, potassium 3.6, chloride 115, bicarb 22, BUN 7, creatinine 0.8. Active Medications Acetaminophen (Acetaminophen Tab 325 Mg Tab) 650 mg PO Q6HR PRN PRN Reason: Fever and/ or Pain Last Admin: 10/07/20 08:45 Dose: 650 mg Documented by: Albuterol Sulfate (Albuterol Nebulized 2.5 Mg/3 Ml) 2.5 mg INHALATION RT-Q6H PRN PRN Reason: Shortness Of Breath Clonidine (Clonidine Hcl 0.1 Mg Tab) 0.1 mg PO TID [facility] Last Admin: 10/07/20 21:13 Dose: 0.1 mg Documented by: Diclofenac Sodium (Diclofenac Sodium Gel 100 Gm Tube) 4 gm TOPICAL QID PRN PRN Reason: Pain Sodium Bicarbonate 50 ml/ (Dextrose/Water) 1,050 mls @ 50 mls/hr IV .Q21H [facility] Last Admin: 10/07/20 20:54 Dose: Not Given Documented by: Lorazepam (Lorazepam 2 Mg/Ml Inj) 1 mg IV Q4HR PRN PRN Reason: Agitation or Acute Anxiety Last Admin: 10/07/20 16:43 Dose: 1 mg Documented by: Nicotine (Nicotine 14mg/24hr Patch) 1 patch TRANSDERM DAILY [facility] Last Admin: 10/07/20 11:47 Dose: 1 patch Documented by: Non-Formulary Medication (Glatiramer Acetate [Copaxone]) 20 mg SQ DAILY [facility] Last Admin: 10/07/20 14:40 Dose: Not Given Documented by: Pramipexole Dihydrochloride (Pramipexole 0.5 Mg Tab) 0.5 mg PO HS [facility] Last Admin: 10/07/20 21:13 Dose: 0.5 mg Documented by: Objective - Vital Signs Vital signs: Vital Signs Temp 98.1 F 10/07/20 05:00 Pulse 80 10/07/20 05:00 Resp 18 10/07/20 05:00 BP 136/86 10/07/20 05:00 Pulse Ox 99 10/07/20 05:00 Intake & Output 10/06/20 10/07/20 10/07/20 18:59 06:59 18:59 Intake Total 240 1150 Output Total 400 Balance 240 750 Weight 68.039 kg Intake: Intake, IV Titration 1050 Amount Dextrose 5% in Water 1, 350 000 ml @ 50 mls/hr IV . Q21H GOMEZ with Sodium Bicarb (1 Meq/ml) 50 ml Rx#:[id number] Magnesium Sulfate-D5w Pmx 200 1 gm In Dextrose/Water 1 100ml.bag @ 100 mls/hr IVPB Q1H GOMEZ Rx#: [id number] Potassium Chloride 10 meq 200 In Water For Injection 1 100ml.bag @ 100 mls/hr IVPB ONCE STA Rx#: [id number] Sodium Chloride 0.9% 1, 300 000 ml @ 100 mls/hr IV . Q10H ONE Rx#:[id number] Oral 240 100 Output: Urine 400 Straight 400 Other: Voiding Method Bedpan # Voids 0 3 - Exam PHYSICAL EXAMINATION: GENERAL: no acute distress, AAO X 3 HEENT: Pupils are round and equally reacting to light. EOMI. No scleral icterus. CARDIOVASCULAR: S1 and S2 present. No murmurs, rubs, or gallops. PULMONARY: Chest is clear to auscultation, no wheezing or crackles. ABDOMEN: Soft, nontender, nondistended, normoactive bowel sounds. No palpable organomegaly. MUSCULOSKELETAL: No joint swelling or deformity. EXTREMITIES: Right upper extremity - superficial slit tolbert on the wrist NEUROLOGICAL: Able to move all 4 extremities. SKIN:No rash - Labs CBC & Chem 7: 10/07/20 05:48 10/07/20 05:48 Labs: Abnormal Lab Results - Last 24 Hours (Table) 10/06/20 10/06/20 10/06/20 Range/Units 13:23 13:23 23:07 WBC 13.8 H (3.8-10.6) k/uL RBC (3.80-5.40) m/uL Hgb (11.4-16.0) gm/dL Hct (34.0-46.0) % Neutrophils # 11.5 H (1.3-7.7) k/uL Chloride 112 H (98-107) mmol/L Carbon Dioxide 21 L (22-30) mmol/L BUN (9.0-27.0) mg/dL BUN/Creatinine Ratio (12.00-20.00) Ratio Glucose 106 H (74-99) mg/dL Calcium (8.7-10.3) mg/dL Total Bilirubin (0.3-1.2) mg/dL Albumin/Globulin Ratio (1.60-3.17) g/dL Urine Opiates Screen Detected H (NotDetected) U Benzodiazepines Scrn Detected H (NotDetected) Urine Cocaine Screen Detected H (NotDetected) U Marijuana (THC) Screen Detected H (NotDetected) 10/07/20 10/07/20 Range/Units 05:48 05:48 WBC 11.8 H (3.8-10.6) k/uL RBC 3.69 L (3.80-5.40) m/uL Hgb 11.2 L (11.4-16.0) gm/dL Hct 33.2 L (34.0-46.0) % Neutrophils # 9.5 H (1.3-7.7) k/uL Chloride 115 H (98-107) mmol/L Carbon Dioxide (22-30) mmol/L BUN 7.0 L (9.0-27.0) mg/dL BUN/Creatinine Ratio 8.75 L (12.00-20.00) Ratio Glucose 143 H (74-99) mg/dL Calcium 8.5 L (8.7-10.3) mg/dL Total Bilirubin 0.1 L (0.3-1.2) mg/dL Albumin/Globulin Ratio 1.58 L (1.60-3.17) g/dL Urine Opiates Screen (NotDetected) U Benzodiazepines Scrn (NotDetected) Urine Cocaine Screen (NotDetected) U Marijuana (THC) Screen (NotDetected) Assessment and Plan Assessment: ASSESSMENT Suicide attempt with drug overdose Superficial laceration of the right wrist Urine drug screen positive for cocaine, benzos, opiates and marijuana History of fibromyalgia Achalasia cardia Chronic low back pain Herniated disc Bilateral carpal tunnel syndrome Anxiety with depression PTSD Bipolar disorder Nicotine dependence PLAN: Patient had suicidal attempt with Wellbutrin, Celexa, trazodone. Poison control has been contacted, advised to check her temperature every 4 hour since this afternoon Patient is at risk for prolonged QT, continue with daily monitoring. To mainatin potassium above 4 and magensium above 2. Continue with Ativan for agitation. Continue with IV fluids. Tylenol on board for hyperthermia. Psychiatric services have been consulted and appreciate their recommendations. . Patient has a sitter at bedside.Continue with suicidal precautions. Further recommendations to follow depending on the progress of the patient.
[2020-10-08] MEDS ORDERED: Potassium Replacement Protocol 1 EACH MISC MISCELLANE PRN (03:03)
[2020-10-08] MEDS ORDERED: Magnesium Replacement Protocol 1 EACH MISC MISCELLANE PRN (03:03)
[2020-10-08 04:51] VITALS: TEMP 98.1
[2020-10-08 06:08] LABS: Basophils % (A) 0 %; Eosinophils # (A) 0.2 k/uL (0-0.7); Eosinophils % (A) 2 %; HCT 33.8 % (34.0-46.0); HGB 11.1 gm/dL (11.4-16.0); Lymphocytes # (A) 1.5 k/uL (1.0-4.8); Lymphocytes % (A) 11 %; MCH 29.7 pg (25.0-35.0); MCHC 32.9 g/dL (31.0-37.0); MCV 90.3 fL (80.0-100.0); Mean Platelet Volume 8.7; Monocytes # (A) 0.8 k/uL (0-1.0); Monocytes % (A) 6 %; Neutrophils # (A) 10.5 k/uL (1.3-7.7); Neutrophils % (A) 80 %; Platelet Count 281 k/uL (150-450); RBC 3.75 m/uL (3.80-5.40); RDW 14.8 % (11.5-15.5); WBC 13.1 k/uL (3.8-10.6)
[2020-10-08] MEDS: cloNIDine HCL 0.1 MG TAB PO SCH (07:32)
[2020-10-08] MEDS: NICOTINE 14MG/24HR PATCH TRANSDERM SCH (07:32)
[2020-10-08] MEDS: GLATIRAMER ACETATE 20 MG/ML SQ SCH (07:33)
[2020-10-08 09:37] LABS: African American GFR (CKD) 94.7 (60.0-200.0); Anion Gap 9.6 mmol/L (4.00-12.00); BUN/Creat Ratio 7.78 Ratio (12.00-20.00); Calcium 9.1 mg/dL (8.7-10.3); Carbon Dioxide 20.4 mmol/L (21.6-31.8); Magnesium 1.8 mg/dL (1.5-2.4); Non-African American GFR(CKD) 81.7 (60.0-200.0); Potassium 3.3 mmol/L (3.5-5.5)
[2020-10-08] MEDS: POTASSIUM CHLORIDE ER 20 MEQ TAB.ER PO SCH ×2 (09:57→11:05)
[2020-10-08] MEDS ORDERED: MAGNESIUM SULFATE-D5W PMX 1 GM in DEXTROSE/WATER 1 100ML.BAG IVPB SCH (10:00)
[2020-10-08] MEDS: ACETAMINOPHEN TAB 325 MG TAB PO PRN (11:20)
[2020-10-08 11:42] VITALS: BP 167/93; PULSE 70
--- NOTE | 2020-10-08 23:17 | P.DS ---
Providers Date of admission: 10/06/20 13:43 Expected date of discharge: 10/08/20 Attending physician: Chelsea Slater Consults: 10/06/20 13:43 Consult Physician Urgent Consulting Provider: Zeeshan Ann Reason/Comments: Suicide attempt, drug overdose Do you want consulting provider notified?: Yes Primary care physician: [facility] Course: Ms. Dupree is a 35-year-old female with a past medical history of fibromyalgia, chronic low back pain, herniated disks, bilateral carpal tunnel syndrome, anxiety with depression, PTSD brought in by EMS for suicide attempt due to overdose. Patient is confused so most of the history is taken from the ED notes and nursing staff report. She reports that she could have taken trazodone, Wellbutrin and Celexa around 3 AM in an attempt to kill herself. She also mentions about cutting her left wrist superficially yesterday. Patient also mentions about having nausea and feeling drowsy during conversation. In the ER at the time of admission patient's vital signs temperature 98.8, heart rate 89, blood pressure 141/95, respiratory rate 16, saturating at 98% on room air patient had an EKG done showing normal sinus rhythm with prolonged QT, QT/QTC 430/517. On reviewing her labs white count of 13.8, hemoglobin 12.6, platelet 327. Sodium 143, potassium 3.5, chloride 112, bicarb 21, BUN 11, creatinine 0.82. Urine negative. AST 18, ALT 9. Urine drug screen is positive for opioids, benzos, cocaine and marijuana. Hospital course -as the patient overdosed on Wellbutrin and Celexa trazodone she was monitored with every temperature checks as she was at risk for developing serotonin syndrome. Continue to monitor over telemetry for prolonged QT. Patient became agitated couple of times and received Ativan to calm her down. Psychiatric services have been consulted, accepted the patient to inpatient psych after medically cleared. This morning patient appears to be comfortably no acute distress. Patient vital signs reviewed temperature 98.1, heart rate 70, respiratory 16, blood pressure 148/83, saturating at 92% on room air. Patient's labs have been reviewed from this morning showing white count of 13.1, hemoglobin 11.1, platelets 281. Sodium 143, potassium 3.7, chloride 113, bicarb 20, BUN 7, creatinine 0.9. Vital Signs - 24 hr 10/08/20 10/08/20 10/08/20 04:35 04:41 04:48 Temperature 98.1 F Pulse Rate 75 78 Pulse Rate [ 74 Pulse Oximetery ] Respiratory 16 Rate Blood Pressure 148/83 [Left Arm] O2 Sat by Pulse 92 L Oximetry 10/08/20 11:18 Temperature 98.1 F Pulse Rate Pulse Rate [ 70 Pulse Oximetery ] Respiratory 16 Rate Blood Pressure 167/93 [Left Arm] O2 Sat by Pulse 96 Oximetry PHYSICAL EXAMINATION: GENERAL: Sitting comfortably in bed appears to be no acute distress. HEENT: Pupils are round and equally reacting to light. EOMI. No scleral icterus. No conjunctival pallor. Normocephalic, atraumatic. No pharyngeal erythema. No thyromegaly. CARDIOVASCULAR: S1 and S2 present. No murmurs, rubs, or gallops. PULMONARY: Chest is clear to auscultation, no wheezing or crackles. ABDOMEN: Soft, nontender, nondistended, normoactive bowel sounds. No palpable organomegaly. Vaginal bleeding ,she thinks she might be on her period MUSCULOSKELETAL: No joint swelling or deformity. EXTREMITIES: Right upper extremity - superficial slit tolbert on the wrist NEUROLOGICAL: Able to move all 4 extremities. SKIN:No rash DISCHARGE DIAGNOSIS Suicide attempt with drug overdose Superficial laceration of the right wrist Urine drug screen positive for cocaine, benzos, opiates and marijuana History of fibromyalgia Achalasia cardia Chronic low back pain Herniated disc Bilateral carpal tunnel syndrome Anxiety with depression PTSD Bipolar disorder Nicotine dependence Patient is being discharged to inpatient psych unit. More than 35 minutes spent towards the discharge of the patient, with more than 50% of the time spent towards counseling and coordination. Plan - Discharge Summary Discharge Rx Participant: No New Discharge Prescriptions: No Action Albuterol Sulfate [Albuterol Sulfate Hfa] 2 puff INHALATION RT-Q6H PRN PRN Reason: Shortness Of Breath Gabapentin [Neurontin] 800 mg PO TID cloNIDine HCL [Catapres] 0.1 mg PO TID 30 Days tab Pramipexole [Mirapex] 0.5 mg PO HS 30 Days tab Topiramate [Topamax] 200 mg PO BID 30 Days tab Acetaminophen Tab [Tylenol] 1,000 mg PO TID PRN 20 Days tab PRN Reason: Pain Diclofenac Sodium Gel [Voltaren Gel] 4 gm TOPICAL QID PRN PRN Reason: Pain Lisdexamfetamine Dimesylate [Vyvanse] 60 mg PO DAILY traZODone HCL [Desyrel] 100 mg PO HS buPROPion XL [Wellbutrin Xl] 300 mg PO DAILY Citalopram Hydrobromide [CeleXA] 40 mg PO DAILY Glatiramer Acetate [Copaxone] 20 mg SQ DAILY Discharge Medication List Albuterol Sulfate [Albuterol Sulfate Hfa] 2 puff INHALATION RT-Q6H PRN 02/24/20 [History] Gabapentin [Neurontin] 800 mg PO TID 02/24/20 [History] Acetaminophen Tab [Tylenol] 1,000 mg PO TID PRN 20 Days tab 02/28/20 [Rx] Pramipexole [Mirapex] 0.5 mg PO HS 30 Days tab 02/28/20 [Rx] Topiramate [Topamax] 200 mg PO BID 30 Days tab 02/28/20 [Rx] cloNIDine HCL [Catapres] 0.1 mg PO TID 30 Days tab 02/28/20 [Rx] Diclofenac Sodium Gel [Voltaren Gel] 4 gm TOPICAL QID PRN 03/24/20 [History] Lisdexamfetamine Dimesylate [Vyvanse] 60 mg PO DAILY 03/24/20 [History] Citalopram Hydrobromide [CeleXA] 40 mg PO DAILY 10/06/20 [History] buPROPion XL [Wellbutrin Xl] 300 mg PO DAILY 10/06/20 [History] traZODone HCL [Desyrel] 100 mg PO HS 10/06/20 [History] Glatiramer Acetate [Copaxone] 20 mg SQ DAILY 10/07/20 [History] Follow up Appointment(s)/Referral(s): Frederick Harry DO [Primary Care Provider] - 1-2 days Activity/Diet/Wound Care/Special Instructions: Patient is medically clear and stable for transfer to inpatient psychiatric facility here at [facility]. Med rec to be completed for discharge Discharge Disposition: TRANSFER TO PSYCH HOSP/UNIT
== END 2020-10-08 15:49 | DRG 918 ==
LOC: EC 12:43 → 5NMEDONC 13:43
PROVIDERS: ADMIT Hospitalist; ATTEND Hospitalist
DX: T43.212A Poisoning by selective serotonin and norepinephrine reuptake inhibitors, intentional self-harm, initial encounter (principal); T43.292A Poisoning by other antidepressants, intentional self-harm, initial encounter; T43.222A Poisoning by selective serotonin reuptake inhibitors, intentional self-harm, initial encounter; R53.83 Other fatigue; K22.0 Achalasia of cardia; S61.511A Laceration without foreign body of right wrist, initial encounter; R41.0 Disorientation, unspecified; F31.9 Bipolar disorder, unspecified; G56.03 Carpal tunnel syndrome, bilateral upper limbs; F41.8 Other specified anxiety disorders; X78.9XXA Intentional self-harm by unspecified sharp object, initial encounter; M79.7 Fibromyalgia; F17.200 Nicotine dependence, unspecified, uncomplicated; M54.5 Low back pain; G89.29 Other chronic pain; F43.10 Post-traumatic stress disorder, unspecified; Z86.14 Personal history of Methicillin resistant Staphylococcus aureus infection; Z91.5 Personal history of self-harm; Z79.899 Other long term (current) drug therapy
CPT/HCPCS: 36415; 80048; 80053; 80143; 80179; 80306; 80320; 81025; 82075; 82553; 83605; 83735; 84132; 85025; 93005; 94640; 99285

== ENCOUNTER 2020-10-08 14:29 | Inpatient (IN) | payer MEDICAID ==
[2020-10-08] MEDS ORDERED: MAG HYDROX/AL HYDROX/SIMETH 30 ML CUP PO PRN (15:07)
[2020-10-08] MEDS ORDERED: LORazepam 1 MG TAB PO PRN (15:07)
[2020-10-08] MEDS ORDERED: MAGNESIUM HYDROXIDE 2,400 MG/10 ML CUP PO PRN (15:07)
[2020-10-08] MEDS ORDERED: ACETAMINOPHEN TAB 325 MG TAB PO PRN (15:07)
[2020-10-08] MEDS ORDERED: HALOPERIDOL LACTATE 5 MG/ML 1 ML VIAL IM PRN (15:13)
[2020-10-08] MEDS ORDERED: haloperidoL 5 MG TAB PO PRN (15:13)
[2020-10-08] MEDS ORDERED: LORazepam 2 MG/ML INJ IM PRN (15:13)
[2020-10-08] MEDS: GABAPENTIN 400 MG CAP PO SCH ×2 (17:33→21:00)
[2020-10-08] MEDS: cloNIDine HCL 0.1 MG TAB PO SCH ×2 (17:33→21:00)
[2020-10-08] MEDS: ACETAMINOPHEN TAB 500 MG TAB PO PRN (17:33)
[2020-10-08] MEDS: TOPIRAMATE 100 MG TAB PO SCH (20:58)
[2020-10-08] MEDS: ALBUTEROL HFA INHALER INHALATION PRN (21:34)
[2020-10-08] MEDS: PRAMIPEXOLE 0.5 MG TAB PO SCH (21:34)
[2020-10-09] MEDS: ALBUTEROL HFA INHALER INHALATION PRN ×3 (01:26→17:30)
[2020-10-09] MEDS: ACETAMINOPHEN TAB 500 MG TAB PO PRN ×2 (01:28→15:14)
[2020-10-09] MEDS: TOPIRAMATE 100 MG TAB PO SCH ×2 (07:49→20:34)
[2020-10-09] MEDS: cloNIDine HCL 0.1 MG TAB PO SCH ×2 (07:49→20:34)
[2020-10-09] MEDS: NICOTINE 14MG/24HR PATCH TRANSDERM SCH (07:49)
[2020-10-09] MEDS: GABAPENTIN 400 MG CAP PO SCH ×2 (07:49→15:14)
[2020-10-09] MEDS: DICLOFENAC SODIUM GEL 100 GM TUBE TOPICAL PRN ×2 (09:23→20:37)
[2020-10-09] MEDS ORDERED: traZODone HCL 50 MG TAB PO PRN (12:01)
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
[2020-10-09] MEDS: CITALOPRAM HYDROBROMIDE 20 MG TAB PO SCH (12:23)
[2020-10-09] MEDS: ARIPiprazole 5 MG TAB PO SCH (12:24)
[2020-10-09] MEDS: GLATIRAMER ACETATE 20 MG/ML SQ SCH (12:25)
[2020-10-09 13:23] LABS: Chol/HDL Ratio 3.3; LDL Cholesterol,Calculated 88.6 mg/dL (0.0-131.0); VLDL Calculation 17.4 mg/dL (5.00-40.00)
[2020-10-09 17:31] LABS: Hemoglobin A1C 5.1 % (4.0-6.0)
[2020-10-09] MEDS: PRAMIPEXOLE 0.5 MG TAB PO SCH (20:35)
[2020-10-09] MEDS: traZODone HCL 100 MG TAB PO PRN (20:36)
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
[2020-10-10] MEDS: GABAPENTIN 400 MG CAP PO SCH ×5 (02:25→21:09)
[2020-10-10] MEDS: ACETAMINOPHEN TAB 500 MG TAB PO PRN ×2 (02:29→11:12)
[2020-10-10] MEDS: DICLOFENAC SODIUM GEL 100 GM TUBE TOPICAL PRN ×2 (06:36→21:06)
[2020-10-10] MEDS: NICOTINE 14MG/24HR PATCH TRANSDERM SCH (08:41)
[2020-10-10] MEDS: ARIPiprazole 5 MG TAB PO SCH (08:42)
[2020-10-10] MEDS: TOPIRAMATE 100 MG TAB PO SCH ×2 (08:43→21:10)
[2020-10-10] MEDS: cloNIDine HCL 0.1 MG TAB PO SCH ×2 (08:43→21:09)
[2020-10-10] MEDS: CITALOPRAM HYDROBROMIDE 20 MG TAB PO SCH (08:44)
[2020-10-10] MEDS: GLATIRAMER ACETATE 20 MG/ML SQ SCH (08:46)
[2020-10-10] MEDS: hydrOXYzine pamoate 25 MG CAP PO PRN (08:48)
[2020-10-10] MEDS: ALBUTEROL HFA INHALER INHALATION PRN (16:40)
--- NOTE | 2020-10-10 16:42 | P.PN ---
Progress Note - Text Progress Note Date: 10/10/20 S&O: Patient was seen for routine follow-up examination in the office. She was upset and angry stating that staff members were making fun of her about her wrestling and she was growing up. Following this apparently she went the wall and needed some when necessary medication. She said she cannot bend her right little finger. But she has bluish discoloration of the skin between her right index and middle fingers which she can then close without any problem. When she was told about these discrepancy she accepted it very well. She said she just got out of bed from her sleep when recalling her and felt rather dizzy and tried to get down to the floor to avoid falling down. After talking for a while she said she is feeling better and can walk without any problem. She actually demonstrate this in the office. She said she has MS and that is another reason for her to feel dizzy. She said she had overdosed on pills since she had an argument with her live-in boyfriend. She said she doesn't want to , wants to get back with her boyfriend and have a better life. She has several diagnosis and is on several medications. She has a long history of self abusive behavior including overdosing cutting herself and has multiple piercings. This is a white ambulatory female with adequate hygiene. She is polite and cooperative. She does not show any psychomotor agitation or retardation. Her speech is spontaneous relevant and goal-directed. But she seems to have an explanation for all of her maladaptive behavior. Mood is euthymic to cheerful and affect is appropriate. She denies hallucinations or delusional thinking current suicide and homicide thoughts. She is well oriented. Good memory concentration general fund of knowledge. A&P: Continue her current medications therapy and supervision.
[2020-10-10] MEDS: traZODone HCL 100 MG TAB PO PRN (21:09)
[2020-10-10] MEDS: PRAMIPEXOLE 0.5 MG TAB PO SCH (21:10)
[2020-10-11] MEDS: ACETAMINOPHEN TAB 500 MG TAB PO PRN ×2 (05:54→15:43)
[2020-10-11] MEDS: NICOTINE 14MG/24HR PATCH TRANSDERM SCH (08:40)
[2020-10-11] MEDS: ARIPiprazole 5 MG TAB PO SCH (08:40)
[2020-10-11] MEDS: GLATIRAMER ACETATE 20 MG/ML SQ SCH (08:41)
[2020-10-11] MEDS: TOPIRAMATE 100 MG TAB PO SCH ×2 (08:41→20:07)
[2020-10-11] MEDS: CITALOPRAM HYDROBROMIDE 20 MG TAB PO SCH (08:41)
[2020-10-11] MEDS: cloNIDine HCL 0.1 MG TAB PO SCH ×2 (08:41→20:07)
[2020-10-11] MEDS: GABAPENTIN 400 MG CAP PO SCH ×3 (08:41→20:07)
[2020-10-11] MEDS ORDERED: LORazepam 2 MG/ML INJ IM PRN (12:25)
--- NOTE | 2020-10-11 12:47 | P.PN ---
Progress Note - Text Progress Note Date: 10/11/20 S&O: Patient was seen in the office for routine follow-up examination. Today she is brighter cheerful and more relaxed. She said she did not sleep well last night since she was hurting all over because of fibromyalgia. She wants to take Ativan by mouth on a when necessary basis instead of intramuscular stating that the they shot makes her too sleepy since it acts quickly. She said taking Celexa in the morning makes her sleepy and wants to take it at night. She has the diagnosis of major depressive disorder recurrent severe which was made on 10/09/2020. However this appears to be erroneous diagnosis since she is feeling a lot better is cheerful and does not appear depressed at all in 3 days. She also gets quite dramatic, somatic and accuses some of the staff members of making fun of her. In view off all these and her self abusive behavior, it appears borderline personality disorder is most appropriate diagnosis addition to substance use disorders. his is a white ambulatory female with adequate hygiene. She is polite and cooperative. She does not show any psychomotor agitation or retardation. Her speech is spontaneous relevant and goal-directed. But she seems to have an explanation for all of her maladaptive behavior. Mood is cheerful and affect is appropriate. She denies hallucinations or delusional thinking current suicide and homicide thoughts. But she said one of the staff member is making fun of her and not like her. She is well oriented. Good memory concentration general fund of knowledge. Assessment: Borderline personality disorder Cannabis use disorder, moderate to severe cocaine use disorder, moderate opioid use disorder, moderate Plan: Change meds as noted above, continue other meds as they are, continue therapy and supervision.
[2020-10-11] MEDS: DICLOFENAC SODIUM GEL 100 GM TUBE TOPICAL PRN (13:01)
[2020-10-11] MEDS: LORazepam 1 MG TAB PO PRN (15:38)
[2020-10-11] MEDS: PRAMIPEXOLE 0.5 MG TAB PO SCH (20:50)
[2020-10-12] MEDS: traZODone HCL 100 MG TAB PO PRN (05:00)
[2020-10-12] MEDS: ACETAMINOPHEN TAB 500 MG TAB PO PRN ×2 (05:00→17:18)
[2020-10-12] MEDS: LORazepam 1 MG TAB PO PRN ×2 (05:00→13:08)
[2020-10-12] MEDS: ARIPiprazole 5 MG TAB PO SCH (08:47)
[2020-10-12] MEDS: GLATIRAMER ACETATE 20 MG/ML SQ SCH (08:47)
[2020-10-12] MEDS: NICOTINE 14MG/24HR PATCH TRANSDERM SCH (08:47)
[2020-10-12] MEDS: TOPIRAMATE 100 MG TAB PO SCH ×2 (08:47→20:52)
[2020-10-12] MEDS: cloNIDine HCL 0.1 MG TAB PO SCH ×2 (08:47→20:51)
[2020-10-12] MEDS: GABAPENTIN 400 MG CAP PO SCH ×3 (08:48→20:53)
[2020-10-12] MEDS: DICLOFENAC SODIUM GEL 100 GM TUBE TOPICAL PRN ×2 (08:50→20:55)
--- NOTE | 2020-10-12 12:48 | P.PN ---
Progress Note - Text Progress Note Date: 10/12/20 S&O: Patient was seen in the office for routine follow-up examination. She came to the office somewhat tearful and upset. She said she has a problem with one of the persons at the front end loader driver. She did not elaborate on it. She was counseled about coping with this kind of her problems. Eventually she relaxed and became more cooperative pleasant and cheerful. She said she was upset earlier in the morning and had to take Ativan by mouth when necessary. Said she has been feeling better since then. She is rather upset since she has not been able to contact her live-in boyfriend. She continues to show emotional lability at times. But she has not engaged in any self abusive behavior. This is a right ambulatory female with good hygiene. She is polite friendly and cooperative. Once she settled down she did not show any psychomotor agitation or retardation. Her speech is spontaneous 11 and goal-directed. Mood became cheerful and affect is appropriate. Continues to deny hallucinations and delusional thinking suicide and homicide thoughts. She is well oriented with good memory concentration and general fund of knowledge. Assessment: Borderline personality disorder Cannabis use disorder, moderate to severe cocaine use disorder, moderate opioid use disorder, moderate Plan: Continue her current medications therapy and supervision.
[2020-10-12] MEDS: hydrOXYzine pamoate 25 MG CAP PO PRN (17:19)
[2020-10-12] MEDS: CITALOPRAM HYDROBROMIDE 20 MG TAB PO SCH (20:51)
[2020-10-12] MEDS: PRAMIPEXOLE 0.5 MG TAB PO SCH (20:51)
[2020-10-13] MEDS: ACETAMINOPHEN TAB 500 MG TAB PO PRN ×3 (01:57→21:09)
[2020-10-13] MEDS: LORazepam 1 MG TAB PO PRN ×2 (01:57→18:31)
[2020-10-13] MEDS: ARIPiprazole 5 MG TAB PO SCH (08:26)
[2020-10-13] MEDS: NICOTINE 14MG/24HR PATCH TRANSDERM SCH (08:26)
[2020-10-13] MEDS: GLATIRAMER ACETATE 20 MG/ML SQ SCH (08:26)
[2020-10-13] MEDS: TOPIRAMATE 100 MG TAB PO SCH ×2 (08:26→21:07)
[2020-10-13] MEDS: cloNIDine HCL 0.1 MG TAB PO SCH ×2 (08:26→21:07)
[2020-10-13] MEDS: GABAPENTIN 400 MG CAP PO SCH ×3 (08:28→21:09)
[2020-10-13] MEDS: DICLOFENAC SODIUM GEL 100 GM TUBE TOPICAL PRN (10:38)
--- NOTE | 2020-10-13 13:56 | P.PN ---
Progress Note - Text Progress Note Date: 10/13/20 Interval History: Patient was seen in her room and was directable and agreeable to speak with ad copy writer . Patient is a 35-year-old female admitted to medicine service for treatment of an acute overdose with multiple medications including clonidine, bupropion and trazodone. Patient denies any side effects from the medications and has been compliant with meds. Mental Status Exam: General Appearance: Patient appears to be stated age is alert, directable, and cooperative. Behavior: Patient is calmly seated without any agitated behavior. Speech: Patient's speech is fluent and nonpressured. Mood/Affect: Mood is improving mildly, affect is congruent and constricted. Suicidality/Homicidality: Patient denies having any suicidal or homicidal ideation intent or plan. Perceptions: Patient denies any visual hallucinations and denies any auditory hallucinations Though content/process: There is no evidence of any delusional thought content and thought process is linear and goal-directed. Memory and concentration: AOX3, grossly intact for the purposes of this session Judgment and insight: Improving mildly Assessment Suicide attempt by overdose of multiple prescription medications Major depressive disorder recurrent severe marijuana use disorder cocaine use disorder opioid abuse Borderline personality disorder Plan: -Patient continues to meet criteria for inpatient psychiatric admission for symptom stabilization and safety. -Medications: Continue medication as before -When necessary Ativan and Haldol for agitation/aggression. -SW on board for discharge planning. Encouraged the patient to participate in milieu.
--- NOTE | 2020-10-13 15:53 | XR ---
Result: History: Pain. Comparison: None available. Technique: 3 views of the left ankle. Findings: No acute fracture or dislocation is seen. The visualized osseous structures are in anatomic alignmen t. The talar dome is intact and the ankle mortise is congruent. The joint spaces are preserved. Impression: No acute osseous abnormality.
[2020-10-13] MEDS: CITALOPRAM HYDROBROMIDE 20 MG TAB PO SCH (21:07)
[2020-10-13] MEDS: PRAMIPEXOLE 0.5 MG TAB PO SCH (21:07)
[2020-10-13] MEDS: traZODone HCL 100 MG TAB PO PRN (21:09)
[2020-10-14] MEDS: NICOTINE 14MG/24HR PATCH TRANSDERM SCH (07:46)
[2020-10-14] MEDS: ACETAMINOPHEN TAB 500 MG TAB PO PRN ×2 (07:47→15:37)
[2020-10-14] MEDS: ARIPiprazole 5 MG TAB PO SCH (07:47)
[2020-10-14] MEDS: GABAPENTIN 400 MG CAP PO SCH ×4 (07:47→20:55)
[2020-10-14] MEDS: GLATIRAMER ACETATE 20 MG/ML SQ SCH (07:48)
[2020-10-14] MEDS: TOPIRAMATE 100 MG TAB PO SCH ×2 (07:48→20:54)
[2020-10-14] MEDS: cloNIDine HCL 0.1 MG TAB PO SCH ×3 (07:48→20:55)
--- NOTE | 2020-10-14 10:39 | P.PN ---
Progress Note - Text Progress Note Date: 10/14/20 Interval History: Patient was seen in the room and was directable and agreeable to speak with jingle writer . Patient was apparently last discharged from our unit in February 2020 with the diagnoses of depressive disorder, cannabis abuse, nicotine dependence and cocaine abuse. She was admitted for intentionally overdosing on her medications at home.. At this time patient denies any suicidal or homical ideations, intent or plan. Patient denies any auditory, visual hallucinations and denies any paranoia or delusions. Patient denies any side effects from the medications and has been compliant with meds. Mental Status Exam: General Appearance: Patient appears to be stated age is alert, directable, and cooperative. Behavior: Patient is calmly seated without any agitated behavior. Speech: Patient's speech is fluent and nonpressured. Mood/Affect: Mood is improving mildly, affect is congruent and constricted. Suicidality/Homicidality: Patient denies having any suicidal or homicidal ideation intent or plan. Perceptions: Patient denies any visual hallucinations and denies any auditory hallucinations Though content/process: There is no evidence of any delusional thought content and thought process is linear and goal-directed. Memory and concentration: AOX3, grossly intact for the purposes of this session Judgment and insight: Improving mildly Assessment Suicide attempt by overdose of multiple prescription medications Major depressive disorder recurrent severe marijuana use disorder cocaine use disorder opioid abuse Borderline personality disorder Plan: -Patient continues to meet criteria for inpatient psychiatric admission for symptom stabilization and safety. -Medications: Continue medication as before -When necessary Ativan and Haldol for agitation/aggression. -SW on board for discharge planning. Encouraged the patient to participate in milieu.
[2020-10-14] MEDS: DICLOFENAC SODIUM GEL 100 GM TUBE TOPICAL PRN (13:37)
[2020-10-14] MEDS: LORazepam 1 MG TAB PO PRN (15:38)
[2020-10-14] MEDS: CITALOPRAM HYDROBROMIDE 20 MG TAB PO SCH (20:55)
[2020-10-14] MEDS: PRAMIPEXOLE 0.5 MG TAB PO SCH (20:55)
[2020-10-14] MEDS: traZODone HCL 100 MG TAB PO PRN (20:56)
[2020-10-15] MEDS: ACETAMINOPHEN TAB 500 MG TAB PO PRN ×2 (04:00→20:05)
[2020-10-15] MEDS: LORazepam 1 MG TAB PO PRN ×2 (06:40→20:05)
[2020-10-15] MEDS: GABAPENTIN 400 MG CAP PO SCH ×3 (09:13→20:05)
[2020-10-15] MEDS: ARIPiprazole 5 MG TAB PO SCH (09:13)
[2020-10-15] MEDS: TOPIRAMATE 100 MG TAB PO SCH ×2 (09:13→20:05)
[2020-10-15] MEDS: cloNIDine HCL 0.1 MG TAB PO SCH (09:13)
[2020-10-15] MEDS: NICOTINE 14MG/24HR PATCH TRANSDERM SCH (09:13)
[2020-10-15] MEDS: GLATIRAMER ACETATE 20 MG/ML SQ SCH (09:15)
[2020-10-15] MEDS ORDERED: ARIPiprazole 5 MG TAB PO ONE (10:10)
--- NOTE | 2020-10-15 10:20 | P.PN ---
Progress Note - Text Progress Note Date: 10/15/20 Interval History: Patient was seen wandering the hallways and was directable and agreeable to ye willard with inspector automatic typewriter in the office. Patient appears to have a improvement in her affect today. She states that she is still feeling mildly depressed and anxious at times. She asked about potentially being prescribed Ativan when she goes home and claims that "he doesn't make me tired and makes me feel happy". She states that she does not need to go to rehab as the "cocaine was just a one-time thing". She has mildly improving however chronically poor insight and judgment. She states that she has been working in groups and trying to find her stressors and coping skills and states that she realizes that she does not have very good social support. She does claim that she has her own house. She states that she is willing to have the Abilify increased today and feels that it has been helping her. She states that she frequently has nightmares related to previous trauma and would like to try prazosin tonight. At this time patient denies any suicidal or homical ideations, intent or plan. Patient denies any auditory, visual hallucinations and denies any paranoia or delusions. Patient denies any side effects from the medications and has been compliant with meds. Mental Status Exam: General Appearance: Patient appears to be stated age is alert, directable, and cooperative. Improving hygiene and grooming. Behavior: Patient is calmly seated without any agitated behavior. Speech: Patient's speech is fluent and nonpressured. Mood/Affect: Mood is depressed, affect is congruent and constricted. Suicidality/Homicidality: Patient denies having any suicidal or homicidal ideation intent or plan. Perceptions: Patient denies any visual hallucinations and denies any auditory hallucinations Though content/process: There is no evidence of any delusional thought content and thought process is linear and goal-directed. Rambles, tangential. Memory and concentration: AOX3, grossly intact for the purposes of this session Judgment and insight: Chronically poor, Improving mildly Assessment Suicide attempt by overdose of multiple prescription medications Major depressive disorder recurrent severe marijuana use disorder cocaine use disorder opioid abuse Borderline personality disorder Plan: -Patient continues to meet criteria for inpatient psychiatric admission for symptom stabilization and safety. Patient has signed adult voluntary form and medication consent and was placed in patient's chart. -Medications: continue with Celexa 40 mg daily for mood/anxiety, increase Abilify 5 mg daily for mood adjunct, trazodone 100 mg daily at bedtime for insomnia/mood. Vistaril when necessary for anxiety. added prazosin 1mg qhs for nightmares. -When necessary Ativan and Haldol for agitation/aggression. -NRT - nicotine patch -SW on board for discharge planning. Encouraged the patient to participate in milieu. Patient would benefit from DBT therapy upon discharge with [facility]. She is not willing to go to rehab at this point. Likely discharge in 1-2 days.
[2020-10-15] MEDS: CITALOPRAM HYDROBROMIDE 20 MG TAB PO SCH (20:06)
[2020-10-15] MEDS: PRAMIPEXOLE 0.5 MG TAB PO SCH (20:06)
[2020-10-15] MEDS ORDERED: traZODone HCL 100 MG TAB PO SCH (21:00)
[2020-10-15] MEDS ORDERED: PRAZOSIN 1 MG CAP PO SCH (21:00)
[2020-10-16] MEDS: LORazepam 1 MG TAB PO PRN (06:32)
[2020-10-16 07:22] VITALS: BP 124/68; PULSE 74; RESP 16; TEMP 97.7
[2020-10-16] MEDS: NICOTINE 14MG/24HR PATCH TRANSDERM SCH (08:35)
[2020-10-16] MEDS: ACETAMINOPHEN TAB 500 MG TAB PO PRN (08:35)
[2020-10-16] MEDS: GABAPENTIN 400 MG CAP PO SCH (08:36)
[2020-10-16] MEDS: TOPIRAMATE 100 MG TAB PO SCH (08:36)
[2020-10-16] MEDS: GLATIRAMER ACETATE 20 MG/ML SQ SCH (08:37)
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
[2020-10-16] MEDS ORDERED: ARIPiprazole 5 MG TAB PO SCH (09:00)
== END 2020-10-16 14:40 | disposition home or self-care (01) | DRG 885 ==
LOC: 3MHU 15:51
PROVIDERS: ADMIT Psychiatry & Neurology Psychiatry; ATTEND Psychiatry & Neurology Psychiatry
DX: F33.2 Major depressive disorder, recurrent severe without psychotic features (principal); F11.20 Opioid dependence, uncomplicated; F14.20 Cocaine dependence, uncomplicated; F12.20 Cannabis dependence, uncomplicated; F17.200 Nicotine dependence, unspecified, uncomplicated; F41.9 Anxiety disorder, unspecified; F60.3 Borderline personality disorder; G35 Multiple sclerosis; G47.00 Insomnia, unspecified; M79.7 Fibromyalgia; T50.902A Poisoning by unspecified drugs, medicaments and biological substances, intentional self-harm, initial encounter; X58.XXXA Exposure to other specified factors, initial encounter; Z79.899 Other long term (current) drug therapy
CPT/HCPCS: 80061; 83036

== ENCOUNTER 2021-07-03 04:17 | Inpatient (IN) | payer MEDICAID, OTHER ==
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
[2021-07-03] MEDS ORDERED: MAG HYDROX/AL HYDROX/SIMETH 30 ML CUP PO PRN (08:07)
[2021-07-03] MEDS ORDERED: MAGNESIUM HYDROXIDE 2,400 MG/10 ML CUP PO PRN (08:07)
[2021-07-03] MEDS ORDERED: HALOPERIDOL LACTATE 5 MG/ML 1 ML VIAL IM PRN (08:07)
[2021-07-03] MEDS ORDERED: haloperidoL 5 MG TAB PO PRN (08:14)
[2021-07-03] MEDS ORDERED: hydrOXYzine HCL 50 MG/ML 1 ML VIAL IM PRN (08:15)
[2021-07-03] MEDS: hydrOXYzine pamoate 25 MG CAP PO PRN (08:41)
[2021-07-03] MEDS: NICOTINE 14MG/24HR PATCH TRANSDERM SCH (09:18)
[2021-07-03] MEDS: ACETAMINOPHEN TAB 325 MG TAB PO PRN ×2 (09:19→22:49)
[2021-07-03 14:09] LABS: Appearance,Urine Clear (Clear); Bilirubin,Urine Negative (Negative); Blood,Urine Negative (Negative); Color,Urine Colorless; Glucose,Urine (UA) Negative (Negative); Ketones,Urine Negative (Negative); Leukocyte Esterase,Urine Negative (Negative); Nitrite,Urine Negative (Negative); PH, Urine 6.5 (5.0-8.0); Protein,Urine Negative (Negative); Specific Gravity,Urine 1.003 (1.001-1.035); Urobilinogen,Urine <2.0 mg/dL (<2.0)
[2021-07-03] MEDS ORDERED: DIPH,PERTUS(ACELL)TETVAC-LF 0.5 ML VIAL IM ONE (14:32)
--- NOTE | 2021-07-03 14:44 | P.MDCNMH ---
<Temo Santos - Last Filed: 07/03/21 13:29> History of Present Illness H&P Date: 07/03/21 History of Presenting Illness: Patient is a 36-year-old female with a past medical history of fibromyalgia, ADHD, depression, anxiety, PTSD, bipolar disorder, self-mutilation, and polysubstance abuse. She presented to the emergency department on 07/03/21 with a chief complaint of suicidal ideations with attempt. Patient is currently admitted to inpatient psychiatric unit and we have been consulted for medical evaluation and management. Patient seen and evaluated on psychiatric unit. Patient is alert to person, place, time, and situation. Patient had difficulties maintaining thought process and was jumping off subject frequently with flight of ideas. She had a laceration to her left wrist, wound has been repaired with [address] Patient denies currently having any pain or discomfort denied experiencing any headache, lightheadedness, dizziness, chest pain, palpitations, shortness of breath, or experiencing any numbness/tingling/weakness in her extremities. She did report occasional chronic toothache and has noted decay to her right upper molar with no noted erythema, swelling or drainage upon evaluation. Patient was ambulatory with a steady gait in room and down the iglesias to get lunch. Patient was unable to verify last tetanus administration. Reports her last menstrual cycle was last week and denies any chance of . Review of systems: Pertinent positives and negatives as discussed in HPI, a complete review of systems was performed and all other systems are negative. Physical exam: Vital signs reviewed and stable. General: Nontoxic, no distress and appears stated age. Disheveled appearance. Derm: Skin warm and dry, normal coloration for ethnicity. Laceration left wrist with repair, [address] Head: Atraumatic, normocephalic and symmetric. Eyes: EOMs intact, no lid lag, and anicteric sclera. Patient's eyes puffy, she reports falling asleep with contacts in. Discussed with nursing staff patient to be given container to place contacts in. Mouth: no lip lesions, mucus membranes moist. Poor dentition. Cardiovascular: regular rate and rhythm with normal S1S2, no murmur, positive posterior tibial pulses bilaterally, and cap refill < 2 seconds. Lungs: Respirations even, regular, and unlabored on room air. Lungs CTA bilaterally, no rhonchi, no rales, no wheezing, and no accessory muscle usage. GI/: soft, nontender to palpation, no guarding, no appreciable organomegaly. Ext: ROM intact. No gross muscle atrophy, no edema, no contractures Neuro: Speech clear, face symmetrical, no noted focal neuro deficits Psych: Alert and oriented to person, place, time, and situation. Patient with a rapid flight of ideas, poor concentration Assessment and Plan of Care: Self-inflicted injury left wrist, laceration status post sutures Wound care every shift, keep wound clean, dry, and covered while on psychiatric unit. [address], wound well approximated. Patient will need to follow-up for suture removal in one week. This may be done by PCP, urgent care, or return to ER. If patient remains inpatient, may notify [facility] hospitalist group for removal. Obtain CBC, urine hCG and urine drug screen Administer T-dap Suicidal ideations with attempt ADHD Depression Anxiety PTSD Bipolar disorder History of Polysubstance abuse Management and medications per primary admitting psychiatric team. Obtain urine hCG and Drug screen Continue suicide precautions with safe and supportive care. Nicotine dependence Educated and encouraged patient on the benefits of smoking cessation and the risks associated with continued use. Nicotine patch Thank you for allowing us to participate in the care of this pleasant patient. Do not hesitate to contact us with questions. Someone can be reached from the [facility] hospitalist group all hours of the day at [phone] or via [employer]. Past Medical History Past Medical History: Fibromyalgia Additional Past Medical History / Comment(s): Achalasia cardia, dysphagia, chronic back pain, DDD, herniated discs, bilateral carpal tunnel syndrome, DJD, cyst on kidney, hypoglycemia, MS, pleurisy, right periorbital infection. History of Any Multi-Drug Resistant Organisms: MRSA Date of last positivie culture/infection: 03/25/20 MDRO Source:: Face Past Surgical History: Appendectomy, Section, Orthopedic Surgery, Tubal Ligation Additional Past Surgical History / Comment(s): c section x 3, EGD, Right knee surgery, robotic surgery for achalasia cardia-pt unclear, Past Anesthesia/Blood Transfusion Reactions: Motion Sickness Past Psychological History: ADD/ADHD, Anxiety, Bipolar, Depression, PTSD Smoking Status: Current every day smoker Past Alcohol Use History: Rare Past Drug Use History: Cocaine, Marijuana - Past Family History Father Family Medical History: Hyperlipidemia, Hypertension Mother Family Medical History: Fibromyalgia Additional Family Medical History / Comment(s): HIATAL HERNIA OSTEOPSORIS, DDD Medications and Allergies Home Medications Medication Instructions Recorded Confirmed Type Gabapentin [Neurontin] 800 mg PO TID 02/24/20 10/08/20 History Glatiramer Acetate [Copaxone] 20 mg SQ DAILY 10/07/20 10/08/20 History ARIPiprazole [Abilify] 5 mg PO DAILY 14 Days tab 10/16/20 Rx Acetaminophen Tab [Tylenol] 500 mg PO TID PRN 14 Days tab 10/16/20 Rx Albuterol Sulfate [Albuterol 2 puff INHALATION RT-Q6H PRN #1 10/16/20 Rx Sulfate Hfa] inhaler Citalopram Hydrobromide [CeleXA] 40 mg PO DAILY 14 Days tab 10/16/20 Rx Diclofenac Sodium Gel [Voltaren 4 gm TOPICAL QID PRN 14 Days tube 10/16/20 Rx Gel] Nicotine 14Mg/24Hr Patch [Habitrol] 1 patch TRANSDERM DAILY 14 Days 10/16/20 Rx patch Pramipexole [Mirapex] 0.5 mg PO HS 14 Days tab 10/16/20 10/08/20 Rx Prazosin [Minipress] 1 mg PO HS 14 Days cap 10/16/20 Rx Topiramate [Topamax] 200 mg PO BID 14 Days tab 10/16/20 10/08/20 Rx hydrOXYzine pamoate [Vistaril] 25 mg PO BID PRN 14 Days cap 10/16/20 Rx traZODone HCL [Desyrel] 100 mg PO HS 14 Days tab 10/16/20 Rx Allergies Allergy/AdvReac Type Severity Reaction Status Date / Time NSAIDS (Non-Steroidal Allergy Dyspnea Verified 07/03/21 09:13 Anti-Inflamma prednisone AdvReac makes Verified 07/03/21 09:13 patient "mean" Sulfa (Sulfonamide AdvReac Rash/Hives Verified 07/03/21 09:13 Antibiotics) sulfamethoxazole AdvReac Rash/Hives Verified 07/03/21 09:13 [From Bactrim] trimethoprim [From Bactrim] AdvReac Rash/Hives Verified 07/03/21 09:13 Physical Exam Vitals: Vital Signs Temp Pulse Pulse Resp BP BP Pulse Ox 07/03/21 08:06 98.5 F 102 H 18 116/111 98 07/03/21 05:42 98.1 F 104 H 20 109/70 95 Intake and Output 07/02/21 07/03/21 07/03/21 22:59 06:59 14:59 Other: Weight 63.503 kg 64.6 kg Cranial Nerve Examination - Cranial Nerves Cranial Nerve II- Optic: Intact Cranial Nerve III- Oculomotor: Intact Cranial Nerve IV- Trochlear: Intact Cranial Nerve V- Trigeminal: Intact Cranial Nerve - Abducens: Intact Cranial Nerve VII- Facial: Intact Cranial Nerve VIII- Auditory: Intact Cranial Nerve IX- Glossopharyngeal: Intact Cranial Nerve X- Vagus: Intact Cranial Nerve XI- Accessory: Intact Cranial Nerve XII- Hypoglossal: Intact <Marilyn Rivas - Last Filed: 07/03/21 17:02> History of Present Illness I reviewed the documentation as provided by the PETAR above, who is the original author of this note. I agree with the documented assessment and plan, with the following changes: None Physical Exam Osteopathic Statement: *. No significant issues noted on an osteopathic structural exam other than those noted in the History and Physical/Consult. Vitals: Vital Signs Temp Pulse Pulse Resp BP BP Pulse Ox 07/03/21 08:06 98.5 F 102 H 18 116/111 98 07/03/21 05:42 98.1 F 104 H 20 109/70 95 Intake and Output 07/03/21 07/03/21 07/03/21 06:59 14:59 22:59 Other: Weight 63.503 kg 64.6 kg
[2021-07-03] MEDS: CITALOPRAM HYDROBROMIDE 20 MG TAB PO SCH (16:07)
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
[2021-07-03] MEDS: traZODone HCL 100 MG TAB PO SCH ×2 (22:03→22:50)
[2021-07-04 03:50] LABS: Urine Alcohol Positive (Negative); Urine Barbiturate Negative (Negative); Urine Cocaine Positive (Negative); Urine Methadone Negative (Negative); Urine Opiates Negative (Negative); Urine Phencyclidine Negative (Negative)
[2021-07-04] MEDS: NICOTINE 14MG/24HR PATCH TRANSDERM SCH (09:10)
[2021-07-04] MEDS: CITALOPRAM HYDROBROMIDE 20 MG TAB PO SCH (09:11)
[2021-07-04] MEDS: ACETAMINOPHEN TAB 325 MG TAB PO PRN ×3 (09:32→23:30)
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
[2021-07-04] MEDS: hydrOXYzine pamoate 25 MG CAP PO PRN (09:33)
[2021-07-04 10:58] LABS: Basophils # (A) 0.1 k/uL (0-0.2); Basophils % (A) 1 %; Eosinophils # (A) 0.1 k/uL (0-0.7); Eosinophils % (A) 1 %; HCT 45.8 % (34.0-46.0); Hypochromasia Slight; Lymphocytes # (A) 1.3 k/uL (1.0-4.8); Lymphocytes % (A) 12 %; MCH 28.7 pg (25.0-35.0); MCHC 30.5 g/dL (31.0-37.0); MCV 93.9 fL (80.0-100.0); Mean Platelet Volume 8.8; Monocytes # (A) 0.5 k/uL (0-1.0); Monocytes % (A) 5 %; Neutrophils # (A) 8.4 k/uL (1.3-7.7); Neutrophils % (A) 80 %; Platelet Count 244 k/uL (150-450); RBC 4.87 m/uL (3.80-5.40); RDW 14.5 % (11.5-15.5); WBC 10.5 k/uL (3.8-10.6)
[2021-07-04 11:22] LABS: ALT 14 U/L (4-34); AST 21 U/L (14-36); African American GFR (CKD) 87 (>60 ml/min/1.73 sqM); Albumin 4.2 g/dL (3.5-5.0); Alkaline Phosphatase 66 U/L (38-126); Anion Gap 8 mmol/L; Blood Urea Nitrogen 10 mg/dL (7-17); Calcium 9.6 mg/dL (8.4-10.2); Carbon Dioxide 25 mmol/L (22-30); Chloride 100 mmol/L (98-107); Glucose 112 mg/dL (74-99); Non-African American GFR(CKD) 75 (>60 ml/min/1.73 sqM); Potassium 4.1 mmol/L (3.5-5.1); Sodium 133 mmol/L (137-145); Total Bilirubin 0.7 mg/dL (0.2-1.3); Total Protein 7.1 g/dL (6.3-8.2)
[2021-07-04 18:15] LABS: Chol/HDL Ratio 2.35 Ratio; LDL Cholesterol,Calculated 73.1 mg/dL (0.0-131.0)
[2021-07-04] MEDS: traZODone HCL 100 MG TAB PO SCH (23:29)
[2021-07-05 06:46] VITALS: BP 154/80; PULSE 91; RESP 16; TEMP 97.3
[2021-07-05] MEDS: NICOTINE 14MG/24HR PATCH TRANSDERM SCH (08:11)
[2021-07-05] MEDS: hydrOXYzine pamoate 25 MG CAP PO PRN (08:23)
[2021-07-05] MEDS ORDERED: CITALOPRAM HYDROBROMIDE 20 MG TAB PO SCH (09:00)
--- NOTE | 2021-07-05 10:40 | P.DS ---
Providers Date of admission: 07/03/21 08:05 Expected date of discharge: 07/05/21 Attending physician: Dino Chand MD Consults: 07/03/21 08:07 Consult Physician Routine Consulting Provider: Gayla Physician Consult Reason/Comments: H&&P for mental health Do you want consulting provider notified?: Yes Primary care physician: Stated None - Discharge Diagnosis(es) (1) Suicide attempt Current Visit: Yes Status: Acute Priority: High (2) Major depressive disorder, recurrent Current Visit: Yes Status: Acute Priority: High (3) Cannabis use disorder, mild, abuse Current Visit: Yes Status: Acute Priority: Medium (4) Borderline personality disorder Current Visit: Yes Status: Acute Priority: Medium (5) Nicotine dependence Current Visit: Yes Status: Acute Priority: Low (6) Cocaine abuse Current Visit: Yes Status: Acute Priority: High (7) Methamphetamine abuse Current Visit: Yes Status: Acute Priority: High Hospital Course: Admission HPI: Admission note was completed by [writer producer] "[Patient is a 36-year-old female with a hx of borderline, cutting and MDD, has 3 kids, unemployed, lives with her Boyfriend in a house. Patient is known to psychiatry service from her multiple past psychiatric hospitalizations. She has a hx of borderline pd, major depressive disorder. Patient was last psychiatrically hospitalized in October 2020. Patient apparently was brought into the ER complaining of suicidal ideations and apparently had been in a fight with her boyfriend and cut her left wrist at home in a suicide attempt. Patient was given Haldol and Vistaril as a when necessary before coming on to the psychiatric unit or agitation. Patient initially did not give a UDS. She was seen today and awoken by writer producer and agreeable to speaking the office. She was mildly confused and in some mild distress as well. She states that she was in a argument with her boyfriend. She was illogical at times and made bizarre comments. She did admit to a suicide attempt however states that she regrets it. She claims that she was so angry at her boyfriend that she threatened to cu t herself and then used the blade to cut her left wrist. She states that they have been dealing with financial stressors lately as she recently lost her job as she called in sick too many times last week. She states that her mood is "okay now" however does claim that she has a history of depression. She also claims that she is feeling anxious. She has been off her medication since October. She has poor insight and judgment. She states that she went to [place] for quite some time recently to visit her daughters and could not get her medications filled at all therefore stopped taking it. She states that her sleep is fair and appetite is fair. She is currently denying any suicidal or homicidal ideations intent or plan at denying any auditory or visual hallucinations at this time. She claims that she smokes cigarettes and uses marijuana however denies any other drug use. She claims that she will give a UDS today.]" Hospital course: Upon admission to the unit patient was [directable and agreeable to commence treatment and signed adult voluntary form]. Patient got along well with other patients on the unit and followed unit protocol. Patient was compliant with the medications and denied any side effects throughout hospital course. Patient was started on [celexa 40 mg daily for mood/anxiety, trazodone 100 mg qhs for insomnia/mood. She was also started on vistaril prn for anxiety]. Patient spoke of [her] stressors and engaged in therapy both group and individual. Patient was also seen by medical team for history and physical exam. [] Throughout the course of the hospitalization patient gradually improved with regards to [mood, anxiety], sleep and [returned back to their baseline level of functioning]. On the day of discharge patient denied any suicidal or homicidal ideations intent or plan denied any auditory or visual hallucinations. Patient endorsed wanting to live for [her kids and her future.] The patient denied any access to guns or weapons. Patient denied any paranoia and did not endorse any delusions. Patient does have a significant history of substance abuse [and] was counseled on abstaining from all substances including alcohol and marijuana. [Patient was offered however declined inpatient substance-abuse rehab.] Patient was fairly superficial and gaurded about her substance use and claims that she will cut back on her own and does not see it as a problem. Patient was also counseled on the medications and need for regular compliance and was encouraged to follow-up with their outpatient appointment for mental health and also for primary care. [Prior to discharge a family meeting will be arranged by social media marketing analyst to answer any questions and ensure safety upon discharge.] Mental status exam: General Appearance: Patient appears to be []stated age is alert, diretable, and cooperative. Patient is in no acute distress and has improved hygiene and grooming Behavior: Patient is calmly seated without any agitated behavior. superficial at times. Speech: Patient's speech is fluent and nonpressured. Mood/Affect: Patient reports their mood is "[good]", affect is congruent and euthymic. Suicidality/Homicidality: Patient denies having any suicidal or homicidal ideation intent or plan. Perceptions: Patient denies any auditory or visual hallucinations. Though content/process: There is no evidence of any delusional thought content and thought process is linear and goal-directed. [more future oriented] Memory and concentration: AOX3, grossly intact for the purposes of this session. Can spell "WORLD" backwards correctly. Judgment and insight: [chronically poor and superficial, however has] improved with guarded prognosis Impression: Suicide attempt Major depressive disorder recurrent severe Cannabis use disorder mild Borderline personality disorder cocaine abuse methamphetamine abuse [Nicotine dependence] Plan: -Continue with discharge today as patient has improved and stabilized psychiatrically and is not currently an imminent threat to [himself] and/or others. [Patient will remain at chronically elevated risk for harm to self and/or others due to her impulsivity and polysubstance abuse.] -Continue medications: continue with trazodone 100 mg qhs for insomnia/mood, celexa 40 mg daily for mood/anxiety and vistaril 25 mg bid prn for anxiety -Patient was counseled on the need for medication compliance and appropriate follow-up at mental health and also primary care for medical issues. Patient verbalized understanding and agreed. -Social work to [arrange for and conduct family meeting to ensure safety upon discharge and answer any questions/concerns and to ensure no guns or weapons in the house or are locked away.] Social work also to arrange for patients follow up appointments [with [facility]] for psychiatric care along with follow up with primary care provider. -Patient counseled on abstaining from recreational drugs and marijuana and alcohol. Was informed/educated on the adverse effects on their physical and mental health. [Patient verbally agreed and understood]. [Patient was offered substance abuse treatment however declined at this time.] -Patient was instructed to return to the hospital or seek immediate medical care if their psychiatric or medical symptoms do worsen or reoccur. Allergies Allergy/AdvReac Type Severity Reaction Status Date / Time NSAIDS (Non-Steroidal Allergy Dyspnea Verified 07/03/21 09:13 Anti-Inflamma prednisone AdvReac makes Verified 07/03/21 09:13 patient "mean" Sulfa (Sulfonamide AdvReac Rash/Hives Verified 07/03/21 09:13 Antibiotics) sulfamethoxazole AdvReac Rash/Hives Verified 07/03/21 09:13 [From Bactrim] trimethoprim [From Bactrim] AdvReac Rash/Hives Verified 07/03/21 09:13 Laboratory Results WBC 10.5 k/uL (3.8-10.6) 07/04/21 10:18 RBC 4.87 m/uL (3.80-5.40) 07/04/21 10:18 Hgb 14.0 gm/dL (11.4-16.0) 07/04/21 10:18 Hct 45.8 % (34.0-46.0) 07/04/21 10:18 MCV 93.9 fL (80.0-100.0) 07/04/21 10:18 MCH 28.7 pg (25.0-35.0) 07/04/21 10:18 MCHC 30.5 g/dL (31.0-37.0) L 07/04/21 10:18 RDW 14.5 % (11.5-15.5) 07/04/21 10:18 Plt Count 244 k/uL (150-450) 07/04/21 10:18 MPV 8.8 07/04/21 10:18 Neutrophils % 80 % 07/04/21 10:18 Lymphocytes % 12 % 07/04/21 10:18 Monocytes % 5 % 07/04/21 10:18 Eosinophils % 1 % 07/04/21 10:18 Basophils % 1 % 07/04/21 10:18 Neutrophils # 8.4 k/uL (1.3-7.7) H 07/04/21 10:18 Lymphocytes # 1.3 k/uL (1.0-4.8) 07/04/21 10:18 Monocytes # 0.5 k/uL (0-1.0) 07/04/21 10:18 Eosinophils # 0.1 k/uL (0-0.7) 07/04/21 10:18 Basophils # 0.1 k/uL (0-0.2) 07/04/21 10:18 Hypochromasia Slight 07/04/21 10:18 Sodium 133 mmol/L (137-145) L 07/04/21 10:18 Potassium 4.1 mmol/L (3.5-5.1) 07/04/21 10:18 Chloride 100 mmol/L (98-107) 07/04/21 10:18 Carbon Dioxide 25 mmol/L (22-30) 07/04/21 10:18 Anion Gap 8 mmol/L 07/04/21 10:18 BUN 10 mg/dL (7-17) 07/04/21 10:18 Creatinine 0.96 mg/dL (0.52-1.04) 07/04/21 10:18 Est GFR (CKD-EPI)AfAm 87 (>60 ml/min/1.73 sqM) 07/04/21 10:18 Est GFR (CKD-EPI)NonAf 75 (>60 ml/min/1.73 sqM) 07/04/21 10:18 Glucose 112 mg/dL (74-99) H 07/04/21 10:[address] Glu mg/dL 102 07/04/21 10:18 Hemoglobin A1c 5.2 % (0.0-6.0) 07/04/21 10:18 Calcium 9.6 mg/dL (8.4-10.2) 07/04/21 10:18 Total Bilirubin 0.7 mg/dL (0.2-1.3) 07/04/21 10:18 AST 21 U/L (14-36) 07/04/21 10:18 ALT 14 U/L (4-34) 07/04/21 10:18 Alkaline Phosphatase 66 U/L (38-126) 07/04/21 10:18 Total Protein 7.1 g/dL (6.3-8.2) 07/04/21 10:18 Albumin 4.2 g/dL (3.5-5.0) 07/04/21 10:18 Triglycerides 103.00 mg/dL (0.00-149.00) 07/04/21 10:18 Cholesterol 163.00 mg/dL (0.00-200.00) 07/04/21 10:18 LDL Cholesterol, Calc 73.1 mg/dL (0.0-131.0) 07/04/21 10:18 VLDL Cholesterol, Calc 20.60 mg/dL (5.00-40.00) 07/04/21 10:18 HDL Cholesterol 69.30 mg/dL (40.00-60.00) H 07/04/21 10:18 Cholesterol/HDL Ratio 2.35 Ratio 07/04/21 10:18 TSH 1.910 mIU/L (0.465-4.680) 07/04/21 10:18 Urine Color Colorless 07/03/21 13:46 Urine Appearance Clear (Clear) 07/03/21 13:46 Urine pH 6.5 (5.0-8.0) 07/03/21 13:46 Ur Specific [place] 1.003 (1.001-1.035) 07/03/21 13:46 Urine Protein Negative (Negative) 07/03/21 13:46 Urine Glucose (UA) Negative (Negative) 07/03/21 13:46 Urine Ketones Negative (Negative) 07/03/21 13:46 Urine Blood Negative (Negative) 07/03/21 13:46 Urine Nitrite Negative (Negative) 07/03/21 13:46 Urine Bilirubin Negative (Negative) 07/03/21 13:46 Urine Urobilinogen <2.0 mg/dL (<2.0) 07/03/21 13:46 Ur Leukocyte Esterase Negative (Negative) 07/03/21 13:46 Urine HCG, Qual Not Detected (Not Detectd) 07/03/21 13:46 Urine Opiates Screen Negative (Negative) 07/03/21 13:46 Urine Methadone Screen Negative (Negative) 07/03/21 13:46 Ur Propoxyphene Screen Negative (Negative) 07/03/21 13:46 Urine Barbiturates Negative (Negative) 07/03/21 13:46 Ur Phencyclidine Scrn Negative (Negative) 07/03/21 13:46 Ur Amphetamine Screen Positive (Negative) A 07/03/21 13:46 U Benzodiazepines Scrn Negative (Negative) 07/03/21 13:46 Urine Cocaine Screen Positive (Negative) A 07/03/21 13:46 U Cannabinoids Screen Positive (Negative) A 07/03/21 13:46 Urine Alcohol Positive (Negative) A 07/03/21 13:46 Coronavirus (PCR) Not Detected (Not Detectd) 07/03/21 07:26 Vital Signs Temp 97.3 F L 07/05/21 06:46 Pulse 91 07/05/21 06:46 Resp 16 07/05/21 06:46 BP 154/80 07/05/21 06:46 Pulse Ox 98 07/05/21 06:46 Patient Condition at Discharge: Stable Plan - Discharge Summary New Discharge Prescriptions: New Citalopram Hydrobromide [CeleXA] 40 mg PO DAILY 30 Days tab traZODone HCL [Desyrel] 100 mg PO HS 30 Days tab Nicotine 14Mg/24Hr Patch [Habitrol] 1 patch TRANSDERM DAILY 14 Days patch Acetaminophen Tab [Tylenol] 650 mg PO Q4HR PRN tab PRN Reason: Pain/Discomfort hydrOXYzine pamoate [Vistaril] 25 mg PO BID PRN 30 Days cap PRN Reason: Anxiety Continue Albuterol Sulfate [Albuterol Sulfate Hfa] 2 puff INHALATION RT-Q6H PRN #1 inhaler PRN Reason: Shortness Of Breath Discontinued Gabapentin [Neurontin] 800 mg PO TID ARIPiprazole [Abilify] 5 mg PO DAILY 14 Days tab traZODone HCL [Desyrel] 100 mg PO HS 14 Days tab Prazosin [Minipress] 1 mg PO HS 14 Days cap Acetaminophen Tab [Tylenol] 500 mg PO TID PRN 14 Days tab PRN Reason: Pain hydrOXYzine pamoate [Vistaril] 25 mg PO BID PRN 14 Days cap PRN Reason: Anxiety Citalopram Hydrobromide [CeleXA] 40 mg PO DAILY 14 Days tab Pramipexole [Mirapex] 0.5 mg PO HS 14 Days tab Glatiramer Acetate [Copaxone] 20 mg SQ DAILY Nicotine 14Mg/24Hr Patch [Habitrol] 1 patch TRANSDERM DAILY 14 Days patch Topiramate [Topamax] 200 mg PO BID 14 Days tab Diclofenac Sodium Gel [Voltaren Gel] 4 gm TOPICAL QID PRN 14 Days tube PRN Reason: Pain Discharge Medication List Albuterol Sulfate [Albuterol Sulfate Hfa] 2 puff INHALATION RT-Q6H PRN #1 inhaler 10/16/20 [Rx] Acetaminophen Tab [Tylenol] 650 mg PO Q4HR PRN tab 07/05/21 [Rx] Citalopram Hydrobromide [CeleXA] 40 mg PO DAILY 30 Days tab 07/05/21 [Rx] Nicotine 14Mg/24Hr Patch [Habitrol] 1 patch TRANSDERM DAILY 14 Days patch 07/05/21 [Rx] hydrOXYzine pamoate [Vistaril] 25 mg PO BID PRN 30 Days cap 07/05/21 [Rx] traZODone HCL [Desyrel] 100 mg PO HS 30 Days tab 07/05/21 [Rx] Follow up Appointment(s)/Referral(s): Rama HERNÁNDEZ [Other] - 1 Week [facility] [NON-STAFF] - 1 Week Patient Instructions/Handouts: How to Stop Smoking (DC), Depression (DC) Activity/Diet/Wound Care/Special Instructions: Activity and diet as tolerated. Avoid the use of street drugs and alcohol. Take all medications as prescribed. When you are in need of refills on your medications please contact your medical provider and/or outpatient psychiatrist to have this done. Please go to scheduled outpatient appointment for aftercare treatment. If symptoms return or become worse, call the crisis line at and/or go to the nearest emergency room for evaluation Discharge Disposition: HOME SELF-CARE
[2021-07-05] MEDS: ACETAMINOPHEN TAB 325 MG TAB PO PRN (11:12)
== END 2021-07-05 15:23 | disposition home or self-care (01) | DRG 885 ==
LOC: EC 04:17 → 3MHU 08:05
PROVIDERS: ADMIT Psychiatry & Neurology Psychiatry; ATTEND Psychiatry & Neurology Psychiatry
PROC: 0HQEXZZ Repair Left Lower Arm Skin, External Approach (ICD-10-PCS; principal; 2021-07-03)
DX: F33.9 Major depressive disorder, recurrent, unspecified (principal); S61.512A Laceration without foreign body of left wrist, initial encounter; F12.10 Cannabis abuse, uncomplicated; G35 Multiple sclerosis; Z20.822 Contact with and (suspected) exposure to COVID-19; F14.10 Cocaine abuse, uncomplicated; F15.10 Other stimulant abuse, uncomplicated; F17.210 Nicotine dependence, cigarettes, uncomplicated; F60.3 Borderline personality disorder; F43.10 Post-traumatic stress disorder, unspecified; M79.7 Fibromyalgia; G89.29 Other chronic pain; G47.00 Insomnia, unspecified; X78.9XXA Intentional self-harm by unspecified sharp object, initial encounter; Z79.899 Other long term (current) drug therapy; Z82.49 Family history of ischemic heart disease and other diseases of the circulatory system; Z91.51 Personal history of suicidal behavior; Z91.52 Personal history of nonsuicidal self-harm; Z88.8 Allergy status to other drugs, medicaments and biological substances; Z88.6 Allergy status to analgesic agent; Z88.2 Allergy status to sulfonamides; Z88.1 Allergy status to other antibiotic agents; F90.9 Attention-deficit hyperactivity disorder, unspecified type; Z98.51 Tubal ligation status
CPT/HCPCS: 12002; 80053; 80061; 80306; 81003; 81025; 82075; 83036; 84443; 85025; 87635; 90715; 99285

== ENCOUNTER 2023-09-12 00:40 | Emergency (ER) | payer OTHER ==
[2023-09-12 01:14] LABS: Basophils # (A) 0.1 k/uL (0-0.2); Basophils % (A) 1 %; Eosinophils # (A) 0.1 k/uL (0-0.7); Eosinophils % (A) 1 %; HCT 39.8 % (34.0-46.0); HGB 12.9 gm/dL (11.4-16.0); Lymphocytes # (A) 1.9 k/uL (1.0-4.8); Lymphocytes % (A) 20 %; MCH 29.6 pg (25.0-35.0); MCHC 32.3 g/dL (31.0-37.0); MCV 91.6 fL (80.0-100.0); Mean Platelet Volume 8.7; Monocytes # (A) 0.5 k/uL (0-1.0); Monocytes % (A) 6 %; Neutrophils # (A) 6.8 k/uL (1.3-7.7); Neutrophils % (A) 71 %; Platelet Count 329 k/uL (150-450); RBC 4.34 m/uL (3.80-5.40); RDW 15.3 % (11.5-15.5); WBC 9.5 k/uL (3.8-10.6)
[2023-09-12 01:15] LABS: Appearance,Urine Clear (Clear); Bilirubin,Urine Negative (Negative); Blood,Urine Negative (Negative); Color,Urine Colorless; Glucose,Urine (UA) Negative (Negative); Ketones,Urine Negative (Negative); Leukocyte Esterase,Urine Negative (Negative); Nitrite,Urine Negative (Negative); Protein,Urine Negative (Negative); Specific Gravity,Urine 1.001 (1.001-1.035); Urobilinogen,Urine <2.0 mg/dL (<2.0)
[2023-09-12 01:24] LABS: ALT 16 U/L (4-34); AST 29 U/L (14-36); African American GFR (CKD) >90 (>60 ml/min/1.73 sqM); Albumin 4.8 g/dL (3.5-5.0); Alkaline Phosphatase 63 U/L (38-126); Amphetamine Screen,Urine Not Detected (NotDetected); Anion Gap 11 mmol/L; Barbiturate Screen,Urine Not Detected (NotDetected); Benzodiazepines Screen,Urine Not Detected (NotDetected); Blood Urea Nitrogen 12 mg/dL (7-17); Calcium 9.4 mg/dL (8.4-10.2); Carbon Dioxide 20 mmol/L (22-30); Chloride 110 mmol/L (98-107); Cocaine Screen,Urine Not Detected (NotDetected); Glucose 114 mg/dL (74-99); Methadone Screen, Urine Not Detected (NotDetected); Non-African American GFR(CKD) >90 (>60 ml/min/1.73 sqM); Opiate Screen,Urine Not Detected (NotDetected); Oxycodone Screen, Urine Not Detected (NotDetected); Phencyclidine Screen,Urine Not Detected (NotDetected); Potassium 3.8 mmol/L (3.5-5.1); Sodium 141 mmol/L (137-145); Total Bilirubin 0.5 mg/dL (0.2-1.3); Total Protein 7.5 g/dL (6.3-8.2); Tricyclic Antidepressant,Urine Not Detected (NotDetected); Urn Cannabinoid Scrn Detected (NotDetected)
[2023-09-12 02:08] LABS: Alcohol 117 mg/dL
[2023-09-12] MEDS: TOPICAL SKIN ADHESIVE 1 EACH AMP TOPICAL ONE (02:58)
--- NOTE | 2023-09-12 02:58 | ED ---
General Adult HPI - General Chief complaint: Extremity Injury, Upper Stated complaint: Mental Health Time Seen by Provider: 09/12/23 00:55 Source: patient, EMS Mode of arrival: EMS Limitations: no limitations - History of Present Illness Initial comments: 38-year-old female who presents emergency department with self-inflicted laceration. Patient has history of depression with multiple admissions. Patient has a self-inflicted cut to the left forearm. She denies being suicidal or homicidal. States that she was drinking alcohol and got in an argument with her significant other. She states that she needed some way to cope and therefore she needed to cuts to her left forearm. She denies any other drug use. No concern for . No other alleviating, precipitating or modifying factors - Related Data Previous Rx's Medication Instructions Recorded Albuterol Sulfate [Albuterol 2 puff INHALATION RT-Q6H PRN #1 10/16/20 Sulfate Hfa] inhaler Acetaminophen Tab [Tylenol] 650 mg PO Q4HR PRN tab 07/05/21 Citalopram Hydrobromide [CeleXA] 40 mg PO DAILY 30 Days tab 07/05/21 Nicotine 14Mg/24Hr Patch [Habitrol] 1 patch TRANSDERM DAILY 14 Days 07/05/21 patch hydrOXYzine pamoate [Vistaril] 25 mg PO BID PRN 30 Days cap 07/05/21 traZODone HCL [Desyrel] 100 mg PO HS 30 Days tab 07/05/21 Allergies Allergy/AdvReac Type Severity Reaction Status Date / Time NSAIDS (Non-Steroidal Allergy Dyspnea Verified 07/03/21 09:13 Anti-Inflamma prednisone AdvReac makes Verified 07/03/21 09:13 patient "mean" Sulfa (Sulfonamide AdvReac Rash/Hives Verified 07/03/21 09:13 Antibiotics) sulfamethoxazole AdvReac Rash/Hives Verified 07/03/21 09:13 [From Bactrim] trimethoprim [From Bactrim] AdvReac Rash/Hives Verified 07/03/21 09:13 Review of Systems ROS Statement: Those systems with pertinent positive or pertinent negative responses have been documented in the HPI. ROS Other: All systems not noted in ROS Statement are negative. Past Medical History Past Medical History: Fibromyalgia Additional Past Medical History / Comment(s): Achalasia cardia, dysphagia, chronic back pain, DDD, herniated discs, bilateral carpal tunnel syndrome, DJD, cyst on kidney, hypoglycemia, MS, pleurisy, right periorbital infection. History of Any Multi-Drug Resistant Organisms: MRSA Date of last positivie culture/infection: 03/25/20 MDRO Source:: Face Past Surgical History: Appendectomy, Section, Orthopedic Surgery, Tubal Ligation Additional Past Surgical History / Comment(s): c section x 3, EGD, Right knee surgery, robotic surgery for achalasia cardia-pt unclear, Past Anesthesia/Blood Transfusion Reactions: Motion Sickness Past Psychological History: ADD/ADHD, Anxiety, Bipolar, Depression, PTSD Smoking Status: Current every day smoker Past Alcohol Use History: Rare Past Drug Use History: Cocaine, Marijuana - Past Family History Father Family Medical History: Hyperlipidemia, Hypertension Mother Family Medical History: Fibromyalgia Additional Family Medical History / Comment(s): HIATAL HERNIA OSTEOPSORIS, DDD General Exam Limitations: no limitations General appearance: alert, in no apparent distress, appears intoxicated Head exam: Present: atraumatic, normocephalic, normal inspection Eye exam: Present: normal appearance, PERRL, EOMI. Absent: scleral icterus, conjunctival injection, periorbital swelling ENT exam: Present: normal exam, mucous membranes moist Neck exam: Present: normal inspection. Absent: tenderness, meningismus, lymphadenopathy Respiratory exam: Present: normal lung sounds bilaterally. Absent: respiratory distress, wheezes, rales, rhonchi, stridor Cardiovascular Exam: Present: regular rate, normal rhythm, normal heart sounds. Absent: systolic murmur, diastolic murmur, rubs, gallop, clicks GI/Abdominal exam: Present: soft, normal bowel sounds. Absent: distended, tenderness, guarding, rebound, rigid Extremities exam: Present: normal inspection, full ROM, normal capillary refill. Absent: tenderness, pedal edema, joint swelling, calf tenderness Back exam: Present: normal inspection Neurological exam: Present: alert, oriented X3, CN II-XII intact Psychiatric exam: Present: normal affect, normal mood Skin exam: Present: warm, dry, other (2 lacerations left forearmdistal is into subcutaneous tissue measuring 4 cm in length. More proximal laceration which is parallel also measures 4 cm in length however is superficial. No active bleeding). Absent: rash Course Vital Signs 09/12/23 09/12/23 09/12/23 00:51 02:58 04:54 Temperature 98.2 F 98.1 F Pulse Rate 92 90 77 Respiratory 18 18 17 Rate Blood Pressure 152/96 142/82 165/93 O2 Sat by Pulse 97 97 96 Oximetry Procedures - Laceration Laceration #1 Consent Obtained: verbal consent Indication: laceration Site: upper extremity Description: linear Depth: simple, single layer Anesthetic Used: lidocaine 1% Anesthesia Technique: local infiltration Amount (mls): 6 Pre-repair: wound explored, irrigated extensively, deep structures intact Type of Sutures: nylon Size of Sutures: 5-0 Number of Sutures: 4 Technique: simple, interrupted Patient Tolerated Procedure: well, no complications Additional Comments: Proximal laceration is approximated with Dermabond Medical Decision Making - Medical Decision Making Was pt. sent in by a medical professional or institution ([facility], HAT CHECKER, urgent care, hospital, or penitentiary...) When possible be specific @ -No Did you speak to anyone other than the patient for history (EMS, parent, family, police, friend...)? What history was obtained from this source @ -I spoke with EMS for history Did you review nursing and triage notes (agree or disagree)? Why? @ -I reviewed and agree with nursing and triage notes Were old charts reviewed (outside hosp., previous admission, EMS record, old EKG, old radiological studies, urgent care reports/EKG's, penitentiary records)? Report findings @ -No old charts were reviewed Differential Diagnosis (chest pain, altered mental status, abdominal pain women, abdominal pain men, vaginal bleeding, weakness, fever, dyspnea, syncope, headache, dizziness, GI bleed, back pain, seizure, CVA, palpatations, mental health, musculoskeletal)? @ -Differential Mental Health Depression, anxiety, bipolar, psychosis, schizophrenia, borderline personality, situational depression, adjustment disorder, behavioral disorder, brain tumor, malingering, substance abuse, encephalopathy, medication reaction, dementia, hypothyroidism, degenerative neurologic disorder, lupus.... This is not meant to be all-inclusive list EKG interpreted by me (3pts min.). @ -Not done X-rays interpreted by me (1pt min.). @ -None done CT interpreted by me (1pt min.). @ -None done U/S interpreted by me (1pt. min.). @ -None done What testing was considered but not performed or refused? (CT, X-rays, U/S, labs)? Why? @ -None What meds were considered but not given or refused? Why? @ -None Did you discuss the management of the patient with other professionals (professionals i.e. , PA, HAT CHECKER, lab, RT, psych nurse, criminal justice social worker, log hauler, teacher, development officer, telephonic case manager)? Give summary @ -Spoke with the EPS nurse who does come and evaluate the patient Was smoking cessation discussed for >3mins.? @ -No Was critical care preformed (if so, how long)? @ -No Were there social determinants of health that impacted care today? How? (Homelessness, low income, unemployed, alcoholism, drug addiction, transportation, low edu. Level, literacy, decrease access to med. care, penitentiary, rehab)? @ -No Was there de-escalation of care discussed even if they declined (Discuss DNR or withdrawal of care, Hospice)? DNR status @ -No What co-morbidities impacted this encounter? (DM, HTN, Smoking, COPD, CAD, Cancer, CVA, ARF, Chemo, Hep., AIDS, mental health diagnosis, sleep apnea, morbid obesity)? @ -Depression, self-harm behavior Was patient admitted / discharged? Hospital course, mention meds given and route, prescriptions, significant lab abnormalities, going to OR and other pertinent info. @ -Upon arrival patient was seen and evaluated in room 7. Thorough history and physical exam was performed. I did perform suture repair of the forearm laceration. Patient is intoxicated and therefore she is observed for 2 hours. She is then evaluated by EPS. They do feel that the patient is stable for discharge home. She denies suicidal homicidal ideations. Patient is to follow- up with her therapist for further management of her depression and self-harm behavior. Instructed to return for any new or worsening symptoms. Patient very agreeable to this plan and was discharged in stable condition Undiagnosed new problem with uncertain prognosis? @ -No Drug Therapy requiring intensive monitoring for toxicity (Heparin, Nitro, Insulin, Cardizem)? @ -No Were any procedures done? @ -No Diagnosis/symptom? @ -Self-inflicted laceration left forearm, depression, alcohol intoxication Acute, or Chronic, or Acute on Chronic? @Acute Uncomplicated (without systemic symptoms) or Complicated (systemic symptoms)? @ -Complicated Side effects of treatment? @ -No Exacerbation, Progression, or Severe Exacerbation? @ -No Poses a threat to life or bodily function? How? (Chest pain, [place], [place], pneumonia, PE, COPD, DKA, ARF, appy, cholecystitis, CVA, Diverticulitis, Homicidal, Suicidal, threat to staff... and all critical care pts) @ -Yes as patient purposely tried to hurt herself - Lab Data Result diagrams: 09/12/23 01:05 09/12/23 01:05 Lab Results 09/12/23 09/12/23 09/12/23 Range/Units 01:05 01:05 01:05 WBC 9.5 (3.8-10.6) k/uL RBC 4.34 (3.80-5.40) m/uL Hgb 12.9 (11.4-16.0) gm/dL Hct 39.8 (34.0-46.0) % MCV 91.6 (80.0-100.0) fL MCH 29.6 (25.0-35.0) pg MCHC 32.3 (31.0-37.0) g/dL RDW 15.3 (11.5-15.5) % Plt Count 329 (150-450) k/uL MPV 8.7 Neutrophils % 71 % Lymphocytes % 20 % Monocytes % 6 % Eosinophils % 1 % Basophils % 1 % Neutrophils # 6.8 (1.3-7.7) k/uL Lymphocytes # 1.9 (1.0-4.8) k/uL Monocytes # 0.5 (0-1.0) k/uL Eosinophils # 0.1 (0-0.7) k/uL Basophils # 0.1 (0-0.2) k/uL Sodium 141 (137-145) mmol/L Potassium 3.8 (3.5-5.1) mmol/L Chloride 110 H (98-107) mmol/L Carbon Dioxide 20 L (22-30) mmol/L Anion Gap 11 mmol/L BUN 12 (7-17) mg/dL Creatinine 0.77 (0.52-1.04) mg/dL Est GFR (CKD-EPI)AfAm >90 (>60 ml/min/1.73 sqM) Est GFR (CKD-EPI)NonAf >90 (>60 ml/min/1.73 sqM) Glucose 114 H (74-99) mg/dL Calcium 9.4 (8.4-10.2) mg/dL Total Bilirubin 0.5 (0.2-1.3) mg/dL AST 29 (14-36) U/L ALT 16 (4-34) U/L Alkaline Phosphatase 63 (38-126) U/L Total Protein 7.5 (6.3-8.2) g/dL Albumin 4.8 (3.5-5.0) g/dL Urine Color Colorless Urine Appearance Clear (Clear) Urine pH 6.0 (5.0-8.0) Ur Specific [place] 1.001 (1.001-1.035) Urine Protein Negative (Negative) Urine Glucose (UA) Negative (Negative) Urine Ketones Negative (Negative) Urine Blood Negative (Negative) Urine Nitrite Negative (Negative) Urine Bilirubin Negative (Negative) Urine Urobilinogen <2.0 (<2.0) mg/dL Ur Leukocyte Esterase Negative (Negative) Urine Opiates Screen Not Detected (NotDetected) Ur Oxycodone Screen Not Detected (NotDetected) Urine Methadone Screen Not Detected (NotDetected) Ur Barbiturates Screen Not Detected (NotDetected) U Tricyclic Antidepress Not Detected (NotDetected) Ur Phencyclidine Scrn Not Detected (NotDetected) Ur Amphetamines Screen Not Detected (NotDetected) U Methamphetamines Scrn Not Detected (NotDetected) U Benzodiazepines Scrn Not Detected (NotDetected) Urine Cocaine Screen Not Detected (NotDetected) U Marijuana (THC) Screen Detected H (NotDetected) Serum Alcohol 117 mg/dL Disposition Clinical Impression: Self-inflicted laceration of left wrist Disposition: HOME SELF-CARE Condition: Stable Instructions (If sedation given, give patient instructions): Care For Your Stitches (ED) Additional Instructions: Please have your stitches removed in 7-10 days. Is patient prescribed a controlled substance at d/c from ED?: No Referrals: None,Stated [Primary Care Provider] - 1-2 days Time of Disposition: 04:35
[2023-09-12 04:56] VITALS: BP 165/93; PULSE 77; RESP 17; TEMP 98.1
== END 2023-09-12 04:56 | disposition home or self-care (01) ==
LOC: EC 00:40
DX: S61.512A Laceration without foreign body of left wrist, initial encounter (principal); F14.90 Cocaine use, unspecified, uncomplicated; F17.200 Nicotine dependence, unspecified, uncomplicated; F12.90 Cannabis use, unspecified, uncomplicated; Z88.2 Allergy status to sulfonamides; Z88.1 Allergy status to other antibiotic agents; Z88.6 Allergy status to analgesic agent; Z88.8 Allergy status to other drugs, medicaments and biological substances; X78.9XXA Intentional self-harm by unspecified sharp object, initial encounter
CPT/HCPCS: 82075; 36415; 80053; 85025; 81003; 80306; 99284; 12001; G0480; 80320